=== PATIENT | female | born 1950 | race Caucasian/White ===

== ENCOUNTER 2016-09-13 08:41 | Outpatient (RCR) | payer MEDICARE, MEDICAID ==
--- OUTSIDE RECORDS SUMMARY | 2016-06-19 13:04 | XMS REPORT | Continuity of Care Document ---
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 If you do not see the information that you expected, contact Release of Information in the Health Information Management department at [phone] for further assistance in locating additional records.[facility] Active Allergies and Adverse Reactions No Known Allergies Current Medications Prescription Sig. Disp. Refills Start End Date Status Date morphine SR (MS CONTIN; Take 30 mg by mouth every Active ORAMORPH SR) 30 mg tablet 12 hours albuterol (VENTOLIN HFA, Inhale 2 Puffs by mouth Active PROAIR HFA) 90 every 6 hours as needed. mcg/actuation inhaler ondansetron (ZOFRAN) 8 mg Take 1 Tab by mouth every 30 Tab 0 07/10/20 Active tablet 8 hours as needed. 14 ALPRAZolam (XANAX) 1 mg Take 1 mg by mouth at Active tablet bedtime as needed. gabapentin (NEURONTIN) Take 1 Cap by mouth at 30 Cap 3 20/20 Active 300 mg capsule bedtime daily. 14 oxyCODONE (ROXICODONE) 5 Take 1 Tab by mouth every 30 Tab 0 20/20 Active mg tablet 4 hours as needed 14 aspirin EC 81 mg tablet Take 162 mg by mouth Active daily. levothyroxine (SYNTHROID) Take 50 mcg by mouth Active 25 mcg tablet daily. BUDESONIDE/FORMOTEROL Inhale by mouth. Active FUMARATE (SYMBICORT IN) omeprazole DR(+) Take 20 mg by mouth daily Active (PRILOSEC) 20 mg capsule before breakfast. calcium carbonate Take 1,250 mg by mouth Active (OS-ALISON) 1250 mg tablet daily. fish oil /omega-3 fatty Take 1 Cap by mouth Active acids (SEA-OMEGA) daily. 340/1000 mg capsule ERGOCALCIFEROL (VITAMIN Take 1,000 Int'l Units by Active D2) (VITAMIN D PO) mouth daily. sertraline (ZOLOFT) 50 mg Take 2 Tabs by mouth 90 Tab 0 04/09/20 Active tablet daily. 16 sulfamethoxazole-trimetho Take 1 Tab by mouth twice Active prim (BACTRIM DS) 800-160 daily. Saturday, mg tablet Wednesdays, Fridays Active Problems Problem Noted Date Leukopenia 10/05/2014 Seborrheic dermatitis 10/05/2014 Pancytopenia due to chemotherapy ([facility]) 04/13/2014 Severe malnutrition ([facility]) 04/13/2014 Failure to thrive 03/28/2014 Pleural effusion 03/21/2014 Atelectasis 03/21/2014 Hypophosphatemia 03/19/2014 Mucositis (ulcerative) due to antineoplastic therapy 03/16/2014 Pancytopenia due to antineoplastic chemotherapy ([facility]) 03/15/2014 Diarrhea 03/15/2014 History of peripheral stem cell transplant ([facility]) 03/10/2014 Overview: Date of Transplant: 03/12/2014 Preparative Regimen: Melphalan 200, with HBO Disease: MM, IgA Disease Status at Transplant: Chemo Responsive CMV: positive Cell Source: autologous Consents/Studies:[id number], [id number] Coordinator: Gemini Daigle RN Multiple myeloma ([facility]) 03/03/2014 COPD (chronic obstructive pulmonary disease) ([facility]) 02/25/2014 Resolved Problems Problem Noted Date Resolved Date 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 10/05/2014 Hypomagnesemia 03/19/2014 10/05/2014 Nausea 03/15/2014 10/05/2014 Hypokalemia 03/12/2014 10/05/2014 Conditioning chemotherapy prior to peripheral blood stem cell transplant 10/05/2014 History of tobacco use 02/25/2014 02/25/2014 Most Recent Encounters Date Type Specialty Providers Description 06/19/2016 Orders Only Oncology Odin Cowan MD 06/15/2016 Telephone Oncology Irina Lo RN BMT Follow-up 06/15/2016 Orders Only Oncology Irina Lo RN Multiple myeloma, remission status unspecified (HCC) [C90.00] (Primary Dx); Peripheral venous insufficiency; Disorder of lipoprotein and lipid metabolism 06/12/2016 Telephone Oncology Irina Lo RN BMT Follow-up 04/09/2016 Office Visit Oncology Claudia Reno MD Multiple myeloma in [facility], [place] Odin remission (HCC) (Primary Dx); Multiple myeloma in relapse (HCC) 04/09/2016 Telephone Oncology Layla Knott RN General Question 04/06/2016 Documentation Oncology Larisa Champion Immunizations Name Dates Previously Given Next Due Acthib Vaccine 08/08/2015, 10/05/2014 Flu Vaccine Trivalent >64 07/07/2014 Yo High-dose (Preservative Free) Hepatitis A vaccine Adult 10/05/2014 IM Hepatitis B Vaccine Adult 10/05/2014 3 Dose IM IPV 08/08/2015, 10/05/2014 Meningococcal Conjug 10/05/2014 Vaccine Pneumococcal 08/08/2015, 10/05/2014 Vaccine(13-[facility]/immunocompromised adult) Tdap Vaccine 08/08/2015, 10/05/2014 Social History Tobacco Use Types Packs/Day Years Used Date Former Smoker 1 40 Quit: 09/16/2001 Tobacco Cessation: Counseling Given: No Comments: Alcohol Use Drinks/Week oz/Week Comments No Last Filed Vital Signs Vital Sign Reading Time Taken Blood Pressure 121/77 04/09/2016 11:26 AM CDT Pulse 96 04/09/2016 11:26 AM CDT Temperature 36.9 C (98.5 F) 04/09/2016 11:26 AM CDT Respiratory Rate 16 04/09/2016 11:26 AM CDT Height 1.626 m (5' 4.02") 04/09/2016 11:26 AM CDT Weight 63.2 kg (139 lb 5.3 oz) 04/09/2016 11:26 AM CDT Body Mass Index 23.9 04/09/2016 11:26 AM CDT Oxygen Saturation 96% 04/09/2016 11:26 AM CDT Plan of Care Date Type Specialty Providers Description 07/19/2016 Appointment Oncology Odin Cowan MD [id number] [place] [id number] [phone] (Fax) 07/19/2016 Appointment Oncology Irina Lo RN 07/19/2016 Appointment Oncology Health Maintenance Due Date Last Done Comments Hepatitis C Screening 1950 Physical (Comprehensive) 02/11/1956 Exam Colorectal Cancer 1999 Screening Shingles Vaccine 2009 Osteoporosis Screening 2014 Prevnar/Pneumovax (#2) 10/05/2015 08/08/2015, 10/05/2014 Breast Cancer Screening 02/18/2016 02/17/2014 Influenza Vaccine 05/17/2016 07/07/2014 Tetanus Vaccine 08/08/2025 08/08/2015, 10/05/2014 Pertussis Vaccine Completed 08/08/2015, 10/05/2014 Results from Last 3 Months TYPE & CROSSMATCH (04/09/2016 1:09 PM) Component Value Range Units Ordered 0 Crossmatch Expires 04/12/2016 Record Check FOUND ABO/RH(D) O NEG Antibody Screen NEG Electronic Crossmatch YES Specimen Blood IMMUNOGLOBULINS-IGA,IGG,IGM (04/09/2016 1:09 PM) Component Value Range IgG 505 (L) 762-1488 MG/DL IgA 1151 (H) 70-390 MG/DL IgM 28 (L) 38-328 MG/DL Specimen Blood IMMUNOFIXATION, SERUM (IFES) (04/09/2016 1:09 PM) Component Value Range Immuno Fix-Serum IGA KAPPA PARAPROTEIN Pathologist Signature INTERPRETED BY JESSEE LUCAS M.D. By the PATH SIGNATURE ABOVE, I attest that I have personally formulated the final interpretation expressed in this report and that the above diagnosis is based upon my examination of the slides and/or other material indicated in this report. Specimen Blood KAPPA/LAMBDA FREE LIGHT CHAINS (04/09/2016 1:09 PM) Component Value Range [place], FLC 97.98 (H)Comment: 0.33-1.94 MG/DL [facility]el[facility] results should always be interpreted in conjunction with other laboratory tests and clinical evidence. The possibility of Antigen Excess exists and can cause Immunoassays to under estimate very high concentrations of antigen. Any discordant results should be discussed with Dr. Lucas. Note: Testing instrumentation has changed. The reference range remains the same. L[place], FLC 1.00 0.57-2.63 MG/DL [place]/Lambda FLC 97.98 (H) 0.26-1.65 Specimen Blood COMPREHENSIVE METABOLIC PANEL (04/09/2016 1:09 PM) Component Value Range Sodium 134 (L) 137-147 MMOL/L Potassium 4.0 3.5-5.1 MMOL/L Chloride 99 98-110 MMOL/L Glucose 85 70-100 MG/DL Blood Urea Nitrogen 21 7-25 MG/DL Creatinine 0.95 0.4-1.00 MG/DL Calcium 8.4 (L) 8.5-10.6 MG/DL Total Protein 6.9 6.0-8.0 G/DL Total Bilirubin 0.4 0.3-1.2 MG/DL Albumin 3.5 3.5-5.0 G/DL Alk Phosphatase 45 25-110 U/L AST (SGOT) 9 7-40 U/L CO2 30 21-30 MMOL/L ALT (SGPT) 9 7-56 U/L Anion Gap 5 3-12 eGFR Non 59 (L)Comment: >60 mL/min The eGFR is not validated for use in drug dosing adjustments. Continue to use estimated creatinine clearance per dosing reference text. Please contact the Clinical Pharmacist for questions. eGFR >60Comment: >60 mL/min The eGFR is not validated for use in drug dosing adjustments. Continue to use estimated creatinine clearance per dosing reference text. Please contact the Clinical Pharmacist for questions. Specimen Blood CBC AND DIFF (04/09/2016 1:09 PM) Component Value Range White Blood Cells 1.8 (L) 4.5-11.0 K/UL RBC 2.97 (L) 4.0-5.0 M/UL Hemoglobin 9.8 (L) 12.0-15.0 GM/DL Hematocrit 29.0 (L) 36-45 % MCV 97.9 80-100 FL MCH 32.9 26-34 PG MCHC 33.6 32.0-36.0 G/DL RDW 16.2 (H) 11-15 % Platelet Count 108 (L) 150-400 K/UL MPV 7.9 7-11 FL Neutrophils 42 41-77 % Lymphocytes 38 24-44 % Monocytes 13 (H) 4-12 % Eosinophils 6 (H) 0-5 % Basophils 1 0-2 % Absolute Neutrophil Count 0.80 (L) 1.8-7.0 K/UL Absolute Lymph Count 0.70 (L) 1.0-4.8 K/UL Absolute Monocyte Count 0.20 0-0.80 K/UL Absolute Eosinophil Count 0.10 0-0.45 K/UL Absolute Basophil Count 0.00 0-0.20 K/UL Specimen Blood
[2016-06-19 13:23] LABS: BASOPHILS % (AUTO) 1 % (0-10); EOSINOPHILS # (AUTO) 0.1 10^3/uL (0.0-0.3); EOSINOPHILS % (AUTO) 3 % (0-10); LYMPHOCYTES # (AUTO) 0.7 X 10^3 (1.0-4.0); LYMPHOCYTES % (AUTO) 30 % (12-44); MEAN CORPUSCULAR HEMOGLOBIN 35 PG (25-34); MEAN CORPUSCULAR HGB CONC 34 G/DL (32-36); MEAN CORPUSCULAR VOLUME 104 FL (80-99); MEAN PLATELET VOLUME 8.4 FL (7.4-10.4); MONOCYTES # (AUTO) 0.3 X 10^3 (0.0-1.0); MONOCYTES % (AUTO) 14 % (0-12); NEUTROPHILS # (AUTO) 1.1 X 10^3 (1.8-7.8); NEUTROPHILS % (AUTO) 51 % (42-75); PLATELET COUNT 192 10^3/uL (130-400); RED BLOOD COUNT 2.97 10^6/uL (4.35-5.85); RED CELL DISTRIBUTION WIDTH 14.8 % (10.0-14.5); WHITE BLOOD COUNT 2.2 10^3/uL (4.3-11.0)
[2016-06-26 13:26] LABS: BASOPHILS % (AUTO) 0 % (0-10); EOSINOPHILS # (AUTO) 0.1 10^3/uL (0.0-0.3); EOSINOPHILS % (AUTO) 5 % (0-10); LYMPHOCYTES # (AUTO) 0.5 X 10^3 (1.0-4.0); LYMPHOCYTES % (AUTO) 24 % (12-44); MEAN CORPUSCULAR HEMOGLOBIN 34 PG (25-34); MEAN CORPUSCULAR HGB CONC 33 G/DL (32-36); MEAN CORPUSCULAR VOLUME 105 FL (80-99); MEAN PLATELET VOLUME 9.2 FL (7.4-10.4); MONOCYTES # (AUTO) 0.2 X 10^3 (0.0-1.0); MONOCYTES % (AUTO) 10 % (0-12); NEUTROPHILS # (AUTO) 1.3 X 10^3 (1.8-7.8); NEUTROPHILS % (AUTO) 61 % (42-75); PLATELET COUNT 103 10^3/uL (130-400); RED BLOOD COUNT 2.79 10^6/uL (4.35-5.85); RED CELL DISTRIBUTION WIDTH 14.1 % (10.0-14.5); WHITE BLOOD COUNT 2.1 10^3/uL (4.3-11.0)
[2016-06-26 13:46] LABS: ANION GAP 13 MMOL/L (5-14); BLOOD UREA NITROGEN 10 MG/DL (7-18); BUN/CREATININE RATIO 12; CALCIUM 8.5 MG/DL (8.5-10.1); CARBON DIOXIDE 22 MMOL/L (21-32); CHLORIDE 105 MMOL/L (98-107); CREATININE SERUM 0.82 MG/DL (0.60-1.30); GFR ESTIMATED > 60; GLUCOSE 115 MG/DL (70-105); POTASSIUM 3.7 MMOL/L (3.6-5.0); SODIUM 140 MMOL/L (135-145)
[2016-07-03 13:15] LABS: BASOPHILS % (AUTO) 0 % (0-10); EOSINOPHILS # (AUTO) 0.2 10^3/uL (0.0-0.3); EOSINOPHILS % (AUTO) 9 % (0-10); LYMPHOCYTES # (AUTO) 0.7 X 10^3 (1.0-4.0); LYMPHOCYTES % (AUTO) 39 % (12-44); MEAN CORPUSCULAR HEMOGLOBIN 35 PG (25-34); MEAN CORPUSCULAR HGB CONC 33 G/DL (32-36); MEAN CORPUSCULAR VOLUME 107 FL (80-99); MEAN PLATELET VOLUME 10.4 FL (7.4-10.4); MONOCYTES # (AUTO) 0.2 X 10^3 (0.0-1.0); MONOCYTES % (AUTO) 13 % (0-12); NEUTROPHILS # (AUTO) 0.7 X 10^3 (1.8-7.8); NEUTROPHILS % (AUTO) 39 % (42-75); PLATELET COUNT 106 10^3/uL (130-400); RED BLOOD COUNT 2.72 10^6/uL (4.35-5.85); RED CELL DISTRIBUTION WIDTH 13.8 % (10.0-14.5); WHITE BLOOD COUNT 1.7 10^3/uL (4.3-11.0)
[2016-07-03 13:39] LABS: CALCIUM 8.5 MG/DL (8.5-10.1); CREATININE SERUM 0.94 MG/DL (0.60-1.30); POTASSIUM 3.7 MMOL/L (3.6-5.0)
[2016-07-05 11:27] LABS: PEP REPORT SEE PATH REPORT
[2016-07-05 11:29] LABS: BASOPHILS % (AUTO) 0 % (0-10); EOSINOPHILS % (AUTO) 1 % (0-10); LYMPHOCYTES # (AUTO) 0.4 X 10^3 (1.0-4.0); LYMPHOCYTES % (AUTO) 37 % (12-44); MEAN CORPUSCULAR HEMOGLOBIN 35 PG (25-34); MEAN CORPUSCULAR HGB CONC 33 G/DL (32-36); MEAN CORPUSCULAR VOLUME 105 FL (80-99); MEAN PLATELET VOLUME 10.1 FL (7.4-10.4); MONOCYTES # (AUTO) 0.2 X 10^3 (0.0-1.0); MONOCYTES % (AUTO) 20 % (0-12); NEUTROPHILS # (AUTO) 0.5 X 10^3 (1.8-7.8); NEUTROPHILS % (AUTO) 43 % (42-75); PLATELET COUNT 82 10^3/uL (130-400); RED BLOOD COUNT 2.67 10^6/uL (4.35-5.85); RED CELL DISTRIBUTION WIDTH 13.4 % (10.0-14.5); RETICULOCYTE % 2.25 % (0.50-2.40)
[2016-07-05 11:35] LABS: WHITE BLOOD COUNT 1.2 10^3/uL (4.3-11.0)
[2016-07-05 11:48] LABS: PROTHROMBIN TIME PATIENT 12.9 SEC (12.2-14.7)
[2016-07-05 11:54] LABS: ALBUMIN 3.9 G/DL (3.2-4.5); BILIRUBIN,TOTAL 0.4 MG/DL (0.1-1.0); CALCIUM 9.9 MG/DL (8.5-10.1); CREATININE SERUM 1.04 MG/DL (0.60-1.30); MAGNESIUM 2.2 MG/DL (1.8-2.4); PHOSPHORUS 3.6 MG/DL (2.3-4.7); POTASSIUM 3.6 MMOL/L (3.6-5.0); TOTAL PROTEIN 6.1 G/DL (6.4-8.2)
[2016-07-05 12:07] LABS: BAND NEUTROPHILS 2 %; EOSINOPHILS % (MANUAL) 2 %; LYMPHOCYTES % (MANUAL) 40 %; NEUTROPHILS % (MANUAL) 40 %
[2016-07-05 16:26] LABS: %SAT TOTAL IRON BINDING CAPIC 38 % (15-50); TIBC 288 ug/dL (280-380)
[2016-07-06 02:05] LABS: LIGHT CHAIN KAPPA SERUM QUANT 503.97 mg/L (3.30-19.40); LIGHT CHAIN LAMBDA SERUM QUANT 6.14 mg/L (5.71-26.30)
[2016-07-06 02:19] LABS: IMMUNOGLOBULIN IGA 297 mg/dL (71-263); IMMUNOGLOBULIN IGG 401 mg/dL (672-1680)
[2016-07-06 06:56] LABS: UIBC 179 ug/dL (55-450)
[2016-07-06 06:57] LABS: FERRITIN 272 ng/mL (15-150)
[2016-07-06 07:05] LABS: IMMUNOGLOBULIN IGM <10 mg/dL (47-209)
[2016-07-09 16:23] LABS: MISC LAB TEST & RESULT VRE SCREEN
[2016-07-10 09:41] LABS: CLIN PATHOLOGY REPORT FOOTNOTE; SERUM PROTEIN ELEC DETAIL L-16-0013398
[2016-07-10 14:15] LABS: BASOPHILS % (AUTO) 1 % (0-10); EOSINOPHILS # (AUTO) 0.1 10^3/uL (0.0-0.3); EOSINOPHILS % (AUTO) 6 % (0-10); LYMPHOCYTES # (AUTO) 0.7 X 10^3 (1.0-4.0); LYMPHOCYTES % (AUTO) 41 % (12-44); MEAN CORPUSCULAR HEMOGLOBIN 34 PG (25-34); MEAN CORPUSCULAR HGB CONC 32 G/DL (32-36); MEAN CORPUSCULAR VOLUME 106 FL (80-99); MEAN PLATELET VOLUME 9.4 FL (7.4-10.4); MONOCYTES # (AUTO) 0.3 X 10^3 (0.0-1.0); MONOCYTES % (AUTO) 17 % (0-12); NEUTROPHILS # (AUTO) 0.6 X 10^3 (1.8-7.8); NEUTROPHILS % (AUTO) 35 % (42-75); PLATELET COUNT 94 10^3/uL (130-400); RED BLOOD COUNT 2.45 10^6/uL (4.35-5.85); WHITE BLOOD COUNT 1.6 10^3/uL (4.3-11.0)
[2016-07-10 15:16] LABS: CALCIUM 8.2 MG/DL (8.5-10.1); CREATININE SERUM 1.07 MG/DL (0.60-1.30); POTASSIUM 4.2 MMOL/L (3.6-5.0)
[2016-08-06 15:00] LABS: BASOPHILS % (AUTO) 0 % (0-10); EOSINOPHILS # (AUTO) 0.1 10^3/uL (0.0-0.3); EOSINOPHILS % (AUTO) 3 % (0-10); LYMPHOCYTES # (AUTO) 0.9 X 10^3 (1.0-4.0); LYMPHOCYTES % (AUTO) 40 % (12-44); MEAN CORPUSCULAR HEMOGLOBIN 33 PG (25-34); MEAN CORPUSCULAR HGB CONC 32 G/DL (32-36); MEAN CORPUSCULAR VOLUME 105 FL (80-99); MEAN PLATELET VOLUME 8.2 FL (7.4-10.4); MONOCYTES # (AUTO) 0.2 X 10^3 (0.0-1.0); MONOCYTES % (AUTO) 9 % (0-12); NEUTROPHILS # (AUTO) 1.1 X 10^3 (1.8-7.8); NEUTROPHILS % (AUTO) 48 % (42-75); PLATELET COUNT 118 10^3/uL (130-400); RED BLOOD COUNT 2.74 10^6/uL (4.35-5.85); RED CELL DISTRIBUTION WIDTH 13.6 % (10.0-14.5); WHITE BLOOD COUNT 2.3 10^3/uL (4.3-11.0)
[2016-08-06 15:38] LABS: ALANINE AMINOTRANSFERASE 7 U/L (0-55); ANION GAP 6 MMOL/L (5-14); ASPARTATE AMINO TRANSFERASE 10 U/L (5-34); BILIRUBIN,TOTAL 0.3 MG/DL (0.1-1.0); BLOOD UREA NITROGEN 10 MG/DL (7-18); BUN/CREATININE RATIO 12; CALCIUM 9.1 MG/DL (8.5-10.1); CARBON DIOXIDE 31 MMOL/L (21-32); CHLORIDE 103 MMOL/L (98-107); CREATININE SERUM 0.83 MG/DL (0.60-1.30); GFR ESTIMATED > 60; GLUCOSE 106 MG/DL (70-105); LACTATE DEHYDROGENASE 157 U/L (125-220); MAGNESIUM 1.9 MG/DL (1.8-2.4); POTASSIUM 3.9 MMOL/L (3.6-5.0); SODIUM 140 MMOL/L (135-145); TOTAL PROTEIN 6.3 G/DL (6.4-8.2)
[2016-08-07 02:49] LABS: IMMUNOGLOBULIN IGA 506 mg/dL (71-263); IMMUNOGLOBULIN IGG 418 mg/dL (672-1680); LIGHT CHAIN KAPPA SERUM QUANT 949.79 mg/L (3.30-19.40); LIGHT CHAIN LAMBDA SERUM QUANT 8.41 mg/L (5.71-26.30)
[2016-08-07 08:48] LABS: IMMUNOGLOBULIN IGM <10 mg/dL (47-209)
[2016-08-16 08:52] LABS: BASOPHILS % (AUTO) 0 % (0-10); EOSINOPHILS # (AUTO) 0.1 10^3/uL (0.0-0.3); EOSINOPHILS % (AUTO) 2 % (0-10); LYMPHOCYTES # (AUTO) 0.7 X 10^3 (1.0-4.0); LYMPHOCYTES % (AUTO) 34 % (12-44); MEAN CORPUSCULAR HEMOGLOBIN 33 PG (25-34); MEAN CORPUSCULAR HGB CONC 32 G/DL (32-36); MEAN CORPUSCULAR VOLUME 102 FL (80-99); MEAN PLATELET VOLUME 8.4 FL (7.4-10.4); MONOCYTES # (AUTO) 0.2 X 10^3 (0.0-1.0); MONOCYTES % (AUTO) 9 % (0-12); NEUTROPHILS # (AUTO) 1.1 X 10^3 (1.8-7.8); NEUTROPHILS % (AUTO) 55 % (42-75); PLATELET COUNT 121 10^3/uL (130-400); RED BLOOD COUNT 2.94 10^6/uL (4.35-5.85); RED CELL DISTRIBUTION WIDTH 13.1 % (10.0-14.5); WHITE BLOOD COUNT 2.1 10^3/uL (4.3-11.0)
[2016-08-16 09:12] LABS: ANION GAP 10 MMOL/L (5-14); BLOOD UREA NITROGEN 10 MG/DL (7-18); BUN/CREATININE RATIO 13; CALCIUM 8.9 MG/DL (8.5-10.1); CARBON DIOXIDE 26 MMOL/L (21-32); CHLORIDE 104 MMOL/L (98-107); GFR ESTIMATED > 60; GLUCOSE 66 MG/DL (70-105); POTASSIUM 3.6 MMOL/L (3.6-5.0); SODIUM 140 MMOL/L (135-145)
[2016-08-23 08:32] LABS: BASOPHILS % (AUTO) 0 % (0-10); EOSINOPHILS % (AUTO) 3 % (0-10); LYMPHOCYTES # (AUTO) 0.5 X 10^3 (1.0-4.0); LYMPHOCYTES % (AUTO) 33 % (12-44); MEAN CORPUSCULAR HEMOGLOBIN 33 PG (25-34); MEAN CORPUSCULAR HGB CONC 34 G/DL (32-36); MEAN CORPUSCULAR VOLUME 100 FL (80-99); MONOCYTES # (AUTO) 0.1 X 10^3 (0.0-1.0); MONOCYTES % (AUTO) 6 % (0-12); NEUTROPHILS # (AUTO) 0.8 X 10^3 (1.8-7.8); NEUTROPHILS % (AUTO) 58 % (42-75); PLATELET COUNT 110 10^3/uL (130-400); RED BLOOD COUNT 2.96 10^6/uL (4.35-5.85); RED CELL DISTRIBUTION WIDTH 12.9 % (10.0-14.5); WHITE BLOOD COUNT 1.5 10^3/uL (4.3-11.0)
[2016-08-23 08:53] LABS: ANION GAP 12 MMOL/L (5-14); BLOOD UREA NITROGEN 13 MG/DL (7-18); BUN/CREATININE RATIO 16; CALCIUM 8.6 MG/DL (8.5-10.1); CARBON DIOXIDE 23 MMOL/L (21-32); CHLORIDE 106 MMOL/L (98-107); GFR ESTIMATED > 60; GLUCOSE 101 MG/DL (70-105); POTASSIUM 3.6 MMOL/L (3.6-5.0); SODIUM 141 MMOL/L (135-145)
[2016-08-30 08:55] LABS: BASOPHILS % (AUTO) 0 % (0-10); EOSINOPHILS % (AUTO) 2 % (0-10); LYMPHOCYTES # (AUTO) 0.6 X 10^3 (1.0-4.0); LYMPHOCYTES % (AUTO) 32 % (12-44); MEAN CORPUSCULAR HEMOGLOBIN 33 PG (25-34); MEAN CORPUSCULAR HGB CONC 33 G/DL (32-36); MEAN CORPUSCULAR VOLUME 101 FL (80-99); MEAN PLATELET VOLUME 8.6 FL (7.4-10.4); MONOCYTES # (AUTO) 0.4 X 10^3 (0.0-1.0); MONOCYTES % (AUTO) 20 % (0-12); NEUTROPHILS # (AUTO) 0.8 X 10^3 (1.8-7.8); NEUTROPHILS % (AUTO) 46 % (42-75); PLATELET COUNT 109 10^3/uL (130-400); RED BLOOD COUNT 3.03 10^6/uL (4.35-5.85); WHITE BLOOD COUNT 1.8 10^3/uL (4.3-11.0)
[2016-08-30 09:19] LABS: CALCIUM 8.8 MG/DL (8.5-10.1); CREATININE SERUM 0.95 MG/DL (0.60-1.30); POTASSIUM 3.5 MMOL/L (3.6-5.0)
[2016-09-06 09:17] LABS: BASOPHILS % (AUTO) 0 % (0-10); EOSINOPHILS % (AUTO) 4 % (0-10); LYMPHOCYTES # (AUTO) 0.5 X 10^3 (1.0-4.0); LYMPHOCYTES % (AUTO) 51 % (12-44); MEAN CORPUSCULAR HEMOGLOBIN 33 PG (25-34); MEAN CORPUSCULAR HGB CONC 33 G/DL (32-36); MEAN CORPUSCULAR VOLUME 100 FL (80-99); MONOCYTES # (AUTO) 0.1 X 10^3 (0.0-1.0); MONOCYTES % (AUTO) 12 % (0-12); NEUTROPHILS # (AUTO) 0.3 X 10^3 (1.8-7.8); NEUTROPHILS % (AUTO) 33 % (42-75); PLATELET COUNT 111 10^3/uL (130-400); RED BLOOD COUNT 3.07 10^6/uL (4.35-5.85); RED CELL DISTRIBUTION WIDTH 13.2 % (10.0-14.5)
[2016-09-06 09:43] LABS: CALCIUM 9.2 MG/DL (8.5-10.1); CREATININE SERUM 1.11 MG/DL (0.60-1.30)
[~2016-09-13] VITALS: Ht 160 cm; Wt 67.6 kg
[~2016-09-13 08:41] MED LIST: ACET-461 PO; ACETAMINOPHEN 325 MG TAB (TYLENOL) CANCER CTR PO PRN; ACHYD1T PO; ACLI400A IH; ACYC400T21 PO; ALBU8.5H2 IH; ALPR1T PO; ALPR1TAB7 PO; AMLO10TA PO; ASPI-875 PO; BSC10SU PR; BUDE6HFA IH; CALC-80 PO; CARFILZOMIB IV SCH; CHOL200035 PO; CYCL10TA9 PO; D5W IV SCH; DARATUMUMAB IV SCH; DCS100C PO; DXM4T PO; Diphenhydramine Hcl IV; Diphenhydramine Hcl PO; ENXP40I.4 SC; FAMOTIDINE 20MG/2ML IV (CANCER CTR) IV SCH; Fluconazole PO; GABA-488 PO; GBPN100C PO; HYDR-229 PO; HYDR-34 PO; HYDR-623 PO; LENA25CA PO; LORA10TA56 PO; Levofloxacin PO; MAGN400O7 PO; MORP30CA16 PO; MORP30TA5 PO; MTP25TSR PO; NAPR-243 PO; NAPR250T34 PO; NF-ESOM40C PO; NS IV 1000 ML (CANCER CTR) IV SCH; NS IV 500 ML (CANCER CENTER) IV SCH; NS IV SCH; OMEG1CAP51 PO; OMEP20CA12 PO; ONDA-41 PO; ONDA8TAB6 PO; ONDANSETRON MDV (CANCER CENTER 16 MG in NS (IVPB) CANCER CENTER 50 ML IV SCH; ONDANSETRON MDV (CANCER CENTER 16 MG, DEXAMETHASONE INJ (CANCER CTR) 4 MG in NS (IVPB) ... IV SCH; OXYC1TAB92 PO; OXYC5TAB71 PO; PALONOSETRON HCL 0.25 MG, DEXAMETHASONE INJ (CANCER CTR) 4 MG in NS (IVPB) CANCER CENTE... IV PRN; PNT40TEC PO; POTA99TA15 PO; Pantoprazole Sodium PO; REVLIMID 10MG PO; RNT150T PO; SENN-35 PO; SERT100T8 PO; SERT50TA PO; SNN187T; SORB1SOL2 PO; SULF1TAB38 PO; diphenhydrAMINE 25 MG TAB (BENADRYL) CANCER CENTER PO SCH; diphenhydrAMINE 50 MG/ML INJ (CANCER CENTER) IV PRN; methylPREDNISolone 125 MG/2 ML (SOLU-MEDROL) CANCER CTR IV SCH
[2016-09-13 09:00] LABS: BASOPHILS % (AUTO) 1 % (0-10); EOSINOPHILS % (AUTO) 3 % (0-10); LYMPHOCYTES # (AUTO) 0.6 X 10^3 (1.0-4.0); LYMPHOCYTES % (AUTO) 43 % (12-44); MEAN CORPUSCULAR HEMOGLOBIN 32 PG (25-34); MEAN CORPUSCULAR HGB CONC 33 G/DL (32-36); MEAN CORPUSCULAR VOLUME 98 FL (80-99); MEAN PLATELET VOLUME 8.8 FL (7.4-10.4); MONOCYTES # (AUTO) 0.4 X 10^3 (0.0-1.0); MONOCYTES % (AUTO) 31 % (0-12); NEUTROPHILS # (AUTO) 0.3 X 10^3 (1.8-7.8); NEUTROPHILS % (AUTO) 23 % (42-75); PLATELET COUNT 147 10^3/uL (130-400); RED CELL DISTRIBUTION WIDTH 13.7 % (10.0-14.5)
[2016-09-13 09:02] LABS: WHITE BLOOD COUNT 1.4 10^3/uL (4.3-11.0)
[2016-09-13 09:33] LABS: ALBUMIN 3.9 G/DL (3.2-4.5); BILIRUBIN,TOTAL 0.2 MG/DL (0.1-1.0); CALCIUM 9.2 MG/DL (8.5-10.1); MAGNESIUM 1.8 MG/DL (1.8-2.4); POTASSIUM 3.9 MMOL/L (3.6-5.0); TOTAL PROTEIN 6.4 G/DL (6.4-8.2)
[2016-09-14 02:12] LABS: IMMUNOGLOBULIN IGA 526 mg/dL (71-263); IMMUNOGLOBULIN IGG 413 mg/dL (672-1680); LIGHT CHAIN KAPPA SERUM QUANT 1337.54 mg/L (3.30-19.40); LIGHT CHAIN LAMBDA SERUM QUANT 8.58 mg/L (5.71-26.30)
[2016-09-14 07:32] LABS: IMMUNOGLOBULIN IGM <10 mg/dL (47-209)
== END 2016-09-17 | disposition home or self-care (01) ==
LOC: ONC 08:41
PROVIDERS: ATTEND Internal Medicine Hematology & Oncology
DX: Z51.11 Encounter for antineoplastic chemotherapy (principal); C90.00 Multiple myeloma not having achieved remission; D64.9 Anemia, unspecified; M89.9 Disorder of bone, unspecified; Z79.899 Other long term (current) drug therapy
CPT/HCPCS: 36415; 38221; 80048; 80053; 80061; 82232; 82728; 82784; 83540; 83615; 83735; 83883; 84100; 84155; 84165; 85007; 85025; 85027; 85045; 85610; 86334; 86644; 86645; 87081; 88237; 88264; 88280; 88305; 88311; 88313; 88368; 88369; 96375; 96409; 96411; 96413; 96415; 99213

== ENCOUNTER 2016-09-18 14:30 | Outpatient (RCR) | payer MEDICARE, MEDICAID ==
--- OUTSIDE RECORDS SUMMARY | 2016-08-27 09:57 | XMS REPORT | Continuity of Care Document ---
Author Author [facility] Organization [facility] Address Unknown Phone Unavailable Care Team Providers Care Technical Asst Name Role Phone Radha Snowden PCP [phone] Source Comments Some departments are not documenting in the electronic medical record. If you do not see the information that you expected, contact Release of Information in the Health Information Management department at [phone] for further assistance in locating additional records.[facility] Active Allergies and Adverse Reactions No Known Allergies Current Medications Prescription Sig. Disp. Refills Start End Date Status Date albuterol (VENTOLIN HFA, Inhale 2 Puffs by mouth Active PROAIR HFA) 90 every 6 hours as needed. mcg/actuation inhaler ondansetron (ZOFRAN) 8 mg Take 1 Tab by mouth every 30 Tab 0 10/20 Active tablet 8 hours as needed. 14 ALPRAZolam (XANAX) 1 mg Take 2 mg by mouth at Active tablet bedtime as needed. gabapentin (NEURONTIN) Take 1 Cap by mouth at 30 Cap 3 2020 Active 300 mg capsule bedtime daily. 14 [...] Active acids (SEA-OMEGA) daily. 340/1000 mg capsule sertraline (ZOLOFT) 50 mg Take 2 Tabs by mouth 90 Tab 0 04/09/20 Active tablet daily. 16 sulfamethoxazole-trimetho Take 1 Tab by mouth twice Active prim (BACTRIM DS) 800-160 daily. Saturday, mg tablet Wednesdays, Fridays morphine SR (MS CONTIN; Take 1 Tab by mouth every 0 07/31/20 Active ORAMORPH SR) 15 mg tablet 12 hours Takes with 30 mg 16 tablet for total dose=45 mg by mouth twice a day. morphine SR (MS CONTIN; Take 1 Tab by mouth every 07/31/20 Active ORAMORPH SR) 30 mg ER 12 hours Takes with 15 mg 16 tablet tablet for total dose=45 mg by mouth twice a day. morphine SR (MS CONTIN; Take 30 mg by mouth every 07/31/20 Discontin ORAMORPH SR) 30 mg tablet 12 hours 16 ued Active Problems Problem Noted Date Leukopenia 10/05/2014 Seborrheic dermatitis 10/05/2014 Pancytopenia due to chemotherapy ([facility]) 04/13/2014 Severe malnutrition ([facility]) 04/13/2014 Failure to thrive 03/28/2014 Pleural effusion 03/21/2014 Atelectasis 03/21/2014 Hypophosphatemia 03/19/2014 Mucositis (ulcerative) due to antineoplastic therapy 03/16/2014 Pancytopenia due to antineoplastic chemotherapy ([facility]) 03/15/2014 Diarrhea 03/15/2014 History of peripheral stem cell transplant ([facility]) 03/10/2014 Overview: Date of Transplant: 03/12/2014 Preparative Regimen: Melphalan 200, with HBO Disease: MM, IgA Disease Status at Transplant: Chemo Responsive CMV: positive Cell Source: autologous Consents/Studies:[id number], [id number] Coordinator: Gemini Daigle RN Multiple myeloma ([facility]) 03/03/2014 COPD (chronic obstructive pulmonary disease) ([facility]) 02/25/2014 Resolved Problems Problem Noted Date Resolved Date 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 10/05/2014 Hypomagnesemia 03/19/2014 10/05/2014 Nausea 03/15/2014 10/05/2014 Hypokalemia 03/12/2014 10/05/2014 Conditioning chemotherapy prior to peripheral blood stem cell transplant 10/05/2014 History of tobacco use 02/25/2014 02/25/2014 Most Recent Encounters Date Type Specialty Providers Description 07/31/2016 [facility] Odin Cowan MD Canceled ( Clinician or Encounter Santana Garcia MD Resource) 07/31/2016 Office Visit Oncology Claudia Reno MD 07/31/2016 Nurse Only Oncology Claudia Reno MD Multiple myeloma, Irina Lo RN remission status unspecified (HCC) (Primary Dx) 07/31/2016 Office Visit Oncology Claudia Reno MD Multiple myeloma, remission status unspecified (HCC) 07/31/2016 Documentation Oncology Paula Haque RD 07/31/2016 Orders Only Oncology Lissa Santacruz, PHARMD 07/30/2016 Orders Only Oncology Kirstin Singletary RN Abnormal PFT ( Primary Dx) 07/23/2016 [facility] Odin Cowan MD Encounter 07/23/2016 [facility] Odin Cowan MD Encounter 07/23/2016 [facility] Odin Cowan MD Encounter 07/22/2016 Orders Only Oncology Tushar Herr, PHARMD 07/20/2016 Documentation Oncology Caroline Hinojosa 07/19/2016 Nurse Only Oncology Odin Cowan MD 07/19/2016 Office Visit Oncology Odin Cowan MD Multiple myeloma not having achieved remission (HCC) (Primary Dx); History of peripheral stem cell transplant (HCC); Pancytopenia due to antineoplastic chemotherapy (HCC); Pancytopenia due to chemotherapy (HCC); Multiple myeloma, remission status unspecified (HCC) [C90.00]; Disorder of lipoprotein and lipid metabolism; Peripheral venous insufficiency 07/19/2016 Nurse Only Oncology Odin Cowan MD Multiple myeloma, Irina Lo RN remission status unspecified (HCC) (Primary Dx) 07/19/2016 Documentation Oncology Chari Beal 06/19/2016 Orders Only Oncology Odin Cowan MD 06/15/2016 Telephone Oncology Irina Lo RN BMT Follow-up 06/15/2016 Orders Only Oncology Irina Lo RN Multiple myeloma, remission status unspecified (HCC) [C90.00] (Primary Dx); Peripheral venous insufficiency; Disorder of lipoprotein and lipid metabolism 06/12/2016 Telephone Oncology Irina Lo RN BMT Follow-up Immunizations Name Dates Previously Given Next Due [...] Vital Sign Reading Time Taken Blood Pressure 145/85 07/31/2016 10:15 AM HARVESTING MANAGER Pulse 82 07/31/2016 10:15 AM HARVESTING MANAGER Temperature 36.6 C (97.9 F) 07/31/2016 10:15 AM HARVESTING MANAGER Respiratory Rate 18 07/31/2016 10:15 AM HARVESTING MANAGER Height 1.626 m (5' 4.02") 07/31/2016 10:15 AM HARVESTING MANAGER Weight 67.1 kg (147 lb 14.9 oz) 07/31/2016 10:15 AM HARVESTING MANAGER Body Mass Index 25.38 07/31/2016 10:15 AM HARVESTING MANAGER Oxygen Saturation 98% 07/31/2016 10:15 AM HARVESTING MANAGER Plan of Care Health Maintenance Due Date Last Done Comments Hepatitis C Screening 1950 Physical (Comprehensive) 02/11/1956 Exam Colorectal Cancer 1999 Screening Shingles Vaccine 2009 Osteoporosis Screening 2014 Prevnar/Pneumovax (#2) 10/05/2015 08/08/2015, 10/05/2014 Breast Cancer Screening 02/18/2016 02/17/2014 Influenza Vaccine 05/17/2016 07/07/2014 Tetanus Vaccine 08/08/2025 08/08/2015, 10/05/2014 Pertussis Vaccine Completed 08/08/2015, 10/05/2014 Procedures from Last 3 Months Procedure Name Priority Date/Time Associated Diagnosis Comments PROCEDURES-SCAN 07/27/2016 Results for this 9:16 AM HARVESTING MANAGER procedure are in the results section. Results from Last 3 Months COMPREHENSIVE METABOLIC PANEL (07/31/2016 10:28 AM)Only the most recent of 2 results within the time period is included. Component Value Range Sodium 136 (L) 137-147 MMOL/L Potassium 3.7 3.5-5.1 MMOL/L Chloride 103 98-110 MMOL/L Glucose 106 (H) 70-100 MG/DL Blood Urea Nitrogen 12 7-25 MG/DL Creatinine 0.99 0.4-1.00 MG/DL Calcium 8.9 8.5-10.6 MG/DL Total Protein 6.3 6.0-8.0 G/DL Total Bilirubin 0.3 0.3-1.2 MG/DL Albumin 3.9 3.5-5.0 G/DL Alk Phosphatase 39 25-110 U/L AST (SGOT) 10 7-40 U/L CO2 26 21-30 MMOL/L ALT (SGPT) 6 (L) 7-56 U/L Anion Gap 7 3-12 eGFR Non 56 (L)Comment: >60 mL/min The eGFR is not [...] the Clinical Pharmacist for questions. Specimen Blood PROCEDURES-SCAN (07/27/2016 9:16 AM) Narrative Ordered by an unspecified provider. METASTATIC SKELETAL SURVEY (07/23/2016 11:12 AM) Impressions 1.Probable slight enlargement in size and number of metastatic lesions noted throughout the calvarium, with questionable new lesion in the right proximal ulna. Some of these lesions could be accentuated due to technique, possibly stable since prior. Attention on follow-up exam recommended. 2.Less conspicuous involvement of myeloma involving the proximal humeri as detailed above. 3.No acute osseous abnormality. No definite fractures identified. Unchanged left proximal femoral hemiarthroplasty and vertebral body cement augmentation L2 and L3. Finalized by Domingeuz Fraga M.D. on 07/23/2016 12:02 PM. Dictated by Dominguez Fraga M.D. on 07/23/2016 11:52 AM. Narrative Metastatic skeletal survey (17 views total). Comparison: Panorex survey 07/23/2016. Metastatic skeletal survey 09/21/2014. Clinical indication: 66-year-old female with multiple myeloma, remission status unspecified. Findings: Lateral calvarium: Unremarkable punched-out lytic lesions involving the skull, consistent with myeloma. Findings appear to have progressed slightly since 2014, particularly involving the parietal region with enlargement of lesion size and increased number of lesions identified. Thoracic and lumbar spine: Unchanged diffuse osteopenia, with multiple wedge deformities involving the thoracic and lumbar spine, not definitely changed since prior. Redemonstration of vertebral body cement augmentation L2 and L3. Moderate degenerative disc disease L1-L2 has progressed since prior. Moderate degenerative disc disease L5-S1. No definite new compression fractures are identified. Pelvis: Redemonstration of diffuse marked osteopenia with multiple lytic lesions most consistent with infiltrative myeloma. Surgical clips project over the low pelvis. Bilateral lower extremities: Probable slight progression of multiple lytic lesions involving the bilateral femurs and proximal tibiae as well as mid fibulae. For example, a lesion just distal to the right lesser trochanter as well as in the central left femoral diaphysis appears slightly larger in size. Left proximal femoral bipolar hemiarthroplasty again identified. Bilateral upper extremities: Slight decrease conspicuity of lytic lesions involving the bilateral distal clavicles, acromions, and humeri. There is less prominent endosteal scalloping of the left humerus. A new lesion is thought to be present in the right proximal ulna, although this may have been obscured by the radial tuberosity on prior exam. Procedure Note Interface, Radiant Results - Mon Jul 23, 2016 12:05 PM HARVESTING MANAGER Metastatic skeletal survey (17 views total). Comparison: Panorex survey 07/23/2016. Metastatic skeletal survey 09/21/2014. Clinical indication: 66-year-old female with multiple myeloma, remission status unspecified. Findings: Lateral calvarium: Unremarkable punched-out lytic lesions involving the skull, consistent with myeloma. Findings appear to have progressed slightly since 2014, particularly involving the parietal region with enlargement of lesion size and increased number of lesions identified. Thoracic and lumbar spine: Unchanged diffuse osteopenia, with multiple wedge deformities involving the thoracic and lumbar spine, not definitely changed since prior. Redemonstration of vertebral body cement augmentation L2 and L3. Moderate degenerative disc disease L1-L2 has progressed since prior. Moderate degenerative disc disease L5-S1. No definite new compression fractures are identified. Pelvis: Redemonstration of diffuse marked osteopenia with multiple lytic lesions most consistent with infiltrative myeloma. Surgical clips project over the low pelvis. Bilateral lower extremities: Probable slight progression of multiple lytic lesions involving the bilateral femurs and proximal tibiae as well as mid fibulae. For example, a lesion just distal to the right lesser trochanter as well as in the central left femoral diaphysis appears slightly larger in size. Left proximal femoral bipolar hemiarthroplasty again identified. Bilateral upper extremities: Slight decrease conspicuity of lytic lesions involving the bilateral distal clavicles, acromions, and humeri. There is less prominent endosteal scalloping of the left humerus. A new lesion is thought to be present in the right proximal ulna, although this may have been obscured by the radial tuberosity on prior exam. IMPRESSION 1. Probable slight enlargement in size and number of metastatic lesions noted throughout the calvarium, with questionable new lesion in the right proximal ulna. Some of these lesions could be accentuated due to technique, possibly stable since prior. Attention on follow-up exam recommended. 2. Less conspicuous involvement of myeloma involving the proximal humeri as detailed above. 3. No acute osseous abnormality. No definite fractures identified. Unchanged left proximal femoral hemiarthroplasty and vertebral body cement augmentation L2 and L3. Finalized by Dominguez Fraga M.D. on 07/23/2016 12:02 PM. Dictated by Dominguez Fraga M.D. on 07/23/2016 11:52 AM. PANOREX EXAM (07/23/2016 11:12 AM) Impressions Findings/Impression: 1.The patient is edentulous. 2.No dental abscesses. 3.Scattered small lucencies within the right and left body of the mandible suspect for myeloma. 4.No fractures Finalized by Familia Steel M.D. on 07/23/2016 1:35 PM. Dictated by Familia Steel M.D. on 07/23/2016 1:33 PM. Narrative Panorex one view. History: Multiple myeloma. Procedure Note Interface, Radiant Results - SatJul 23, 2016 1:38 PM HARVESTING MANAGER Panorex one view. History: Multiple myeloma. IMPRESSION Findings/Impression: 1. The patient is edentulous. 2. No dental abscesses. 3. Scattered small lucencies within the right and left body of the mandible suspect for myeloma. 4. No fractures Finalized by Familia Steel M.D. on 07/23/2016 1:35 PM. Dictated by Familia Steel M.D. on 07/23/2016 1:33 PM. CHEST 2 VIEWS (07/23/2016 11:12 AM) Impressions 1. No acute cardiopulmonary process. 2. Development of a healing fracture involving the anterior left third rib. 3. Persistent soft tissue prominence about the right cardiophrenic angle, reflective of prominent epicardial fat pad. 4. Lucent lesions again noted about the clavicles and scapula, compatible with patient's known osseous involvement by myeloma. Finalized by Andres Barbosa M.D. on 07/23/2016 12:45 PM. Dictated by Andres Barbosa M.D. on 07/23/2016 12:39 PM. Narrative 2 view chest Clinical history: Pretransplant evaluation. Comparison is made with prior examination dated 03/21/2014 and 02/17/2014. Findings: Upright PA and lateral views of the chest again demonstrate that the heart remains to be normal in size without evidence of pulmonary venous congestion. Prominent soft tissue is again noted at the right cardiophrenic angle, likely representing epicardial fat pad. Calcified granuloma is again noted in right upper lobe unchanged from prior examination. No new acute pleural infiltrates or consolidation is seen. No pneumothorax or pleural effusion is identified. Thoracic spondylosis is again noted. Post vertebroplasty changes of the upper lumbar vertebral bodies are identified and better seen on the lateral projection. There is development of a healing fracture involving the anterior left third rib. Small areas of lucency are again noted about the bilateral clavicle and scapula, compatible with involvement by multiple myeloma. Procedure Note Interface, Radiant Results - SatJul 23, 2016 12:48 PM HARVESTING MANAGER 2 view chest Clinical history: Pretransplant evaluation. Comparison is made with prior examination dated 03/21/2014 and 02/17/2014. Findings: Upright PA and lateral views of the chest again demonstrate that the heart remains to be normal in size without evidence of pulmonary venous congestion. Prominent soft tissue is again noted at the right cardiophrenic angle, likely representing epicardial fat pad. Calcified granuloma is again noted in right upper lobe unchanged from prior examination. No new acute pleural infiltrates or consolidation is seen. No pneumothorax or pleural effusion is identified. Thoracic spondylosis is again noted. Post vertebroplasty changes of the upper lumbar vertebral bodies are identified and better seen on the lateral projection. There is development of a healing fracture involving the anterior left third rib. Small areas of lucency are again noted about the bilateral clavicle and scapula, compatible with involvement by multiple myeloma. IMPRESSION 1. No acute cardiopulmonary process. 2. Development of a healing fracture involving the anterior left third rib. 3. Persistent soft tissue prominence about the right cardiophrenic angle, reflective of prominent epicardial fat pad. 4. Lucent lesions again noted about the clavicles and scapula, compatible with patient's known osseous involvement by myeloma. Finalized by Andres Barbosa M.D. on 07/23/2016 12:45 PM. Dictated by Andres Barbosa M.D. on 07/23/2016 12:39 PM. PFT COMPLETE PULM FUNCTION (07/23/2016 10:00 AM) Component Value Range FVC-Pre 2.04 L FVC-%Pred-pre 64 % FEV1-Pre 1.39 L FEV1-%Pred-Pre 57 % [id number] 0.85 L/sec [id number]-%Pred-Pre 41 % VCSVC-Pre 1.94 L ICSVC-Pre 1.17 L ERVSVC-Pre 0.77 L PEF-Pre 221.0 L/min TGVPleth-Pre 3.08 L RVPleth-Pre 2.35 L RVPleth-%Pred-Pre 108 % TLCPleth-Pre 4.26 L TLCPleth-%Pred-Pre 82 % DLCOunc-Pred 21.10 ml/min/mmHg DLCOunc-Pre 12.47 ml/min/mmHg DLCOunc-%Pred-Pre 59 % DLCOunc-SD 3.75 ml/min/mmHg DLCOunc-LLN 13.60 ml/min/mmHg DLCOunc-ULN 28.60 ml/min/mmHg DLCOunc-#SD -2.301 ml/min/mmHg DLVA-Pred 4.29 ml/min/mmHg/L DLVA-Pre 3.35 ml/min/mmHg/L DLVA-%Pred-Pre 78 % DLVA-SD 0.80 ml/min/mmHg/L DLVA-LLN 2.69 ml/min/mmHg/L DLVA-ULN 5.89 ml/min/mmHg/L DLVA-#SD -1.172 ml/min/mmHg/L 2-D + DOPPLER ECHOCARDIOGRAM (07/23/2016 9:08 AM) Component Value Range BSA 1.69 m2 ECHO EF 55 % Referring Provider Odin Cowan MD LVIDD 4.3 3.9-5.3 cm LVIDS 2.5 cm IVS 1.0 0.6-0.9 cm PW 0.9 0.6-0.9 cm FS 41.86 28-44 % EF 71.16 % LA size 3.2 2.7-3.8 cm LA volume 39.0 22-52 mL Left Atrium Index 23.08 10-32 Right Ventricular Basal 3.3 cm (2.4-4.2) Diameter Right Atrial Area 16.7 cm2 (<=18) Right Ventricular Mid 2.3 cm (2.0-3.5) Diameter Right Atrial Major 5.1 cm (<=5.3) Dimension Right Ventricular Long 7.2 cm (5.6-8.6) Diameter Right Atrial Minor 3.9 cm (<=4.4) Dimension Sinus 3.3 2.1-3.5 cm AV peak velocity 1.6 m/s TV rest pulmonary artery 26 mmHg pressure E/A ratio 0.80 TDI e' 0.110 m/s E/E' ratio 7.27 MV Peak E [place] PW 0.800 m/s MV Peak A [place] 1.000 m/s Narrative The left ventricle is normal in size and function, estimated ejection fraction is 55%. Mild diastolic dysfunction The right ventricle is normal in size and function. The left and right atria are normal in size. No significant valve disease is identified. Normal estimated PA systolic pressure. Comparison is made to prior study of 02/18/14, there are no significant changes. URINALYSIS, MICROSCOPIC (07/19/2016 12:20 PM) Component Value Range WBCs,UA 2-10 0-2 /HPF RBCs,UA 0-2 0-3 /HPF MucousUA TRACE Squamous Epithelial Cells 0-2 0-5 Hyaline Cast 5-10 Granular Casr 0-2 URINALYSIS DIPSTICK (07/19/2016 12:20 PM) Component Value Range Color,UA YELLOW Turbidity,UA 2+ (A) CLEAR-CLEAR Specific [place]-Urine 1.014 1.003-1.035 pH,UA 5.0 5.0-8.0 Protein,UA 1+ (A) NEG-NEG Glucose,UA NEG NEG-NEG Ketones,UA NEG NEG-NEG Bilirubin,UA NEG NEG-NEG Blood,UA NEG NEG-NEG Urobilinogen,UA NORMAL NORM-NORMAL Nitrite,UA NEG NEG-NEG Leukocytes,UA TRACE (A) NEG-NEG Urine Ascorbic Acid, UA NEG NEG-NEG ELECTROPHORESIS-SERUM PROTEIN (07/19/2016 12:20 PM) Component Value Range Total Protein-SEP 6.4 6.0-8.0 G/DL Albumin % 61.9 48-68 % Alpha 1 % 5.9 2-6 % Alpha 2 % 9.0 5-15 % Beta %,Serum 10.9 9-17 % Gamma % 12.3 9-21 % Paraprotein 0.30 G/DL Interpretation - SEP SPIKE, PROBABLY MONOCLONAL, IN BETA/GAMMA REGION(S) Pathologist Signature INTERPRETED BY CHANCE HERNANDEZ M.D. By the PATH SIGNATURE ABOVE, I attest that I have personally formulated the final interpretation expressed in this report and that the above diagnosis is based upon my examination of the slides and/or other material indicated in this report. Specimen Blood KAPPA/LAMBDA FREE LIGHT CHAINS (07/19/2016 12:20 PM) Component Value Range [place], FLC 101.27 (H)Comment: 0.33-1.94 MG/DL Freelite results should always be interpreted in conjunction with other laboratory tests and clinical evidence. The possibility of Antigen Excess exists and can cause Immunoassays to under estimate very high concentrations of antigen. Any discordant results should be discussed with Dr. Lucas. Note: Testing instrumentation has changed. The reference range remains the same. Lambda, FLC 0.93 0.57-2.63 MG/DL [place]/Lambda FLC 108.89 (H) 0.26-1.65 Specimen Blood IMMUNOFIXATION, SERUM (IFES) (07/19/2016 12:20 PM) Component Value Range Immuno Fix-Serum IGA KAPPA PARAPROTEIN Pathologist Signature INTERPRETED BY CHANCE HERNANDEZ M.D. By the PATH SIGNATURE ABOVE, I attest that I have personally formulated the final interpretation expressed in this report and that the above diagnosis is based upon my examination of the slides and/or other material indicated in this report. Specimen Blood IMMUNOFIXATION URINE RANDOM (07/19/2016 12:20 PM) Component Value Range Immuno Fix-URINE FREE KAPPA LIGHT CHAIN Pathologist Signature INTERPRETED BY CHANCE HERNANDEZ M.D. By the PATH SIGNATURE ABOVE, I attest that I have personally formulated the final interpretation expressed in this report and that the above diagnosis is based upon my examination of the slides and/or other material indicated in this report. Specimen Urine CMV AB IGG (07/19/2016 12:20 PM) Component Value Range CMV, IgG POS Specimen Blood PROTIME INR (PT) (07/19/2016 12:20 PM) Component Value Range INR 1.0 0.8-1.2 Specimen Blood IRON + BINDING CAPACITY + %SAT (07/19/2016 12:20 PM) Component Value Range Iron 45 (L) 50-160 MCG/DL Iron Binding-TIBC 341 270-380 MCG/DL % Saturation 13 (L) 28-42 % Specimen Blood FERRITIN (07/19/2016 12:20 PM) Component Value Range Ferritin 110 10-200 NG/ML Specimen Blood TRANSFERRIN (07/19/2016 12:20 PM) Component Value Range Transferrin 229 185-336 MG/DL Specimen Blood URIC ACID (07/19/2016 12:20 PM) Component Value Range Uric Acid 6.4 2.0-7.0 MG/DL Specimen Blood LIPID PROFILE (07/19/2016 12:20 PM) Component Value Range Cholesterol 238 (H) <200 MG/DL Triglycerides 235 (H) <150 MG/DL HDL 53 >40 MG/DL LDL 147 (H) <100 MG/DL VLDL 47 MG/DL Non HDL Cholesterol 185Comment: MG/DL Calculated non-HDL Cholesterol (non-HDL-C) indirectly measures LDL-C, Lp(a), IDL-C, and VLDL-C. It is a surrogate marker for Apoprotein B. Non-HDL-C is a more accurate measure of atherogenic particle concentration than LDL-C in patients with hypertriglyceridemia (>200 mg/dL). This calculation is now recommended for evaluation and treatment of coronary heart disease according to the National Cholesterol Education Program Adult Treatment Protocol-III. See Medley et al. Am J. Cardiol. 2008, 101:1295-0669. The "goal" should be less than 130 mg/dL, but will vary according to risk factors. Specimen Blood PHOSPHORUS (07/19/2016 12:20 PM) Component Value Range Phosphorus 4.9 (H) 2.0-4.0 MG/DL Specimen Blood LDH-LACTATE DEHYDROGENASE (07/19/2016 12:20 PM) Component Value Range Lactate Dehydrogenase 170 100-210 U/L Specimen Blood CBC AND DIFF (07/19/2016 12:20 PM) Component Value Range White Blood Cells 2.7 (L) 4.5-11.0 K/UL RBC 2.82 (L) 4.0-5.0 M/UL Hemoglobin 9.8 (L) 12.0-15.0 GM/DL Hematocrit 28.7 (L) 36-45 % MCV 101.8 (H) 80-100 FL MCH 34.8 (H) 26-34 PG MCHC 34.2 32.0-36.0 G/DL RDW 16.0 (H) 11-15 % Platelet Count 179 150-400 K/UL MPV 7.2 7-11 FL Neutrophils 48 41-77 % Lymphocytes 36 24-44 % Monocytes 13 (H) 4-12 % Eosinophils 2 0-5 % Basophils 1 0-2 % Absolute Neutrophil Count 1.30 (L) 1.8-7.0 K/UL Absolute Lymph Count 1.00 1.0-4.8 K/UL Absolute Monocyte Count 0.40 0-0.80 K/UL Absolute Eosinophil Count 0.10 0-0.45 K/UL Absolute Basophil Count 0.00 0-0.20 K/UL Specimen Blood
--- NOTE | 2016-08-27 12:37 | Diagnostic Imaging Report ---
PA and lateral views of the chest. INDICATION: Multiple myeloma. COMPARISON: 02/14/2015. FINDINGS: There is an opacity in the anterior medial right chest that appears to relate to a pericardial fat pad. It is more prominent compared to the prior exam of 02/14/2015. On CT chest from January 2015, this area is confirmed to be pericardial fat pad. There is a calcified granuloma in the right upper lobe. The heart size is normal. No effusion or pneumothorax. The mediastinum and brenda appear unremarkable. Upper lumbar spine kyphoplasty changes seen. IMPRESSION: Prominent right pericardial fat pad. No acute process. Dictated by: Dictated on workstation # [id number]
[~2016-09-18 14:30] MED LIST changes: -ACETAMINOPHEN 325 MG TAB (TYLENOL) CANCER CTR PO PRN; -CARFILZOMIB IV SCH; -D5W IV SCH; -DARATUMUMAB IV SCH; -FAMOTIDINE 20MG/2ML IV (CANCER CTR) IV SCH; -NS IV 1000 ML (CANCER CTR) IV SCH; -NS IV 500 ML (CANCER CENTER) IV SCH; -NS IV SCH; -ONDANSETRON MDV (CANCER CENTER 16 MG in NS (IVPB) CANCER CENTER 50 ML IV SCH; -ONDANSETRON MDV (CANCER CENTER 16 MG, DEXAMETHASONE INJ (CANCER CTR) 4 MG in NS (IVPB) ... IV SCH; -PALONOSETRON HCL 0.25 MG, DEXAMETHASONE INJ (CANCER CTR) 4 MG in NS (IVPB) CANCER CENTE... IV PRN; -diphenhydrAMINE 25 MG TAB (BENADRYL) CANCER CENTER PO SCH; -diphenhydrAMINE 50 MG/ML INJ (CANCER CENTER) IV PRN; -methylPREDNISolone 125 MG/2 ML (SOLU-MEDROL) CANCER CTR IV SCH
== END 2016-11-25 | disposition home or self-care (01) ==
LOC: PULM 14:30
PROVIDERS: ATTEND Nurse Practitioner Family
DX: R06.02 Shortness of breath (principal); R09.02 Hypoxemia; C90.00 Multiple myeloma not having achieved remission
CPT/HCPCS: 71020; 99211

== ENCOUNTER → 2016-12-19 | Outpatient (RCR) | payer MEDICARE, MEDICAID ==
--- OUTSIDE RECORDS SUMMARY | 2016-09-20 08:31 | XMS REPORT | Continuity of Care Document ---
Author Author [facility] Organization [facility] Address Unknown Phone Unavailable Care Team Providers Care Single Stayer Operator Name Role Phone Radha Snowden PCP [phone] Source Comments Some departments are not documenting in the electronic medical record. If you do not see the information that you expected, contact Release of Information in the Health Information Management department at [phone] for further assistance in locating additional records.[facility] Active Allergies and Adverse Reactions [...] Cap by mouth at 30 Cap 3 20 Active 300 mg capsule bedtime daily. 14 [...] dose=45 mg by mouth twice a day. Active Problems Problem Noted Date Leukopenia 10/05/2014 Seborrheic dermatitis 10/05/2014 Pancytopenia due to chemotherapy ([facility]) 04/13/2014 Severe malnutrition ([facility]) 04/13/2014 Failure to thrive 03/28/2014 Pleural effusion 03/21/2014 Atelectasis 03/21/2014 Hypophosphatemia 03/19/2014 Mucositis (ulcerative) due to antineoplastic therapy 03/16/2014 Pancytopenia due to antineoplastic chemotherapy ([facility]) 03/15/2014 Diarrhea 03/15/2014 History of peripheral stem cell transplant ([facility]) 03/10/2014 Overview: Date of Transplant: 03/12/2014 Preparative Regimen: Melphalan 200, with HBO Disease: MM, IgA Disease Status at Transplant: Chemo Responsive CMV: positive Cell Source: autologous Consents/Studies:[id number], [id number] Coordinator: Gemini Daigle RN Multiple myeloma ([facility]) 03/03/2014 COPD (chronic obstructive pulmonary disease) ([facility]) 02/25/2014 Resolved Problems Problem Noted Date Resolved Date 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[facility]) 04/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 10/05/2014 Hypomagnesemia 03/19/2014 10/05/2014 Nausea 03/15/2014 10/05/2014 Hypokalemia 03/12/2014 10/05/2014 Conditioning chemotherapy prior to peripheral blood stem cell transplant 10/05/2014 History of tobacco use 02/25/2014 02/25/2014 Most Recent Encounters Date Type Specialty Providers Description 09/04/2016 Telephone Oncology Irina Lo RN BMT Follow-up 07/31/2016 [facility] Radiology Odin Cowan MD Canceled ( Clinician or Encounter Santana Garcia MD Resource) 07/31/2016 Office Visit Oncology Claudia Reno MD 07/31/2016 Nurse Only Oncology Claudia Reno MD Multiple myelomaWally Jodi, RN remission status unspecified (HCC) (Primary Dx) 07/31/2016 Office Visit Oncology Claudia Reno MD Multiple myeloma, remission status unspecified (HCC) 07/31/2016 Documentation Oncology Paula Haque RD 07/31/2016 Orders Only Oncology Lissa Santacruz, PHARMD 07/30/2016 Orders Only Oncology Kirstin Singletary RN Abnormal PFT ( Primary Dx) 07/23/2016 [facility] Radiology Odin Cowan MD Encounter 07/23/2016 [facility] Odin Cowan MD Encounter 07/23/2016 [facility] Cardiology Odin Cowan MD Encounter 07/22/2016 Orders [...] Nurse Only Oncology Odin Cowan MD Multiple myelomaWally Jodi, RN remission status unspecified (HCC) (Primary Dx) 07/19/2016 Documentation Oncology Chari Beal Immunizations Name Dates Previously Given Next Due [...] Taken Blood Pressure 145/85 07/31/2016 10:15 AM GAS MASK INSPECTOR Pulse 82 07/31/2016 10:15 AM GAS MASK INSPECTOR Temperature 36.6 C (97.9 F) 07/31/2016 10:15 AM GAS MASK INSPECTOR Respiratory Rate 18 07/31/2016 10:15 AM GAS MASK INSPECTOR Height 1.626 m (5' 4.02") 07/31/2016 10:15 AM GAS MASK INSPECTOR Weight 67.1 kg (147 lb 14.9 oz) 07/31/2016 10:15 AM GAS MASK INSPECTOR Body Mass Index 25.38 07/31/2016 10:15 AM GAS MASK INSPECTOR Oxygen Saturation 98% 07/31/2016 10:15 AM GAS MASK INSPECTOR Plan of Care Health Maintenance Due Date [...] Procedure Name Priority Date/Time Associated Diagnosis Comments ECG UNCONFIRMED-SCAN 09/19/2016 Results for this 11:29 AM GAS MASK INSPECTOR procedure are in the results section. PROCEDURES-SCAN 07/27/2016 Results for this 9:16 AM GAS MASK INSPECTOR procedure are in the results section. Results from Last 3 Months ECG UNCONFIRMED-SCAN (09/19/2016 11:29 AM) Narrative Ordered by an unspecified provider. COMPREHENSIVE METABOLIC PANEL (07/31/2016 10:28 AM)Only the [...] - Mon Jul 23, 2016 12:05 PM GAS MASK INSPECTOR Metastatic skeletal survey (17 views total). Comparison: [...] myeloma. Procedure Note Interface, Radiant Results - Mon Jul 23, 2016 1:38 PM GAS MASK INSPECTOR Panorex one view. History: Multiple myeloma. IMPRESSION [...] myeloma. Procedure Note Interface, Radiant Results - Mon Jul 23, 2016 12:48 PM GAS MASK INSPECTOR 2 view chest Clinical history: Pretransplant evaluation. [...] % FEV1-Pre 1.39 L FEV1-%Pred-Pre 57 % [id number] 0.85 L/sec [id number]-%Pred-Pre 41 % VCSVC-Pre 1.94 L ICSVC-Pre 1.17 [...] Color,UA YELLOW Turbidity,UA 2+ (A) CLEAR-CLEAR Specific [place]-Urine 1.014 1.003-1.035 pH,UA 5.0 5.0-8.0 Protein,UA 1+ [...] CHAINS (07/19/2016 12:20 PM) Component Value Range [place], FLC 101.27 (H)Comment: 0.33-1.94 MG/DL [place] results should always be interpreted in conjunction with other laboratory tests and clinical evidence. The possibility of Antigen Excess exists and can cause Immunoassays to under estimate very high concentrations of antigen. Any discordant results should be discussed with Dr. Lucas. Note: Testing instrumentation has changed. The reference range remains the same. [place], FLC 0.93 0.57-2.63 MG/DL [place]/Lambda FLC 108.89 (H) 0.26-1.65 Specimen Blood IMMUNOFIXATION, [...] Medley et al. Am J. Cardiol. 2008, [id number]. The "goal" should be less than 130 [...]
[2016-09-20 08:59] LABS: BASOPHILS % (AUTO) 0 % (0-10); EOSINOPHILS % (AUTO) 3 % (0-10); LYMPHOCYTES # (AUTO) 0.5 X 10^3 (1.0-4.0); LYMPHOCYTES % (AUTO) 43 % (12-44); MEAN CORPUSCULAR HEMOGLOBIN 32 PG (25-34); MEAN CORPUSCULAR HGB CONC 33 G/DL (32-36); MEAN CORPUSCULAR VOLUME 97 FL (80-99); MEAN PLATELET VOLUME 8.7 FL (7.4-10.4); MONOCYTES # (AUTO) 0.3 X 10^3 (0.0-1.0); MONOCYTES % (AUTO) 22 % (0-12); NEUTROPHILS # (AUTO) 0.4 X 10^3 (1.8-7.8); NEUTROPHILS % (AUTO) 31 % (42-75); PLATELET COUNT 125 10^3/uL (130-400); RED BLOOD COUNT 3.21 10^6/uL (4.35-5.85); RED CELL DISTRIBUTION WIDTH 13.4 % (10.0-14.5)
[2016-09-20 09:05] LABS: WHITE BLOOD COUNT 1.2 10^3/uL (4.3-11.0)
[2016-09-20 09:23] LABS: ANION GAP 11 MMOL/L (5-14); BLOOD UREA NITROGEN 17 MG/DL (7-18); BUN/CREATININE RATIO 19; CALCIUM 9.4 MG/DL (8.5-10.1); CARBON DIOXIDE 26 MMOL/L (21-32); CHLORIDE 101 MMOL/L (98-107); GFR ESTIMATED > 60; GLUCOSE 94 MG/DL (70-105); POTASSIUM 4.4 MMOL/L (3.6-5.0); SODIUM 138 MMOL/L (135-145)
--- NOTE | 2016-09-20 09:55 | Diagnostic Imaging Report ---
INDICATION: Right chest pain x2 weeks. PA and lateral chest. There is a prominent epicardial fat-pad at the right medial lung base which appear stable compared to prior studies. Heart size and pulmonary vascularity are normal. Lungs are clear. There are no effusions or pneumothoraces. IMPRESSION: No acute abnormalities in the chest. Dictated by: Dictated on workstation # [id number]
--- NOTE | 2016-09-20 11:35 | Diagnostic Imaging Report ---
INDICATION: Right rib pain x2 weeks. FINDINGS: Three views of the right ribs show old healed fracture of the eighth rib laterally and fifth rib anteriorly. There are no acute displaced fractures seen. IMPRESSION: There appeared to be nonacute fractures of right eighth and fifth ribs but no acute displaced fractures seen. Dictated by: Dictated on workstation # [id number]
[2016-09-27 09:02] LABS: BASOPHILS % (AUTO) 1 % (0-10); EOSINOPHILS # (AUTO) 0.1 10^3/uL (0.0-0.3); EOSINOPHILS % (AUTO) 4 % (0-10); LYMPHOCYTES # (AUTO) 0.9 X 10^3 (1.0-4.0); LYMPHOCYTES % (AUTO) 57 % (12-44); MEAN CORPUSCULAR HEMOGLOBIN 33 PG (25-34); MEAN CORPUSCULAR HGB CONC 34 G/DL (32-36); MEAN CORPUSCULAR VOLUME 97 FL (80-99); MEAN PLATELET VOLUME 8.5 FL (7.4-10.4); MONOCYTES # (AUTO) 0.5 X 10^3 (0.0-1.0); MONOCYTES % (AUTO) 29 % (0-12); NEUTROPHILS # (AUTO) 0.2 X 10^3 (1.8-7.8); NEUTROPHILS % (AUTO) 10 % (42-75); PLATELET COUNT 140 10^3/uL (130-400); RED BLOOD COUNT 3.26 10^6/uL (4.35-5.85); RED CELL DISTRIBUTION WIDTH 13.6 % (10.0-14.5); WHITE BLOOD COUNT 1.6 10^3/uL (4.3-11.0)
[2016-09-27 09:27] LABS: CALCIUM 9.5 MG/DL (8.5-10.1); CREATININE SERUM 1.07 MG/DL (0.60-1.30)
[2016-10-04 09:34] LABS: BASOPHILS % (AUTO) 0 % (0-10); EOSINOPHILS # (AUTO) 0.1 10^3/uL (0.0-0.3); EOSINOPHILS % (AUTO) 3 % (0-10); LYMPHOCYTES # (AUTO) 0.8 X 10^3 (1.0-4.0); LYMPHOCYTES % (AUTO) 34 % (12-44); MEAN CORPUSCULAR HEMOGLOBIN 32 PG (25-34); MEAN CORPUSCULAR HGB CONC 32 G/DL (32-36); MEAN CORPUSCULAR VOLUME 98 FL (80-99); MEAN PLATELET VOLUME 8.9 FL (7.4-10.4); MONOCYTES # (AUTO) 0.2 X 10^3 (0.0-1.0); MONOCYTES % (AUTO) 10 % (0-12); NEUTROPHILS # (AUTO) 1.3 X 10^3 (1.8-7.8); NEUTROPHILS % (AUTO) 54 % (42-75); PLATELET COUNT 184 10^3/uL (130-400); RED BLOOD COUNT 3.24 10^6/uL (4.35-5.85); WHITE BLOOD COUNT 2.4 10^3/uL (4.3-11.0)
[2016-10-04 09:56] LABS: CALCIUM 8.3 MG/DL (8.5-10.1); CREATININE SERUM 1.05 MG/DL (0.60-1.30); POTASSIUM 3.9 MMOL/L (3.6-5.0)
[2016-10-11 09:24] LABS: BASOPHILS % (AUTO) 0 % (0-10); EOSINOPHILS % (AUTO) 1 % (0-10); LYMPHOCYTES # (AUTO) 0.8 X 10^3 (1.0-4.0); LYMPHOCYTES % (AUTO) 28 % (12-44); MEAN CORPUSCULAR HEMOGLOBIN 33 PG (25-34); MEAN CORPUSCULAR HGB CONC 33 G/DL (32-36); MEAN CORPUSCULAR VOLUME 98 FL (80-99); MEAN PLATELET VOLUME 8.4 FL (7.4-10.4); MONOCYTES # (AUTO) 0.4 X 10^3 (0.0-1.0); MONOCYTES % (AUTO) 14 % (0-12); NEUTROPHILS # (AUTO) 1.7 X 10^3 (1.8-7.8); NEUTROPHILS % (AUTO) 57 % (42-75); PLATELET COUNT 175 10^3/uL (130-400); RED BLOOD COUNT 3.35 10^6/uL (4.35-5.85); RED CELL DISTRIBUTION WIDTH 14.3 % (10.0-14.5)
[2016-10-11 10:03] LABS: ALBUMIN 3.8 G/DL (3.2-4.5); BILIRUBIN,TOTAL 0.2 MG/DL (0.1-1.0); CALCIUM 9.2 MG/DL (8.5-10.1); CREATININE SERUM 1.11 MG/DL (0.60-1.30); POTASSIUM 4.3 MMOL/L (3.6-5.0); TOTAL PROTEIN 6.6 G/DL (6.4-8.2)
[2016-10-12 04:38] LABS: IMMUNOGLOBULIN IGA 859 mg/dL (71-263); IMMUNOGLOBULIN IGG 359 mg/dL (672-1680)
[2016-10-12 07:39] LABS: IMMUNOGLOBULIN IGM <10 mg/dL (47-209)
[2016-11-01 08:50] LABS: BASOPHILS % (AUTO) 0 % (0-10); EOSINOPHILS % (AUTO) 2 % (0-10); LYMPHOCYTES % (AUTO) 55 % (12-44); MEAN CORPUSCULAR HEMOGLOBIN 32 PG (25-34); MEAN CORPUSCULAR HGB CONC 33 G/DL (32-36); MEAN CORPUSCULAR VOLUME 95 FL (80-99); MEAN PLATELET VOLUME 9.2 FL (7.4-10.4); MONOCYTES # (AUTO) 0.3 X 10^3 (0.0-1.0); MONOCYTES % (AUTO) 16 % (0-12); NEUTROPHILS # (AUTO) 0.5 X 10^3 (1.8-7.8); NEUTROPHILS % (AUTO) 27 % (42-75); PLATELET COUNT 111 10^3/uL (130-400); RED BLOOD COUNT 2.83 10^6/uL (4.35-5.85); RED CELL DISTRIBUTION WIDTH 14.7 % (10.0-14.5); WHITE BLOOD COUNT 1.9 10^3/uL (4.3-11.0)
[2016-11-01 09:11] LABS: ANION GAP 13 MMOL/L (5-14); BLOOD UREA NITROGEN 12 MG/DL (7-18); BUN/CREATININE RATIO 13; CALCIUM 9.5 MG/DL (8.5-10.1); CARBON DIOXIDE 23 MMOL/L (21-32); CHLORIDE 100 MMOL/L (98-107); CREATININE SERUM 0.91 MG/DL (0.60-1.30); GFR ESTIMATED > 60; GLUCOSE 94 MG/DL (70-105); POTASSIUM 3.9 MMOL/L (3.6-5.0); SODIUM 136 MMOL/L (135-145)
[2016-12-17 10:07] LABS: BASOPHILS % (AUTO) 0 % (0-10); EOSINOPHILS % (AUTO) 1 % (0-10); LYMPHOCYTES # (AUTO) 0.3 X 10^3 (1.0-4.0); LYMPHOCYTES % (AUTO) 12 % (12-44); MEAN CORPUSCULAR HGB CONC 35 G/DL (32-36); MEAN CORPUSCULAR VOLUME 91 FL (80-99); MEAN PLATELET VOLUME 9.8 FL (7.4-10.4); MONOCYTES # (AUTO) 0.6 X 10^3 (0.0-1.0); MONOCYTES % (AUTO) 23 % (0-12); NEUTROPHILS # (AUTO) 1.6 X 10^3 (1.8-7.8); NEUTROPHILS % (AUTO) 64 % (42-75); PLATELET COUNT 177 10^3/uL (130-400); RED BLOOD COUNT 3.27 10^6/uL (4.35-5.85); RED CELL DISTRIBUTION WIDTH 14.5 % (10.0-14.5); WHITE BLOOD COUNT 2.5 10^3/uL (4.3-11.0)
[2016-12-17 10:11] LABS: MEAN CORPUSCULAR HEMOGLOBIN 31 PG (25-34)
[2016-12-17 10:52] LABS: ALBUMIN 3.6 G/DL (3.2-4.5); BILIRUBIN,TOTAL 0.4 MG/DL (0.1-1.0); CALCIUM 8.2 MG/DL (8.5-10.1); CREATININE SERUM 1.23 MG/DL (0.60-1.30); MAGNESIUM 1.5 MG/DL (1.8-2.4); TOTAL PROTEIN 5.7 G/DL (6.4-8.2)
[~2016-12-19] MED LIST changes: +ACETAMINOPHEN 325 MG TAB (TYLENOL) CANCER CTR PO PRN; +DARATUMUMAB IV SCH; +FAMOTIDINE 20MG/2ML IV (CANCER CTR) IV SCH; +MAGNESIUM SULFATE IV ONE; +NS IV 1000 ML (CANCER CTR) IV SCH; +NS IV SCH; +ONDANSETRON MDV (CANCER CENTER 16 MG in NS (IVPB) CANCER CENTER 50 ML IV SCH; +POTASSIUM CHL INJ (CANCER CTR) 20 MEQ in NS IV 1000 ML (CANCER CTR) 1,000 ML IV ONE; +POTASSIUM CHLORIDE IV ONE; +[UNRECOGNIZED DRUG - OTHER] IV ONE; +diphenhydrAMINE 25 MG TAB (BENADRYL) CANCER CENTER PO SCH; +methylPREDNISolone 125 MG/2 ML (SOLU-MEDROL) CANCER CTR IV SCH
[2016-12-19 11:20] LABS: ALANINE AMINOTRANSFERASE < 6 U/L (0-55); ALBUMIN 3.6 G/DL (3.2-4.5); ANION GAP 10 MMOL/L (5-14); ASPARTATE AMINO TRANSFERASE 9 U/L (5-34); BILIRUBIN,TOTAL 0.3 MG/DL (0.1-1.0); BLOOD UREA NITROGEN 11 MG/DL (7-18); BUN/CREATININE RATIO 10; CARBON DIOXIDE 26 MMOL/L (21-32); CHLORIDE 106 MMOL/L (98-107); CREATININE SERUM 1.09 MG/DL (0.60-1.30); GFR ESTIMATED 50; GLUCOSE 94 MG/DL (70-105); MAGNESIUM 1.8 MG/DL (1.8-2.4); POTASSIUM 3.5 MMOL/L (3.6-5.0); SODIUM 142 MMOL/L (135-145); TOTAL PROTEIN 5.8 G/DL (6.4-8.2)
== END | disposition home or self-care (01) ==
LOC: ONC 09-20 08:26
PROVIDERS: ATTEND Internal Medicine Hematology & Oncology
DX: Z51.11 Encounter for antineoplastic chemotherapy (principal); C90.00 Multiple myeloma not having achieved remission; D64.9 Anemia, unspecified; M89.9 Disorder of bone, unspecified; Z79.899 Other long term (current) drug therapy
CPT/HCPCS: 36415; 71020; 71100; 80048; 80053; 82232; 82784; 83615; 83735; 83883; 85025; 87324; 87449; 96365; 96366; 96375; 96413; 96415; 99213

== ENCOUNTER → 2017-02-01 | Outpatient (CLI) | payer MEDICARE, MEDICAID ==
[~2017-02-01] MED LIST changes: -ACETAMINOPHEN 325 MG TAB (TYLENOL) CANCER CTR PO PRN; -DARATUMUMAB IV SCH; -FAMOTIDINE 20MG/2ML IV (CANCER CTR) IV SCH; -MAGNESIUM SULFATE IV ONE; -NS IV 1000 ML (CANCER CTR) IV SCH; -NS IV SCH; -ONDANSETRON MDV (CANCER CENTER 16 MG in NS (IVPB) CANCER CENTER 50 ML IV SCH; -POTASSIUM CHL INJ (CANCER CTR) 20 MEQ in NS IV 1000 ML (CANCER CTR) 1,000 ML IV ONE; -POTASSIUM CHLORIDE IV ONE; -[UNRECOGNIZED DRUG - OTHER] IV ONE; -diphenhydrAMINE 25 MG TAB (BENADRYL) CANCER CENTER PO SCH; -methylPREDNISolone 125 MG/2 ML (SOLU-MEDROL) CANCER CTR IV SCH
== END ==
LOC: LAB 14:44
DX: C90.00 Multiple myeloma not having achieved remission (principal); D64.9 Anemia, unspecified; M89.9 Disorder of bone, unspecified; Z79.899 Other long term (current) drug therapy
CPT/HCPCS: 36415

== ENCOUNTER 2017-03-20 13:10 | Outpatient (RCR) | payer MEDICARE, MEDICAID ==
[2016-12-24 11:57] LABS: BASOPHILS % (AUTO) 1 % (0-10); EOSINOPHILS % (AUTO) 1 % (0-10); LYMPHOCYTES # (AUTO) 0.3 X 10^3 (1.0-4.0); LYMPHOCYTES % (AUTO) 17 % (12-44); MEAN CORPUSCULAR HEMOGLOBIN 31 PG (25-34); MEAN CORPUSCULAR HGB CONC 33 G/DL (32-36); MEAN CORPUSCULAR VOLUME 92 FL (80-99); MEAN PLATELET VOLUME 9.3 FL (7.4-10.4); MONOCYTES # (AUTO) 0.3 X 10^3 (0.0-1.0); MONOCYTES % (AUTO) 19 % (0-12); NEUTROPHILS # (AUTO) 1.1 X 10^3 (1.8-7.8); NEUTROPHILS % (AUTO) 63 % (42-75); PLATELET COUNT 200 10^3/uL (130-400); RED CELL DISTRIBUTION WIDTH 14.9 % (10.0-14.5); WHITE BLOOD COUNT 1.7 10^3/uL (4.3-11.0)
[2016-12-24 12:20] LABS: ALBUMIN 3.7 G/DL (3.2-4.5); BILIRUBIN,TOTAL 0.5 MG/DL (0.1-1.0); CALCIUM 8.8 MG/DL (8.5-10.1); CREATININE SERUM 1.22 MG/DL (0.60-1.30); MAGNESIUM 1.6 MG/DL (1.8-2.4); TOTAL PROTEIN 6.1 G/DL (6.4-8.2)
[2017-02-01 12:44] LABS: BASOPHILS % (AUTO) 1 % (0-10); EOSINOPHILS % (AUTO) 1 % (0-10); LYMPHOCYTES # (AUTO) 0.2 X 10^3 (1.0-4.0); LYMPHOCYTES % (AUTO) 12 % (12-44); MEAN CORPUSCULAR HEMOGLOBIN 32 PG (25-34); MEAN CORPUSCULAR HGB CONC 33 G/DL (32-36); MEAN CORPUSCULAR VOLUME 96 FL (80-99); MEAN PLATELET VOLUME 9.4 FL (7.4-10.4); MONOCYTES # (AUTO) 0.2 X 10^3 (0.0-1.0); MONOCYTES % (AUTO) 14 % (0-12); NEUTROPHILS # (AUTO) 1.2 X 10^3 (1.8-7.8); NEUTROPHILS % (AUTO) 73 % (42-75); RED BLOOD COUNT 2.59 10^6/uL (4.35-5.85); WHITE BLOOD COUNT 1.7 10^3/uL (4.3-11.0)
[2017-02-01 12:46] LABS: PLATELET COUNT 67 10^3/uL (130-400)
[2017-02-01 13:09] LABS: ALANINE AMINOTRANSFERASE < 6 U/L (0-55); ALBUMIN 3.6 G/DL (3.2-4.5); ANION GAP 8 MMOL/L (5-14); ASPARTATE AMINO TRANSFERASE 9 U/L (5-34); BILIRUBIN,TOTAL 0.2 MG/DL (0.1-1.0); BLOOD UREA NITROGEN 19 MG/DL (7-18); BUN/CREATININE RATIO 11; CALCIUM 8.8 MG/DL (8.5-10.1); CARBON DIOXIDE 24 MMOL/L (21-32); CHLORIDE 105 MMOL/L (98-107); CREATININE SERUM 1.67 MG/DL (0.60-1.30); GFR ESTIMATED 31; GLUCOSE 112 MG/DL (70-105); MAGNESIUM 1.7 MG/DL (1.8-2.4); POTASSIUM 4.5 MMOL/L (3.6-5.0); SODIUM 137 MMOL/L (135-145); TOTAL PROTEIN 5.6 G/DL (6.4-8.2)
[2017-02-18 14:11] LABS: BASOPHILS % (AUTO) 0 % (0-10); EOSINOPHILS % (AUTO) 1 % (0-10); LYMPHOCYTES # (AUTO) 0.5 X 10^3 (1.0-4.0); LYMPHOCYTES % (AUTO) 31 % (12-44); MEAN CORPUSCULAR HEMOGLOBIN 33 PG (25-34); MEAN CORPUSCULAR HGB CONC 34 G/DL (32-36); MEAN CORPUSCULAR VOLUME 95 FL (80-99); MONOCYTES # (AUTO) 0.3 X 10^3 (0.0-1.0); MONOCYTES % (AUTO) 20 % (0-12); NEUTROPHILS # (AUTO) 0.8 X 10^3 (1.8-7.8); NEUTROPHILS % (AUTO) 48 % (42-75); PLATELET COUNT 112 10^3/uL (130-400); RED BLOOD COUNT 3.07 10^6/uL (4.35-5.85); RED CELL DISTRIBUTION WIDTH 17.4 % (10.0-14.5); WHITE BLOOD COUNT 1.6 10^3/uL (4.3-11.0)
[2017-02-18 14:41] LABS: ALBUMIN 4.2 G/DL (3.2-4.5); BILIRUBIN,TOTAL 0.4 MG/DL (0.1-1.0); CREATININE SERUM 1.03 MG/DL (0.60-1.30); MAGNESIUM 1.9 MG/DL (1.8-2.4); POTASSIUM 3.3 MMOL/L (3.6-5.0); TOTAL PROTEIN 6.2 G/DL (6.4-8.2)
[~2017-03-20 13:10] MED LIST changes: +MAGNESIUM SULFATE IV ONE; +NS IV 1000 ML (CANCER CTR) 1,000 ML ONE; +NS IV ONE; +ONDANSETRON 8 MG, DEXAMETHASONE 4 MG/NS 50 ML IVPB (Cancer Ctr) IV ONE; +POTASSIUM CHL INJ (CANCER CTR) 20 MEQ in NS IV 1000 ML (CANCER CTR) 1,000 ML IV ONE
[2017-03-20 14:54] LABS: BASOPHILS % (AUTO) 0 % (0-10); EOSINOPHILS # (AUTO) 0.1 10^3/uL (0.0-0.3); EOSINOPHILS % (AUTO) 4 % (0-10); LYMPHOCYTES # (AUTO) 0.6 X 10^3 (1.0-4.0); LYMPHOCYTES % (AUTO) 26 % (12-44); MEAN CORPUSCULAR HEMOGLOBIN 32 PG (25-34); MEAN CORPUSCULAR HGB CONC 33 G/DL (32-36); MEAN CORPUSCULAR VOLUME 97 FL (80-99); MEAN PLATELET VOLUME 9.3 FL (7.4-10.4); MONOCYTES # (AUTO) 0.3 X 10^3 (0.0-1.0); MONOCYTES % (AUTO) 14 % (0-12); NEUTROPHILS # (AUTO) 1.3 X 10^3 (1.8-7.8); NEUTROPHILS % (AUTO) 56 % (42-75); PLATELET COUNT 65 10^3/uL (130-400); RED BLOOD COUNT 2.57 10^6/uL (4.35-5.85); RED CELL DISTRIBUTION WIDTH 13.8 % (10.0-14.5); WHITE BLOOD COUNT 2.3 10^3/uL (4.3-11.0)
[2017-03-20 15:50] LABS: ALBUMIN 3.6 GM/DL (3.2-4.5); BILIRUBIN,TOTAL 0.2 MG/DL (0.1-1.0); CALCIUM 8.5 MG/DL (8.5-10.1); CREATININE SERUM 1.74 MG/DL (0.60-1.30); POTASSIUM 5.2 MMOL/L (3.6-5.0); TOTAL PROTEIN 5.6 GM/DL (6.4-8.2)
[2017-03-21 08:05] LABS: LIGHT CHAIN LAMBDA SERUM QUANT 1.6 mg/L (5.71-26.30)
== END 2017-03-24 | disposition home or self-care (01) ==
LOC: ONC 13:10
PROVIDERS: ATTEND Internal Medicine Hematology & Oncology
DX: C90.00 Multiple myeloma not having achieved remission (principal); D64.9 Anemia, unspecified; M89.9 Disorder of bone, unspecified; Z79.899 Other long term (current) drug therapy
CPT/HCPCS: 36591; 80053; 82232; 82784; 83735; 83883; 85025; 96361; 96365; 96374

== ENCOUNTER 2017-05-08 10:40 | Outpatient (CLI) | payer MEDICARE, MEDICAID ==
[~2017-05-08] VITALS: Ht 162.6 cm; Wt 65.8 kg
[~2017-05-08 10:40] MED LIST changes: -MAGNESIUM SULFATE IV ONE; -NS IV 1000 ML (CANCER CTR) 1,000 ML ONE; -NS IV ONE; -ONDANSETRON 8 MG, DEXAMETHASONE 4 MG/NS 50 ML IVPB (Cancer Ctr) IV ONE; -POTASSIUM CHL INJ (CANCER CTR) 20 MEQ in NS IV 1000 ML (CANCER CTR) 1,000 ML IV ONE
[2017-05-08] MEDS ORDERED: LEVO50TA6 PO (13:11)
[2017-05-08] MEDS ORDERED: POTA10CA68 PO (13:11)
[2017-05-08] MEDS ORDERED: FLUC200T5 PO (13:11)
[2017-05-08] MEDS ORDERED: ACYC800T PO (13:11)
[2017-05-08] MEDS ORDERED: SULF1TAB35 PO (13:11)
[2017-05-08] MEDS ORDERED: OXYC10TA7 PO (13:11)
[2017-05-08] MEDS ORDERED: UMEC1BLS IH (13:11)
[2017-05-08] MEDS ORDERED: MORP60TA52 PO (13:13)
== END 2017-05-08 13:19 ==
LOC: PREOP 10:40
PROVIDERS: ATTEND Surgery
DX: Z01.818 Encounter for other preprocedural examination (principal); C90.00 Multiple myeloma not having achieved remission

== ENCOUNTER 2017-05-10 07:36 | Day surgery (SDC) | payer MEDICARE, MEDICAID ==
[~2017-05-10] VITALS: Ht 162.6 cm; Wt 65.8 kg
[~2017-05-10 07:36] MED LIST changes: +ACYC800T PO; +FLUC200T5 PO; +LEVO50TA6 PO; +MORP60TA52 PO; +OXYC10TA7 PO; +POTA10CA68 PO; +SULF1TAB35 PO; +UMEC1BLS IH
--- OUTSIDE RECORDS SUMMARY | 2017-05-10 07:46 | XMS REPORT | Encounter Summary ---
Author Author [facility] Organization [facility] Address Unknown Phone Unavailable Care Team Providers Care Drafter Assistant Name Role Phone PCP Unavailable Reason for Visit * Reason Comments Heme/Onc Care Encounter Details Date Type Department Care Team Description 03/13/2017 Office Visit [facility] Rafy Valladares MD Multiple myeloma in [facility] Exam [address] relapse (HCC) (Primary [address] [place] [address] Dx) [place] [address] [phone] Social History Tobacco Use Types Packs/Day Years Used Date Former Smoker 1 40 Quit: 09/16/2001 Smokeless Tobacco: Never Used Alcohol Use Drinks/Week oz/Week Comments No Sex Assigned at Date Recorded Not on file as of this encounter Last Filed Vital Signs Vital Sign Reading Time Taken Blood Pressure 167/91 03/13/2017 11:54 AM CDT Pulse 93 03/13/2017 11:54 AM CDT Temperature 36.4 C (97.5 F) 03/13/2017 11:54 AM CDT Respiratory Rate - - Oxygen Saturation 94% 03/13/2017 11:54 AM CDT Inhaled Oxygen - - Concentration Weight 65.4 kg (144 lb 3.2 oz) 03/13/2017 11:54 AM CDT Height 160 cm (5' 2.99") 03/13/2017 11:54 AM CDT Body Mass Index 25.55 03/13/2017 11:54 AM CDT in this encounter Functional Status Functional Status Response Date of Assessment Does the patient have a hearing impairment: No 03/13/2017 Does the patient have a visual impairment: No 03/13/2017 Does the patient have impaired ambulation: No 03/13/2017 Does the patient have an activity of daily living No 03/13/2017 (ADL) impairment: Does the patient have an instrumental activity of No 03/13/2017 daily living (IADL) impairment: Cognitive Status Response Date of Assessment Does the patient have a cognitive impairment: No 03/13/2017 as of this encounter Progress Notes * Rafy Valladares MD - 03/13/2017 10:49 PM CDT Formatting of this note may be different from the original. Date of Service: 03/13/2017 Subjective: Reason for Visit: Heme/Onc Care Layla Manzanares is a 67 y.o. female.Pt is here for a second opinion for options of treatment regarding her Myeloma History of Present Illness Onc Timeline Diagnosis: IgA kappa myeloma Date of diagnosis: 09/2013 Clinical trial: No ASCT: Yes Chary: 200 mg/m Cytogenetic/FISH: +1q, t(4;14) HPI: A 67-year-old female patient with a known history of IgA kappa multiple myeloma diagnosed in 09/2013 initially patient was started on induction therapy using Velcade based therapy followed by high-dose chemotherapy with autologous stem cell transplant. Patient was on maintenance therapy with Revlimid until December 2015 when she progressed and was started on carfilzomib/ Revlimid/dexamethasone 6 cycles patient progressed after that in 07/2016 so she was switched to Daratumumab/pomalidomide/dexamethasone for 3 cycles, patient progressed on 10/2016 so she was offered to have salvage therapy with VRDPACE 2 cycles. Patient had partial response she was sent to our clinic for further evaluation if she is a candidate for a second autologous stem cell transplant. Multiple myeloma (HCC) 10/09/2013 Initial Diagnosis Multiple myeloma (HCC) 11/02/2013 - Chemotherapy VD X 2 cycles followed by VRD X 2cycles (induction ) 03/09/2014 Transplant Chary 200 mg/m2/ASCT 06/16/2014 - 01/11/2016 Chemotherapy Lenalidomide (maintenace) 01/11/2016 Progression 03/06/2016 - 08/12/2016 Chemotherapy KRD X 6 cylces 08/22/2016 - 11/06/2016 Chemotherapy Daratumumba/pomalidomide/dexamethasone X 3 cycles 11/06/2016 Progression 11/16/2016 - 02/27/2017 Chemotherapy VRDPACE X 2 cycles Review of Systems Constitutional: Positive for fatigue and unexpected weight change (Lost weight) . Negative for fever. HENT: Negative for congestion and postnasal drip. Eyes: Negative for discharge. Respiratory: Negative for cough and shortness of breath (On exertion). Cardiovascular: Negative for leg swelling. Gastrointestinal: Negative for nausea and diarrhea. Endocrine: Negative for cold intolerance. Genitourinary: Positive for frequency. Negative for dysuria. Musculoskeletal: Positive for back pain and arthralgias. Skin: Negative for pallor and rash. Allergic/Immunologic: Positive for immunocompromised state. Neurological: Positive for weakness. Hematological: Bruises/bleeds easily. Psychiatric/Behavioral: The patient is nervous/anxious. Objective: acyclovir (ZOVIRAX) 800 mg tablet Take 1/2 tablet (400 mg) by mouth twice a day starting on the day before stem cell infusion. acyclovir (ZOVIRAX) 800 mg tablet Take 0.5 Tabs by mouth every 12 hours. albuterol (VENTOLIN HFA, PROAIR HFA, PROVENTIL HFA) 90 mcg/actuation inhaler Inhale 2 Puffs by mouth into the lungs every 6 hours as needed. ALPRAZolam (XANAX) 1 mg tablet Take 1 Tab by mouth at bedtime as needed for Anxiety. Indications: ANXIETY aspirin EC 81 mg tablet Take 1 Tab by mouth daily. Take with food. calcium carbonate (OS-ALISON) 1250 mg tablet Take 2 Tabs by mouth daily. cholecalciferol (VITAMIN D-3) 1,000 units tablet Take 1 Tab by mouth daily. cyclobenzaprine (FLEXERIL) 10 mg tablet Take 10 mg by mouth twice daily as needed for Muscle Cramps. diphenoxylate/atropine (LOMOTIL) 2.5/0.025 mg tablet Take 1 Tab by mouth four times daily as needed. DRONABINOL (MARINOL PO) Take 1 Tab by mouth twice daily as needed. gabapentin (NEURONTIN) 300 mg capsule Take 1 Cap by mouth twice daily. levothyroxine (SYNTHROID) 25 mcg tablet Take 1 Tab by mouth daily. morphine SR (MS CONTIN; ORAMORPH SR) 60 mg ER tablet Take 1 Tab by mouth every [address](+) (PRILOSEC) 20 mg capsule Take 1 Cap by mouth daily before breakfast. ondansetron (ZOFRAN) 8 mg tablet Take 1 Tab by mouth every 8 hours as needed. oxycodone(+) (ROXICODONE, OXY-IR) 10 mg tablet Take 1-1.5 Tabs by mouth every 4 hours as needed for Pain potassium chloride(+) (MICRO-K) 10 mEq capsule Take 2 Caps by mouth twice daily. Take with a meal and a full glass of water. prochlorperazine maleate (COMPAZINE) 10 mg tablet Take 1 Tab by mouth every 6 hours as needed for Nausea or Vomiting. trimethoprim/sulfamethoxazole (BACTRIM DS) 160/800 mg tablet Take 1 Tab by mouth twice daily. Mondays and . umeclidinium-vilanterol (ANORO ELLIPTA) 62.5-25 mcg/actuation inhaler Inhale 1 Puff by mouth into the lungs daily. Indications: BRONCHOSPASM PREVENTION WITH COPD Filed Vitals: 03/13/17 1154 BP: 167/91 Pulse: 93 Temp: 36.4 C (97.5 F) Height: 160 cm (62.99") Weight: 65.409 kg (144 lb 3.2 oz) SpO2: 94% Body mass index is 25.55 kg/(m^2). 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 Alzheimer's disease Past Surgical History Procedure Laterality Date Hx hysterectomy Hip replacement Left Hip HEMIARTHROPLASTY 2014 Bone marrow transplant/psc 03/12/2014 Laminectomy 1993 Kyphoplasty 2013 Family History Problem Relation Age of Onset Anemia Mother Kidney Failure Mother Hypertension Mother Cervical Cancer Maternal Grandmother Cancer Paternal Grandfather Heart Attack Sister in her 60's COPD Father Emphysema Father Social History Social History Marital Status: Spouse Name: N/A Number of Children: N/A Years of Education: N/A Social History Main Topics Smoking status: Former Smoker -- 1.00 packs/day for 40 years Quit date: 09/16/2001 Smokeless tobacco: Never Used Alcohol Use: No Drug Use: No Sexual Activity: Not Asked Other Topics Concern None Social History Narrative Pain Addressed: Current regimen working to control pain. Patient Evaluated for a Clinical Trial: No treatment clinical trial available for this patient. Eastern Cooperative Oncology Group performance status is 1, Restricted in physically strenuous activity but ambulatory and able to carry out work of a light or sedentary nature, e.g., light house work, office work. Physical Exam Constitutional: She appears well-developed and well-nourished. No distress. HENT: Head: Normocephalic and atraumatic. Right Ear: External ear normal. Left Ear: External ear normal. Mouth/Throat: No oropharyngeal exudate. Eyes: Conjunctivae are normal. Pupils are equal, round, and reactive to light. Right eye exhibits no discharge. Left eye exhibits no discharge. No scleral icterus. Neck: Normal range of motion. Neck supple. No JVD present. Cardiovascular: Normal rate and normal heart sounds. Exam reveals no friction rub. No murmur heard. Pulmonary/Chest: Effort normal. No respiratory distress. She has no wheezes. She has no rales. Abdominal: Soft. There is no tenderness. There is no rebound and no guarding. Musculoskeletal: Normal range of motion. She exhibits no edema. Lymphadenopathy: She has no cervical adenopathy. Skin: Skin is warm and dry. No rash noted. She is not diaphoretic. There is pallor. Few bruises on UE Psychiatric: She has a normal mood and affect. Her behavior is normal. Thought content normal. Nursing note and vitals reviewed. CBC w/Diff Lab Results Component Value Date/Time WHITE BLOOD CELLS 1.7* 03/13/2017 10:30 AM RBC 2.73* 03/13/2017 10:30 AM HEMOGLOBIN 8.9* 03/13/2017 10:30 AM HEMATOCRIT 26.3* 03/13/2017 10:30 AM MCV 96.6 03/13/2017 10:30 AM MCH 32.7 03/13/2017 10:30 AM MCHC 33.8 03/13/2017 10:30 AM RDW 15.7* 03/13/2017 10:30 AM PLATELET COUNT 71* 03/13/2017 10:30 AM MPV 7.4 03/13/2017 10:30 AM Lab Results Component Value Date/Time NEUTROPHILS 60 03/13/2017 10:30 AM ABSOLUTE NEUTROPHIL COUNT 1.00* 03/13/2017 10:30 AM LYMPHOCYTES 21* 03/13/2017 10:30 AM ABSOLUTE LYMPH COUNT 0.30* 03/13/2017 10:30 AM MONOCYTES 16* 03/13/2017 10:30 AM ABSOLUTE MONOCYTE COUNT 0.30 03/13/2017 10:30 AM EOSINOPHILS 3 03/13/2017 10:30 AM ABSOLUTE EOSINOPHIL COUNT 0.00 03/13/2017 10:30 AM BASOPHILS 0 03/13/2017 10:30 AM ABSOLUTE BASOPHIL COUNT 0.00 03/13/2017 10:30 AM Comprehensive Metabolic Profile Lab Results Component Value Date/Time SODIUM 137 03/13/2017 10:30 AM POTASSIUM 4.2 03/13/2017 10:30 AM CHLORIDE 106 03/13/2017 10:30 AM CO2 27 03/13/2017 10:30 AM ANION GAP 4 03/13/2017 10:30 AM BLOOD UREA NITROGEN 18 03/13/2017 10:30 AM CREATININE 1.23* 03/13/2017 10:30 AM GLUCOSE 89 03/13/2017 10:30 AM Lab Results Component Value Date/Time CALCIUM 8.8 03/13/2017 10:30 AM PHOSPHORUS 3.6 03/13/2017 10:30 AM ALBUMIN 3.2* 03/13/2017 10:30 AM TOTAL PROTEIN 5.3* 03/13/2017 10:30 AM TOTAL PROTEIN 5.2* 03/13/2017 10:30 AM ALK PHOSPHATASE 48 03/13/2017 10:30 AM AST (SGOT) 9 03/13/2017 10:30 AM ALT (SGPT) 5* 03/13/2017 10:30 AM TOTAL BILIRUBIN 0.2* 03/13/2017 10:30 AM EGFR NON 43* 03/13/2017 10:30 AM EGFR 53* 03/13/2017 10:30 AM Lab Results Component Value Date/Time IMMUNO FIX-SERUM IGA KAPPA PARAPROTEIN 02/27/2017 02:14 PM IMMUNO FIX-URINE FREE KAPPA LIGHT CHAIN 07/19/2016 12:20 PM KAPPA, FLC 11.71* 02/27/2017 02:14 PM LAMBDA, FLC 0.12* 03/13/2017 10:30 AM KAPPA/LAMBDA FLC 117.10* 02/27/2017 02:14 PM B2 MICROGLOBULIN 3.9* 02/27/2017 02:14 PM TOTAL PROTEIN-SEP 5.2* 03/13/2017 10:30 AM ALBUMIN % 64.2 02/27/2017 02:14 PM ALPHA 1 % 6.3* 02/27/2017 02:14 PM ALPHA 2 % 13.8 02/27/2017 02:14 PM BETA %,SERUM 10.5 02/27/2017 02:14 PM GAMMA % 5.2* 02/27/2017 02:14 PM PARAPROTEIN 0.07 02/27/2017 02:14 PM INTERPRETATION - SEP 02/27/2017 02:14 PM SPIKE, PROBABLY MONOCLONAL, IN BETA/GAMMA REGION(S) Assessment and Plan: Multiple myeloma (HCC) A 67-year-old female patient with a known history of IgA kappa multiple myeloma diagnosed in 2013 status post Velcade/dexamethasone based therapy as induction therapy followed by high-dose chemotherapy with autologous stem cell transplant in 02/2014. Patient was on Revlimid maintenance therapy until she progressed in 12/2015 she was switched to carfilzomib/Revlimid/ dexamethasone 6 cycles and she progressed in 07/2016 so she was switched to Daratumumab/pomalidomide/dexamethasone 3 cycles and was reevaluated. 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 Recommendations:. - Recommend to perform a biopsy of the mass to confirm the diagnosis of plasmacytoma to be performed at her local clinic and to send the results to our clinic - I recommend to start her on treatment using Elotuzumab, lenalidomide and dexamethasone based on ELOQUENT trial - Elotuzumab: - Cycle 1&2: 10 mg/kg on days 1,8,15 and 22 - Cycle 3 and above: 10 mg/kg IV on day 1 & 15 - Lenalidomide: 10 mg PO daily on days 1-21 - Dexamethasone 16 mg PO to be taken 3-24 hrs before elotuzomab and IV Dexamethasone 8 mg to be given 45 minutes before Elotuzumab - Dexamethasone 20 mg PO weekly on the weeks without Elotuzumab after cycle 2 Pre-medications 30 minutes prior to Elotuzumab as the following: - Benadryl 25 mg PO - Zantac 50 mg PO - Tylenol 650 mg PO - Check CBC, CMP weekly - Check Myeloma markers every other week - Consider ASA - Pt will f/u with her Oncologist Dr. Yuan and will send our note for our final recommendations Rafy Valladares M.D [employer] Operator of Internal medicine Division of Hematologic Malignancies and Cellular Therapeutics Pager [phone] * Lea Shaver, RN - 03/13/2017 12:10 PM CDT Formatting of this note may be different from the original. Nurse Coordinator Note Today's condition: Here for recommendations from BMT. New mass identified around hepatic artery per CTA 03/12/17. Recommendations from Dr. Valladares: Obtain biopsy of mass CADEN. Start Elotuzumab/ Revlimid 10mg/Dexamethasone therapy. Pt wishes to proceed with these recommendations with local oncologist. RTC: As needed with Dr. Valladares. Pt receives oncology care and treatment in [place], [place]. Will send notes and recommendations to Dr. Yuan, primary oncologist ; in this encounter Plan of Treatment Not on fileas of this encounter Visit Diagnoses Diagnosis Multiple myeloma in relapse (HCC) - Primary Multiple myeloma, in relapse in this encounter
--- OUTSIDE RECORDS SUMMARY | 2017-05-10 07:46 | XMS REPORT | Clinical Summary ---
Author Author [facility] Organization [facility] Address Unknown Phone Unavailable Care Team Providers Care Bakery Clerk Name Role Phone PCP Unavailable Source Comments Some departments are not documenting in the electronic medical record. If you do not see the information that you expected, contact Release of Information in the Health Information Management department at [phone] for further assistance in locating additional records.[facility] Allergies Active Allergy Reactions Severity Noted Date Comments Lorazepam HALLUCINATIONS High 12/10/2016 Current Medications Prescription Sig. Disp. Refills Start End Date Status Date levothyroxine (SYNTHROID) Take 1 Tab by mouth 30 Tab 3 11/23/19 Active 25 mcg tablet daily. 17 cholecalciferol (VITAMIN Take 1 Tab by mouth 30 Tab 2 11/23/19 Active D-3) 1,000 units tablet daily. [address](+) Take 1 Cap by mouth daily 30 Cap 3 11/23/19 Active (PRILOSEC) 20 mg capsule before breakfast. 17 calcium carbonate Take 2 Tabs by mouth 30 Tab 2 11/23/19 Active (OS-ALISON) 1250 mg tablet daily. 17 albuterol (VENTOLIN HFA, Inhale 2 Puffs by mouth 1 Inhaler 3 11/23/19 Active PROAIR HFA, PROVENTIL into the lungs every 6 17 HFA) 90 mcg/actuation hours as needed. inhaler gabapentin (NEURONTIN) Take 1 Cap by mouth twice 60 Cap 1 11/23/19 Active 300 mg daily. 17 capsuleIndications: Peripheral neuropathy (HCC) cyclobenzaprine Take 10 mg by mouth twice Active (FLEXERIL) 10 mg tablet daily as needed for Muscle Cramps. diphenoxylate/atropine Take 1 Tab by mouth four Active (LOMOTIL) 2.5/0.025 mg times daily as needed. tablet DRONABINOL (MARINOL PO) Take 1 Tab by mouth twice Active daily as needed. ALPRAZolam (XANAX) 1 mg Take 1 Tab by mouth at 60 Tab 0 01/10/20 Active tabletIndications: bedtime as needed for 17 ANXIETY Anxiety. Indications: ANXIETY aspirin EC 81 mg tablet Take 1 Tab by mouth 90 Tab 3 01/10/20 Active daily. Take with food. 17 potassium chloride(+) Take 2 Caps by mouth 90 Cap 3 01/16/20 Active (MICRO-K) 10 mEq capsule twice daily. Take with a 17 meal and a full glass of water. acyclovir (ZOVIRAX) 800 Take 0.5 Tabs by mouth 60 Tab 1 01/26/20 Active mg tablet every 12 hours. 17 oxycodone(+) (ROXICODONE, Take 1-1.5 Tabs by mouth 100 Tab 0 02/13/20 Active OXY-IR) 10 mg tablet every 4 hours as needed 17 for Pain morphine SR (MS CONTIN; Take 1 Tab by mouth every 60 Tab 0 02/13/20 Active ORAMORPH SR) 60 mg ER 12 hours 17 tablet ondansetron (ZOFRAN) 8 mg Take 1 Tab by mouth every 90 Tab 0 02/14/20 Active tablet 8 hours as needed. 17 trimethoprim/sulfamethoxa Take 1 Tab by mouth twice 24 Tab 3 02/14/20 Active zole (BACTRIM DS) 160/800 daily. Mondays and 17 mg tablet . umeclidinium-vilanterol Inhale 1 Puff by mouth 3 Each 0 02/29/20 Active (ANORO ELLIPTA) 62.5-25 into the lungs daily. 17 mcg/actuation Indications: BRONCHOSPASM inhalerIndications: PREVENTION WITH COPD BRONCHOSPASM PREVENTION WITH COPD acyclovir (ZOVIRAX) 800 Take 1/2 tablet (400 mg) 60 Tab 5 03/12/20 Active mg tabletIndications: by mouth twice a day 17 Multiple myeloma not starting on the day having achieved remission before stem cell (HCC) infusion. prochlorperazine maleate Take 1 Tab by mouth every 45 Tab 0 03/12/20 Active (COMPAZINE) 10 mg 6 hours as needed for 17 tabletIndications: Nausea or Vomiting. 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 Acquired hypothyroidism 11/16/2016 Need for pneumocystis prophylaxis 11/16/2016 Use of opiates for therapeutic purposes 11/16/2016 Chronic bronchitis (HCC) 11/16/2016 Leukopenia 10/05/2014 Seborrheic dermatitis 10/05/2014 Severe malnutrition (HCC) 04/13/2014 Failure to thrive 03/28/2014 Pleural effusion 03/21/2014 Atelectasis 03/21/2014 Hypophosphatemia 03/19/2014 Mucositis (ulcerative) due to antineoplastic therapy 03/16/2014 Pancytopenia due to antineoplastic chemotherapy (HCC) 03/15/2014 Diarrhea 03/15/2014 History of peripheral stem cell transplant ([facility]) 03/10/2014 Overview: Date of Transplant: 03/12/2014 Preparative Regimen: Melphalan 200, with HBO Disease: MM, IgA Disease Status at Transplant: Chemo Responsive CMV: positive Cell Source: autologous Consents/Studies:[id number], [id number] Coordinator: Gemini Daigle RN Multiple myeloma ([facility]) 03/03/2014 Last Assessment & Plan: A 67-year-old female patient with a known history of IgA kappa multiple myeloma diagnosed in 2013 status post Velcade/dexamethasone based therapy as induction therapy followed by high-dose chemotherapy with autologous stem cell transplant in 02/2014. Patient was on Revlimid maintenance therapy until she progressed in 12/2015 she was switched to carfilzomib/Revlimid/dexamethasone 6 cycles and she progressed in 07/2016 [...] send our note for our final recommendations COPD (chronic obstructive pulmonary disease) (HCC) 02/25/2014 Resolved Problems Problem Noted Date Resolved Date Conditioning chemotherapy prior to peripheral blood stem cell transplant 03/12/2017 On antineoplastic chemotherapy 01/15/2017 03/12/2017 Nausea & vomiting 12/09/2016 12/13/2016 Failure to thrive in adult 12/09/2016 12/13/2016 Admission for antineoplastic chemotherapy 11/16/2016 01/09/2017 Pancytopenia due to chemotherapy (HCC) 04/13/2014 02/27/2017 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 10/05/2014 Hypomagnesemia 03/19/2014 10/05/2014 Nausea 03/15/2014 10/05/2014 Hypokalemia 03/12/2014 10/05/2014 Conditioning chemotherapy prior to peripheral blood stem cell transplant 10/05/2014 History of tobacco use 02/25/2014 02/25/2014 Encounters Date Type Specialty Care Team Description 03/13/2017 Office Visit Oncology Rafy Valladares MD Multiple myeloma in relapse (HCC) (Primary Dx) 03/13/2017 Office Visit Oncology Odin Cowan MD Multiple myeloma in relapse (HCC) (Primary Dx);Plasmacytoma, 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 Hospital Oncology Odin Cowan MD Encounter 03/12/2017 Hospital Radiology Odin Cowan MD Encounter 03/12/2017 Hospital Radiology Odin Cowan MD Encounter 03/12/2017 Office Visit Oncology Odin Cowan MD Multiple myeloma not having achieved remission (HCC) (Primary Dx);On antineoplastic chemotherapy;Conditioning chemotherapy prior to peripheral blood stem cell transplant;Other emphysema (HCC) 03/12/2017 Hospital Oncology Odin Cowan MD Encounter 03/12/2017 Hospital Radiology Claudia Reno MD Encounter Timur Lynne MD Sudbeck, Kristen, Anton Flowers 03/12/2017 Procedure Pass Radiology 03/12/2017 Orders Only Oncology Odin oCwan MD Multiple myeloma in remission (HCC) (Primary Dx);Multiple myeloma, remission status unspecified [C90.00] 03/12/2017 Orders Only Oncology Aleyda Radford RN Multiple myeloma in remission (HCC) (Primary Dx) 03/08/2017 Office Visit Oncology Claudia Reno MD Multiple myeloma, remission status unspecified (HCC) (Primary Dx);History of peripheral stem cell transplant (HCC);Pancytopenia due to antineoplastic chemotherapy (HCC) 03/07/2017 [facility] Radiology Claudia Reno MD Encounter 03/07/2017 Hospital Radiology Claudia Reno MD Encounter 03/07/2017 Office Visit Oncology Rafy Valladares MD Multiple myeloma, remission status unspecified (HCC) (Primary Dx) 03/07/2017 Ancillary Oncology Claudia Reno MD Multiple myeloma not Orders having achieved remission (HCC) (Primary Dx);Encounter for screening mammogram for breast cancer 03/07/2017 Documentation Oncology Chari Beal 03/04/2017 Orders Only Oncology Sarai Zimmerman RN Thyroid nodule ( Primary Dx) 02/28/2017 Office Visit Pulmonology Zuhair Graham MD Centrilobular emphysema (HCC) (Primary Dx);Mucopurulent chronic bronchitis (HCC);Chronic obstructive pulmonary disease, unspecified COPD type (HCC);Abnormal pulmonary function test 02/28/2017 [facility] Radiology Odin Cowan MD Encounter 02/28/2017 Orders Only Oncology Irina Lo RN Multiple myeloma not having achieved remission (HCC) (Primary Dx) 02/28/2017 Procedure Pass Radiology 02/27/2017 [facility] Radiology Claudia Reno MD Canceled (Office- Provider Encounter Abraham Brunner MD Conflict) 02/27/2017 Office Visit Oncology Odin Cowan MD Multiple myeloma not having achieved remission (HCC) (Primary Dx);History of peripheral stem cell transplant (HCC);Abnormal pulmonary function test;Pancytopenia due to antineoplastic chemotherapy (HCC) 02/27/2017 Office Visit Cardiology Odin Cowan MD New Patient ; Trent Montaño MD Post-hospital Follow Up ([facility] 01-02-17 to 01-09-17 for relapse multiple myeloma); Pre-op Clearance (for bone marrow transplant 03-01-17) 02/27/2017 Telephone Oncology Rafy Valladares MD Appointment (New pt Dr. Valladares) 02/27/2017 Patient Profile Cardiology Bailey Camarillo New Patient ( Pre bone marrow transplantation workup) 02/25/2017 Documentation Cardiology Bailey Camarillo Records Request ( Sp patient seeing Dr. Montaño on 02/27/17) 02/23/2017 Orders Only Oncology Rohit Lyman, PHARMD 02/21/2017 Telephone Cardiology Amelie Quesada Records Request 02/21/2017 Orders Only Oncology Irina Lo RN Multiple myeloma, remission status unspecified (HCC) (Primary Dx) 02/13/2017 [facility] Radiology Claudia Reno MD Encounter 02/13/2017 Office Visit Oncology Odin Cowan MD Consultation without Leyla Rodriguez, PhD specific complaint (Primary Dx) 02/13/2017 Nurse Only Oncology Odin Cowan MD 02/13/2017 Orders Only Oncology Brooke Allison, PHARMD 02/13/2017 Refill Oncology Lila Ojeda APRN 02/13/2017 Documentation Oncology Irina Lo RN 02/13/2017 Documentation Oncology Paula Haque RD 02/12/2017 [facility] Oncology Odin Cowan MD Encounter 02/12/2017 [facility] Cardiology Claudia Reno MD Encounter 02/12/2017 [facility] Oncology Sage Zamora MD Encounter 02/12/2017 [facility] Odin Cowan MD Encounter from Last 3 Months Immunizations Name Dates Previously Given Next Due Acthib Vaccine 08/08/2015, 10/05/2014 Flu Vaccine Trivalent >64 07/07/2014 Yo High-dose (Preservative Free) Hepatitis A vaccine Adult 10/05/2014 IM Hepatitis B Vaccine Adult 10/05/2014 3 Dose IM IPV 08/08/2015, 10/05/2014 Meningococcal Conjug 10/05/2014 Vaccine Pneumococcal 08/08/2015, 10/05/2014 Vaccine(13-[facility]/immunocompromised adult) Tdap Vaccine 08/08/2015, 10/05/2014 Family History Medical History Relation Name Comments COPD Father Emphysema Father Cervical Cancer Maternal Grandmother Anemia Mother Hypertension Mother Kidney Failure Mother Cancer Paternal Grandfather Heart Attack Sister in her 60's Relation Name Status Comments Father Maternal Grandmother Mother Paternal Grandfather Sister Social History Tobacco Use Types Packs/Day Years Used Date Former Smoker 1 40 Quit: 09/16/2001 Smokeless Tobacco: Never Used Tobacco Cessation: Counseling Given: No Alcohol Use Drinks/Week oz/Week Comments No Sex Assigned at Date Recorded Not on file Last Filed Vital Signs Vital Sign Reading Time Taken Blood Pressure 167/91 03/13/2017 11:54 AM CDT Pulse 93 03/13/2017 11:54 AM CDT Temperature 36.4 C (97.5 F) 03/13/2017 11:54 AM CDT Respiratory Rate 16 03/13/2017 10:11 AM CDT Oxygen Saturation 94% 03/13/2017 11:54 AM CDT Inhaled Oxygen - - Concentration Weight 65.4 kg (144 lb 3.2 oz) 03/13/2017 11:54 AM CDT Height 160 cm (5' 2.99") 03/13/2017 11:54 AM CDT Body Mass Index 25.55 03/13/2017 11:54 AM CDT Plan of Treatment Health Maintenance Due Date Last Done Comments HEPATITIS C SCREENING 1950 PHYSICAL (COMPREHENSIVE) 02/11/1956 EXAM COLORECTAL CANCER 1999 SCREENING SHINGLES VACCINE 2009 OSTEOPOROSIS SCREENING 2014 PREVNAR/PNEUMOVAX (#2) 10/05/2015 08/08/2015, 10/05/2014 INFLUENZA VACCINE 05/17/2017 07/07/2014 BREAST CANCER SCREENING 03/07/2018 03/07/2017, 02/17/2014 TETANUS VACCINE 08/08/2025 08/08/2015, 10/05/2014 PERTUSSIS VACCINE Completed 08/08/2015, 10/05/2014 Implants Implanted Type Area Lock Master Device Expiration Model / Identifier Date Serial / Lot Catheter 28cm 12fr [place] Right: C R BARD [id number] 12/14/2018 [id number] / Trifusion Straight [place] - Chest Wall 6538 . / Strifusion [id number] Implanted: Qty: 1 on 03/12/2017 by Timur Lynne MD Procedures Procedure Name Priority Date/Time Associated Diagnosis Comments TELEMETRY STRIPS-SCAN 03/13/2017 Results for this 2:25 PM CDT procedure are in the results section. ECG-SCAN 03/02/2017 Results for this 11:15 AM CDT procedure are in the results section. ECG UNCONFIRMED-SCAN 02/28/2017 Results for this 9:18 AM CDT procedure are in the results section. from Last 3 Months Results * TELEMETRY STRIPS-SCAN (03/13/2017 2:25 PM) Narrative Ordered by an unspecified provider. * TOTAL PROTEIN SEP (03/13/2017 10:30 AM) Component Value Ref Range Total Protein 5.2 (L) 6.0 - 8.0 g/dL Specimen Performing Laboratory Blood [facility] [address] [place] [id number] * KAPPA/LAMBDA FREE LIGHT CHAINS (03/13/2017 10:30 AM) Only the most recent of 2 results within the time period is included. Component Value Ref Range Blossom, FLC 15.40 (H) 0.33 - 1.94 MG/DL Comment: CHECKED Freelite results should always be interpreted in conjunction with other laboratory tests and clinical evidence. The possibility of Antigen Excess exists and can cause Immunoassays to under estimate very high concentrations of antigen. Any discordant results should be discussed with Dr. Lucas. Lambda, FLC 0.12 (L) 0.57 - 2.63 MG/DL Blossom/Lambda FLC 128.33 (H) 0.26 - 1.65 Specimen Performing Laboratory Blood MA[facility] [address] [place] [address] * CBC AND DIFF (03/13/2017 10:30 AM) Only the most recent of 4 results within the time period is included. Component Value Ref Range White Blood Cells 1.7 (L) 4.5 - 11.0 K/UL RBC 2.73 (L) 4.0 - 5.0 M/UL Hemoglobin 8.9 (L) 12.0 - 15.0 GM/DL Hematocrit 26.3 (L) 36 - 45 % MCV 96.6 80 - 100 FL MCH 32.7 26 - 34 PG MCHC 33.8 32.0 - 36.0 G/DL RDW 15.7 (H) 11 - 15 % Platelet Count 71 (L) 150 - 400 K/UL MPV 7.4 7 - 11 FL Neutrophils 60 41 - 77 % Lymphocytes 21 (L) 24 - 44 % Monocytes 16 (H) 4 - 12 % Eosinophils 3 0 - 5 % Basophils 0 0 - 2 % Absolute Neutrophil Count 1.00 (L) 1.8 - 7.0 K/UL Absolute Lymph Count 0.30 (L) 1.0 - 4.8 K/UL Absolute Monocyte Count 0.30 0 - 0.80 K/UL Absolute Eosinophil Count 0.00 0 - 0.45 K/UL Absolute Basophil Count 0.00 0 - 0.20 K/UL Specimen Performing Laboratory Blood [facility] [address] [place] [address] * IMMUNOGLOBULINS-IGA,IGG,IGM (03/13/2017 10:30 AM) Only the most recent of 2 results within the time period is included. Component Value Ref Range IgG 175 (L) 762 - 1488 MG/DL IgA 95 70 - 390 MG/DL IgM <20 (L) 38 - 328 MG/DL Specimen Performing Laboratory Blood [facility] [address] [place] [address] * ELECTROPHORESIS-SERUM PROTEIN (03/13/2017 10:30 AM) Only the most recent of 2 results within the time period is included. Component Value Ref Range Total Protein-SEP 5.2 (L) 6.0 - 8.0 G/DL Albumin % 62.5 48 - 68 % Alpha 1 % 6.7 (H) 2 - 6 % Alpha 2 % 14.1 5 - 15 % Beta %,Serum 11.2 9 - 17 % Gamma % 5.5 (L) 9 - 21 % Paraprotein 0.11 G/DL Interpretation - SEP SPIKE, PROBABLY MONOCLONAL, IN BETA/GAMMA REGION(S) Pathologist Signature INTERPRETED BY CHACNE HERNANDEZ M.D. By the PATH SIGNATURE ABOVE, I attest that I have personally formulated the final interpretation expressed in this report and that the above diagnosis is based upon my examination of the slides and/or other material indicated in this report. Specimen Performing Laboratory Blood [facility] [address] [place] [address] * PHOSPHORUS (03/13/2017 10:30 AM) Only the most recent of 3 results within the time period is included. Component Value Ref Range Phosphorus 3.6 2.0 - 4.0 MG/DL Specimen Performing Laboratory Blood [facility] [address] [place] [id number] * MAGNESIUM (03/13/2017 10:30 AM) Only the most recent of 4 results within the time period is included. Component Value Ref Range Magnesium 1.5 (L) 1.6 - 2.6 mg/dL Specimen Performing Laboratory Blood [facility] [address] [place] [id number] * COMPREHENSIVE METABOLIC PANEL (03/13/2017 10:30 AM) Only the most recent of 4 results within the time period is included. Component Value Ref Range Sodium 137 137 - 147 MMOL/L Potassium 4.2 3.5 - 5.1 MMOL/L Chloride 106 98 - 110 MMOL/L Glucose 89 70 - 100 MG/DL Blood Urea Nitrogen 18 7 - 25 MG/DL Creatinine 1.23 (H) 0.4 - 1.00 MG/DL Calcium 8.8 8.5 - 10.6 MG/DL Total Protein 5.3 (L) 6.0 - 8.0 G/DL Total Bilirubin 0.2 (L) 0.3 - 1.2 MG/DL Albumin 3.2 (L) 3.5 - 5.0 G/DL Alk Phosphatase 48 25 - 110 U/L AST (SGOT) 9 7 - 40 U/L CO2 27 21 - 30 MMOL/L ALT (SGPT) 5 (L) 7 - 56 U/L Anion Gap 4 3 - 12 eGFR Non 43 (L) >60 mL/min Comment: The eGFR is not validated for use in drug dosing adjustments. Continue to use estimated creatinine clearance per dosing reference text. Please contact the Clinical Pharmacist for questions. eGFR 53 (L) >60 mL/min Comment: The eGFR is not validated for use in drug dosing adjustments. Continue to use estimated creatinine clearance per dosing reference text. Please contact the Clinical Pharmacist for questions. Specimen Performing Laboratory Blood [facility] [address] [place] [address] * CTA ABD/PELVIS (03/12/2017 3:26 PM) Specimen Performing Laboratory [facility] RESULTS Impressions 1.Development of a 3.2 x 3.1 x 2.4 cm mass encasing the common hepatic artery. The leading differential consideration include plasmacytoma (given history of multiple myeloma), metastatic disease, lymphoma, or sarcoma. This appears eccentric and separate from the pancreas, there is a primary pancreatic neoplasm is thought less likely. 2.Diffuse osseous findings compatible with multiple myeloma and demineralization. 3.Moderate atherosclerosis. No aneurysm. 4.Subacute and old rib fractures. Old lumbar fracture status post vertebroplasties. 5.Sigmoid diverticulosis. By my electronic signature, I attest that I have personally reviewed the images for this examination and formulated the interpretations and opinions expressed in this report Finalized by Hugo Briscoe M.D. on 03/12/2017 4:50 PM. Dictated by Jaime Crystal M.D. on 03/12/2017 3:51 PM. Narrative CTA ABDOMEN AND PELVIS Clinical Indication:Female, 67 years old. Rule out hepatic aneurysm, condition and chemotherapy prior to peripheral blood stem cell transplant Technique:Multiple contiguous axial images were obtained through the abdomen and pelvis following the administration of IV contrast material. Post processing coronal and sagittal reconstruction images were made from the axial images.Image post-processing was obtained. IV contrast: Isovue-370 Bowel contrast:Water Comparison: CT abdomen pelvis 11/25/[address] 02/28/2017 FINDINGS: Lower Thorax: Partially visualized indwelling right IJ central venous catheter. Please see same-day dedicated chest CT regarding lung base findings. There is some greater atelectasis at the right base compared to the CT from earlier today. 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 Liver and Biliary system: The liver size remains normal. Hepatic parenchymal evaluation is slightly limited as this is designed is an arterial phase examination.there is no definite hepatic mass. Spleen: Unremarkable. Adrenal Glands and Kidneys: Unremarkable. Pancreas and Retroperitoneum: There has been development of a mass within the upper abdomen which encases the common hepatic artery at the arthur hepatis, just above the pancreas. The very inferior aspect of the mass abuts the upper pancreatic head or neck. This mass measures 3.2 x 3.1 x 2.4 cm. Previously there was some trace soft tissue thickening adjacent to the common hepatic artery on the November 2016 study. The remaining portions the pancreas appear unremarkable. Aorta and Major Vessels. Normal caliber abdominal aorta with moderate mixed, predominantly calcified atherosclerotic plaque. The celiac axis origin is patent. The SMA appears unremarkable. There are single patent bilateral renal arteries. The JODI is patent. There is mild aortic and iliac atherosclerosis. There is no aneurysm. Bowel, Mesentery and Peritoneal space: There is sigmoid diverticulosis. Prehepatic colonic interposition. No mesenteric adenopathy. Normal appendix. Pelvis: Limited evaluation of the pelvic soft tissues due to hardware associated artifact. Mildly distended urinary bladder. No pelvic adenopathy. Absent uterus.. Abdominal wall and Osseous Structures: Prior total left hip arthroplasty. Prior L2 and L3 vertebroplasty. Advanced multilevel lumbar spondylosis. There continues to be diffuse patchy permeative/demineralized appearance of the osseous structures concordant with the patient's history of multiple myeloma. Additional subtle, likely L1 and L4 superior endplate compression deformities. Subacute posterior left 9th rib fracture deformity, as noted on prior PET CT . Additional old lower right anterolateral rib fracture deformities. Procedure Note Interface, Radiant Results - 03/12/2017 4:53 PM CDT CTA ABDOMEN AND PELVIS Clinical Indication: Female, 67 years old. Rule out hepatic aneurysm, condition and chemotherapy prior to peripheral blood stem cell transplant Technique: Multiple contiguous axial images were obtained through the abdomen and pelvis following the administration of IV contrast material. Post processing coronal and sagittal reconstruction images were made from the axial images. Image post-processing was obtained. IV contrast: Isovue-370 Bowel contrast: Water Comparison: CT abdomen pelvis 11/25/[address] 02/28/2017 FINDINGS: Lower Thorax: Partially visualized indwelling right IJ central venous catheter. Please see same-day dedicated chest CT regarding lung base findings. There is some greater atelectasis at the right base compared to the CT from earlier today. 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 Liver and Biliary system: The liver size remains normal. Hepatic parenchymal evaluation is slightly limited as this is designed is an arterial phase examination. there is no definite hepatic mass. Spleen: Unremarkable. Adrenal Glands and Kidneys: Unremarkable. Pancreas and Retroperitoneum: There has been development of a mass within the upper abdomen which encases the common hepatic artery at the arthur hepatis, just above the pancreas. The very inferior aspect of the mass abuts the upper pancreatic head or neck. This mass measures 3.2 x 3.1 x 2.4 cm. Previously there was some trace soft tissue thickening adjacent to the common hepatic artery on the November 2016 study. The remaining portions the pancreas appear unremarkable. Aorta and Major Vessels. Normal caliber abdominal aorta with moderate mixed, predominantly calcified atherosclerotic plaque. The celiac axis origin is patent. The SMA appears unremarkable. There are single patent bilateral renal arteries. The JODI is patent. There is mild aortic and iliac atherosclerosis. There is no aneurysm. Bowel, Mesentery and Peritoneal space: There is sigmoid diverticulosis. Prehepatic colonic interposition. No mesenteric adenopathy. Normal appendix. Pelvis: Limited evaluation of the pelvic soft tissues due to hardware associated artifact. Mildly distended urinary bladder. No pelvic adenopathy. Absent uterus.. Abdominal wall and Osseous Structures: Prior total left hip arthroplasty. Prior L2 and L3 vertebroplasty. Advanced multilevel lumbar spondylosis. There continues to be diffuse patchy permeative/demineralized appearance of the osseous structures concordant with the patient's history of multiple myeloma. Additional subtle, likely L1 and L4 superior endplate compression deformities. Subacute posterior left 9th rib fracture deformity, as noted on prior PET CT . Additional old lower right anterolateral rib fracture deformities. IMPRESSION 1. Development of a 3.2 x 3.1 x 2.4 cm mass encasing the common hepatic artery. The leading differential consideration include plasmacytoma (given history of multiple myeloma), metastatic disease, lymphoma, or sarcoma. This appears eccentric and separate from the pancreas, there is a primary pancreatic neoplasm is thought less likely. 2. Diffuse osseous findings compatible with multiple myeloma and demineralization. 3. Moderate atherosclerosis. No aneurysm. 4. Subacute and old rib fractures. Old lumbar fracture status post vertebroplasties. 5. Sigmoid diverticulosis. By my electronic signature, I attest that I have personally reviewed the images for this examination and formulated the interpretations and opinions expressed in this report Finalized by Hugo Briscoe M.D. on 03/12/2017 4:50 PM. Dictated by Jaime Crystal M.D. on 03/12/2017 3:51 PM. * CT CHEST WO CONTRAST (03/12/2017 1:52 PM) Specimen Performing Laboratory [facility] Impressions 1. No focal consolidation or pleural effusion. 2. Osteopenia with scattered lytic lesions throughout the osseous structures, compatible with reported multiple myeloma.\\ 3. Masslike area of soft tissue attenuation along the hepatic artery, which is incompletely evaluated without intravenous contrast. CTA of the abdomen is recommended for further evaluation. Findings discussed with Dr. Cowan via telephone at 1:35 PM 03/12/2017. By my electronic signature, I attest that I have personally reviewed the images for this examination and formulated the interpretations and opinions expressed in this report Finalized by MAHIN AVILA M.D. on 03/12/2017 5:22 PM. Dictated by Basilio Fontanez M.D. on 03/12/2017 1:[address] CHEST Clinical Indication: Wheezing, multiple myeloma, stem cell transplant Technique: Multiple contiguous axial CT images were obtained through the chest without IV contrast. Post processing coronal and sagittal reconstruction images were made from the axial images.Additional high resolution inspiratory and expiratory images were obtained IV contrast: None. Comparison: CT abdomen/pelvis 11/25/2016 and PET scan 02/28/2017 FINDINGS: Evaluation of the mediastinum and brenda, including the vasculature and for lymphadenopathy, is limited without the use of IV contrast. Axilla, Mediastinum and Brenda: There is no axillary, mediastinal, or obvious hilar adenopathy. A fat-containing Morgagni hernia is present. Heart and Great Vessels: The heart size is normal without pericardial effusion. There is at least mild coronary artery calcification. A right IJ central venous catheter is in place, with the tip at the level of the superior caval atrial junction. The ascending aorta is ectatic, measuring up to 3.7 cm. Airway, Lungs and Pleura: A calcified granuloma is present within the right upper lobe. No consolidation, suspicious pulmonary nodules, or pleural effusion is seen. There is no significant bronchiectasis, bronchial wall thickening, or air trapping. Upper Abdomen: Masslike soft tissue attenuation is seen along the hepatic artery (image 60 series 2). Chest Wall and Osseous Structures: There is diffuse osteopenia throughout the visualized osseous structures with partial visualization of prior lumbar vertebroplasty. Multiple lytic osseous lesions are present. Old bilateral rib fracture deformities are seen. Procedure Note Interface, Radiant Results - 03/12/2017 5:[address] CHEST Clinical Indication: Wheezing, multiple myeloma, stem cell transplant Technique: Multiple contiguous axial CT images were obtained through the chest without IV contrast. Post processing coronal and sagittal reconstruction images were made from the axial images. Additional high resolution inspiratory and expiratory images were obtained IV contrast: None. Comparison: CT abdomen/pelvis 11/25/2016 and PET scan 02/28/2017 FINDINGS: Evaluation of the mediastinum and brenda, including the vasculature and for lymphadenopathy, is limited without the use of IV contrast. Axilla, Mediastinum and Brenda: There is no axillary, mediastinal, or obvious hilar adenopathy. A fat-containing Morgagni hernia is present. Heart and Great Vessels: The heart size is normal without pericardial effusion. There is at least mild coronary artery calcification. A right IJ central venous catheter is in place, with the tip at the level of the superior caval atrial junction. The ascending aorta is ectatic, measuring up to 3.7 cm. Airway, Lungs and Pleura: A calcified granuloma is present within the right upper lobe. No consolidation, suspicious pulmonary nodules, or pleural effusion is seen. There is no significant bronchiectasis, bronchial wall thickening, or air trapping. Upper Abdomen: Masslike soft tissue attenuation is seen along the hepatic artery (image 60 series 2). Chest Wall and Osseous Structures: There is diffuse osteopenia throughout the visualized osseous structures with partial visualization of prior lumbar vertebroplasty. Multiple lytic osseous lesions are present. Old bilateral rib fracture deformities are seen. IMPRESSION 1. No focal consolidation or pleural effusion. 2. Osteopenia with scattered lytic lesions throughout the osseous structures, compatible with reported multiple myeloma.\\ 3. Masslike area of soft tissue attenuation along the hepatic artery, which is incompletely evaluated without intravenous contrast. CTA of the abdomen is recommended for further evaluation. Findings discussed with Dr. Cowan via telephone at 1:35 PM 03/12/2017. By my electronic signature, I attest that I have personally reviewed the images for this examination and formulated the interpretations and opinions expressed in this report Finalized by MAHIN AVILA M.D. on 03/12/2017 5:22 PM. Dictated by Basilio Fontanez M.D. on 03/12/2017 1:18 PM. * IR CENTRAL VENOUS CATHETER (03/12/2017 9:21 AM) Only the most recent of 2 results within the time period is included. Specimen Performing Laboratory [facility] Narrative This IR procedure does not require a dictated result. * MAMMO SCREEN BILAT/LISA/CAD (03/07/2017 2:15 PM) Specimen Performing Laboratory [facility] Impressions ACR BI-RADS Assessments: BIRAD 1-Negative RECOMMENDATION: Routine screening mammogram in 1 year.The patient has dense breasts, which is a risk factor for development of breast cancer, and can reduce sensitivity for breast cancer detection up to 50%. This patient may benefit from supplementary screening with Automated Breast Ultrasound, if clinically indicated. Narrative Last mammogram was performed 3 years and 1 month ago. Reason for exam: screening, asymptomatic. pt having bone marrow trans plant next week Performed by: Cary Ann [id number] DIGITAL MAMMO SCREEN BILAT/LISA/CAD: MARCH 07, 2017 - 2D/3D Procedure 3D Routine views. 2D Routine views. Technologist: Cary Ann Prior study comparison: February 17, 2014, bilateral CCC DIG M SCR b/t/C, performed at [facility]. The breasts are heterogeneously dense, which may obscure detection of small masses.2D, and 3D images were obtained. No masses, densities or calcifications to suggest malignancy. No significant change from prior studies. Electronically signed and approved by: Cedric Lion M.D. [id number] Procedure Note Interface, Radiant Results - 03/08/2017 8:46 AM CDT Last mammogram was performed 3 years and 1 month ago. Reason for exam: screening, asymptomatic. pt having bone marrow trans plant next week Performed by: Cary Ann [id number] DIGITAL MAMMO SCREEN BILAT/LISA/CAD: MARCH 07, 2017 - 2D/3D Procedure 3D Routine views. 2D Routine views. Technologist: Cary Ann Prior study comparison: February 17, 2014, bilateral CCC DIG M SCR b/t/C, performed at [facility]. The breasts are heterogeneously dense, which may obscure detection of small masses. 2D, and 3D images were obtained. No masses, densities or calcifications to suggest malignancy. No significant change from prior studies. Electronically signed and approved by: Cedric Lion M.D. [id number] IMPRESSION ACR BI-RADS Assessments: BIRAD 1-Negative RECOMMENDATION: Routine screening mammogram in 1 year. The patient has dense breasts, which is a risk factor for development of breast cancer, and can reduce sensitivity for breast cancer detection up to 50%. This patient may benefit from supplementary screening with Automated Breast Ultrasound, if clinically indicated. * US THYROID (03/07/2017 1:42 PM) Specimen Performing Laboratory [facility] Impressions 1.Left superior pole thyroid nodule, corresponding with metabolically active nodule seen on recent PET. Though morphology is most compatible with a follicular nodule, thyroid carcinoma can be metabolically active on PET imaging. If clinically indicated, percutaneous biopsy is recommended. 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 Approved by Aspen Moore M.D. on 03/07/2017 3:33 PM By my electronic signature, I attest that I have personally reviewed the images for this examination and formulated the interpretations and opinions expressed in this report Finalized by Joaquin Flores M.D. on 03/07/2017 6:04 PM. Dictated by Aspen Moore M.D. on 03/07/2017 1:47 PM. Narrative Thyroid ultrasound: Clinical Indication: Multiple myeloma not having achieved remission. PET positive thyroid nodule Technique: Multiple real time reynoso scale sonographic images were obtained of the thyroid with color duplex imaging. Comparison: PET/CT from 02/28/2017 Findings: The right lobe of the thyroid measures 2.8 x 1 x 1 cm. The right lobe parenchyma is mildly heterogeneous without focal nodule. The left lobe of the thyroid measures 2.8 x 0.9 x 1.5 cm. One nodule is measured in the left lobe. The remaining left lobe parenchyma is mildly heterogeneous. Nodule 1: Superior pole. Solid, hyperechoic, smooth margin, internal blood flow demonstrated. Measures 1 x 0.6 x 0.8 cm. The isthmus is normal in thickness measuring 0.1 cm. Normal size, reactive appearing right cervical lymph node is noted. Procedure Note Interface, Radiant Results - 03/07/2017 6:07 PM CDT Thyroid ultrasound: Clinical Indication: Multiple myeloma not having achieved remission. PET positive thyroid nodule Technique: Multiple real time reynoso scale sonographic images were obtained of the thyroid with color duplex imaging. Comparison: PET/CT from 02/28/2017 Findings: The right lobe of the thyroid measures 2.8 x 1 x 1 cm. The right lobe parenchyma is mildly heterogeneous without focal nodule. The left lobe of the thyroid measures 2.8 x 0.9 x 1.5 cm. One nodule is measured in the left lobe. The remaining left lobe parenchyma is mildly heterogeneous. Nodule 1: Superior pole. Solid, hyperechoic, smooth margin, internal blood flow demonstrated. Measures 1 x 0.6 x 0.8 cm. The isthmus is normal in thickness measuring 0.1 cm. Normal size, reactive appearing right cervical lymph node is noted. IMPRESSION 1. Left superior pole thyroid nodule, corresponding with metabolically active nodule seen on recent PET. Though morphology is most compatible with a follicular nodule, thyroid carcinoma can be metabolically active on PET imaging. If clinically indicated, percutaneous biopsy is recommended. 2. 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 Approved by Aspen Moore M.D. on 03/07/2017 3:33 PM By my electronic signature, I attest that I have personally reviewed the images for this examination and formulated the interpretations and opinions expressed in this report Finalized by Joaquin Flores M.D. on 03/07/2017 6:04 PM. Dictated by Aspen Moore M.D. on 03/07/2017 1:47 PM. * ECG-SCAN (03/02/2017 11:15 AM) Narrative Ordered by an unspecified provider. * NM PET SCAN WHOLEBODY (HEAD-TOES) (02/28/2017 10:15 AM) Specimen Performing Laboratory [facility] Impressions 1.Numerous lytic lesions scattered throughout the visualized osseous structures without abnormal metabolically active foci to suggest active myelomatous lesion. 2.Healing fracture deformity of the left ninth rib. 3.Small metabolically active left thyroid nodule. A thyroid ultrasound is recommended for further evaluation. 4.Probable duodenal diverticulum. Approved by Gemini Webb M.D. on 02/28/2017 4:14 PM By my electronic signature, I attest that I have personally reviewed the images for this examination and formulated the interpretations and opinions expressed in this report Finalized by Abraham Brunner M.D. on 02/28/2017 4:20 PM. Dictated by Gemini Webb M.D. on 02/28/2017 10:34 AM. Narrative PET/CT HEAD, NECK, CHEST, ABDOMEN, PELVIS, AND EXTREMITIES CLINICAL HISTORY: 67-year-old female, pre-transplant eval.progression of lytic lesions, multiple myeloma RADIOPHARMACEUTICAL: 16.2 mCi IV Fluorine-18 fluorodeoxyglucose (FDG) BLOOD GLUCOSE LEVEL AT THE TIME OF RADIOPHARMACEUTICAL ADMINISTRATION: 108 mg / dL TECHNIQUE: Routine PET images ranging from the apex of the scalp to the feet were obtained 66 minutes after IV administration of F-18 Fluorodeoxyglucose (FDG). PET images were reviewed in standard orthogonal projections. Low dose non-contrast CT imaging was performed for attenuation correction and localization purposes. COMPARISON: CT abdomen pelvis November 25, 2016 FINDINGS: Mean blood pool SUV 1.87, maximum 2.5. Mean hepatic SUV 2.33, maximum 3.3. Physiologic uptake of F-18 Fluorodeoxyglucose (FDG) tracer is seen within the brain, heart, kidneys, bladder, and bowel. Head / Neck: Small metabolically active left thyroid nodule demonstrating a maximum SUV of 3.61 (index 246). Chest: No metabolically active nodes are visualized in the chest. Abdomen / Pelvis: Small region within the mid central abdomen with mild FDG uptake corresponding to a probable duodenal diverticulum. No metabolically active nodes are visualized in the abdomen or pelvis. Osseous Structures and extremities: Healing fracture deformity of the left ninth rib. Numerous lytic lesions are identified scattered throughout the visualized osseous structures without additional focal area of metabolic activity. Additional low-dose CT findings: A left PICC is in place. Calcified coronary artery disease. Distal colonic diverticulosis. Prior left total hip arthroplasty. Prior cement augmentation of several lumbar vertebral bodies. Procedure Note Interface, Radiant Results - 02/28/2017 4:23 PM CDT PET/CT HEAD, NECK, CHEST, ABDOMEN, PELVIS, AND EXTREMITIES CLINICAL HISTORY: 67-year-old female, pre-transplant eval. progression of lytic lesions, multiple myeloma RADIOPHARMACEUTICAL: 16.2 mCi IV Fluorine-18 fluorodeoxyglucose (FDG) BLOOD GLUCOSE LEVEL AT THE TIME OF RADIOPHARMACEUTICAL ADMINISTRATION: 108 mg / dL TECHNIQUE: Routine PET images ranging from the apex of the scalp to the feet were obtained 66 minutes after IV administration of F-18 Fluorodeoxyglucose (FDG). PET images were reviewed in standard orthogonal projections. Low dose non-contrast CT imaging was performed for attenuation correction and localization purposes. COMPARISON: CT abdomen pelvis November 25, 2016 FINDINGS: Mean blood pool SUV 1.87, maximum 2.5. Mean hepatic SUV 2.33, maximum 3.3. Physiologic uptake of F-18 Fluorodeoxyglucose (FDG) tracer is seen within the brain, heart, kidneys, bladder, and bowel. Head / Neck: Small metabolically active left thyroid nodule demonstrating a maximum SUV of 3.61 (index 246). Chest: No metabolically active nodes are visualized in the chest. Abdomen / Pelvis: Small region within the mid central abdomen with mild FDG uptake corresponding to a probable duodenal diverticulum. No metabolically active nodes are visualized in the abdomen or pelvis. Osseous Structures and extremities: Healing fracture deformity of the left ninth rib. Numerous lytic lesions are identified scattered throughout the visualized osseous structures without additional focal area of metabolic activity. Additional low-dose CT findings: A left PICC is in place. Calcified coronary artery disease. Distal colonic diverticulosis. Prior left total hip arthroplasty. Prior cement augmentation of several lumbar vertebral bodies. IMPRESSION 1. Numerous lytic lesions scattered throughout the visualized osseous structures without abnormal metabolically active foci to suggest active myelomatous lesion. 2. Healing fracture deformity of the left ninth rib. 3. Small metabolically active left thyroid nodule. A thyroid ultrasound is recommended for further evaluation. 4. Probable duodenal diverticulum. Approved by Gemini Webb M.D. on 02/28/2017 4:14 PM By my electronic signature, I attest that I have personally reviewed the images for this examination and formulated the interpretations and opinions expressed in this report Finalized by Abraham Brunner M.D. on 02/28/2017 4:20 PM. Dictated by Gemini Webb M.D. on 02/28/2017 10:34 AM. * ECG UNCONFIRMED-SCAN (02/28/2017 9:18 AM) Narrative Ordered by an unspecified provider. * IMMUNOFIXATION, SERUM (IFES) (02/27/2017 2:14 PM) Component Value Ref Range Immuno Fix-Serum IGA KAPPA PARAPROTEIN Pathologist Signature INTERPRETED BY CHANCE HERNANDEZ M.D. By the PATH SIGNATURE ABOVE, I attest that I have personally formulated the final interpretation expressed in this report and that the above diagnosis is based upon my examination of the slides and/or other material indicated in this report. Specimen Performing Laboratory [facility] [address] [place] [address] * LDH-LACTATE DEHYDROGENASE (02/27/2017 2:14 PM) Only the most recent of 2 results within the time period is included. Component Value Ref Range Lactate Dehydrogenase 151 100 - 210 U/L Specimen Performing Laboratory [facility] [address] [place] [address] * BETA 2 MICROGLOBULIN (02/27/2017 2:14 PM) Component Value Ref Range B2 Microglobulin 3.9 (H) 0.8 - 2.3 MG/L Specimen Performing Laboratory [facility] [address] [place] [address] * METASTATIC SKELETAL SURVEY (02/13/2017 11:12 AM) Specimen Performing Laboratory [facility] Impressions 1.Apparent interval progression in size of multiple lytic lesions throughout the axial and appendicular skeleton. 2.Specifically, there has been interval increase in size of a single lesion in the right proximal ulna since both 07/23/2016 and 02/17/2014. 3.Additional slight increase in size of left medial distal femoral diametaphyseal lesion, left distal fibular lesion, and right mid shaft tibial diaphyseal lesion. Finalized by Dominguez Fraga M.D. on 02/13/2017 11:38 AM. Dictated by Dominguez Fraga M.D. on 02/13/2017 11:31 AM. Narrative Metastatic skeletal survey (16 views total). CLINICAL INDICATION: 67-year-old female with multiple myeloma, remission status unspecified. Pretransplant evaluation. COMPARISON: Metastatic skeletal survey 07/23/2016. FINDINGS: Lateral calvarium: Redemonstration of innumerable punched-out lytic lesions throughout the calvarium consistent with unchanged myeloma. Thoracic and lumbar spine: Marked diffuse osteopenia. Moderate diffuse spondylosis throughout the thoracic spine. 5 nonrib-bearing lumbar-type vertebral bodies with unchanged compression fracture deformities at all lumbar levels and vertebral body cement augmentation at L2 and L3. Severe degenerative disc disease L4-L5 and L5-S1. Pelvis: No new lytic lesion or destructive osseous process. Innumerable tiny punched-out lytic lesions in diffuse demineralization are again noted. Bowel gas projects over the right medial iliac bone, favored over new lytic lesions. Left proximal femoral bipolar hemiarthroplasty. Bilateral upper extremities: Slight increase in conspicuity of lytic lesions throughout both proximal and mid humeral diaphyses, with more prevalent endosteal scalloping about the left proximal humerus. Specifically, a single lesion in the right proximal ulna has increased in size since 07/23/2016 and 2013. Bilateral lower extremities: Redemonstration of diffuse lytic lesions about both femurs, right tibia, and left fibula. Slight interval progression in size of right distal femoral diametaphyseal lesion, left medial distal femoral diametaphyseal lesion, and left distal fibular as well as right mid shaft tibial diaphyseal lesions. Procedure Note Interface, Radiant Results - 02/13/2017 11:41 AM CDT Metastatic skeletal survey (16 views total). CLINICAL INDICATION: 67-year-old female with multiple myeloma, remission status unspecified. Pretransplant evaluation. COMPARISON: Metastatic skeletal survey 07/23/2016. FINDINGS: Lateral calvarium: Redemonstration of innumerable punched-out lytic lesions throughout the calvarium consistent with unchanged myeloma. Thoracic and lumbar spine: Marked diffuse osteopenia. Moderate diffuse spondylosis throughout the thoracic spine. 5 nonrib-bearing lumbar-type vertebral bodies with unchanged compression fracture deformities at all lumbar levels and vertebral body cement augmentation at L2 and L3. Severe degenerative disc disease L4-L5 and L5-S1. Pelvis: No new lytic lesion or destructive osseous process. Innumerable tiny punched-out lytic lesions in diffuse demineralization are again noted. Bowel gas projects over the right medial iliac bone, favored over new lytic lesions. Left proximal femoral bipolar hemiarthroplasty. Bilateral upper extremities: Slight increase in conspicuity of lytic lesions throughout both proximal and mid humeral diaphyses, with more prevalent endosteal scalloping about the left proximal humerus. Specifically, a single lesion in the right proximal ulna has increased in size since 07/23/2016 and 2013. Bilateral lower extremities: Redemonstration of diffuse lytic lesions about both femurs, right tibia, and left fibula. Slight interval progression in size of right distal femoral diametaphyseal lesion, left medial distal femoral diametaphyseal lesion, and left distal fibular as well as right mid shaft tibial diaphyseal lesions. IMPRESSION 1. Apparent interval progression in size of multiple lytic lesions throughout the axial and appendicular skeleton. 2. Specifically, there has been interval increase in size of a single lesion in the right proximal ulna since both 07/23/2016 and 02/17/2014. 3. Additional slight increase in size of left medial distal femoral diametaphyseal lesion, left distal fibular lesion, and right mid shaft tibial diaphyseal lesion. Finalized by Dominguez Fraga M.D. on 02/13/2017 11:38 AM. Dictated by Dominguez Fraga M.D. on 02/13/2017 11:31 AM. * CHEST 2 VIEWS (02/13/2017 11:12 AM) Specimen Performing Laboratory [facility] Impressions 1. No acute cardiopulmonary abnormality. 2. Stable fat-containing right cardiophrenic angle mass. 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 Approved by Harleen Cobian M.D. on 02/14/2017 8:29 AM By my electronic signature, I attest that I have personally reviewed the images for this examination and formulated the interpretations and opinions expressed in this report Finalized by Keanu Stratton M.D. on 02/14/2017 10:16 AM. Dictated by Harleen Cobian M.D. on 02/14/2017 7:00 AM. Narrative CHEST 2 VIEWS Clinical indication: Pretransplant evaluation. Multiple myeloma. Comparison: Plain radiograph from January 07, 2017 Findings: Left PICC remains in place. Heart size and pulmonary vasculature are within normal limits. No significant pleural effusion, pneumothorax, or focal consolidation. Fat-containing right cardiophrenic angle mass is unchanged. Healing left third rib fracture is again noted. Procedure Note Interface, Radiant Results - 02/14/2017 10:19 AM CDT CHEST 2 VIEWS Clinical indication: Pretransplant evaluation. Multiple myeloma. Comparison: Plain radiograph from January 07, 2017 Findings: Left PICC remains in place. Heart size and pulmonary vasculature are within normal limits. No significant pleural effusion, pneumothorax, or focal consolidation. Fat-containing right cardiophrenic angle mass is unchanged. Healing left third rib fracture is again noted. IMPRESSION 1. No acute cardiopulmonary abnormality. 2. Stable fat-containing right cardiophrenic angle mass. 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 Approved by Harleen Coiban M.D. on 02/14/2017 8:29 AM By my electronic signature, I attest that I have personally reviewed the images for this examination and formulated the interpretations and opinions expressed in this report Finalized by Keanu Stratton M.D. on 02/14/2017 10:16 AM. Dictated by Harleen Cobian M.D. on 02/14/2017 7:00 AM. * IRON + BINDING CAPACITY + %SAT+ FERRITIN (02/12/2017 2:35 PM) Component Value Ref Range Iron 79 50 - 160 MCG/DL Iron Binding-TIBC 308 270 - 380 MCG/DL % Saturation 26 (L) 28 - 42 % Ferritin 520 (H) 10 - 200 NG/ML Specimen Performing Laboratory Blood [facility] [address] [place] [address] * ABO/RH(D) (02/12/2017 2:35 PM) Component Value Ref Range ABO/RH(D) O NEG Specimen Performing Laboratory Blood [facility] [address] [place] [address] * ANTIBODY SCREEN (02/12/2017 2:35 PM) Component Value Ref Range Antibody Screen POS Antibody Indentification Daratumumab-Associated Antibody JANI, Broad Spectrum NEG Gianni Specimen Performing Laboratory Blood, venous - Blood [facility] [address] [place] [address] * URIC ACID (02/12/2017 2:35 PM) Component Value Ref Range Uric Acid 5.7 2.0 - 7.0 MG/DL Specimen Performing Laboratory Blood [facility] [address] [place] [address] * TRANSFERRIN (02/12/2017 2:35 PM) Component Value Ref Range Transferrin 207 185 - 336 MG/DL Specimen Performing Laboratory Blood [facility] [address] [place] [address] * URINALYSIS, MICROSCOPIC (02/12/2017 2:32 PM) Component Value Ref Range WBCs,UA 0-2 0 - 2 /HPF RBCs,UA 0-2 0 - 3 /HPF MucousUA TRACE Squamous Epithelial Cells 0-2 0 - 5 Specimen Performing Laboratory [facility] [address] [place] [address] * URINALYSIS DIPSTICK (02/12/2017 2:32 PM) Component Value Ref Range Color,UA STRAW Turbidity,UA CLEAR CLEAR-CLEAR Specific Alden-Urine 1.012 1.003 - 1.035 pH,UA 6.0 5.0 - 8.0 Protein,UA NEG NEG-NEG Glucose,UA NEG NEG-NEG Ketones,UA NEG NEG-NEG Bilirubin,UA NEG NEG-NEG Blood,UA NEG NEG-NEG Urobilinogen,UA NORMAL NORM-NORMAL Nitrite,UA NEG NEG-NEG Leukocytes,UA NEG NEG-NEG Urine Ascorbic Acid, UA NEG NEG-NEG Specimen Performing Laboratory [facility] [address] [place] [address] * VRE SCREEN (02/12/2017 2:27 PM) Component Value Ref Range Battery Name VRE SCREEN Specimen Description PERIRECTAL SWAB Special Requests NONE Culture VRE ISOLATED Complete susceptibility testing is not performed on surveillance culture. Positive cultures indicate carrier status and do not by themselves indicate a need for treatment. Report Status FINAL 02/14/2017 Specimen Performing Laboratory Perirectal Swab [facility] [address] [place] [address] * 2-D ECHOCARDIOGRAM ONLY (02/12/2017 11:46 AM) Component Value Ref Range BSA 1.69 m2 ECHO EF 60 % Referring Provider CV ECHO PV VITAMIN MANAGER Interp Only Notching Press Operator Height (in) in Weight Lbs lbs Rt Systolic BP Rt Diastolic BP mmHg LVIDD 4.3 3.9 - 5.3 cm LVIDS 2.9 cm IVS 1.4 0.6 - 0.9 cm PW 1.0 0.6 - 0.9 cm FS 32.56 28 - 44 % EF 55.35 % LA size 3.2 2.7 - 3.8 cm Left Ventricle Systolic 19 - 49 mL Volume Left Ventricle Systolic 12 - 30 mL Volume Index Left Ventricle Diastolic 56 - 104 mL Volume Left Ventricle Diastolic 35 - 75 mL Volume Index LA volume 22.4 22 - 52 mL Left Atrium Index 13.25 10 - 32 LV mass 66 - 150 g Left Ventricle Mass Index 44 - 88 g/m2 Right Ventricular Basal 2.9 cm (2.4-4.2) Diameter Right Atrial Area 12.1 cm2 (<=18) Right Ventricular Mid 2.3 cm (2.0-3.5) Diameter Right Atrial Major cm (<=5.3) Dimension Right Ventricular Long 7.0 cm (5.6-8.6) Diameter Right Atrial Minor cm (<=4.4) Dimension Right Ventricular Wall cm (<=0.5) Ao root annulus 1.4 - 2.6 cm Sinus 3.3 2.1 - 3.5 cm STJ 1.7 - 3.4 cm Proximal aorta 2.1 - 3.4 cm Ascending aorta 2.0 - 3.6 cm Aortic arch 2.0 - 3.6 cm MPA annulus 1.0 - 2.2 cm MPA annulus 0.9 - 2.9 cm Left pulmonary artery 0.6 - 1.4 cm Right pulmonary artery 0.7 - 1.7 cm IVC ostium cm IVC proximal cm Specimen Performing Laboratory OTHER OUTSIDE LAB Narrative Overall LV systolic function is normal: estimated LV EF 55%, similar to prior study on 01/08/2017 2-D echo LV EF apical 4-chamber 67.6%, apical 2-chamber 63.7%, biplane 66.1% Average global longitudinal strain -18.3% Mild basal septal hypertrophy RV systolic function is normal Normal chamber dimensions Aortic sclerosis without aortic cusp restriction Other valve structures are unremarkable No pericardial effusion Mild pericardial thickening may be present on parasternal long axis views * PFT COMPLETE PULM FUNCTION (02/12/2017 8:13 AM) Component Value Ref Range FVC-Pre 1.90 L FVC-%Pred-pre 59 % FEV1-Pre 1.24 L FEV1-%Pred-Pre 51 % [id number] 0.73 L/sec QGJ4755-%Pred-Pre 35 % VCSVC-Pre 1.99 L ICSVC-Pre 1.44 L ERVSVC-Pre 0.55 L PEF-Pre 183.4 L/min TGVPleth-Pre 3.17 L RVPleth-Pre 2.73 L RVPleth-%Pred-Pre 124 % TLCPleth-Pre 4.53 L TLCPleth-%Pred-Pre 87 % DLCOunc-Pred 21.04 ml/min/mmHg DLCOunc-Pre 6.65 ml/min/mmHg DLCOunc-%Pred-Pre 31 % DLCOunc-SD 3.75 ml/min/mmHg DLCOunc-LLN 13.54 ml/min/mmHg DLCOunc-ULN 28.54 ml/min/mmHg DLCOunc-#SD -3.838 ml/min/mmHg DLVA-Pred 4.28 ml/min/mmHg/L DLVA-Pre 2.28 ml/min/mmHg/L DLVA-%Pred-Pre 53 % DLVA-SD 0.80 ml/min/mmHg/L DLVA-LLN 2.68 ml/min/mmHg/L DLVA-ULN 5.88 ml/min/mmHg/L DLVA-#SD -2.504 ml/min/mmHg/L Specimen Performing Laboratory [facility] [address] [place] [address] * CYTOGENETICS SCAN (02/08/2017 4:40 PM) Narrative Ordered by an unspecified provider. from Last 3 Months
--- OUTSIDE RECORDS SUMMARY | 2017-05-10 07:47 | XMS REPORT | Encounter Summary ---
Author Author [facility] Organization [facility] Address Unknown Phone Unavailable Care Team Providers Care Manager Hris Name Role Phone PCP Unavailable Encounter Details Date Type Department Care Team Description 03/12/2017 Procedure Pass [facility] Radiology [address] [place], [place] [id number] Social History Tobacco Use Types Packs/Day Years Used Date Former Smoker 1 40 Quit: 09/16/2001 Smokeless Tobacco: Never Used Alcohol Use Drinks/Week oz/Week Comments No Sex Assigned at Date Recorded Not on file as of this encounter Functional Status Functional Status Response Date of Assessment Does the patient have a hearing impairment: No 01/09/2017 Does the patient have a visual impairment: Yes 01/09/2017 Does the patient have impaired ambulation: No 01/09/2017 Does the patient have an activity of daily living No 01/09/2017 (ADL) impairment: Does the patient have an instrumental activity of No 01/09/2017 daily living (IADL) impairment: Cognitive Status Response Date of Assessment Does the patient have a cognitive impairment: No 01/09/2017 as of this encounter Plan of Treatment Not on fileas of this encounter Visit Diagnoses Not on filein this encounter
--- OUTSIDE RECORDS SUMMARY | 2017-05-10 07:47 | XMS REPORT | Encounter Summary ---
Author Author [facility] Organization [facility] Address Unknown Phone Unavailable Care Team Providers Care Art Professor Name Role Phone PCP Unavailable Encounter Details Date Type Department Care Team Description 03/12/2017 Orders Only [facility] Odin Cowan MD Multiple myeloma in Cancer Center - BMT Exam [address] [facility] remission (HCC) (Primary [address] Dx);Multiple myeloma, [address] [place] [address] [place] [address] unspecified [C90.00] [phone] Social History Tobacco Use Types Packs/Day Years [...] as of this encounter Plan of Treatment Name Priority Associated Diagnoses Order Schedule CBC AND DIFF Routine Multiple myeloma in Expected: 06/21/2017 remission (HCC) (Approximate), Expires: 03/12/2018 COMPREHENSIVE METABOLIC PANEL Routine Multiple myeloma in Expected: 02/2017 remission (HCC) (Approximate), Expires: 03/12/2018 KAPPA/LAMBDA FREE LIGHT CHAINS Routine Multiple myeloma in Expected: 02/2017 remission ([facility]) (Approximate), Expires: 03/12/2018 IMMUNOFIXATION, SERUM (IFES) Routine Multiple myeloma in Expected: 06/21 remission ([facility]) (Approximate), Expires: 03/12/2018 ELECTROPHORESIS-SERUM PROTEIN Routine Multiple myeloma in Expected: 02/2017 remission ([facility]) (Approximate), Expires: 03/12/2018 IMMUNOFIXATION URINE RANDOM Routine Multiple myeloma in Expected: 2016 remission ([facility]) (Approximate), Expires: 03/12/2018 BONE MARROW ASPIRATION PROCEDURE Routine Multiple myeloma, Expected: 02/2017 remission status (Approximate), Expires: unspecified [C90.00] 03/12/2018 BIOPSY BONE MARROW PROCEDURE Routine Multiple myeloma, Expected: 2016 remission status (Approximate), Expires: unspecified [C90.00] 03/12/2018 BONE MARROW ASP Routine Multiple myeloma, Expected: 06/21/2017 remission status (Approximate), Expires: unspecified [C90.00] 03/12/2018 BONE MARROW BIOPSY Routine Multiple myeloma, Expected: 06/21/2017 remission status (Approximate), Expires: unspecified [C90.00] 03/12/2018 LEUKEMIA/LYMPHOMA PNL, BONE MARROW Routine Multiple myeloma, Expected: 06/21/2017 remission status (Approximate), Expires: unspecified [C90.00] 03/12/2018 CHROMOSOMES BONE MARROW Routine Multiple myeloma, Expected: 06/21/2017 remission status (Approximate), Expires: unspecified [C90.00] 03/12/2018 as of this encounter Visit Diagnoses Diagnosis Multiple myeloma in remission (HCC) - Primary Multiple myeloma in remission Multiple myeloma, remission status unspecified [C90.00] in this encounter
--- OUTSIDE RECORDS SUMMARY | 2017-05-10 07:47 | XMS REPORT | Encounter Summary ---
Author Author [facility] Organization [facility] Address Unknown Phone Unavailable Care Team Providers Care Reconnaissance Man Name Role Phone PCP Unavailable Reason for Referral * Radiology Services Status Reason Specialty Diagnoses / Referred By Referred To Procedures Contact Contact No Auth Needed Radiology Diagnoses Chapo, Amos Ct Conditioning MD Odin [address] prior to [address] peripheral blood [address] [place] [address] stem cell [place] Phone: transplant [phone] P Phone: Zong [phone] CTA ABD/PELVIS * Radiology Services Status Reason Specialty Diagnoses / Referred By Referred To Procedures Contact Contact No Auth Needed Radiology Diagnoses Chapo, Ww Ct Conditioning MD Odin [address] prior to [address] peripheral blood [address] [place] [address] stem cell [place] Phone: transplant [phone] P Phone: Zong [phone] CTA ABD/PELVIS Reason for Visit * Radiology Services Status Reason Specialty Diagnoses / Referred By Referred To Procedures Contact Contact No Auth Needed Radiology Diagnoses Chapo, Amos Ct Conditioning MD Odin [address] prior to [address] peripheral blood [address] [place] [address] stem cell [place] Phone: transplant [phone] P Phone: Zong [phone] CTA ABD/PELVIS Encounter Details Date Type Department Care Team Description 03/12/2017 [facility] Odin Cowan MD Encounter [place] [facility] [address] [place] [address] [place] [address] [phone] Social History Tobacco Use Types Packs/Day Years [...] impairment: No 01/09/2017 as of this encounter Medications at Time of Discharge Medication Sig. Disp. Refills Start Date End Date acyclovir (ZOVIRAX) 800 Take 1/2 tablet (400 mg) 60 Tab 5 03/12/2017 mg tabletIndications: by mouth twice a day Multiple myeloma not starting on the day having achieved remission before stem cell (HCC) infusion. acyclovir (ZOVIRAX) 800 Take 0.5 Tabs by mouth 60 Tab 1 01/25/2017 mg tablet every 12 hours. albuterol (VENTOLIN HFA, Inhale 2 Puffs by mouth 1 Inhaler 3 2016 PROAIR HFA, PROVENTIL into the lungs every 6 HFA) 90 mcg/actuation hours as needed. inhaler ALPRAZolam (XANAX) 1 mg Take 1 Tab by mouth at 60 Tab 0 01/09/2017 tabletIndications: bedtime as needed for ANXIETY Anxiety. Indications: ANXIETY aspirin EC 81 mg tablet Take 1 Tab by mouth 90 Tab 3 01/09/2017 daily. Take with food. calcium carbonate Take 2 Tabs by mouth 30 Tab 2 11/22/2016 (OS-ALISON) 1250 mg tablet daily. cholecalciferol (VITAMIN Take 1 Tab by mouth 30 Tab 2 11/22/2016 D-3) 1,000 units tablet daily. cyclobenzaprine Take 10 mg by mouth twice (FLEXERIL) 10 mg tablet daily as needed for Muscle Cramps. diphenoxylate/atropine Take 1 Tab by mouth four (LOMOTIL) 2.5/0.025 mg times daily as needed. tablet DRONABINOL (MARINOL PO) Take 1 Tab by mouth twice daily as needed. gabapentin (NEURONTIN) Take 1 Cap by mouth twice 60 Cap 1 11/22/2016 300 mg daily. capsuleIndications: Peripheral neuropathy (HCC) levothyroxine (SYNTHROID) Take 1 Tab by mouth 30 Tab 3 11/22/2016 25 mcg tablet daily. morphine SR (MS CONTIN; Take 1 Tab by mouth every 60 Tab 0 02/12/2017 ORAMORPH SR) 60 mg ER [address](+) Take 1 Cap by mouth daily 30 Cap 3 11/22/2016 (PRILOSEC) 20 mg capsule before breakfast. ondansetron (ZOFRAN) 8 mg Take 1 Tab by mouth every 90 Tab 0 2016 tablet 8 hours as needed. oxycodone(+) (ROXICODONE, Take 1-1.5 Tabs by mouth 100 Tab 0 2016 OXY-IR) 10 mg tablet every 4 hours as needed for Pain potassium chloride(+) Take 2 Caps by mouth 90 Cap 3 01/15/2017 (MICRO-K) 10 mEq capsule twice daily. Take with a meal and a full glass of water. prochlorperazine maleate Take 1 Tab by mouth every 45 Tab 0 2016 (COMPAZINE) 10 mg 6 hours as needed for tabletIndications: Nausea or Vomiting. Multiple myeloma not having achieved remission (HCC) trimethoprim/sulfamethoxa Take 1 Tab by mouth twice 24 Tab 3 2016 zole (BACTRIM DS) 160/800 daily. Mondays and mg tablet . umeclidinium-vilanterol Inhale 1 Puff by mouth 3 Each 0 02/28/2017 (ANORO ELLIPTA) 62.5-25 into the lungs daily. mcg/actuation Indications: BRONCHOSPASM inhalerIndications: PREVENTION WITH COPD BRONCHOSPASM PREVENTION WITH COPD as of this encounter Plan of Treatment Not on fileas of this encounter Results * CTA ABD/PELVIS (03/12/2017 3:26 PM) Specimen [...] Jaime Crystal M.D. on 03/12/2017 3:51 PM. 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 sodium chloride PF 0.9% injection 50 mL Given 03/12/2017 50 mL 50 mL, Intravenous, ONCE, 1 dose, Tue 15:24 CDT 03/12/17 at 1445, Intra-procedure (IR) in this encounter
--- OUTSIDE RECORDS SUMMARY | 2017-05-10 07:47 | XMS REPORT | Encounter Summary ---
Author Author [facility] Organization [facility] Address Unknown Phone Unavailable Care Team Providers Care Environmental Test Technician Name Role Phone PCP Unavailable Reason for Referral * Radiology Services Status Reason Specialty Diagnoses / Referred By Referred To Procedures Contact Contact No Auth Needed Radiology Diagnoses Chapo, Ww Ct Other emphysema MD Ana Newby [facility]) [address] [place] [address] CT CHEST WO [place] Phone: CONTRAST [phone] * Radiology Services Status Reason Specialty Diagnoses / Referred By Referred To Procedures Contact Contact No Auth Needed Radiology Diagnoses Chapo, Ww Ct Other emphysema MD Ana Newby ([facility]) [address] [place] [address] CT CHEST [place] Phone: CONTRAST [phone] Reason for Visit * Radiology Services Status Reason Specialty Diagnoses / Referred By Referred To Procedures Contact Contact No Auth Needed Radiology Diagnoses Chapo, Ww Ct Other emphysema MD Ana Newby ([facility]) [address] [place] [address] CT CHEST [place] Phone: CONTRAST [phone] Encounter Details Date Type Department Care Team Description 03/12/2017 [facility] Odin Cowan MD Encounter [place] [facility] [address] [place] [address] [place] [address] [phone] Social History Tobacco Use Types Packs/Day Years [...] on fileas of this encounter Results * CT CHEST WO CONTRAST (03/12/2017 1:52 PM) Specimen Performing Laboratory [facility] RESULTS Impressions 1. No focal consolidation or pleural effusion. 2. Osteopenia with scattered lytic lesions throughout the osseous structures, compatible with reported multiple myeloma.\ 3. Masslike area of soft tissue attenuation [...] 02/28/2017 FINDINGS: Evaluation of the mediastinum and cherri, including the vasculature and for lymphadenopathy, is limited without the use of IV contrast. Axilla, Mediastinum and Cherri: There is no axillary, mediastinal, or obvious [...] 02/28/2017 FINDINGS: Evaluation of the mediastinum and cherri, including the vasculature and for lymphadenopathy, is limited without the use of IV contrast. Axilla, Mediastinum and Cherri: There is no axillary, mediastinal, or obvious [...] the osseous structures, compatible with reported multiple myeloma.\ 3. Masslike area of soft tissue attenuation [...] Basilio Fontanez M.D. on 03/12/2017 1:18 PM. in this encounter Visit Diagnoses Diagnosis Other emphysema (HCC) Other emphysema in this encounter
--- OUTSIDE RECORDS SUMMARY | 2017-05-10 07:47 | XMS REPORT | Encounter Summary ---
Author Author [facility] Organization [facility] Address Unknown Phone Unavailable Care Team Providers Care Patient Transportation Driver Name Role Phone PCP Unavailable Reason for Visit * Reason Comments Heme/Onc Care Encounter Details Date Type Department Care Team Description 03/13/2017 [facility] Odin Cowan MD Encounter [facility] - BMT [address] [place] Treatment [address] [place] [address] [address] [place] [address] [phone] Social History Tobacco Use Types Packs/Day Years [...] impairment: No 03/13/2017 as of this encounter Medications at Time [...] 11/22/2016 300 mg daily. capsuleIndications: Peripheral neuropathy ([facility]) levothyroxine (SYNTHROID) Take 1 Tab by mouth [...] PREVENTION WITH COPD as of this encounter Progress Notes * Tracey Mata, RN - 03/13/2017 2:58 PM CDT IgA Delanson MM, Stage 2 Pt ambulatory to clinic with caregiver. Labs drawn from right chest trifusion per protocol. Caps and dressing changed per sterile protocol. Dr. Cowan in room to see pt. Pt not proceeding with transplant. Pt added on to see Dr. Maddox. Pt stated no further questions or concerns and left ambulatory from clinic in stable condition with caregiver. in this encounter Plan of Treatment Not on fileas of this encounter Results * KAPPA/LAMBDA FREE LIGHT CHAINS (03/13/2017 10:30 AM) Component Value Ref Range Delanson, FLC 15.40 (H) 0.33 - 1.94 MG/DL Comment: CHECKED Freelite results should always be interpreted in conjunction with other laboratory tests and clinical evidence. The possibility of Antigen Excess exists and can cause Immunoassays to under estimate very high concentrations of antigen. Any discordant results should be discussed with Dr. Lucas. Lambda, FLC 0.12 (L) 0.57 - 2.63 MG/DL Delanson/Lambda FLC 128.33 (H) 0.26 - 1.65 Specimen Performing Laboratory Blood MAIN LAB [address] [place] [address] * TOTAL PROTEIN SEP (03/13/2017 10:30 AM) Component Value Ref Range Total Protein 5.2 (L) 6.0 - 8.0 g/dL Specimen Performing Laboratory Blood [facility] [address] [place] [address] * ELECTROPHORESIS-SERUM PROTEIN (03/13/2017 10:30 AM) Component Value Ref Range Total Protein-SEP 5.2 [...] in this report. Specimen Performing Laboratory Blood MAIN LAB [address] [place] [address] * IMMUNOGLOBULINS-IGA,IGG,IGM (03/13/2017 10:30 AM) Component Value Ref Range IgG 175 (L) 762 - 1488 MG/DL IgA 95 70 - 390 MG/DL IgM <20 (L) 38 - 328 MG/DL Specimen Performing Laboratory Blood [facility] [address] [place] [address] * PHOSPHORUS (03/13/2017 10:30 AM) Component Value Ref Range Phosphorus 3.6 2.0 - 4.0 MG/DL Specimen Performing Laboratory Blood [facility] [address] [place] [address] * MAGNESIUM (03/13/2017 10:30 AM) Component Value Ref Range Magnesium 1.5 (L) 1.6 - 2.6 mg/dL Specimen Performing Laboratory Blood [facility] [address] [place] [address] * COMPREHENSIVE METABOLIC PANEL (03/13/2017 10:30 AM) Component Value Ref Range Sodium 137 137 [...] Pharmacist for questions. 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
--- OUTSIDE RECORDS SUMMARY | 2017-05-10 07:47 | XMS REPORT | Encounter Summary ---
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) [place] [address] [phone] Social History Tobacco Use Types Packs/Day Years Used Date Former Smoker 1 40 Quit: 09/16/2001 Smokeless Tobacco: Never Used Alcohol Use Drinks/Week oz/Week Comments No Sex Assigned at Date Recorded Not on file as of this encounter Last Filed Vital Signs Vital Sign Reading Time Taken Blood Pressure 130/82 03/13/2017 10:11 AM CDT Pulse 86 03/13/2017 10:11 AM CDT Temperature 36.7 C (98.1 F) 03/13/2017 10:11 AM CDT Respiratory Rate 16 03/13/2017 10:11 AM CDT Oxygen Saturation 100% 03/13/2017 10:11 AM CDT Inhaled Oxygen - - Concentration Weight 64.7 kg (142 lb 9.6 oz) 03/13/2017 10:11 AM CDT Height 160 cm (5' 2.99") 03/13/2017 10:11 AM CDT Body Mass Index 25.27 03/13/2017 10:11 AM CDT in this encounter Functional Status [...] as of this encounter Progress Notes * Irina Lo RN - 03/13/2017 11:06 AM CDT Pt and daughter seen by Dr. Cowan to discuss CT results and plan of care. 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 Brittany Peters will call her and follow with any needs. TPOPP completed and given to patient and daughter to keep with them. Patient will be seen today by Dr. Valladares to discuss any options for treatment as a palliative approach. Pt encouraged to see Dr. Pham next week. * Odin Cowan MD - 03/13/2017 10:12 AM CDT Formatting of this note may be different from the original. Date of Service: 03/13/2017 Subjective: Scheduled follow up C/o bilateral shoulder and knee pains. Progressive myeloma. Going for second transplant followed by daratumomab maintenance.But due to new plasmacytoma, the team decided against transplant Relapsed disease, S/P 2 cycles of VDR-PACE. Continued shoulder and joint pains, which has been worse in the last 3 weeks. She has a hx of osteoarthritis, and has had chronic pains in the past. Reports improved physical activity compared to last week, able to do all ADLs and house chores. Cough. Had a trifusion placed. History of Present Illness Date of Transplant: 03/12/2014 Preparative Regimen: Melphalan 200, with HBO Disease: MM, IgA Disease Status at Transplant: Chemo Responsive CMV: positive Cell Source: autologous Consents/Studies:[id number], [id number] Coordinator: Gemini Daigle RN Layla Manzanares is a 66 y.o. female with history of IgA kappa multiple myeloma, Almost 3 years s/p autologous PSCT on HBO study. She relapsed in December 2013 and has received KRD x 6 cycles. Patient was undergoing pretransplant evaluation for 2nd autologous transplant, however myeloma labs from 07/19 showed disease progression. She is s/p KRD and most recently Leah/Pom/Dex with progressive disease S/p VDR-PACE x 2, ready for 2nd auto Review of Systems Constitutional: Positive for fatigue. Negative for fever and unexpected weight change. HENT: Negative for congestion. Eyes: Negative for discharge. Respiratory: Positive for cough and shortness of breath. Cardiovascular: Negative for leg swelling. Gastrointestinal: Negative for nausea and diarrhea. Endocrine: Negative for cold intolerance. Genitourinary: Negative for dysuria and hematuria. Musculoskeletal: Positive for myalgias, back pain and arthralgias. Skin: Positive for pallor. Negative for rash. Allergic/Immunologic: Positive for immunocompromised state. Neurological: Positive for weakness. Hematological: Bruises/bleeds easily. Psychiatric/Behavioral: The patient is nervous/anxious. Constitutional: Fatigue, poor p.o. intake. HENT: No congestion, dental problem, ear discharge. Ear pain, tinnitus, facial swelling, mouth sores, postnasal discharge, rhinorrhea, sinus pressure, sore throat, trouble swallowing, or voice change Eyes: No eye discharge, redness, pain, photophobia, or visual changes CVS: No chest pain, edema, or palpitations Respiratory: No shortness of breath, wheezing, cough, hemoptysis, or chest tightness Abdomen: No abdominal pain, distension, blood in stool, hematemesis, nausea, vomiting, diarrhea, constipation, or rectal pain : No dysuria, flank pain, frequency, hematuria, urgency MSK: Chronic back and new left shoulder pain Endocrine: No cold/ heat intolerance, polyuria, polydipsia, or polyphagia asthenia Dermatology: No pallor, rash, wound, or color changes Neurology: No headaches, dizziness, facial asymmetry, seizures, speech difficulty, weakness, tremors, light headedness, or syncope. Hematologic: No bruising, swelling, or adenopathy Psych: No behavior problem, confusion, mood changes, hallucinations, nervous/ anxiety, sleep disturbances, or suicidal ideation. Allergies: No known medication allergies. Family Hx: Maternal Grandmother: Cervical Ca Paternal Grandfather: Brain Ca; 2 of her aunts and uncles have had primary brain cancer Cousin: Cervical Ca Niece: Cervical Ca Nephew: Colorectal Ca Sister: CAD and of thrombosis Mother: Anemia r/t renal failure. Medical Hx: MM. Arthritis; Anxiety; Chronic Obstructive Pulmonary Disease (dx 20 years prior); Depression; Gastroesophageal Reflux Disease; Hypertension; Hyperlipidemia; Mitral Valve Prolapse, Hysterectomy. Left hip hemiarthroplasty Social Hx: and lives in [place], [place]. She has 3 children, a son who lives close by, and 2 daughters one of whom lives in [place], [place] and another in [place], [place]. Previous smoker with 1 ppd x 33 years but quit 12 years ago. Denies ETOH or recreational drug use. 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 She has not been working recently Objective: acyclovir (ZOVIRAX) 800 mg tablet Take [...] BRONCHOSPASM PREVENTION WITH COPD Filed Vitals: 03/13/17 1011 BP: 130/82 Pulse: 86 Temp: 36.7 C (98.1 F) TempSrc: Oral Resp: 16 Height: 160 cm (62.99") Weight: 64.683 kg (142 lb 9.6 oz) SpO2: 100% Body mass index is 25.27 kg/(m^2). Vitals, BMI noted and reviewed Pain Score: Nine Pain Loc: Neck (tri area) Pain Addressed: Pain controlled on current analgesic regimen Karnofsky Scale: 70% Cares for self; unable to do normal activity, or active work Clinical Trial: No clinical trial is available for this patient Physical Exam Constitutional: She appears well-developed and [...] Effort normal. No respiratory distress. She has wheezes. She has rales. Decreased BS B/L Abdominal: Soft. There is no tenderness. There is no rebound and no guarding. Musculoskeletal: Normal range of motion. She exhibits no edema. Lymphadenopathy: She has no cervical adenopathy. Skin: Skin is warm and dry. No rash noted. She is not diaphoretic. There is pallor. Psychiatric: She has a normal mood and affect. Her behavior is normal. Thought content normal. Nursing note and vitals reviewed. Comprehensive Metabolic Profile Lab Results Component Value Date/Time SODIUM 139 03/12/2017 12:30 PM POTASSIUM 4.1 03/12/2017 12:30 PM CHLORIDE 108 03/12/2017 12:30 PM CO2 26 03/12/2017 12:30 PM ANION GAP 5 03/12/2017 12:30 PM BLOOD UREA NITROGEN 19 03/12/2017 12:30 PM CREATININE 1.26* 03/12/2017 12:30 PM GLUCOSE 120* 03/12/2017 12:30 PM Lab Results Component Value Date/Time CALCIUM 9.1 03/12/2017 12:30 PM PHOSPHORUS 3.4 03/12/2017 12:30 PM ALBUMIN 3.3* 03/12/2017 12:30 PM TOTAL PROTEIN 5.3* 03/12/2017 12:30 PM ALK PHOSPHATASE 48 03/12/2017 12:30 PM AST (SGOT) 9 03/12/2017 12:30 PM ALT (SGPT) 4* 03/12/2017 12:30 PM TOTAL BILIRUBIN 0.2* 03/12/2017 12:30 PM EGFR NON 42* 03/12/2017 12:30 PM EGFR 51* 03/12/2017 12:30 PM CBC w/Diff Lab Results Component Value Date/Time WHITE BLOOD CELLS 2.2* 03/12/2017 12:30 PM RBC 2.67* 03/12/2017 12:30 PM HEMOGLOBIN 8.9* 03/12/2017 12:30 PM HEMATOCRIT 25.7* 03/12/2017 12:30 PM MCV 96.0 03/12/2017 12:30 PM MCH 33.3 03/12/2017 12:30 PM MCHC 34.7 03/12/2017 12:30 PM RDW 15.7* 03/12/2017 12:30 PM PLATELET COUNT 78* 03/12/2017 12:30 PM MPV 7.4 03/12/2017 12:30 PM Lab Results Component Value Date/Time NEUTROPHILS 71 03/12/2017 12:30 PM ABSOLUTE NEUTROPHIL COUNT 1.50* 03/12/2017 12:30 PM LYMPHOCYTES 15* 03/12/2017 12:30 PM ABSOLUTE LYMPH COUNT 0.30* 03/12/2017 12:30 PM MONOCYTES 13* 03/12/2017 12:30 PM ABSOLUTE MONOCYTE COUNT 0.30 03/12/2017 12:30 PM EOSINOPHILS 1 03/12/2017 12:30 PM ABSOLUTE EOSINOPHIL COUNT 0.00 03/12/2017 12:30 PM BASOPHILS 0 03/12/2017 12:30 PM ABSOLUTE BASOPHIL COUNT 0.00 03/12/2017 12:30 PM Lab Results Component Value Date/Time IMMUNO FIX-SERUM IGA KAPPA PARAPROTEIN 02/27/2017 02:14 PM IMMUNO FIX-URINE FREE KAPPA LIGHT CHAIN 07/19/2016 12:20 PM KAPPA, FLC 11.71* 02/27/2017 02:14 PM LAMBDA, FLC 0.10* 02/27/2017 02:14 PM KAPPA/LAMBDA FLC 117.10* 02/27/2017 02:14 PM B2 MICROGLOBULIN 3.9* 02/27/2017 02:14 PM TOTAL PROTEIN-SEP 5.7* 02/27/2017 02:14 PM ALBUMIN % 64.2 02/27/2017 02:14 PM ALPHA 1 % 6.3* 02/27/2017 02:14 PM ALPHA 2 % 13.8 02/27/2017 02:14 PM BETA %,SERUM 10.5 02/27/2017 02:14 PM GAMMA % 5.2* 02/27/2017 02:14 PM PARAPROTEIN 0.07 02/27/2017 02:14 PM INTERPRETATION - SEP 02/27/2017 02:14 PM SPIKE, PROBABLY MONOCLONAL, IN BETA/GAMMA REGION(S) BMT ASSESSMENT & PLAN Primary Diagnosis: Relapsed IgA kappa Myeloma s/p Autologous Peripheral Stem Cell Transplant 2 years 8 months, Relasped and is s/p KRDx6 with progressive disease followed by daratumomab, pomalidomide and dexamethasone x3 Progressive disease including 54% involvement on BMBx Case was discussed at BMT meeting and consensus was VDRPACE 2 followed by 2nd autologous stem cell transplant. S/P 2 cycles of VDR-PACE. Bone Marrow 01/29: Hypocellular bone marrow (15-20%) with erythroid hyperplasia, decreased megakaryopoiesis and 2% monoclonal kappa plasma cells. Labs continue to show increase in myeloma markers. PET scan 02/28 shows lytic lesions but no active myelomatous lesions. -seen by Dr Valladares on 03/07 for evaluation of non-transplant options however Dr Valladares recommends to proceed with auto-SCT and then plan for post- transplant maintenance with Daratumomab. -she has completed pretransplant work up. Plan is to proceed to 2nd autotransplant. Then a CT abdomen was done that showed new subhepatic mass. Most possible cause is a new plasmacytoma (03/12/17). We had a team meeting with BMT docs and Dr. Valladares and unanimous opinion was not to proceed with second transplant. She should see Dr. Valladares to discuss non transplant options. Clinical trails etc. Palliative care is also appropriate at this time. She should discuss with Dr. Pham back home. Left message for Dr. Pham. Our note will be faxed to his office. Transplant is cancelled. Heme: - Pancytopenia secondary to chemotherapy. Transfusion independent. FEN/Renal:Will monitor and replace lytes per BMT protocol - Cr elevated,CKD Stage III ID: - Continue prophy Acyclovir and bactrim, Call if Temp>100.5 GI: - Antiemetics prn for nausea New sub hepatic mass Pulm: History of COPD, on symbicort and Albuterol inhalers. Her PFT is moderate to severe obstructive defect. Cleared by Dr. Graham for transplant. New cough but CT chest did not show any infiltrate MSK:Chronic Back pain, managed on MS Contin, oxycodone prn breakthrough pain. Reports acute on chronic bilateral shoulder and knee pains, may be related to osteoarthritis. - New left shoulder pain, no pathologic fracture on x-ray February 05. 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 Psych:History of depression, on zoloft. RTC: See Dr. Valladares today We discussed the advanced nature of the illness. In case, we find ourselves with advancing disease and no benefit from offered treatment, we may be faced with disease threatening life. If the illness is the cause of inability to breathe or the heart to work effectively, a ventilator or heart compression are not likely to make an improvement. We explained what this meant in person and also encouraged to discuss with the next of kin. The discussion took place when the subject is alert and oriented and choose preferences if one is to run into these circumstances. All the questions were answered. DNAR issues discussed in details and encouraged to to discuss with social media specialist as well. Patient will be made DNAR-LI. TPOPP form signed. Odin Cowan MD army helicopter pilot Blood and Marrow Transplantation [facility] Staff name: Leandra Escalona Date: 03/13/2017 in this encounter Plan of Treatment Not on fileas of this encounter Results * KAPPA/LAMBDA FREE LIGHT CHAINS (03/13/2017 10:30 AM) Component Value Ref Range [place], FLC 15.40 (H) 0.33 - 1.94 MG/DL Comment: CHECKED Freelite results should always be interpreted in conjunction with other laboratory tests and clinical evidence. The possibility of Antigen Excess exists and can cause Immunoassays to under estimate very high concentrations of antigen. Any discordant results should be discussed with Dr. Lucas. Lambda, FLC 0.12 (L) 0.57 - 2.63 MG/DL [place]/Lambda FLC 128.33 (H) 0.26 - 1.65 Specimen Performing Laboratory Blood [facility] [address] [place] [address] * TOTAL PROTEIN SEP (03/13/2017 10:30 AM) Component Value Ref Range Total Protein 5.2 (L) 6.0 - 8.0 g/dL Specimen Performing Laboratory [facility] [address] [place] [address] * ELECTROPHORESIS-SERUM PROTEIN (03/13/2017 10:30 AM) Component [...] Specimen Performing Laboratory [facility] [address] [place] [address] * IMMUNOGLOBULINS-IGA,IGG,IGM (03/13/2017 10:30 AM) Component Value Ref Range IgG 175 (L) 762 - 1488 MG/DL IgA 95 70 - 390 MG/DL IgM <20 (L) 38 - 328 MG/DL Specimen Performing Laboratory [facility] [address] [place] [address] in this encounter Visit Diagnoses Diagnosis Multiple myeloma in relapse (HCC) - Primary Multiple myeloma, in relapse Plasmacytoma, extramedullary (HCC) Neoplasm of uncertain behavior of plasma cells in this encounter
--- OUTSIDE RECORDS SUMMARY | 2017-05-10 07:48 | XMS REPORT | Encounter Summary ---
Author Author [facility] Organization [facility] Address Unknown Phone Unavailable Care Team Providers Care Manager Operational Name Role Phone PCP Unavailable Reason for Visit * Reason Comments Heme/Onc Care Encounter Details Date Type Department Care Team Description 03/12/2017 [facility] Odin Cowan MD Encounter Cancer Center - BMT [address] [place] [address] [address] [place] [id number] [phone] Social History Tobacco Use Types Packs/Day Years [...] 11/22/2016 300 mg daily. capsuleIndications: Peripheral neuropathy ([facility]) levothyroxine (SYNTHROID) Take 1 Tab by mouth [...] as of this encounter Progress Notes * Valentina Tellez, SCARLET - 03/12/2017 1:07 PM CDT Layla Manzanares 67 y.o. female 03/12/2017 Dx: IgA [place] MM, Stage 2 - plan auto SCT on 03/13/17 Melphalan prep Day -1 Notes: Patient arrived ambulatory and accompanied by caregiver. Patient is weak and requires assistance with ambulation. Patient placed as high fall risk. Labs drawn via right trifusion by Brisa López RN. Labs reviewed with Dr. Cowan. No replacements needed. Crackles present in bilateral lower lobes. Dr. Cowan ordered for patient to have STAT CT chest. Lungs clear per report, but possible aneurysm noted to liver. Patient sent for STAT ABD CT. Received instructions to hold chemo/treatment d/t possible new finding to chest CT. Labs and AVS given and reviewed with patient and caregiver. Patient and caregiver denied any further questions at this time. Patient to RTC on 03/[address] results from 03/12. Patient left accompanied by caregiver via wheelchair. Valentina Tellez RN 03/12/2017 in this encounter Plan of Treatment Not on fileas of this encounter Results * PHOSPHORUS (03/12/2017 12:30 PM) Component Value Ref Range Phosphorus 3.4 2.0 - 4.0 MG/DL Specimen Performing Laboratory Blood [facility] [address] [place] [address] * MAGNESIUM (03/12/2017 12:30 PM) Component Value Ref Range Magnesium 1.7 1.6 - 2.6 mg/dL Specimen Performing Laboratory Blood [facility] [address] [place] [address] * COMPREHENSIVE METABOLIC PANEL (03/12/2017 12:30 PM) Component Value Ref Range Sodium 139 137 - 147 MMOL/L Potassium 4.1 3.5 - 5.1 MMOL/L Chloride 108 98 - 110 MMOL/L Glucose 120 (H) 70 - 100 MG/DL Blood Urea Nitrogen 19 7 - 25 MG/DL Creatinine 1.26 (H) 0.4 - 1.00 MG/DL Calcium 9.1 8.5 - 10.6 MG/DL Total Protein 5.3 (L) 6.0 - 8.0 G/DL Total Bilirubin 0.2 (L) 0.3 - 1.2 MG/DL Albumin 3.3 (L) 3.5 - 5.0 G/DL Alk Phosphatase 48 25 - 110 U/L AST (SGOT) 9 7 - 40 U/L CO2 26 21 - 30 MMOL/L ALT (SGPT) 4 (L) 7 - 56 U/L Anion Gap 5 3 - 12 eGFR Non 42 (L) >60 mL/min Comment: The eGFR is not validated for use in drug dosing adjustments. Continue to use estimated creatinine clearance per dosing reference text. Please contact the Clinical Pharmacist for questions. eGFR 51 (L) >60 mL/min Comment: The eGFR is not validated for use in drug dosing adjustments. Continue to use estimated creatinine clearance per dosing reference text. Please contact the Clinical Pharmacist for questions. Specimen Performing Laboratory Blood [facility] [address] [place] [address] * CBC AND DIFF (03/12/2017 12:30 PM) Component Value Ref Range White Blood Cells 2.2 (L) 4.5 - 11.0 K/UL RBC 2.67 (L) 4.0 - 5.0 M/UL Hemoglobin 8.9 (L) 12.0 - 15.0 GM/DL Hematocrit 25.7 (L) 36 - 45 % MCV 96.0 80 - 100 FL MCH 33.3 26 - 34 PG MCHC 34.7 32.0 - 36.0 G/DL RDW 15.7 (H) 11 - 15 % Platelet Count 78 (L) 150 - 400 K/UL MPV 7.4 7 - 11 FL Neutrophils 71 41 - 77 % Lymphocytes 15 (L) 24 - 44 % Monocytes 13 (H) 4 - 12 % Eosinophils 1 0 - 5 % Basophils 0 0 - 2 % Absolute Neutrophil Count 1.50 (L) 1.8 - 7.0 K/UL Absolute Lymph Count 0.30 (L) 1.0 - 4.8 K/UL Absolute Monocyte Count 0.30 0 - 0.80 K/UL Absolute Eosinophil Count 0.00 0 - 0.45 K/UL Absolute Basophil Count 0.00 0 - 0.20 K/UL Specimen Performing Laboratory Blood [facility] [address] [place] [address] in this encounter Visit Diagnoses Diagnosis Multiple myeloma not having achieved remission (HCC) Multiple myeloma, without mention of having achieved remission in this encounter
--- OUTSIDE RECORDS SUMMARY | 2017-05-10 07:48 | XMS REPORT | Encounter Summary ---
Author Author [facility] Organization [facility] Address Unknown Phone Unavailable Care Team Providers Care Sequins Spooler Name Role Phone PCP Unavailable Reason for Referral * Radiology Services Status Reason Specialty Diagnoses / Referred By Referred To Procedures Contact Contact New Request Radiology Diagnoses Chapo, Multiple myeloma MD Odin in remission [address] [facility] [employer] ([facility]) [address] [facility] [place] [facility] [address] [employer]HETER Encounter Details Date Type Department Care Team Description 03/12/2017 Orders Only [facility] Aleyda Radford RN Multiple myeloma in Cancer Center - BMT Exam remission (HCC) (Primary [address] Dx) [address] [place] [address] Social History Tobacco Use Types Packs/Day Years [...] on fileas of this encounter Results * IR CENTRAL VENOUS CATHETER (03/12/2017 9:21 AM) Specimen Performing Laboratory KATIUSKA Rodriguez This IR procedure does not require a dictated result. in this encounter Visit Diagnoses Diagnosis Multiple myeloma in remission (HCC) - Primary Multiple myeloma in remission in this encounter
--- OUTSIDE RECORDS SUMMARY | 2017-05-10 07:48 | XMS REPORT | Encounter Summary ---
Author Author [facility] Organization [facility] Address Unknown Phone Unavailable Care Team Providers Care Group Leader [employer] Name Role Phone PCP Unavailable Encounter Details Date Type Department Care Team Description 03/07/2017 Documentation [facility] Chari Beal [facility] - BMT Exam [address] [place] [address] Social History Tobacco Use Types Packs/Day Years [...] impairment: No 01/09/2017 as of this encounter Progress Notes * Chari Beal - 03/07/2017 10:26 AM CDT Formatting of this note may be different from the original. Timeline completed by: Tess Timeline updated by: Chari Name: Layla Manzanares : 1950 (age 66) Disease: IgA kappa multiple myeloma [facility]-MR: [id number] APPOINTMENT: Re-Consult 04/09/16 @ 11:50 Dr. Cowan/angel REFERRING PHYSICIAN: Dr. Norman Yuan (nurse Elsie: [phone]) INSURANCE: Medicare Allergies: No known medication allergies. Family Hx: Maternal Grandmother: Cervical Ca Paternal Grandfather: Brain Ca; 2 of her aunts and uncles have had primary brain cancer Cousin: Cervical Ca Niece : Cervical Ca Nephew: Colorectal Ca Sister: CAD and of thrombosis Mother: Anemia r/t renal failure. Medical Hx: MM. Arthritis; Anxiety; Chronic Obstructive Pulmonary Disease (dx 20 years prior); Depression; Gastroesophageal Reflux Disease; Hypertension; Hyperlipidemia; Mitral Valve Prolapse, Hysterectomy. Left hip hemiarthroplasty Social Hx: and lives in [place], [place]. She has 3 children, a son who lives close by, and 2 daughters one of whom lives in [place], [place] and another in [place], [place]. Previous smoker with 1 ppd x 33 years but quit 12 years ago. Denies ETOH or recreational drug use. 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 She has not been working recently. Initial consultation 12/08/13: Mrs. Manzanares was referred to Dr. Yuan for anemia in September 2013. She had a fall in 2012 and was experiencing lower back pain which brought her to [facility] for lab work and MRI which revealed anemia and compression fractures. Pt had also experienced drenching night sweats, 10-12 lb weight loss, worsening constipation. Further testing revealed plasma cell myeloma, IgA kappa subtype and symptomatic anemia. After consultation with , the plan is to initiate Velcade and dexamethasone and consult with BMT regarding transplant. Re-consult 02/11/14: Ms. Manzanares returns to clinic today having completed 4 cycles of therapy. She began cycle 4 of Velcade and dexamethasone on 01/22, with Revlimid and baby aspirin added as suggested. Cycle 4 was delayed due to a left hip fracture. The pt was expected to start cycle 4 on 01/04 but instead was admitted to the hospital after presenting to the clinic wheelchair bound with worsening hip pain. She underwent a left hip hemiarthroplasty on 01/05. Her hospital stay was complicated by the onset of shingles and depression due to the of her mother. She has tolerated chemotherapy well with the exception of neuropathy in her feet. Ms. Manzanares presents today for further evaluation and treatment options. Re-Consult 04/09/16: Mrs. Manzanares is being seen at [facility] s/p auto stem cell transplant 03/12/14 at . Recent BMBX showed disease recurrence and she was started on Kyprolis, Revlimid and Dex. She started cycle 2 on 04/03/16. She presents to BMT today to discuss possible second transplant. Re-consult 07/19/16: Mrs. Manzanares has completed four cycles of Kyprolis, Revlimid , and Dex. Lab work on 07/05/16 demonstrates a reduction in the paraprotein to 0.4 g/dL. A BMBX on the same day shows less than 1% plasma cells, but a single 1.5 mm nodular focus of immature plasma cells was noted within the particle sections. Cytogenetics and FISH studies could not be performed due to insufficient sample. She presents today for further evaluation and discussion of second autologous stem cell transplant. Re-consult 11/06/16: Mrs. Manzanares showed progression of disease at her last visit with BMT and it was recommended she start Darzalex, Pomalyst, and Dex and then return. She began Darzalex on 08/16/16 and Pomalyst and Dex started with the second cycle. Her third cycle started on 10/11/16. The dose of Pomalyst has been reduced to 3 mg daily due to rash and cytopenias. A serum protein electrophoresis has not yet been repeated but her kappa/lambda ratio has decreased from 112.94 on 08/06 to 210.98 on 10/11/16. Mrs. Manzanares presents today for further evaluation. Re-consult 03/08/17: Mrs. Manzanares is returning today to review the results of a PET scan, pulmonary consult, and myeloma labs and discuss proceeding with transplant or other recommendations. 08-21-13 MRI Mid vertebral body superior and inferior endplate compressions at L2 and L3 are edematous and presumed acute to sub-acute. No paravertebral hematoma or retropulsion, however. Posterior cortices are intact. Remaining levels showed chronic arthritic and spondylitic changes with relatively mild multilevel canal and foraminal stenosis as described. No high grade stenosis. 10-01-13 LAB TP: 9.3 ALB: 3.3 Paraprotein: 4 g/dL Immunofixation: IgA kappa FKLC 896.50 FLLC 16.20 FREE RATIO: 55.34 10-23-13 LAB WBC 4.0 RBC 2.75 HGB 8.5 HCT 26 PLT 300 ANC 1.8 BUN 22 CREAT 1.2 CA 9.0 TP 10.1 ALBUMIN 3.1 10-08-13 XRAY METASTATIC SKELETAL SURVEY 1. There are numerous small lytic defects throughout the axial and appendicular skeleton in the calvarium. This appearance does suggest multiple myeloma. 2. The subacute compression fractures of L2 and L3, noted previously are again visualized and no different. There is no sign of an acute bony abnormality. 10-09-13 BMBX ([facility]) [place], [place] Hypercellular marrow with 27% atypical plasma cells consistent with symptomatic plasma cell myeloma. Cellularity 70%. FLOW: demonstrates a kappa restricted monoclonal plasma cell population with aberrant expression of CD 56 and loss of CD 19 representing 19% of total events. 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 Sixteen cells have a female chromosome complement with abnormalities detected. 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 FISH did not show loss of 13q34 indicating the part of chromosome 13 is likely to be present on one of the marker chromosomes. Likewise the FGFR3/IgH assay, a fusion signal and an IgH signal were identified. While only one normal chromosome 14 is apparent in the karyotype, the FGFR3/IgH fusion is presumably contained on one of the marker chromosomes. 10-09-13 LAB IgG 424 ([id number]) IgA 3252 (71-263) IgM <10 (47-209) 10-23-13 LAB WBC 4.0 RBC 2.72 HGB 8.3 HCT 26 PLT 263 ANC 2.3 BUN 17 CREAT 1.2 CA 9.4 TP 10.2 ALB 3.2 Pt received 2 units PRBCs this date. 11-02-13 CHEMO INDUCTION CHEMOTHERAPY; CYCLE 1, DAY 1 Velcade and dexamethasone 11-09-13 LAB WBC: 5.8 RBC: 3.63 HGB: 11.1 HCT: 34 MCV: 93 MCH: 31 RDW: 14.8 PLT: 209 ANC: 4.6 NA: 136 K: 3.6 CL: 100 CO2: 27 BUN: 20 CR: 1.1 CA: 7.8 BILI: 0.4 ALP: 97 AST: 10 ALT: 20 TP: 8.5 ALB: 3.1 11-23-13 LAB WBC: 6.6 RBC: 3.67 HGB: 11.3 HCT: 35 MCV: 97 MCH: 31 PLT: 341 ANC: 5.9 NA: 140 K: 4.0 CL: 103 CO2: 27 BUN: 17 CR: 1.0 CA: 9.0 BILI: 0.4 ALP: 230 AST: 14 ALT: 31 ALB: 3.4 TP: 7.7 B2M: 3.59 FK.37 FL.57 RATIO: 5.60 Ig IgA: 1005 IgM: <10 11-23-13 CHEMO CYCLE 2, DAY 1 Velcade and dexamethasone 11-30-13 LAB WBC: 6.8 RBC: 3.71 HGB: 11.6 HCT: 35 MCV: 95 MCH: 31 RDW: 15.8 PLT: 286 ANC: 5.9 NA: 136 K: 4.0 CL: 100 CO2: 27 BUN: 16 CR: 0.9 CA: 8.7 12/14/13 CHEMO C3D1 Velcade and dexamethasone 12/14/13 LAB WBC: 6.4 RBC: 3.06 HGB: 9.3 HCT: 29 PLT: 325 ANC: 4.9 NA: 139 K: 3.7 CL: 101 CO2: 28 BUN: 12 CR: 0.8 CA: 8.4 BILI: 0.4 ALP: 172 AST: 20 ALT: 35 TP: 6.3 ALB: 2.6 Ig IgA: 235 IgM: 14 FK.96 FL.49 RATIO: 2.27 B2M: 5.07 01/04/14 LAB WBC: 9.2 RBC: 2.85 HGB: 8.3 HCT: 27 PLT: 556 ANC: 8.4 NA: 135 K: 4.0 CL: 101 CO2: 29 BUN: 13 CR: 1.0 CA: 8.4 BILI: 0.4 ALP: 160 AST: 24 ALT: 34 TP: 6.1 ALB: 2.5 Ig IgA: 110 IgM: 19 FK.26 FL.10 RATIO: 1.79 B2M: 3.76 01/04/14 XRAY ([facility]) AP AND LATERAL VIEWS OF THE LEFT HIP IMPRESSION : Acute displaced fracture of the left femoral neck. 01/22/14 CHEMO C4D1 VDR 01/22/14 LAB WBC: 7.5 RBC: 4.10 HGB: 11.4 HCT: 37 PLT: 499 ANC: 6.7 NA: 134 K: 4.0 CL: 99 CO2: 28 BUN: 9 CR: 0.9 CA: 8.7 BILI: 0.3 ALP: 123 AST: 18 ALT: 37 TP : 7.4 ALB: 3.3 Ig IgA: 246 IgM: 79 FK.84 FL.59 RATIO: 2.14 B2M : 3.19 02/17/14 X-RAY CHEST 2 VIEWS IMPRESSION: 1. No evidence of acute for pulmonary abnormality. 2. Diffuse osteopenia as well as multiple small lytic lesions consistent with involvement by myeloma. 02/17/14 SKELETAL SURVEY IMPRESSION: Diffuse skeletal involvement by myeloma 02/17/14 MAMMO IMPRESSION: Assessment: Birad 1-negative 02/19/16 BMBX FINAL DIAGNOSIS: Bone marrow, left iliac crest, aspirate, biopsy, clot, and touch prep: Variably cellular bone marrow (10-90%) with normal appearing trilineage hematopoiesis and 2% polyclonal plasma cells. See comment. Blood smear: Normocytic anemia, absolute neutropenia, and mild thrombocytosis CYTO: 46,XX[20] 03/12/14 TRANSPLANT Auto stem cell transplant. Prep: Chary 200 with HBO. Maintenance therapy: Revlimid daily 5mg. 03/21/14 X-RAY CHEST SINGLE VIEW IMPRESSION: 1. Right IJ central venous catheter placement as described. 2. Development of small left pleural effusion and minimal left basilar atelectasis. 3. Persistent findings of osseous involvement by myeloma. 4. Soft tissue prominence of the right cardiophrenic angle which is most compatible with a prominent fat pad; this is unchanged since 02/17/2014. 06/23/14 BMBX FINAL DIAGNOSIS: Bone marrow, left iliac crest, aspirate, touch prep, biopsy, and clot: Normocellular bone marrow (30-40%) with normal appearing trilineage hematopoiesis and 2% polyclonal plasma cells Blood smear: Normocytic anemia CYTO: 46,XX[20] FISH: Within normal limits 06/23/14 LAB FK.79 FL.13 Ratio: 0.70 Ig IgM: 21 IgA: 122 TP : 6.7 ALB: 60.6 Alpha1: 5.0 Alpha2: 11.3 Beta: 10.7 Gamma: 12.4 No paraprotein seen 09/21/14 SKELETAL SURVEY IMPRESSION: Extensive diffuse skeletal involvement unchanged, from prior study. 09/21/14 BMBX FINAL DIAGNOSIS: Bone marrow, left iliac crest, aspirate, biopsy, and clot: Hypocellular marrow (ranges from 5-20%), with normal appearing trilineage hematopoiesis and 5% polyclonal plasma cells. Blood smear: Normocytic anemia, leukopenia with bandemia. CYTO: 46,XX[20] 09/21/14 LAB FK.93 FL.94 Ratio: 1.00 IFES: No paraprotein seen Ig IgM: 27 IgA: 122 TP: 6.5 ALB: 58.2 Alpha1: 5.6 Alpha2: 11.8 Beta: 10.5 Gamma: 13.9 07/25/15 BMBX Interpretation: Bone marrow, immunophenotype analysis no conclusive evidence of a monoclonal plasma cell proliferative; these results must be correlated with the histopathologic findings for definite interpretation. Peripheral smear: Red blood cells normochromic and normocytic with mild anisocytosis, minimal rouleaux. White blood cells decreased numbers of mature neutrophils with the cells exhibiting mature morphology and occasional toxic granulations when encountered, the remaining cell types are adequate in number and morphologically mature with occasional reactive lymphocytes observed. Platelets adequate in number, mild degree of size variability with occasional large forms but no true giant platelets observed, normal granularity, no platelet clumping. 07/25/15 LAB B2M: 2.49 FK.64 FL.85 Ratio: 1.35 IgA: 147 Ig IgM: 14 11/17/15 [facility] PATH Interpretation: Serum protein electrophoresis and free light chain analysis The previously identified paraprotein of IgA kappa specificity, is now measured at a concentration of 0.2 g/dl, decreased relative to the prior concentration of 4.0 g/dl. Paraprotein shown by immunofixation to be of IgA-kappa specificity. 12/19/15 SERUM PATH Interpretation: Serum protein electrophoresis and free light chain analysis The previously identified paraprotein of IgA kappa specificity, is now measured at a concentration of 0.4 g/dl, increased relative to the prior concentration of 0.2 g/dl on 11/17/15. There has been a significant further interval increase in the kappa/lambda light chain ration findings also consistent with an interval increase in paraprotein secretion. 12/19/15 LAB TSH: 1.85 B2M: 3.06 FK.20 FL.05 Ratio: 17.20 IgA: 419 Ig IgM: <10 02/06/16 SERUM PATH Interpretation: Serum protein electrophoresis and free light chain analysis The previously identified paraprotein of IgA kappa specificity, is now measured at a concentration of 1.7 g/dl, increased relative to the prior concentration of 0.4 g/dl on 12/19/15. 02/07/16 LAB WBC: 3.1 RBC: 3.38 HGB: 10.6 HCT: 32 PLT: 171 Creat: 1.16 Ca: 9.4 TP : 7.7 Alb: 3.8 B2M: 3.96 FK FL.23 Ratio: 71.37 IgA: >700 IgG : 884 IgM: <10 02/15/16 MAMMO IMPRESSION: BI-RADS Category 2: Benign findings. 02/15/16 BMBX Interpretation: Bone marrow, aspiration and biopsy symptomatic plasma cell myeloma with plasma cells comprising approximately 20% of marrow elements. Peripheral Blood Smear: Red blood cells normochromic and normocytic, moderate rouleaux, minimal anisopoikilocytosis. White blood cells primarily mature lymphocytes, many with a reactive appearance, neutrophils reduced but normal morphology, remaining white cell types adequate and morphologically normal. Platelets adequate mild degree of size variability with an occasional large form but no true giant platelets observed, normal granularity. CYTO: 46,XX[20] FISH: POSITIVE for t(4;14)(p16.3;q32)FGFR3/IGH fusion NEGATIVE for deletion/aneuploidy of the TP53(17p13.1),D17Z1(17cep), CKS1B(1q23.1 ), and CDKN2C(1q32.3)regions NEGATIVE for t(14;16)(q32;q23)IGH/MAF fusion OTHER: POSITIVE for an additional copy of the IGH(14q32) region 03/06/16 CHEMO C1 D1: Kyprolis, Revlimid, Dex 04/03/16 CHEMO C2 D1: Kyprolis, Revlimid, Dex 04/03/16 LAB WBC: 2.1 RBC: 2.79 HGB: 9 HCT: 28 PLT: 153 Creat: 0.95 Ca: 8.9 TP: 6.9 Alb: 3.5 B2M: 3.56 FK.23 FL.11 Ratio: 98.74 IgA: 1407 IgG : 537 IgM: <10 04/16/16 LAB IgA: 1120 Ig IgM: <10 FK.1 FL.64 Ratio: 105.25 04/16/16 CHEMO C2 D1 RESTART (Therapy switch to Darzalex had been planned but given patients response with Kyprolis, Revlimid, Dex it was decided to continue current regimen but restart cycle 2). 05/15/16 LAB WBC: 1.5 RBC: 2.59 HGB: 9 HCT: 27 PLT: 137 Creat: 0.93 Ca: 8.6 TP: 6.4 ALB: 3.8 B2M: 2.77FK.04 FL.37 Ratio: 96.53 05/15/16 CHEMO C3D1 Kyprolis, Revlimid, Dex 06/15/16 LAB WBC: 2.1 RBC: 2.92 HGB: 10 HCT: 30 PLT: 180 Creat: 0.94 Ca: 9.1 IgA : 409 Ig IgM: <10 FK.44 FL.04 Ratio: 70.15 B2M: 2.62 06/19/[address] [facility] PELVIS, IMPRESSION: Patchy bony demineralization, replaced left hip, and treated lumbar compression deformities. No acute bony abnormality apparent at this exam. 06/19/16 X[address] [facility] LUMBAR SPINE, 3 VIEWS, IMPRESSION: Prominent degenerative changes with grade 1 retrolisthesis of L4 over L5. Old compression fractures involving L1, L2, and L3 levels. Old kyphoplasty changes at L2 and L3 levels are seen. 06/19/16 CHEMO C4D1 Kyprolis, Revlimid, Dex 07/05/16 LAB WBC: 1.2 RBC: 2.67 HGB: 9.3 HCT: 28 PLT: 82 ANC: 0.5 Creat: 1.04 Ca : 9.9 LDH: 174 (125-220) B2M: 2.4 Ig IgA: 297 IgM: <10 FK.97 FL.14 Ratio: 82.08 TP: 6.1 ALB : 3.9 M-spike: 0.4 07/05/16 BMBX [facility] BONE MARROW ASPIRATION AND BIOPSY INTERPRETATION: Normocellular to mildly hypercellular for age marrow (30-40%) with overall less than 1% plasma cells but a single, 1.5 mm nodular focus of immature plasma cells within the particle sections. Comment: The majority of the marrow shows no increase in plasma cells with less than 1% identified on a 300 cell count of the aspirate smears. However, clot sections show a single nodular aggregate of plasma cells measuring approximately 1.5 mm. The plasma cells in this focus are clearly atypical with nuclear immaturity and visible nucleoli. The remainder of the marrow shows relatively increased numbers of red cell precursors with a reversed G:E ratio of 1:3. The red cells show scattered dyserythropoiesis consisting primarily of binucleate or lobulated nuclei. These red cell changes may be secondary to treatment rather than representing changes of myelodysplasia. Flow cytometry: Small monoclonal and phenotypically aberrant plasma cell population is identified compatible with the patients previously diagnosed symptomatic plasma cell myeloma (<1% of total events analyzed). Cytogenetics and FISH study were inadequate for interpretation due to insufficient quantity of bone marrow sample. 07/19/16 LAB FK.27 FL.93 Ratio: 108.89 IFES: IgA kappa TP: 6.4 ALB: 61.9 Paraprotein: 0.3 07/23/16 ECHO EF=55% 07/23/16 XRAY [facility] CHEST 2 VIEWS IMPRESSION: 1. No acute cardiopulmonary process. 2. Development of a healing fracture involving the anterior left third rib. 3. Persistent soft tissue prominence about the right cardiophrenic angle, reflective of prominent epicardial fat pad. 4. Lucent lesions again noted about the clavicles and scapula, compatible with patient's known osseous involvement by myeloma. 07/23/16 PANOREX K[facility] Findings/Impression: 1. The patient is edentulous. 2. No dental abscesses. 3. Scattered small lucencies within the right and left body of the mandible suspect for myeloma. 4. No fractures. 07/23/16 SKELETAL SURVEY KU IMPRESSION 1. Probable slight enlargement in size [...] vertebral body cement augmentation L2 and L3. 08/06/16 LAB IgA: 506 Ig IgM: <10 FK.79 FL.41 Ratio: 112.94 B2M: 3.14 08/16/16 CHEMO C1D1 Darzalex started 09/13/16 LAB IgA: 526 Ig IgM: <10FK.54 FL.58 Ratio: 155.89 B2M: 3.48 09/13/16 CHEMO C2D1 Darzalex, Pomalyst, Dex 10/11/16 LAB WBC: 3 RBC: 3.35 HGB: 10.9 HCT: 33 PLT: 175 ANC: 1.7 BUN: 17 Creat: 1.11 Ca: 9.2 M T Bili: 0.2 ALP: 59 AST: 10 ALT: 14 LDH: 169 TP: 6.6 Alb: 3.8 IgA: 859 Ig IgM: <10 FK FL.1 Ratio: 210.98 Ig IgA: 859 IgM: <10 B2M: 3.29 10/11/16 CHEMO C3D1 Darzalex, Pomalyst, Dex 11/06/16 LAB WBC: 2.2 RBC: 2.85 HGB: 9.1 HCT: 27 PLT: 146 ANC: 0.7 BUN: 11 Creat : 1.06 Alb: 3.3 TP: 8.2 TBili: 0.2 FK.5 FL.61 Ratio: 374.59 IFES: IgA kappa SPEP TP: 8 ALB: 42.7 Paraprotein: 2.24 B2M: 3.7 Ig IgM: 31 IgA: 1897 2/21/17 BMBX KU Normocellular marrow (50%), decreased trilineage hematopoiesis, and 54% monoclonal kappa plasma cells Peripheral blood smear: Normocytic anemia, Rouleaux formation, absolute neutropenia, and thrombocytopenia flow cytometry: Neoplastic plasma cells (monoclonal kappa) Interpretation: Plasma cells comprise 46% of total events and show increased and aberrant expression of CD56 and monoclonal cytoplasmic kappa. There is decreased and aberrant expression of CD19, CD27, and CD45. These results are diagnostic of neoplastic plasma cells. Cyto: 46,XX[20] FISH: FISH: Positive signal pattern for t(4;14) Negaive/other signal pattern for t(14;16_, del(17p), del(1p)/+1q 11/16/16 CHEMO C1D1 VDR PACE 11/25/[address] ABD/PEL W/CONTRAST IMPRESSION: 1. Colonic diverticulosis, raising the sigmoid colon, without acute diverticulitis, bowel obstruction or ascites. Some mild rectal wall thickening is likely due to decompressed state rather than proctitis. The symmetric appearance of the rectal wall thickening goes against carcinoma. 2. Circumferential thickening of the urinary bladder wall, likely due to incomplete distention. Cystitis could appear similar, however. Correlate with urinalysis. 3. Diffuse permeative/demineralized appearance of the visualized osseous structures with prior L2 and L3 compression fractures and vertebroplasty is. Some mild chronic appearing volume loss of the inferior endplate of L1 and superior endplate of L4 is also noted. Appearance is compatible with patient's reported multiple myeloma. Multiple old right rib fractures are also noted. 4. Moderate-sized fat-containing anterior right diaphragmatic hernia. There is some mild associated fat stranding. 5. Small hiatal hernia. 01/04/17 CHEMO C2D1 VDR PACE 01/29/17 BMBX KU Hypocellular bone marrow (15-20%) with erythroid hyperplasia, decreased megakaryopoiesis and 2% monoclonal kappa plasma cells. Peripheral blood smear: Normocytic anemia, leukopenia, and moderate thrombocytopenia. Flow: Clonal kappa light chain plasma cells are present. Interpretation: Plasma cells were gated on CD138 and CD38 bright cell population. Plasma cells comprised 3.04% of total cells. The neoplastic plasma cells are positive for cytoplasmic kappa, decrease CD19, CD27 expression and increased CD56, CD117 expression, consistent with plasma cell neoplasm. Cyto: 46,XX[20] FISH: Positive signal pattern for t(4;14), +1q Negaive/other signal pattern for t(14;16_, del(17p), del(1p) 02/05/17 XRAY K[facility] SHOULDER 2 VIEWS, LEFT IMPRESSION: 1. Heterogeneous elongated lucent area of the visible proximal left humeral diaphysis extending to the humeral neck level with some associated endosteal scalloping along the posterior lateral portion of the proximal humerus. This is concerning for multiple myeloma. Consider obtaining MRI for more complete evaluation if clinically warranted. 2. Ill-defined lucencies within the acromium, lateral spine of the scapula, distal clavicle and glenoid process and glenoid neck. This could reflect additional areas of multiple myeloma versus osteopenia. MRI may be beneficial if clinically warranted. 3. No fractures. The humeral alignment is grossly normal incompletely evaluated. Glenohumeral joint space is maintained. 4. Old healed fracture deformity of the left third rib. 02/13/17 XRAY K[facility] CHEST 2 VIEWS IMPRESSION: 1. No acute cardiopulmonary abnormality. 2. Stable fat-containing right cardiophrenic angle mass. 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 02/13/17 SKELETAL SURVEY KU IMPRESSION 1. Apparent interval progression in size [...] and right mid shaft tibial diaphyseal lesion. 02/27/17 LAB WBC: 1.6 RBC: 2.79 HGB: 9.3 HCT: 26.6 PLT: 87 ANC: 0.9 BUN: 18 Creat : 1.31 Ca: 10 TP: 5.7 ALB: 3.7 TBili: 0.3 AST: 9 ALT: 4 ALK Phos: 50 FK.71 FL.1 Ratio: 117.1 IFES: IgA kappa SPEP TP: 5.7 ALB: 64.2 Paraprotein : 0.07 B2M: 3.9 Ig IgA: 73 IgM: <20 02/28/17 PET/CT KU IMPRESSION 1. Numerous lytic lesions scattered throughout the visualized osseous structures without abnormal metabolically active foci to suggest active myelomatous lesion. 2. Healing fracture deformity of the left ninth rib. 3. Small metabolically active left thyroid nodule (SUV 3.61). A thyroid ultrasound is recommended for further evaluation. 4. Probable duodenal diverticulum. in this encounter Plan of Treatment Not on fileas of this encounter Visit Diagnoses Not on filein this encounter
--- OUTSIDE RECORDS SUMMARY | 2017-05-10 07:48 | XMS REPORT | Encounter Summary ---
Author Author [facility] Organization [facility] Address Unknown Phone Unavailable Care Team Providers Care Company Secretary Name Role Phone PCP Unavailable Reason for Visit * Reason Comments Heme/Onc Care Encounter Details Date Type Department Care Team Description 03/08/2017 Office Visit [facility] Claudia Rneo MD Multiple myeloma, Cancer Center - BMT Exam [address] remission status [address] unspecified (HCC) [address] [place] [address] (Primary Dx);[place] [address] peripheral stem cell [phone] transplant (HCC);Pancytopenia due to antineoplastic chemotherapy (HCC) Social History Tobacco Use Types Packs/Day Years Used Date Former Smoker 1 40 Quit: 09/16/2001 Smokeless Tobacco: Never Used Alcohol Use Drinks/Week oz/Week Comments No Sex Assigned at Date Recorded Not on file as of this encounter Last Filed Vital Signs Vital Sign Reading Time Taken Blood Pressure 127/90 03/08/2017 8:51 AM CDT Pulse 108 03/08/2017 8:51 AM CDT Temperature 36.7 C (98 F) 03/08/2017 8:51 AM CDT Respiratory Rate 16 03/08/2017 8:51 AM CDT Oxygen Saturation 96% 03/08/2017 8:51 AM CDT Inhaled Oxygen - - Concentration Weight 63.7 kg (140 lb 6.4 oz) 03/08/2017 8:51 AM CDT Height 161.5 cm (5' 3.58") 03/08/2017 8:51 AM CDT Body Mass Index 24.42 03/08/2017 8:51 AM CDT in this encounter Functional Status [...] Progress Notes * Irina Lo RN - 03/11/2017 2:03 PM CDT Date of Transplant: 03/13/17 Transplant Type: Autologous Conditioning Regimen: Chary 140 Conditioning Regimen Type: Reduced Intensity Rationale for reduced/NST regimen: comorbidities Stem Cell Source: PSC Graft Manipulation: Not Applicable Diagnosis/Stage: IgA [place] MM, Stage 2 Disease Status at Transplant: Partial Response Cytogenetic/Fish AT DIAGNOSIS: t(4;14) and +1q CMV Status:- Positive Blood Type - O Negative Cell Source: Peripheral, autologous, cryopreserved Consents / Study# / Protocol#: 8322, blood/chemo, autologous Pretransplant Coordinator: SCARLET Abdul Dr., Primary Oncologist , * Tessie Lopes RN - 03/08/2017 9:22 AM CDT Date of Transplant: TBD Transplant Type: Autologous Conditioning Regimen: Chary 140 Conditioning Regimen Type: Reduced Intensity Rationale for reduced/NST regimen: comorbidities Stem Cell Source: PSC Graft Manipulation: Not Applicable Diagnosis/Stage: IgA [place] MM, Stage 2 Disease Status at Transplant: Partial Response Cytogenetic/Fish AT DIAGNOSIS: t(4;14) and +1q CMV Status:- Positive Blood Type - O Negative Cell Source: Peripheral, autologous, cryopreserved Consents / Study# / Protocol#: 8322, blood/chemo, autologous Pretransplant Coordinator: Irina Lo RN\\ Dr. Yuan, Primary Oncologist , 03/08: Patient not eligible for study at this time. Dr. Reno would like to plan for early next week transplant. Line placement scheduled for Saturday morning, Day -1 chemo scheduled for that afternoon and patient will admit on 03/13 to inpatient. Patient set up with [facility] for Saturday evening. RTC 03/11 per treatment plan * Claudia Reno MD - 03/08/2017 8:52 AM CDT Formatting of this note may be different from the original. Date of Service: 03/08/2017 Subjective: Scheduled follow up C/o bilateral shoulder and knee pains Relapsed disease, S/P 2 cycles of VDR-PACE. Continued shoulder and joint pains, which has been worse in the last 3 weeks. She has a hx of osteoarthritis, and has had chronic pains in the past. Reports improved physical activity compared to last week, able to do all ADLs and house chores. History of Present Illness Date of Transplant: [...] for 2nd auto Review of Systems Constitutional: Fatigue, poor p.o. intake. HENT: No [...] hip hemiarthroplasty Social Hx: and lives in [place], [place]. She has 3 children, a son who lives close by, and 2 daughters one of whom lives in [place], [place] and another in [place], [place]. Previous smoker with 1 ppd x 33 years but quit 12 years ago. Denies ETOH or recreational drug use. 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 She has not been working recently Objective: acyclovir (ZOVIRAX) 800 mg tablet Take 0.5 [...] meal and a full glass of water. trimethoprim/sulfamethoxazole (BACTRIM DS) 160/800 mg tablet Take 1 Tab by mouth twice daily. Mondays and . umeclidinium-vilanterol (ANORO ELLIPTA) 62.5-25 mcg/actuation inhaler Inhale 1 Puff by mouth into the lungs daily. Indications: BRONCHOSPASM PREVENTION WITH COPD Filed Vitals: 03/08/17 0851 BP: 127/90 Pulse: 108 Temp: 36.7 C (98 F) TempSrc: Oral Resp: 16 Height: 161.5 cm (63.58") Weight: 63.685 kg (140 lb 6.4 oz) SpO2: 96% Body mass index is 24.42 kg/(m^2). Vitals, BMI noted and reviewed Pain Score: Eight Pain Loc: (shoulders, knees) Pain Addressed: Pain controlled on current analgesic [...] Lab Results Component Value Date/Time SODIUM 137 02/27/2017 02:14 PM POTASSIUM 4.2 02/27/2017 02:14 PM CHLORIDE 103 02/27/2017 02:14 PM CO2 28 02/27/2017 02:14 PM ANION GAP 6 02/27/2017 02:14 PM BLOOD UREA NITROGEN 18 02/27/2017 02:14 PM CREATININE 1.31* 02/27/2017 02:14 PM GLUCOSE 104* 02/27/2017 02:14 PM Lab Results Component Value Date/Time CALCIUM 10.0 02/27/2017 02:14 PM PHOSPHORUS 3.2 02/12/2017 02:35 PM ALBUMIN 3.7 02/27/2017 02:14 PM TOTAL PROTEIN 5.7* 02/27/2017 02:14 PM ALK PHOSPHATASE 50 02/27/2017 02:14 PM AST (SGOT) 9 02/27/2017 02:14 PM ALT (SGPT) 4* 02/27/2017 02:14 PM TOTAL BILIRUBIN 0.3 02/27/2017 02:14 PM EGFR NON 40* 02/27/2017 02:14 PM EGFR 49* 02/27/2017 02:14 PM CBC w/Diff Lab Results Component Value Date/Time WHITE BLOOD CELLS 1.6* 02/27/2017 02:14 PM RBC 2.79* 02/27/2017 02:14 PM HEMOGLOBIN 9.3* 02/27/2017 02:14 PM HEMATOCRIT 26.6* 02/27/2017 02:14 PM MCV 95.4 02/27/2017 02:14 PM MCH 33.3 02/27/2017 02:14 PM MCHC 34.9 02/27/2017 02:14 PM RDW 17.1* 02/27/2017 02:14 PM PLATELET COUNT 87* 02/27/2017 02:14 PM MPV 7.5 02/27/2017 02:14 PM Lab Results Component Value Date/Time NEUTROPHILS 56 02/27/2017 02:14 PM ABSOLUTE NEUTROPHIL COUNT 0.90* 02/27/2017 02:14 PM LYMPHOCYTES 20* 02/27/2017 02:14 PM ABSOLUTE LYMPH COUNT 0.30* 02/27/2017 02:14 PM MONOCYTES 20* 02/27/2017 02:14 PM ABSOLUTE MONOCYTE COUNT 0.30 02/27/2017 02:14 PM EOSINOPHILS 4 02/27/2017 02:14 PM ABSOLUTE EOSINOPHIL COUNT 0.10 02/27/2017 02:14 PM BASOPHILS 0 02/27/2017 02:14 PM ABSOLUTE BASOPHIL COUNT 0.00 02/27/2017 02:14 PM Lab Results Component Value Date/Time IMMUNO [...] cell transplant. S/P 2 cycles of VDR-PACE. Myeloma markers from 01/25 improved Bone Marrow 01/29: Hypocellular bone marrow (15-20%) [...] Plan is to proceed to 2nd autotransplant. [id number] will be administered on 03/12, and she will be admitted on 03/13 (day 0) Heme: - Pancytopenia secondary to chemotherapy. Transfusion independent. FEN/Renal:Will monitor and replace lytes per BMT protocol - Cr elevated,CKD Stage III ID: - Continue prophy Acyclovir and bactrim, Call if Temp>100.5 GI: - Antiemetics prn for nausea - CT abd/Pel showed diverticulosis with no diverticulitis Pulm: History of COPD, on symbicort and Albuterol inhalers. Her PFT is moderate to severe obstructive defect. Cleared by Dr. Graham for transplant. MSK:Chronic Back pain, managed on MS Contin, oxycodone prn breakthrough pain. Reports acute on chronic bilateral shoulder and knee pains, may be related to osteoarthritis. - New left shoulder pain, no pathologic fracture on x-ray February 05. 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 Psych:History of depression, on zoloft. RTC: 03/12 : place Trifusion, [id number] 03/13 : admit Day 0 Mandie Garcia MD Pager [phone] ATTESTATION I personally performed the [place] portions of the E/M visit, discussed case with resident and concur with resident documentation of history, physical exam, assessment, and treatment plan unless otherwise noted. Reviwed PET scan, Pulmonary clearance and discussion with Dr. Nasra, they all recommend auto at this time Patient also with improved KPS Will place line and admit for Chary 140 as soon as able Staff name: Claudia Reno MD Date: 03/08/2017 in this encounter Plan of Treatment Not on fileas of this encounter Visit Diagnoses Diagnosis Multiple myeloma, remission status unspecified - Primary History of peripheral stem cell transplant (HCC) Peripheral stem cells replaced by transplant Pancytopenia due to antineoplastic chemotherapy (HCC) Antineoplastic chemotherapy induced pancytopenia in this encounter
--- OUTSIDE RECORDS SUMMARY | 2017-05-10 07:48 | XMS REPORT | Encounter Summary ---
Author Author [facility] Organization [facility] Address Unknown Phone Unavailable Care Team Providers Care Truck Driver Rubbish Collector Name Role Phone PCP Unavailable Encounter Details Date Type Department Care Team Description 03/07/2017 Ancillary [facility] Claudia Reno MD Multiple myeloma not [facility] - BMT Exam [address] having achieved remission [address] (HCC) (Primary [address] [place] [address] Dx);[place] [address] screening mammogram for [phone] breast cancer Social History Tobacco Use Types Packs/Day Years [...] on fileas of this encounter Results * MAMMO SCREEN BILAT/LISA/CAD (03/07/2017 2:15 PM) [...] plant next week Performed by: Cary Ann [id number] DIGITAL MAMMO SCREEN BILAT/LISA/CAD: MARCH 07, 2017 - 2D/3D Procedure 3D Routine views. 2D Routine views. Technologist: Cary Ann Prior study comparison: February 17, 2014, bilateral CCC DIG M SCR b/t/C, performed at [facility]. The breasts are heterogeneously dense, which may obscure detection of small masses.2D, and 3D images were obtained. No masses, densities or calcifications to suggest malignancy. No significant change from prior studies. Electronically signed and approved by: Cedric Lion M.D. [id number] Procedure Note Interface, Radiant Results - 03/08/2017 8:46 AM CDT Last mammogram was performed 3 years and 1 month ago. Reason for exam: screening, asymptomatic. pt having bone marrow trans plant next week Performed by: Cary Ann [id number] DIGITAL MAMMO SCREEN BILAT/LISA/CAD: MARCH 07, 2017 - 2D/3D Procedure 3D Routine views. 2D Routine views. Technologist: Cary Ann Prior study comparison: February 17, 2014, bilateral CCC DIG M SCR b/t/C, performed at [facility]. The breasts are heterogeneously dense, which may obscure detection of small masses. 2D, and 3D images were obtained. No masses, densities or calcifications to suggest malignancy. No significant change from prior studies. Electronically signed and approved by: Cedric Lion M.D. [id number] IMPRESSION ACR BI-RADS Assessments: BIRAD 1-Negative RECOMMENDATION: Routine screening mammogram in 1 year. The patient has dense breasts, which is a risk factor for development of breast cancer, and can reduce sensitivity for breast cancer detection up to 50%. This patient may benefit from supplementary screening with Automated Breast Ultrasound, if clinically indicated. in this encounter Visit Diagnoses Diagnosis Multiple myeloma not having achieved remission (HCC) - Primary Multiple myeloma, without mention of having achieved remission Encounter for screening mammogram for breast cancer in this encounter
--- OUTSIDE RECORDS SUMMARY | 2017-05-10 07:48 | XMS REPORT | Encounter Summary ---
Author Author [facility] Organization [facility] Address Unknown Phone Unavailable Care Team Providers Care Commissioner Conservation Of Resources Name Role Phone PCP Unavailable Reason for Referral * Radiology Services Status Reason Specialty Diagnoses / Referred By Referred To Procedures Contact Contact No Auth Needed Radiology Diagnoses Amos Cowan Ct Conditioning MD [place] [address] prior to [address] peripheral blood [address] [place] [address] stem cell [place], [place] Phone: transplant [phone] P Phone: [employer] [phone] CTA ABD/PELVIS * Radiology Services Status Reason Specialty Diagnoses / Referred By Referred To Procedures Contact Contact No Auth Needed Radiology Diagnoses Amos Cowan Ct Other emphysema MD Od[place] [address] (HCC) [address] roced[address] [place] [address] CT CHEST [place] Phone: CONTRAST [phone] Reason for Visit * Reason Comments Heme/Onc Care Encounter Details Date Type Department Care Team Description 03/12/2017 Office Visit [facility] Odin Cowan MD Multiple myeloma not Cancer Center - BMT Exam [address] having achieved remission [address] (HCC) (Primary Dx);On [address] [place] [address] [place] [address] chemotherapy;Conditioning [phone] chemotherapy prior to peripheral blood stem cell transplant;Other emphysema (HCC) Social History Tobacco Use Types Packs/Day Years Used Date Former Smoker 1 40 Quit: 09/16/2001 Smokeless Tobacco: Never Used Alcohol Use Drinks/Week oz/Week Comments No Sex Assigned at Date Recorded Not on file as of this encounter Last Filed Vital Signs Vital Sign Reading Time Taken Blood Pressure 154/85 03/12/2017 12:23 PM CDT Pulse 91 03/12/2017 12:23 PM CDT Temperature 36.7 C (98.1 F) 03/12/2017 12:23 PM CDT Respiratory Rate 18 03/12/2017 12:23 PM CDT Oxygen Saturation 100% 03/12/2017 12:23 PM CDT Inhaled Oxygen - - Concentration Weight 65.4 kg (144 lb 3.2 oz) 03/12/2017 12:23 PM CDT Height 160 cm (5' 2.99") 03/12/2017 12:23 PM CDT Body Mass Index 25.55 03/12/2017 12:23 PM CDT in this encounter Functional Status Functional [...] as of this encounter Progress Notes * Caroline Gonzalez RN - 03/12/2017 12:42 PM CDT Date of Transplant: 03/13/17 D-1 Transplant Type: Autologous Conditioning Regimen: Chary 140 Conditioning Regimen Type: Reduced Intensity Rationale for reduced/NST regimen: comorbidities Stem Cell Source: PSC Graft Manipulation: Not Applicable Diagnosis/Stage: IgA [place] MM, Stage 2 Disease Status at Transplant: Partial Response Cytogenetic/Fish AT DIAGNOSIS: t(4;14) and +1q CMV Status:- Positive Blood Type - O Negative Cell Source: Peripheral, autologous, cryopreserved Consents / Study# / Protocol#: 8322, blood/chemo, autologous Pretransplant Coordinator: Irina Lo RN Electrolyte replacement goal: Standard Transfusion parameters: Standard PJP Prophylaxis: Not started yet Central Line: trifusion LTFU Orders placed: 06/21/17 Labs, BMBX, and random urine. Primary Oncologist: Dr. Yuan Phone/fax: , Fax: 03/13--Getting CT chest without contrast today for new atectasis. Patient denies smoking. Was not using inhalers until she saw Dr. Graham on 02/28. 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 Chest clear. Obtained CT angiogram of abdomen , Holding transplant for today. Will bring back on 03/13 to review CTA results and possibly start transplant depending on results. RTC 03/13 MD, Labs (cbc,cmp,mag,phos) * Odin Cowan MD - 03/12/2017 12:24 PM CDT Formatting of this note may be different from the original. Date of Service: 03/12/2017 Subjective: Scheduled follow up C/o bilateral shoulder and knee pains. Progressive myeloma. Going for second transplant followed by daratumomab maintenance. Relapsed disease, S/P 2 cycles of VDR-PACE. Continued shoulder and joint pains, which has been worse in the last 3 weeks. She has a hx of osteoarthritis, and has had chronic pains in the past. Reports improved physical activity compared to last week, able to do all ADLs and house chores. Cough. Had a trifusion placed today and sleepy from that. History of Present Illness Date of Transplant: [...] Eyes: Negative for discharge. Respiratory: Positive for cough, shortness of breath and wheezing. Cardiovascular: Negative for leg swelling. Gastrointestinal: Negative for nausea and diarrhea. Endocrine: Negative for cold intolerance. Genitourinary: Negative for dysuria and hematuria. Musculoskeletal: Positive for arthralgias. Skin: Positive for pallor. Negative for [...] hip hemiarthroplasty Social Hx: and lives in [place], [place]. She has 3 children, a son who lives close by, and 2 daughters one of whom lives in [place], [place] and another in [place], [place]. Previous smoker with 1 ppd x 33 years but quit 12 years ago. Denies ETOH or recreational drug use. 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 Vitals, BMI noted and reviewed Pain Score: Seven Pain Addressed: Pain controlled on current analgesic [...] Plan is to proceed to 2nd autotransplant. [id number] will be administered on 03/12, and she will be admitted on 03/13 (day 0) Transplant is on hold pending CT chest and abdomen (see below) Heme: - Pancytopenia secondary to chemotherapy. Transfusion independent. FEN/Renal:Will monitor and replace lytes per BMT protocol - Cr elevated,CKD Stage III ID: - Continue prophy Acyclovir and bactrim, Call if Temp>100.5 GI: - Antiemetics prn for nausea CT chest was done and that showed a possible hepatic artery thrombosis and a CTA was ordered. 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 Psych:History of depression, on zoloft. RTC: 03/13 to start chemo for Myeloma and admit on 03/14, Day 0 Odin Cowan MD urologist physician Blood and Marrow Transplantation [facility] Staff name: Kita Franklin Date: 03/12/2017 in this encounter Plan of Treatment Name Priority Associated Diagnoses Order Schedule COMPREHENSIVE METABOLIC PANEL Routine Multiple myeloma not Expected: having achieved remission (Approximate), Expires: ([facility]) 03/12/2019 On antineoplastic chemotherapy Conditioning chemotherapy prior to peripheral blood stem cell transplant MAGNESIUM Routine Multiple myeloma not Expected: 03/13/2017 having achieved remission (Approximate), Expires: ([facility]) 03/12/2019 On antineoplastic chemotherapy Conditioning chemotherapy prior to peripheral blood stem cell transplant CBC AND DIFF Routine Multiple myeloma not Expected: 03/13/2017 having achieved remission (Approximate), Expires: ([facility]) 03/12/2019 On antineoplastic chemotherapy Conditioning chemotherapy prior to peripheral blood stem cell transplant as of this encounter Results * CTA ABD/PELVIS [...] PM. in this encounter Visit Diagnoses Diagnosis Multiple myeloma not having achieved remission (HCC) - Primary Multiple myeloma, without mention of having achieved remission On antineoplastic chemotherapy Encounter for antineoplastic chemotherapy Conditioning chemotherapy prior to peripheral blood stem cell transplant Encounter for antineoplastic chemotherapy Other emphysema (HCC) Other emphysema in this encounter
--- OUTSIDE RECORDS SUMMARY | 2017-05-10 07:48 | XMS REPORT | Encounter Summary ---
Author Author [facility] Organization [facility] Address Unknown Phone Unavailable Care Team Providers Care Asphalt Mixer Name Role Phone PCP Unavailable Reason for Referral * Radiology Services Status Reason Specialty Diagnoses / Referred By Referred To Procedures Contact Contact New Request Radiology Diagnoses Chapo, Multiple myeloma MD [place] in remission [address] [facility]) [address] [place], [place] IR CENTRAL [address] VENOUS CATHETER * Radiology Services Status Reason Specialty Diagnoses / Referred By Referred To Procedures Contact Contact New Request Radiology Diagnoses Chapo, Multiple myeloma MD [place] in remission [address] [facility] [address] [place], [place] IR [place]ENTRAL [address] VENOUS CATHETER * Radiology Services (Routine) Status Reason Specialty Diagnoses / Referred By Referred To Procedures Contact Contact No Auth Needed Radiology Diagnoses Claudia Reno MD [facility] [place] Multiple [address] [facility] [address] myeloma, [address] [place], [place] remission status [id number] unspecified [place], [place] Phone: P [phone] [employer] Phone: IR CENTRAL [phone] VENOUS CATHETER Fax: [place] [facility] [phone] VAD W/SUBQ PORT AGE 5 YR/> * Radiology Services (Routine) Status Reason Specialty Diagnoses / Referred By Referred To Procedures Contact Contact No Auth Needed Radiology Diagnoses Claudia Reno MD [facility] Ir Multiple [address] myeloma, [address] [place], [place] remission status [id number] unspecified [place], [place] Phone: P [phone] rocedures Phone: IR CENTRAL [phone] VENOUS CATHETER [place]: [place] [facility] [phone] VAD W/SUBQ PORT AGE 5 YR/> Reason for Visit * Radiology Services (Routine) Status Reason Specialty Diagnoses / Referred By Referred To Procedures Contact Contact No Auth Needed Radiology Diagnoses Claudia Reno MD [facility] Ir Multiple [address] myeloma, [place], [place] remission status [address] [id number] unspecified [place], [place] Phone: P [phone] rocedures Phone: IR CENTRAL [phone] VENOUS CATHETER [place]ax: [place] [facility] [phone] VAD W/SUBQ PORT AGE 5 YR/> Encounter Details Date Type Department Care Team Description 03/12/2017 [facility] Claudia Reno MD Encounter [place] [facility] [address] [place] [place] [place] [place] [address] [place] [address] [phone] Timur Forde MD [address] [facility] [address] [place] [address] [phone] Veronica Baker, Anton Powers Social History Tobacco Use Types Packs/Day Years Used Date Former Smoker 1 40 Quit: 09/16/2001 Smokeless Tobacco: Never Used Alcohol Use Drinks/Week oz/Week Comments No Sex Assigned at Date Recorded Not on file as of this encounter Last Filed Vital Signs Vital Sign Reading Time Taken Blood Pressure 133/76 03/12/2017 9:30 AM CDT Pulse 86 03/12/2017 9:30 AM CDT Temperature 36.5 C (97.7 F) 03/12/2017 9:26 AM CDT Respiratory Rate - - Oxygen Saturation 96% 03/12/2017 9:30 AM CDT Inhaled Oxygen - - Concentration Weight 64.9 kg (143 lb) 03/12/2017 8:10 AM CDT Height 160 cm (5' 3") 03/12/2017 8:10 AM CDT Body Mass Index 25.33 03/12/2017 8:10 AM CDT in this encounter Functional Status [...] Date End Date acyclovir (ZOVIRAX) 800 Take 0.5 Tabs by [...] meal and a full glass of water. trimethoprim/sulfamethoxa Take 1 Tab by mouth twice 24 Tab 3 2016 zole (BACTRIM DS) 160/800 daily. Mondays and mg tablet . umeclidinium-vilanterol Inhale 1 Puff by mouth 3 Each 0 02/28/2017 (ANORO ELLIPTA) 62.5-25 into the lungs daily. mcg/actuation Indications: BRONCHOSPASM inhalerIndications: PREVENTION WITH COPD BRONCHOSPASM PREVENTION WITH COPD as of this encounter Progress Notes * Veronica Conway RN - 03/12/2017 9:53 AM CDT Patient discharged home in stable condition. Pt alert and oriented at discharge. Vital signs stable. Dressing remains clean, dry, and intact. No further questions regarding discharge instructions. Patient left department via wheelchair. Pt accompanied by daughter at discharge. * Veronica Conway RN - 03/12/2017 9:45 AM CDT Trifusion dressing with small amount of bright red drainage on it. Dressing removed. No active bleeding noted. New sterile central line dressing applied. Pt and daughter instructed to monitor for bleeding- verbalized understanding. * Veronica Conway RN - 03/12/2017 9:00 AM CDT Sedation physician present in room. Recent vitals and patient condition reviewed between sedating physician and nurse. Reassessment completed. Determination made to proceed with planned sedation. in this encounter Plan of Treatment Not on fileas of this encounter Procedures Procedure Name Priority Date/Time Associated Diagnosis Comments TELEMETRY STRIPS-SCAN 03/13/2017 Results for this 2:25 PM CDT procedure are in the results section. in this encounter Results * TELEMETRY STRIPS-SCAN (03/13/2017 2:25 PM) Narrative Ordered by an unspecified provider. * IR CENTRAL VENOUS CATHETER (03/12/2017 9:21 AM) Specimen Performing Laboratory [facility] Narrative This IR procedure does not require a dictated result. * IR CENTRAL VENOUS CATHETER (03/12/2017 9:21 AM) Specimen Performing Laboratory [facility] RESULTS Impressions IMPRESSION:Successful placement of Francisco TriFusion catheter as described above. ITimur M.D., the attending radiologist, was present for the procedure, personally reviewed the images, and formulated the interpretations and opinions expressed in this report. @TT Finalized by Timur Lynne M.D. on 03/12/2017 9:40 AM. Dictated by Timur Lynne M.D. on 03/12/2017 9:39 AM. Narrative Ultrasound and Fluoroscopically Guided Tunneled Triple-lumen Francisco TriFusion Catheter Placement CLINICAL INDICATION: Multiple myeloma. MEDICATIONS:Versed 4 mg IV, Fentanyl 100 mcg IV.Total supervised sedation time:20 minutes. I was personally responsible for the administration of moderate sedation services during the procedure performed and I confirm requirements described and CPT section on moderate sedation were followed, including the use of an independent trained observer that no other duties during the procedure. CATHETER: Francisco TriFusion catheter 23 cm tip to cuff length PROCEDURE AND FINDINGS: After obtaining informed written consent the patient was placed supine on the procedure table. The right neck and chest were prepped and draped in a sterile fashion.Ultrasound was used to identify the right internal jugular vein. Permanent sonographic images were obtained. The vein was of adequate size and patency for a catheter. Under direct sonographic visualization a micropuncture set was used to gain access to the vein, and a microwire was placed under direct fluoroscopic visualization. The needle was removed and a 5 Dominican dilator was placed.An .035 guidewire was advanced into the IVC.The venotomy was dilated and apeel-away sheath was placed. Attention was turned to the creation of a subcutaneous tunnel. 2% Lidocaine was infiltrated along a 8-10 cm tract caudal and lateral to the sheath entry site. A second dermatotomy was made.The tunneling tool was passed and the catheter was pulled through the subcutaneous tunnel. The catheter was advanced through the peel-away sheath, andpositioned centrally using fluoroscopy. The sheath was removed.The catheter was secured in place with the tip in the proximal right atrium.The venotomy site was closed with Dermabond. The catheter was secured to the skin with 2-0 Ethilon.The patient tolerated the procedure well and remained in stable condition throughout the stay in the angiography suite.The catheter ports were flushed, heparinized, and a sterile dressing was applied. Procedure Note Interface, Radiant Results - 03/12/2017 9:43 AM CDT Ultrasound and Fluoroscopically Guided Tunneled Triple-lumen Francisco TriFusion Catheter Placement CLINICAL INDICATION: Multiple myeloma. MEDICATIONS: Versed 4 mg IV, Fentanyl 100 mcg IV. Total supervised sedation time: 20 minutes. I was personally responsible for the administration of moderate sedation services during the procedure performed and I confirm requirements described and CPT section on moderate sedation were followed, including the use of an independent trained observer that no other duties during the procedure. CATHETER: Francisco TriFusion catheter 23 cm tip to cuff length PROCEDURE AND FINDINGS: After obtaining informed written consent the patient was placed supine on the procedure table. The right neck and chest were prepped and draped in a sterile fashion. Ultrasound was used to identify the right internal jugular vein. Permanent sonographic images were obtained. The vein was of adequate size and patency for a catheter. Under direct sonographic visualization a micropuncture set was used to gain access to the vein, and a microwire was placed under direct fluoroscopic visualization. The needle was removed and a 5 Dominican dilator was placed. An .035 guidewire was advanced into the IVC. The venotomy was dilated and a peel-away sheath was placed. Attention was turned to the creation of a subcutaneous tunnel. 2% Lidocaine was infiltrated along a 8-10 cm tract caudal and lateral to the sheath entry site. A second dermatotomy was made. The tunneling tool was passed and the catheter was pulled through the subcutaneous tunnel. The catheter was advanced through the peel-away sheath, and positioned centrally using fluoroscopy. The sheath was removed. The catheter was secured in place with the tip in the proximal right atrium. The venotomy site was closed with Dermabond. The catheter was secured to the skin with 2-0 Ethilon. The patient tolerated the procedure well and remained in stable condition throughout the stay in the angiography suite. The catheter ports were flushed, heparinized, and a sterile dressing was applied. IMPRESSION IMPRESSION: Successful placement of Francisco TriFusion catheter as described above. ITimur M.D., the attending radiologist, was present for the procedure, personally reviewed the images, and formulated the interpretations and opinions expressed in this report. @TT Finalized by Timur Lynne M.D. on 03/12/2017 9:40 AM. Dictated by Timur Lynne M.D. on 03/12/2017 9:39 AM. in this encounter Visit Diagnoses Diagnosis Multiple myeloma, remission status unspecified Multiple myeloma in remission (HCC) Multiple myeloma in remission in this encounter Administered Medications Medication Order MAR Action Action Date Dose Rate Site fentaNYL citrate PF (SUBLIMAZE) Given 03/12/2017 50 mcg injection 09:04 CDT INTRA-PROCEDURE MED, Starting 03/12/17 at 0904, Until 03/12/17 at 0904 fentaNYL citrate PF (SUBLIMAZE) Given 03/12/2017 50 mcg injection 25-50 mcg 08:57 CDT 25-50 mcg, Intravenous, ONCE, 1 dose, 03/12/17 at 0830 lidocaine 2%/EPINEPHrine 1:100,000 Given 03/12/2017 20 mL injection 30 mL 09:21 CDT 30 mL, Injection, ONCE, 1 dose, 03/12/17 at 0930, Intra-procedure (IR) midazolam (VERSED) injection 1 mg Given 03/12/2017 1 mg 1 mg, Intravenous, ONCE, 1 dose, Tue 08:55 CDT 03/12/17 at 0830 midazolam (VERSED) injection Given 03/12/2017 1 mg INTRA-PROCEDURE MED, Starting Tue 09:00 CDT 03/12/17 at 0900, Until 03/12/17 at 0906 Given 03/12/2017 1 mg 09:02 CDT Given 03/12/2017 1 mg 09:06 CDT sodium chloride 0.9 % infusion Given - [facility] 03/12/2017 250 mL INTRA-PROCEDURE MED(CONT), Starting Tu Bag 08:53 CDT 03/12/17 at 0853, Until Sat03/12/17 at 0909 in this encounter
--- OUTSIDE RECORDS SUMMARY | 2017-05-10 07:49 | XMS REPORT | Encounter Summary ---
Author Author [facility] Organization [facility] Address Unknown Phone Unavailable Care Team Providers Care Spindle Tester Name Role Phone PCP Unavailable Reason for Visit * Reason Comments Heme/Onc Care New Patient Encounter Details Date Type Department Care Team Description 03/07/2017 Office Visit [facility] Rafy Valladares MD Multiple myeloma, [facility] [address] remission status [address] [place] [address] unspecified (HCC) [place] [address] (Primary Dx) [phone] Social History Tobacco Use Types Packs/Day Years Used Date Former Smoker 1 40 Quit: 09/16/2001 Smokeless Tobacco: Never Used Alcohol Use Drinks/Week oz/Week Comments No Sex Assigned at Date Recorded Not on file as of this encounter Last Filed Vital Signs Vital Sign Reading Time Taken Blood Pressure 125/85 03/07/2017 11:00 AM CDT Pulse 77 03/07/2017 11:00 AM CDT Temperature 36.9 C (98.4 F) 03/07/2017 11:00 AM CDT Respiratory Rate 18 03/07/2017 11:00 AM CDT Oxygen Saturation 100% 03/07/2017 11:00 AM CDT Inhaled Oxygen - - Concentration Weight 65.4 kg (144 lb 3.2 oz) 03/07/2017 11:00 AM CDT Height 162.6 cm (5' 4") 03/07/2017 11:00 AM CDT Body Mass Index 24.75 03/07/2017 11:00 AM CDT in this encounter Functional Status [...] impairment: No 01/09/2017 as of this encounter Instructions * Patient Instructions - Lea Shaver RN - 03/07/2017 11:23 AM CDT Your Care Team: Dr. Rafy Valladares | Metal Handler, Multiple Myeloma Specialist Azeb Avendaño APRN (Nurse Practitioner) Lea Shaver, Clinical Nurse Coordinator Rere Hooper, Clinical Nurse Coordinator For Non-Urgent phone calls: [phone] | All calls left between 8 and 4 returned in the same business day or following morning For Urgent phone call needs: [phone] | If between 8 and 4, ask for Dr Valladares's CNCs Rere or Lea to be paged; if after hours, ask for MD medicaid collection specialist to be paged. For Scheduling needs: [phone] Please call urgently for any fevers greater than 100.3, do not take any tylenol/ ibuprofen for fevers. in this encounter Progress Notes * Rafy Valladares MD - 03/12/2017 9:10 AM CDT Formatting of this note may be different from the original. Date of Service: 03/07/2017 Subjective: Reason for Visit: Heme/Onc Care and New Patient Layla Manzanares is a 67 y.o. female.Pt is here for second opinion regarding her myeloma and consideration for second ASCT History of Present Illness Onc Timeline Diagnosis: [...] Indications: BRONCHOSPASM PREVENTION WITH COPD Filed Vitals: 03/07/17 1100 BP: 125/85 Pulse: 77 Temp: 36.9 C (98.4 F) Resp: 18 Height: 162.6 cm (64") Weight: 65.409 kg (144 lb 3.2 oz) SpO2: 100% Body mass index is 24.74 kg/(m^2). 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 I had a prolonged discussion with the patient that her chances with a longer progression free survival is higher if she received autologous stem cell transplant specially she had progress on novel agents. She has high risk cytogenetics which requires that she will need to be on consolidation therapy after her second transplant. Recommendations: Proceed with high-dose chemotherapy with autologous stem cell transplant Consider starting her on Daratumumab/pomalidomide/dexamethasone after her autologous stem cell transplant to decrease the chances of her to develop relapse myeloma Patient will follow-up with BMT and her local oncologist Rafy Valladares M.D [facility] Internal medicine Division of Hematologic Malignancies and Cellular Therapeutics Pager [phone] * Lea Shaver RN - 03/07/2017 11:22 AM CDT Formatting of this note may be different from the original. Nurse Coordinator Note Today's condition: New patient from BMT. Pt voices interest in Leah/Durva trial. This trial is not yet open - plans to open in May. Recommendations from Dr. Valladares: Proceed with ASCT and then maintenance therapy with Daratumumab monotherapy. RTC: As needed with Dr. Valladares. Pt follows Dr. Yuan in [place], [place]. Appt with Dr. Reno tomorrow. Will send notes and recommendations to Dr. Yuan, primary oncologist ; in this encounter Plan of Treatment Not on fileas of this encounter Visit Diagnoses Diagnosis Multiple myeloma, remission status unspecified - Primary in this encounter
--- OUTSIDE RECORDS SUMMARY | 2017-05-10 07:49 | XMS REPORT | Encounter Summary ---
Author Author [facility] Organization [facility] Address Unknown Phone Unavailable Care Team Providers Care Footwear Machinery Instructor Name Role Phone PCP Unavailable Reason for Visit * Reason Comments Breathing Problem Encounter Details Date Type Department Care Team Description 02/28/2017 Office Visit [facility] Zuhair Graham MD Centrilobular emphysema Physicians - Internal [address] (HCC) (Primary Medicine [place] [address] Dx);Mucopurulent chronic [address] [place] [address] bronchitis ([facility]);Chronic OFFICE BLDG [phone] obstructive pulmonary 5TH FLOOR POD A disease, unspecified COPD [place], [place] type (HCC);Abnormal [phone] pulmonary function test [phone] Social History Tobacco Use Types Packs/Day Years Used Date Former Smoker 1 40 Quit: 09/16/2001 Smokeless Tobacco: Never Used Alcohol Use Drinks/Week oz/Week Comments No Sex Assigned at Date Recorded Not on file as of this encounter Last Filed Vital Signs Vital Sign Reading Time Taken Blood Pressure 185/115 02/28/2017 10:32 AM CDT Pulse 93 02/28/2017 10:32 AM CDT Temperature 36.4 C (97.5 F) 02/28/2017 10:32 AM CDT Respiratory Rate 16 02/28/2017 10:32 AM CDT Oxygen Saturation 96% 02/28/2017 10:32 AM CDT Inhaled Oxygen - - Concentration Weight 65.8 kg (145 lb) 02/28/2017 10:32 AM CDT Height 162.6 cm (5' 4") 02/28/2017 10:32 AM CDT Body Mass Index 24.89 02/28/2017 10:32 AM CDT in this encounter Functional Status [...] this encounter Instructions * Patient Instructions - Sherita Salazar RN - 02/28/2017 10:39 AM CDT Clinic Visit Summary: It was a pleasure seeing you in clinic today. Please follow-up as needed. Stop all use of symbicort/incruse/tudorza. Start anoro samples 1 puff daily. Will send prescription to pharmacy. Continue to use albuterol as needed. Continue 2 LPM oxygen at night. OK to proceed to transplant. Please contact the Pulmonary Clinic Nurse Coordinator with signs and symptoms of worsening condition: Increased shortness of breath, increased coughing, productive cough with thick &/ or abnormal colored secretions, bloody sputum, chest tightness, chest pain, wheezing, shortness of breath, fever, chills, night sweats, or any questions or concerns. Pulmonary Clinic Nurse Coordinator- Sherita Salazar geographic area intelligence officer) [phone]; fax) [phone] * For URGENT issues after business hours/weekends/holidays call and request for the Clay Processing Labourer to be paged. - For refills on medications, please have your pharmacy an electronic refill request. Please allow at least 3 business days for refill requests. To cancel, change, or schedule a clinic appointment, contact the Pulmonary Schedulers at . in this encounter Progress Notes * Zuhair Graham MD - 02/28/2017 10:39 AM CDT Formatting of this note may be different from the original. Date of Service: 02/28/2017 Subjective: Layla Manzanares is a 67 y.o. female. : 1950 [address] Cowan, Thank you for referring Layla Manzanares to pulmonary clinic at [facility]. As you know, she is a very pleasant 67-year-old female with history of multiple myeloma who is being evaluated for her second autologous HSCT. She also carries a past medical history significant for COPD and ROSALINA, for which she wears 2 L of supplemental oxygen at night. She reports being told that she only needed to wear oxygen at night by her PCP who ordered the sleep study, and that CPAP was not necessary. She reports being on a variety of inhalers in the past, most recently being Symbicort. She notices significant improvement while using Symbicort, though this was not covered by her insurance. She has also used Tudorza and Incruse in the past, neither of which provided her with much relief. She is only currently using an albuterol inhaler 1-2 times a week and no other inhalers. She reports being diagnosed with COPD many years ago, and has quit smoking since 1999. She denies any exacerbations over the previous 12 months. She denies any need for antibiotics or corticosteroids for her breathing over the previous 2 years. She denies any changes in her exertional dyspnea in the past 3 months. She reports getting winded with walking more than 1-2 blocks. She reports getting short of breath while shopping at [employer] and often has to take breaks every 2 isles. She denies any issues with coughing , wheezing, pleurisy, or chest pain with exertion. She does not have a chronic cough and does not produce sputum chronically. She denies any recent fevers, chills, or viral infections. She denies any issues with lightheadedness or hemoptysis. She reports good sleep quality while wearing 2 L/min of oxygen at night, and denies any issues with snoring, morning headaches, or nighttime awakenings with breathlessness. Mrs. Manzanares was a former smoker for 40 pack years and quit in 2001. She denies any occupational exposures to respiratory irritants. She denies any history of thoracic surgeries. She denies any history of thoracic trauma. She denies any family history of lung diseases in non-smokers. He does report history of COPD and her father and son, both of whom are smokers. She does report having multiple vertebral compression fractures. Review of Systems Constitutional: Negative. HENT: Positive for tinnitus. Eyes: Negative. Respiratory: Negative. Cardiovascular: Negative. Gastrointestinal: Negative. Endocrine: Negative. Genitourinary: Negative. Musculoskeletal: Negative. Skin: Negative. Allergic/Immunologic: Negative. Neurological: Negative. Hematological: Negative. Psychiatric/Behavioral: Negative. Objective: acyclovir (ZOVIRAX) 800 mg tablet Take [...] Tab by mouth daily. Take with food. budesonide/formoterol (SYMBICORT HFA) 160/4.5 mcg inhalation Inhale 2 Puffs by mouth into the lungs twice daily. calcium carbonate (OS-ALISON) 1250 mg tablet Take [...] by mouth twice daily. Mondays and . Filed Vitals: 02/28/17 1032 BP: 185/115 Pulse: 93 Temp: 36.4 C (97.5 F) Resp: 16 Height: 162.6 cm (64") Weight: 65.772 kg (145 lb) SpO2: 96% Body mass index is 24.88 kg/(m^2). Physical Exam Constitutional: She is oriented to person, place, and time. She appears well- developed and well-nourished. No distress. Frail, deconditioned, in NAD HENT: Head: Normocephalic and atraumatic. Mouth/Throat: No oropharyngeal exudate. Eyes: Conjunctivae are normal. No scleral icterus. Neck: Normal range of motion. Neck supple. No JVD present. No tracheal deviation present. No thyromegaly present. Cardiovascular: Normal rate, regular rhythm and normal heart sounds. Exam reveals no gallop and no friction rub. No murmur heard. Pulmonary/Chest: Effort normal. No stridor. No respiratory distress. She has no wheezes. She has no rales. She exhibits no tenderness. Diminished breath sounds b/l Abdominal: Soft. Musculoskeletal: Normal range of motion. She exhibits no edema or tenderness. Lymphadenopathy: She has no cervical adenopathy. Neurological: She is alert and oriented to person, place, and time. Skin: Skin is warm and dry. No rash noted. She is not diaphoretic. No erythema. No pallor. Psychiatric: She has a normal mood and affect. Her behavior is normal. Judgment and thought content normal. 02/13/2017 6:18 PM - In [facility] Reslts Interface Component Results Component Value Flag Ref Range Units Status FVC-Pre 1.90 L Final FVC-%Pred-pre 59 % Final FEV1-Pre 1.24 L Final FEV1-%Pred-Pre 51 % Final ILC6440-Iny 0.73 L/sec Final WBB1554-%Pred-Pre 35 % Final VCSVC-Pre 1.99 L Final ICSVC-Pre 1.44 L Final ERVSVC-Pre 0.55 L Final PEF-Pre 183.4 L/min Final TGVPleth-Pre 3.17 L Final RVPleth-Pre 2.73 L Final RVPleth-%Pred-Pre 124 % Final TLCPleth-Pre 4.53 L Final TLCPleth-%Pred-Pre 87 % Final DLCOunc-Pred 21.04 ml/min/mmHg Final DLCOunc-Pre 6.65 ml/min/mmHg Final DLCOunc-%Pred-Pre 31 % Final DLCOunc-SD 3.75 ml/min/mmHg Final DLCOunc-LLN 13.54 ml/min/mmHg Final DLCOunc-ULN 28.54 ml/min/mmHg Final DLCOunc-#SD -3.838 ml/min/mmHg Final DLVA-Pred 4.28 ml/min/mmHg/L Final DLVA-Pre 2.28 ml/min/mmHg/L Final DLVA-%Pred-Pre 53 % Final DLVA-SD 0.80 ml/min/mmHg/L Final DLVA-LLN 2.68 ml/min/mmHg/L Final DLVA-ULN 5.88 ml/min/mmHg/L Final DLVA-#SD -2.504 ml/min/mmHg/L Final CXR (02/13/17) - Personally interpreted and reviewed with the patient. Midline trachea with normal appearance of the mediastinum. Grossly clear lung morales b/ l. Calcified RUL pulmonary nodule noted. Blunting in right cardiophrenic angle noted, consistent with previously described fat-containing Morgagni hernia. Assessment and Plan: Layla Manzanares is a 67 y/o female with MM preparing for autologous HSCT seen for the following pulmonary problems: 1. COPD - GOLD Stage III 2. Chronic hypoxemic respiratory failure on 2 LPM Oxygen qhs 3. Possible ROSALINA - unclear based on history and symptoms 4. Pulmonary pre-transplant evaluation Mrs. Manzanares is seen for pulmonary pretransplant evaluation prior to planned autologous HSCT for multiple myeloma. She has significant obstructive lung disease secondary to COPD, and is not currently medically managed with any bronchodilators. Her functional status is reduced, though her multiple myeloma is likely playing a role in this as well. It is unclear to me if the patient has ROSALINA, or if her need for supplemental oxygen at night is due to underlying obstructive lung disease. She is not hypercarbic, and I do not believe she needs noninvasive positive pressure ventilation at night at this time. Our plan of care going forward is as follows: 1. Start patient on Anoro 1 puff daily; patient given samples and instructions on its proper use along with a prescription for this medication 2. Stop all other maintenance inhalers that she is received in the past 3. Continue albuterol inhaler 1-2 puffs every 4-6 hours as needed breathlessness 4. Continue supplemental oxygen at night 5. Okay from my perspective to proceed towards autologous HSCT at this time. Thank you for the referral, please notify myself if I can be of further assistance in the patient's care. in this encounter Plan of Treatment Not on fileas of this encounter Visit Diagnoses Diagnosis Centrilobular emphysema (HCC) - Primary Other emphysema Mucopurulent chronic bronchitis (HCC) Mucopurulent chronic bronchitis Chronic obstructive pulmonary disease, unspecified COPD type Abnormal pulmonary function test Nonspecific abnormal results of pulmonary system function study in this encounter
--- OUTSIDE RECORDS SUMMARY | 2017-05-10 07:49 | XMS REPORT | Encounter Summary ---
Author Author [facility] Organization [facility] Address Unknown Phone Unavailable Care Team Providers Care Windows Security Analyst Name Role Phone PCP Unavailable Encounter Details Date Type Department Care Team Description 03/04/2017 Orders Only [facility] Sarai Zimmerman RN Thyroid nodule (Primary Cancer Center - BMT Dx) Treatment [address] [facility] [address] [place] [id number] Social History Tobacco Use Types Packs/Day Years [...] Treatment Name Priority Associated Diagnoses Order Schedule US THYROID Routine Thyroid nodule Expected: 03/08/2017 (Approximate), Expires: 03/04/2018 as of this encounter Visit Diagnoses Diagnosis Thyroid nodule - Primary Nontoxic uninodular goiter in this encounter
--- OUTSIDE RECORDS SUMMARY | 2017-05-10 07:49 | XMS REPORT | Encounter Summary ---
Author Author [facility] Organization [facility] Address Unknown Phone Unavailable Care Team Providers Care Blind Aide Name Role Phone PCP Unavailable Reason for Visit * Reason Comments Appointment New pt Dr. Valladares Encounter Details Date Type Department Care Team Description 02/27/2017 Telephone [facility] Rafy Valladares MD Appointment (New pt Cancer [facility] - [facility] [facility] [address] [place], [place] [phone] Social History Tobacco Use Types Packs/Day Years [...]
--- OUTSIDE RECORDS SUMMARY | 2017-05-10 07:49 | XMS REPORT | Encounter Summary ---
Author Author [facility] Organization [facility] Address Unknown Phone Unavailable Care Team Providers Care Sales Operations Director Name Role Phone PCP Unavailable Encounter Details Date Type Department Care Team Description 03/07/2017 [facility] Claudia Reno MD Encounter [facility] [address] [place] [address] [place] [address] Social History Tobacco Use Types Packs/Day Years [...] on fileas of this encounter Results * US THYROID (03/07/2017 1:42 PM) Specimen [...] Aspen Moore M.D. on 03/07/2017 1:47 PM. in this encounter Visit Diagnoses Diagnosis Multiple myeloma not having achieved remission (HCC) Multiple myeloma, without mention of having achieved remission in this encounter
--- OUTSIDE RECORDS SUMMARY | 2017-05-10 07:49 | XMS REPORT | Encounter Summary ---
Author Author [facility] Organization [facility] Address Unknown Phone Unavailable Care Team Providers Care Spinning Frame Changer Name Role Phone PCP Unavailable Reason for Referral * Radiology Services Status Reason Specialty Diagnoses / Referred By Referred To Procedures Contact Contact No Auth Needed Radiology Diagnoses Jose David Cowan Nuclear Med Multiple myeloma MD Odin [address] not having [address] achieved [place], [place] remission (HCC) [address] [address] [place], [place] Phone: Ogone [phone] [place] PET SCAN Phone: WHOLEBODY [phone] (HEAD-TOES) * Radiology Services Status Reason Specialty Diagnoses / Referred By Referred To Procedures Contact Contact No Auth Needed Radiology Diagnoses Jose David Cowan Nuclear Med Multiple myeloma MD Od[place] [address] not having [address] achieved [place], [place] remission (HCC) [address] [address] [place], [place] Phone: Ogone [phone] NM PET SCAN Phone: WHOLEBODY [phone] (HEAD-TOES) Reason for Visit * Radiology Services Status Reason Specialty Diagnoses / Referred By Referred To Procedures Contact Contact No Auth Needed Radiology Diagnoses Jose David Cowan Nuclear Med Multiple myeloma MD Od[place] [address] not having [address] achieved [place], [place] remission (HCC) [address] [address] [place], [place] Phone: rocedures [phone] [place] PET SCAN Phone: WHOLEBODY [phone] (HEAD-TOES) Encounter Details Date Type Department Care Team Description 02/28/2017 [facility] Odin Cowan MD Encounter Hospital Radiology [address] [place] [address] [place] [address] [place] [address] [phone] Social History Tobacco Use Types Packs/Day Years [...] on fileas of this encounter Results * NM PET SCAN WHOLEBODY (HEAD-TOES) (02/28/2017 [...] Gemini Webb M.D. on 02/28/2017 10:34 AM. in this encounter Visit Diagnoses Diagnosis Multiple myeloma not having achieved remission (HCC) Multiple myeloma, without mention of having achieved remission in this encounter Administered Medications Medication Order MAR Action Action Date Dose Rate Site RP DX F-18 FDG injection 15 lissette Curie Given 02/28/2017 16.2 15 lissette Curie, Intravenous, ONCE, 1 08:30 CDT millicuries dose, Zenaida 02/28/17 at 0845 in this encounter
--- OUTSIDE RECORDS SUMMARY | 2017-05-10 07:49 | XMS REPORT | Encounter Summary ---
Author Author [facility] Organization [facility] Address Unknown Phone Unavailable Care Team Providers Care Maintenance Assistant Name Role Phone PCP Unavailable Encounter Details Date Type Department Care Team Description 03/07/2017 [facility] Claudia Reno MD Encounter [facility] [address] [place] [address] [place] [address] Social History Tobacco Use Types [...] plant next week Performed by: Cary Ann [id number] DIGITAL MAMMO SCREEN BILAT/LISA/CAD: MARCH 07, 2017 - 2D/3D Procedure 3D Routine views. 2D Routine views. Technologist: Cary Ann Prior study comparison: February 17, 2014, bilateral CCC DIG M SCR b/t/C, performed at [facility]. The breasts are heterogeneously dense, which may obscure detection of small masses.2D, and 3D images were obtained. No masses, densities or calcifications to suggest malignancy. No significant change from prior studies. Electronically signed and approved by: Cedric Lion M.D. [id number] Procedure Note Interface, Radiant Results - 03/08/2017 8:46 AM CDT Last mammogram was performed 3 years and 1 month ago. Reason for exam: screening, asymptomatic. pt having bone marrow trans plant next week Performed by: Cary Ann [id number] DIGITAL MAMMO SCREEN BILAT/LISA/CAD: MARCH 07, 2017 - 2D/3D Procedure 3D Routine views. 2D Routine views. Technologist: Cary Ann Prior study comparison: February 17, 2014, bilateral CCC DIG M SCR b/t/C, performed at [facility]. The breasts are heterogeneously dense, which may obscure detection of small masses. 2D, and 3D images were obtained. No masses, densities or calcifications to suggest malignancy. No significant change from prior studies. Electronically signed and approved by: Cedric Lion M.D. [id number] IMPRESSION ACR BI-RADS Assessments: BIRAD 1-Negative RECOMMENDATION: [...]
--- OUTSIDE RECORDS SUMMARY | 2017-05-10 07:49 | XMS REPORT | Encounter Summary ---
Author Author [facility] Organization [facility] Address Unknown Phone Unavailable Care Team Providers Care Legal Administrative Secretary Name Role Phone PCP Unavailable Encounter Details Date Type Department Care Team Description 02/28/2017 Procedure Pass [facility] [address] [place] [address] Social History Tobacco Use Types Packs/Day Years [...]
--- OUTSIDE RECORDS SUMMARY | 2017-05-10 07:49 | XMS REPORT | Encounter Summary ---
Author Author [facility] Organization [facility] Address Unknown Phone Unavailable Care Team Providers Care Metallurgical Engineering Teacher Name Role Phone PCP Unavailable Encounter Details Date Type Department Care Team Description 02/28/2017 Orders Only [facility] Irina Lo RN Multiple myeloma not Cancer Center - BMT Exam having achieved remission [address] [facility] [facility] [address] (HCC) (Primary Dx) [facility] [address] [place] [id number] Social History Tobacco Use Types Packs/Day Years [...] of this encounter Progress Notes * Irina Lo, RN - 02/28/2017 5:11 PM CDT Spoke with pt and she agreed to get testing done and try inhalers that were prescribed by pulmonary. * Irina Lo, RN - 02/28/2017 5:[address] Cowan, pt needs US thyroid since recommended on PET scan report. Mammogram out of date, needs to be within 1 year of transplant. Last mammogram February 2016. in this encounter Plan of Treatment Not [...]
--- OUTSIDE RECORDS SUMMARY | 2017-05-10 07:50 | XMS REPORT | Encounter Summary ---
Author Author [facility] Organization [facility] Address Unknown Phone Unavailable Care Team Providers Care Process Safety Engineer Name Role Phone PCP Unavailable Reason for Visit * Reason Comments Records Request Encounter Details Date Type Department Care Team Description 02/21/2017 Telephone [facility] Amelie Quesada Records Request [address] [phone] [place] [address] [phone] Social History Tobacco Use Types Packs/Day Years [...]
--- OUTSIDE RECORDS SUMMARY | 2017-05-10 07:50 | XMS REPORT | Encounter Summary ---
Author Author [facility] Organization [facility] Address Unknown Phone Unavailable Care Team Providers Care Night Cleaner Name Role Phone PCP Unavailable Reason for Visit * Reason Comments New Patient Pre bone marrow transplantation workup Encounter Details Date Type Department Care Team Description 02/27/2017 Patient Profile [facility] Bailey [place] New Patient (Pre bone [address] [place] [address] workup) [phone] Social History Tobacco Use Types Packs/Day Years [...]
--- OUTSIDE RECORDS SUMMARY | 2017-05-10 07:50 | XMS REPORT | Encounter Summary ---
Author Author [facility] Organization [facility] Address Unknown Phone Unavailable Care Team Providers Care Chopping Machine Operator Name Role Phone PCP Unavailable Reason for Referral * Consult, Test & Treat Status Reason Specialty Diagnoses / Referred By Referred To Procedures Contact Contact New Request Specialty Cardiology Diagnoses Kashif Cowan MD Required myeloma, [address] remission status [place] unspecified [address] [place] [address] Encounter Details Date Type Department Care Team Description 02/21/2017 Orders Only [facility] Irina Lo RN Multiple myeloma, Cancer Center - BMT Exam remission status [address] unspecified (HCC) [address] (Primary Dx) [place] [phone] Social History Tobacco Use Types Packs/Day Years [...] Treatment Name Priority Associated Diagnoses Order Schedule AMB REFERRAL TO CARDIOLOGY Routine Multiple myeloma, Ordered: 02/21/2017 remission status unspecified (HCC) as of this encounter Visit Diagnoses Diagnosis Multiple myeloma, remission status unspecified - Primary in this encounter
--- OUTSIDE RECORDS SUMMARY | 2017-05-10 07:50 | XMS REPORT | Encounter Summary ---
Author Author [facility] Organization [facility] Address Unknown Phone Unavailable Care Team Providers Care Manufactured Buildings Supervisor Name Role Phone PCP Unavailable Reason for Referral * Radiology Services Status Reason Specialty Diagnoses / Referred By Referred To Procedures Contact Contact No Auth Needed Radiology Diagnoses [facility] Nuclear Med Multiple myeloma MD Odin [address] not having [address] achieved [place] remission (HCC) [address] [address] [address] [place], [place] Phone: Rabbit [id number] NM PET SCAN Phone: WHOLEBODY [phone] (HEAD-TOES) * Consult, Test & Treat (Urgent) Status Reason Specialty Diagnoses / Referred By Referred To Procedures Contact Contact New Request Specialty Pulmonary Disease Diagnoses Kashif Cowan / Pulmonology Multiple myeloma MD Odin Required not having [address] achieved [place] remission (HCC) [address] [place] [address] Reason for Visit * Reason Comments Heme/Onc Care Encounter Details Date Type Department Care Team Description 02/27/2017 Office Visit [facility] Odin Cowan MD Multiple myeloma not Cancer Center - BMT Exam [address] [place] having achieved remission [address] (HCC) (Primary [address] [place] [address] Dx);[place] [address] stem cell transplant [phone] (HCC);Abnormal pulmonary function test;Pancytopenia due to antineoplastic chemotherapy (HCC) Social History Tobacco Use Types Packs/Day Years Used Date Former Smoker 1 40 Quit: 09/16/2001 Smokeless Tobacco: Never Used Alcohol Use Drinks/Week oz/Week Comments No Sex Assigned at Date Recorded Not on file as of this encounter Last Filed Vital Signs Vital Sign Reading Time Taken Blood Pressure 129/90 02/27/2017 12:52 PM CDT Pulse 117 02/27/2017 12:52 PM CDT Temperature 37 C (98.6 F) 02/27/2017 12:52 PM CDT Respiratory Rate 16 02/27/2017 12:52 PM CDT Oxygen Saturation 96% 02/27/2017 12:52 PM CDT Inhaled Oxygen - - Concentration Weight 65.6 kg (144 lb 10 oz) 02/27/2017 12:52 PM CDT Height 162.6 cm (5' 4.02") 02/27/2017 12:52 PM CDT Body Mass Index 24.81 02/27/2017 12:52 PM CDT in this encounter Functional Status [...] Progress Notes * Irina Lo, RN - 02/27/2017 3:10 PM CDT Formatting of this note may be different from the original. Layla Manzanares [id number] 1950 67 y.o. Transplant History: Date of Transplant: TBD Transplant Type: Autologous Conditioning Regimen: Chary 140 Conditioning Regimen Type: Reduced Intensity Rationale for reduced/NST regimen: comorbidities Stem Cell Source: PSC Graft Manipulation: Not Applicable Diagnosis/Stage: IgA Becenti MM, Stage 2 Disease Status at Transplant: Partial Response Cytogenetic/Fish AT DIAGNOSIS: t(4;14) and +1q CMV Status:- Positive Blood Type - O Negative Cell Source: Peripheral, autologous, cryopreserved Consents / Study# / Protocol#: 8322, blood/chemo, autologous Pretransplant Coordinator: Irina Lo RN Chemotherapy consent scanned to medical records: TBD Line Placement: TBD Inpatient/Outpatient: Admit Day 0 Verification of Recipient ABO/CMV: CMV, IGG Date Value Ref Range Status 07/19/2016 POS Final ABO: O NEG Pt and daughter present for results review and consent conference. Pt states she feels better, but still has bad days. She uses O2 at night, has sleep apnea , but no CPAP machine, and admitted she is not taking her inhalers for COPD. She will see pulmonary tomorrow. Her line has been cancelled for tomorrow and will not start her auto transplant until she is cleared by pulmonary and Dr. Reno next week. She also wants to discuss any alternative treatments like the Leah/Durva trial with Dr. Valladares. She will see him next week, and see Dr. Reno the next day for PET results, MM labs, and to discuss if she is ready to go to auto transplant. She will admit day 0 for Chary 140. * Odin Cowan MD - 02/27/2017 12:54 PM CDT Formatting of this note may be different from the original. Date of Service: 02/27/2017 Subjective: Relapsed disease, S/P 2 cycles of VDR-PACE. Continued fatigued, back pain (chronic) and left shoulder pain Not eating well Has mouth sore where denture is rubbing her hard palate No fever History of Present Illness Date of Transplant: [...] auto Review of Systems Constitutional: Positive for fatigue and unexpected weight change (Lost weight) . Negative for fever. HENT: Positive for postnasal drip. Negative for congestion. Eyes: Negative for discharge. Respiratory: Positive for cough and shortness of breath (On exertion). Cardiovascular: Positive for leg swelling. Gastrointestinal: Negative for nausea [...] hip hemiarthroplasty Social Hx: and lives in [place], [place]. She has 3 children, a son who lives close by, and 2 daughters one of whom lives in [place], [place] and another in [place], [place]. Previous smoker with 1 ppd x 33 years but quit 12 years ago. Denies ETOH or recreational drug use. 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 Mondays and . Filed Vitals: 02/27/17 1252 BP: 129/90 Pulse: 117 Temp: 37 C (98.6 F) TempSrc: Oral Resp: 16 Height: 162.6 cm (64.02") Weight: 65.6 kg (144 lb 10 oz) SpO2: 96% Body mass index is 24.81 kg/(m^2). Vitals, BMI noted and reviewed Pain Score: Four Pain Addressed: Pain controlled on current analgesic regimen Karnofsky Scale: 60% Requires some assistance, but able to care for most of needs Clinical Trial: No clinical trial is available [...] Profile Lab Results Component Value Date/Time SODIUM 135* 02/12/2017 02:35 PM POTASSIUM 4.1 02/12/2017 02:35 PM CHLORIDE 104 02/12/2017 02:35 PM CO2 24 02/12/2017 02:35 PM ANION GAP 7 02/12/2017 02:35 PM BLOOD UREA NITROGEN 15 02/12/2017 02:35 PM CREATININE 1.47* 02/12/2017 02:35 PM GLUCOSE 102* 02/12/2017 02:35 PM Lab Results Component Value Date/Time CALCIUM 9.0 02/12/2017 02:35 PM PHOSPHORUS 3.2 02/12/2017 02:35 PM ALBUMIN 3.6 02/12/2017 02:35 PM TOTAL PROTEIN 5.6* 02/12/2017 02:35 PM ALK PHOSPHATASE 42 02/12/2017 02:35 PM AST (SGOT) 10 02/12/2017 02:35 PM ALT (SGPT) 4* 02/12/2017 02:35 PM TOTAL BILIRUBIN 0.3 02/12/2017 02:35 PM EGFR NON 35* 02/12/2017 02:35 PM EGFR 43* 02/12/2017 02:35 PM CBC w/Diff Lab Results Component Value Date/Time WHITE BLOOD CELLS 1.4* 02/12/2017 02:35 PM RBC 2.65* 02/12/2017 02:35 PM HEMOGLOBIN 8.6* 02/12/2017 02:35 PM HEMATOCRIT 25.2* 02/12/2017 02:35 PM MCV 95.0 02/12/2017 02:35 PM MCH 32.4 02/12/2017 02:35 PM MCHC 34.0 02/12/2017 02:35 PM RDW 19.8* 02/12/2017 02:35 PM PLATELET COUNT 72* 02/12/2017 02:35 PM MPV 7.5 02/12/2017 02:35 PM Lab Results Component Value Date/Time NEUTROPHILS 61 02/12/2017 02:35 PM ABSOLUTE NEUTROPHIL COUNT 0.90* 02/12/2017 02:35 PM LYMPHOCYTES 14* 02/12/2017 02:35 PM ABSOLUTE LYMPH COUNT 0.20* 02/12/2017 02:35 PM MONOCYTES 23* 02/12/2017 02:35 PM ABSOLUTE MONOCYTE COUNT 0.30 02/12/2017 02:35 PM EOSINOPHILS 2 02/12/2017 02:35 PM ABSOLUTE EOSINOPHIL COUNT 0.00 02/12/2017 02:35 PM BASOPHILS 0 02/12/2017 02:35 PM ABSOLUTE BASOPHIL COUNT 0.00 02/12/2017 02:35 PM Lab Results Component Value Date/Time IMMUNO FIX-SERUM IGA KAPPA PARAPROTEIN 01/25/2017 11:52 AM IMMUNO FIX-URINE FREE KAPPA LIGHT CHAIN 07/19/2016 12:20 PM KAPPA, FLC 12.53* 01/25/2017 11:52 AM LAMBDA, FLC 0.14* 01/25/2017 11:52 AM KAPPA/LAMBDA FLC 89.50* 01/25/2017 11:52 AM B2 MICROGLOBULIN 3.7* 11/06/2016 12:30 PM TOTAL PROTEIN-SEP 5.7* 01/25/2017 11:52 AM ALBUMIN % 58.7 01/25/2017 11:52 AM ALPHA 1 % 8.0* 01/25/2017 11:52 AM ALPHA 2 % 15.8* 01/25/2017 11:52 AM BETA %,SERUM 11.6 01/25/2017 11:52 AM GAMMA % 5.9* 01/25/2017 11:52 AM PARAPROTEIN 0.09 01/25/2017 11:52 AM INTERPRETATION - SEP 01/25/2017 11:52 AM SPIKE, PROBABLY MONOCLONAL, IN BETA/GAMMA REGION(S) BMT [...] of VDR-PACE. Myeloma markers from 01/25 improved significantly, she is now VGPR Bone Marrow 01/29: Hypocellular bone marrow (15-20%) with erythroid hyperplasia, decreased megakaryopoiesis and 2% monoclonal kappa plasma cells. Proceed with a workup for 2nd autologous transplant, KPS still low, may need to adjust melphalan dose to 140 mg/m2 Will re draw Myeloma labs and consider a PET scan. INFORMED CONSENT FOR AUTOLOGOUS HEMATOPOIETIC PROGENITOR CELL TRANSPLANT 02/27/2017 Layla Manzanares [id number] Diagnosis/Stage: IgA Becenti Myeloma Relapsed Conditioning Regimen: Chary 140 I personally administered this consent conference. I reviewed the pre- transplant work up with the patient. We reviewed infectious serologies and the organ testing. Based on these there is no contraindication to proceed with the transplant. The potential benefits and significant risks of autologous hematopoietic progenitor cell transplantation were explained as well as the availability of alternative therapies. The specific and established potential side effects of the preparative chemotherapy regimen as well as blood product transfusion needs were reviewed. The kinetics of engraftment and of immune reconstitution and associated early and late infections was also discussed. In addition, major complications which may occur following autologous progenitor cell transplantation were explained and included transplant related mortality. Treatment of relapse and of second malignancy was also discussed. The need for and risk of a central line was discussed with the patient. The patient was given a copy of the consent to read and sign. Please refer to full consent for details. The patient was allowed ample opportunity to review the consent and for questions and discussion concerning the risks, benefits, and alternatives of autologous hematopoietic progenitor cell transplantation, the right to review results of all tests and the right to refuse to proceed with the transplant. The patient also signed the informed consent for [facility] reporting. The Hand Router Operator was present during consent process. Can ice chips be used for this conditioning regimen? Yes Heme: - Pancytopenia secondary to chemotherapy. - Transfuse as per protocol. Transfusion independent. FEN/Renal:Will monitor and replace lytes per BMT protocol - Cr elevated, Poor PO intake,CKD Stage III - Encourage p.o. intake ID: - Continue prophy Acyclovir and bactrim, Call if Temp>100.5 GI: - Mild nausea, refilled antiemetics - CT abd/Pel showed diverticulosis with no diverticulitis Pulm: History of COPD, on symbicort and Albuterol inhalers (she confesses that she is not taking them). Her PFT is moderate to severe obstructive defect. Needs to see Dr. Graham, because I believe her PFTs are worse and she also has sleep apnea and on nocturnal oxygen. She does not use BiPAP. She might benefit from BiPAP. MSK:Chronic Back pain, managed on MS Contin, oxycodone prn breakthrough pain - New left shoulder pain, no pathologic fracture on x-ray February 05. 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 Psych:History of depression, on zoloft. Planning 2nd auto, pretransplant coordinator working on the schedule Patient will require frailty test Admit Day 0 She has a lots of HCT CI and our recent paper shows poor outcome with transplant in patients with higher HCT CI. She needs to be seen by Dr. Valladares to discuss alternatives to transplant. And if she gets clearance from Pulmonary , and her disease is not progressing per PET scan, then we may proceed with transplant knowing for the fact that the transplant is not going to cure her and with her t(4:14), she may have a median duration of disease free survival less than a year. She definitely will need post transplant intense consolidation if she tolerates. Odin Cowan MD plate stacker Blood and Marrow Transplantation [facility] in this encounter Plan of Treatment Name Priority Associated Diagnoses Order Schedule AMB REFERRAL TO PULMONARY Routine Multiple myeloma not Ordered: 2016 having achieved remission (HCC) as of this encounter Results * NM PET [...] Webb M.D. on 02/28/2017 10:34 AM. * LDH-LACTATE DEHYDROGENASE (02/27/2017 2:14 PM) Component Value Ref Range Lactate Dehydrogenase 151 100 - 210 U/L Specimen Performing Laboratory Blood [facility] [address] [place] [address] * MAGNESIUM (02/27/2017 2:14 PM) Component Value Ref Range Magnesium 1.6 1.6 - 2.6 mg/dL Specimen Performing Laboratory Blood [facility] [address] [place] [address] * IMMUNOGLOBULINS-IGA,IGG,IGM (02/27/2017 2:14 PM) Component Value Ref Range IgG 199 (L) 762 - 1488 MG/DL IgA 73 70 - 390 MG/DL IgM <20 (L) 38 - 328 MG/DL Specimen Performing Laboratory Blood [facility] [address] [place] [address] * BETA 2 MICROGLOBULIN (02/27/2017 2:14 PM) Component Value Ref Range B2 Microglobulin 3.9 (H) 0.8 - 2.3 MG/L Specimen Performing Laboratory Blood [facility] [address] [place] [address] * IMMUNOFIXATION, SERUM (IFES) (02/27/2017 2:14 PM) [...] report. Specimen Performing Laboratory Blood [facility] [address] [place] [id number] * ELECTROPHORESIS-SERUM PROTEIN (02/27/2017 2:14 PM) Component Value Ref Range Total Protein-SEP 5.7 (L) 6.0 - 8.0 G/DL Albumin % 64.2 48 - 68 % Alpha 1 % 6.3 (H) 2 - 6 % Alpha 2 % 13.8 5 - 15 % Beta %,Serum 10.5 9 - 17 % Gamma % 5.2 (L) 9 - 21 % Paraprotein 0.07 G/DL Interpretation - SEP SPIKE, PROBABLY MONOCLONAL, IN BETA/GAMMA REGION(S) Pathologist Signature INTERPRETED BY CHANCE HERNANDEZ M.D. By the PATH SIGNATURE ABOVE, I attest that I have personally formulated the final interpretation expressed in this report and that the above diagnosis is based upon my examination of the slides and/or other material indicated in this report. Specimen Performing Laboratory Blood [facility] [address] [place] [address] * KAPPA/LAMBDA FREE LIGHT CHAINS (02/27/2017 2:14 PM) Component Value Ref Range Becenti, FLC 11.71 (H) 0.33 - 1.94 MG/DL Lambda, FLC 0.10 (L) 0.57 - 2.63 MG/DL Becenti/Lambda FLC 117.10 (H) 0.26 - 1.65 Specimen Performing Laboratory Blood [facility] [address] [place] [address] * COMPREHENSIVE METABOLIC PANEL (02/27/2017 2:14 PM) Component Value Ref Range Sodium 137 137 - 147 MMOL/L Potassium 4.2 3.5 - 5.1 MMOL/L Chloride 103 98 - 110 MMOL/L Glucose 104 (H) 70 - 100 MG/DL Blood Urea Nitrogen 18 7 - 25 MG/DL Creatinine 1.31 (H) 0.4 - 1.00 MG/DL Calcium 10.0 8.5 - 10.6 MG/DL Total Protein 5.7 (L) 6.0 - 8.0 G/DL Total Bilirubin 0.3 0.3 - 1.2 MG/DL Albumin 3.7 3.5 - 5.0 G/DL Alk Phosphatase 50 25 - 110 U/L AST (SGOT) 9 7 - 40 U/L CO2 28 21 - 30 MMOL/L ALT (SGPT) 4 (L) 7 - 56 U/L Anion Gap 6 3 - 12 eGFR Non 40 (L) >60 mL/min Comment: The eGFR is not validated for use in drug dosing adjustments. Continue to use estimated creatinine clearance per dosing reference text. Please contact the Clinical Pharmacist for questions. eGFR 49 (L) >60 mL/min Comment: The eGFR is not validated for use in drug dosing adjustments. Continue to use estimated creatinine clearance per dosing reference text. Please contact the Clinical Pharmacist for questions. Specimen Performing Laboratory Blood [facility] [address] [place] [address] * CBC AND DIFF (02/27/2017 2:14 PM) Component Value Ref Range White Blood Cells 1.6 (L) 4.5 - 11.0 K/UL RBC 2.79 (L) 4.0 - 5.0 M/UL Hemoglobin 9.3 (L) 12.0 - 15.0 GM/DL Hematocrit 26.6 (L) 36 - 45 % MCV 95.4 80 - 100 FL MCH 33.3 26 - 34 PG MCHC 34.9 32.0 - 36.0 G/DL RDW 17.1 (H) 11 - 15 % Platelet Count 87 (L) 150 - 400 K/UL MPV 7.5 7 - 11 FL Neutrophils 56 41 - 77 % Lymphocytes 20 (L) 24 - 44 % Monocytes 20 (H) 4 - 12 % Eosinophils 4 0 - 5 % Basophils 0 0 - 2 % Absolute Neutrophil Count 0.90 (L) 1.8 - 7.0 K/UL Absolute Lymph Count 0.30 (L) 1.0 - 4.8 K/UL Absolute Monocyte Count 0.30 0 - 0.80 K/UL Absolute Eosinophil Count 0.10 0 - 0.45 K/UL Absolute Basophil Count 0.00 0 - 0.20 K/UL Specimen Performing Laboratory Blood [facility] [address] [place] [address] in this encounter Visit Diagnoses Diagnosis Multiple myeloma not having achieved remission (HCC) - Primary Multiple myeloma, without mention of having achieved remission History of peripheral stem cell transplant (HCC) Peripheral stem cells replaced by transplant Abnormal pulmonary function test Nonspecific abnormal results of pulmonary system function study Pancytopenia due to antineoplastic chemotherapy (HCC) Antineoplastic chemotherapy induced pancytopenia in this encounter
--- OUTSIDE RECORDS SUMMARY | 2017-05-10 07:50 | XMS REPORT | Encounter Summary ---
Author Author [facility] Organization [facility] Address Unknown Phone Unavailable Care Team Providers Care Inspector Aide Name Role Phone PCP Unavailable Encounter Details Date Type Department Care Team Description 02/23/2017 Orders Only [facility] Rohit Lyman PHARMD Cancer Center - BMT Exam [address] [place] [address] Social History Tobacco Use Types Packs/Day Years [...]
--- OUTSIDE RECORDS SUMMARY | 2017-05-10 07:50 | XMS REPORT | Encounter Summary ---
Author Author [facility] Organization [facility] Address Unknown Phone Unavailable Care Team Providers Care Communication Equipment Mechanic Name Role Phone PCP Unavailable Reason for Visit * Reason Comments Medication Refill Encounter Details Date Type Department Care Team Description 02/13/2017 Refill [facility] Lila Ojeda APRN Cancer Center - BMT Exam [address] [place] [address] [place] [address] [phone] Social History Tobacco Use Types Packs/Day Years [...]
--- OUTSIDE RECORDS SUMMARY | 2017-05-10 07:50 | XMS REPORT | Encounter Summary ---
Author Author [facility] Organization [facility] Address Unknown Phone Unavailable Care Team Providers Care Support Dba Name Role Phone PCP Unavailable Reason for Visit * Radiology Services (Routine) Status Reason Specialty Diagnoses / Referred By Referred To Procedures Contact Contact No Auth Needed Radiology Diagnoses Claudia Reno MD [facility] Ir Multiple [address]oma, [address] [place], [place] remission status [address] [id number] unspecified [place], [place] Phone: P [address] rocedures Phone: IR [facility] [phone] VENOUS CATHETER Fax: [place] [facility] [phone] VAD W/SUBQ PORT AGE 5 YR/> Encounter Details Date Type Department Care Team Description 02/27/2017 [facility] Claudia Reno MD Canceled (Office-Provider Encounter [facility] [address] Conflict) [address] [place] [address] [place] [address] [phone] Abraham Morris MD [address] [place], [place] [id number] Social History Tobacco Use Types Packs/Day Years [...] 160/800 daily. Mondays and mg tablet . budesonide/formoterol Inhale 2 Puffs by mouth 1 Inhaler 3 11/22/2016 02/28/2017 (SYMBICORT HFA) 160/4.5 into the lungs twice mcg inhalation daily. as of this encounter Progress Notes * Antoine Holm RN - 02/18/2017 4:03 PM CDT Interventional Radiology Outpatient Scheduling Checklist 1. Procedure: Trifusion catheter placement Appointment made by Nenita with BMT who will give pt pre-procedure instructions 2. Date of Procedure: 02/27/17 3. Arrival Time: 1400 4. Procedure Time: 1500 5. Correct Procedural Room Assignment: [facility] 6. Blood Thinners Triaged and instructed per protocol: N/A 7. Order Verified: Yes 8. Patient informed regarding procedure: Yes 9. Patient instructed to have a flatbed truck driver: Yes 10. Patient instructed on NPO status: 8 hours solids and 2 hours clear liquids Pt verbalized understanding NPO after 0500 clear liquids 1300 11. Specimen needed: Y/N: NO 12. Allergies Verified: Y/N: Yes 13. Iodine Allergy: Y/N: If yes and receiving Iodine has the patient been premedicated: Y/N: No 14. Does the patient have labs according to procedural policy: Y/N: Yes 15. Will the patient need to be admitted/possible admission: Y/N: NO 16. If YES to possible admission has the patient been instructed: Y/N: 17. Patient States Understanding: Y/N Yes in this encounter Plan of Treatment Not on fileas of this encounter Visit Diagnoses Not on filein this encounter
--- OUTSIDE RECORDS SUMMARY | 2017-05-10 07:50 | XMS REPORT | Encounter Summary ---
Author Author [facility] Organization [facility] Address Unknown Phone Unavailable Care Team Providers Care Market Reporter Name Role Phone PCP Unavailable Reason for Visit * Reason Comments New Patient Post-hospital Follow Up [facility] 01-02-17 to 01-09-17 for relapse multiple myeloma Pre-op Clearance for bone marrow transplant 03-01-17 * Consult, Test & Treat Status Reason Specialty Diagnoses / Referred By Referred To Procedures Contact Contact New Request Specialty Cardiology Diagnoses Kashif Cowan MD Required myeloma, [address] remission status [address] unspecified [address] [place] [id number] Encounter Details Date Type Department Care Team Description 02/27/2017 Office Visit [facility] Cardiology Odin Cowan MD New Patient; [address] [facility] Post-hospital Follow Up [address] ([facility] 01-02-17 to 01-09-17 [place] [address] for relapse multiple [id number] myeloma); Pre-op [phone] Clearance (for bone D marrow transplant Trent smart MD 03-01-17) [address] [facility] [address] [place] [address] [phone] Social History Tobacco Use Types Packs/Day Years Used Date Former Smoker 1 40 Quit: 09/16/2001 Smokeless Tobacco: Never Used Alcohol Use Drinks/Week oz/Week Comments No Sex Assigned at Date Recorded Not on file as of this encounter Last Filed Vital Signs Vital Sign Reading Time Taken Blood Pressure 142/88 02/27/2017 9:45 AM CDT Pulse 91 02/27/2017 9:45 AM CDT Temperature - - Respiratory Rate - - Oxygen Saturation 92% 02/27/2017 9:45 AM CDT Inhaled Oxygen - - Concentration Weight 64.9 kg (143 lb) 02/27/2017 9:45 AM CDT Height 162.6 cm (5' 4") 02/27/2017 9:45 AM CDT Body Mass Index 24.55 02/27/2017 9:45 AM CDT in this encounter Functional Status [...] as of this encounter Progress Notes * Trent Montaño MD - 02/27/2017 9:39 AM CDT Formatting of this note may be different from the original. Date of Service: 02/27/2017 Layla Manzanares is a 67 y.o. female. HPI Layla Manzanares is a very pleasant 67-year-old female with no previous history of coronary artery disease or myocardial infarction. She is here today for a cardiac clearance prior to her bone marrow transplant. She was sent here because her EKG was read as abnormal, showing a slow progression of the R wave across the precordium. However, she had an echocardiogram just a few days ago and it was unchanged from a year ago. It had normal left ventricular ejection fraction with no regional wall motion abnormalities and no valvular problems. The patient is still quite active on the days when she feels good. She is able to walk a pretty good distance, and go up and down the steps. She has no unusual shortness of breath, and no chest discomfort suggestive of angina. She denies any other cardiac complaints. Past medical history is pretty much negative for any cardiovascular problems. There is no history of hypertension, diabetes, coronary artery disease, or myocardial infarction. Current medications are acyclovir, albuterol, alprazolam , aspirin, Symbicort, calcium, vitamin D3, Flexeril, Lomotil, Marinol, Neurontin , Synthroid, morphine, omeprazole, ondansetron, oxycodone, potassium, and Bactrim. She is allergic to lorazepam. Family history was noncontributory. The patient used to smoke but quit in 2001. No history of alcohol or drug abuse. (DOC:[id number]) Filed Vitals: 02/27/17 0945 BP: 142/88 Pulse: 91 Height: 1.626 m (5' 4") Weight: 64.864 kg (143 lb) SpO2: 92% Body mass index is 24.53 kg/(m^2). 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/16/2016 Acquired hypothyroidism 11/16/2016 Need for pneumocystis prophylaxis 11/16/2016 Use of opiates for therapeutic purposes 11/16/2016 Chronic bronchitis (HCC) 11/16/2016 Leukopenia 10/05/2014 Seborrheic dermatitis 10/05/2014 Pancytopenia due to chemotherapy ([facility]) 04/13/2014 Severe malnutrition (HCC) 04/13/2014 Failure to thrive 03/28/2014 Pleural effusion 03/21/2014 Atelectasis 03/21/2014 Hypophosphatemia 03/19/2014 Mucositis (ulcerative) due to antineoplastic therapy 03/16/2014 Pancytopenia due to antineoplastic chemotherapy (HCC) 03/15/2014 Diarrhea 03/15/2014 History of peripheral stem cell transplant ([facility]) 03/10/2014 Date of Transplant: 03/12/2014 Preparative Regimen: Melphalan 200, with HBO Disease: MM, IgA Disease Status at Transplant: Chemo Responsive CMV: positive Cell Source: autologous Consents/Studies:8322, 0637 Coordinator: Gemini Daigle RN Multiple myeloma ([facility]) 03/03/2014 COPD (chronic obstructive pulmonary disease) ([facility]) 02/25/2014 Review of Systems Constitution: Positive for weakness and malaise/fatigue. HENT: Positive for tinnitus. Eyes: Negative. Cardiovascular: Positive for dyspnea on exertion. Respiratory: Positive for shortness of breath. Endocrine: Positive for cold intolerance. Hematologic/Lymphatic: Bruises/bleeds easily. Skin: Positive for dry skin and itching. Musculoskeletal: Positive for arthritis, back pain, falls, muscle weakness, myalgias, neck pain and stiffness. Gastrointestinal: Positive for heartburn. Genitourinary: Positive for nocturia and urgency. Neurological: Positive for excessive daytime sleepiness. Psychiatric/Behavioral: Positive for depression. The patient has insomnia and is nervous/anxious. Allergic/Immunologic: Negative. Physical Exam General Appearance: resting comfortably, no acute distress Skin: warm, moist, no evident rashes Digits and Nails: no clubbing Eyes: conjunctivae and lids normal, pupils are equal and round Lips & Oral Mucosa: no pallor or cyanosis Ear, Nose, Throat: No deformities Neck veins: neck veins are flat, neck veins are not distended Carotid Arteries: normal carotid upstroke bilaterally, no bruits Chest Inspection: chest is normal in appearance Lung Auscultation: lungs clear to auscultation, no rales, rhonchi, or wheezing PMI: PMI not enlarged or displaced Cardiac Rhythm: regular rhythm and normal rate Cardiac Auscultation: Normal S1 & S2, no S3 or S4, no rubs or clicks Murmurs: no significant cardiac murmur appreciated Abdominal Exam: soft, non-tender, no masses, bowel sounds normal Pedal Pulses: normal symmetric pedal pulses Lower Extremities: no lower extremity edema Muscle Strength: grossly normal Neurologic Exam: neurological assessment grossly intact Orientation: oriented to time, place and person Affect & Mood: appropriate and sustained affect Cardiovascular Studies Problems Addressed Today Encounter Diagnoses Name Primary? Multiple myeloma, remission status unspecified Yes Preop cardiovascular exam Assessment and Plan Layla is here today for a pre-procedure evaluation. She is scheduled for a bone marrow transplant. An EKG was read as abnormal, showing borderline R-wave progression and borderline T-wave abnormalities. She does not have any cardiac symptoms. No previous cardiac history. She had an echocardiogram done just a few days ago which was unchanged from the previous one done a year ago, and it showed normal left ventricular ejection fraction with no regional wall motion abnormalities and no valvular problems. At this point she is cleared for the procedure with low cardiovascular risk. (DOC:[id number]) Current Medications (including today's revisions) acyclovir (ZOVIRAX) 800 mg tablet Take 0.5 [...] by mouth twice daily. Mondays and . in this encounter Plan of Treatment Not on fileas of this encounter Visit Diagnoses Diagnosis Multiple myeloma, remission status unspecified - Primary Preop cardiovascular exam Pre-operative cardiovascular examination in this encounter
--- OUTSIDE RECORDS SUMMARY | 2017-05-10 07:50 | XMS REPORT | Encounter Summary ---
Author Author [facility] Organization [facility] Address Unknown Phone Unavailable Care Team Providers Care Lure Maker Name Role Phone PCP Unavailable Encounter Details Date Type Department Care Team Description 02/13/[address] [facility] Irina Lo, [facility] - BMT Exam [address] [place] [address] Social History Tobacco Use Types [...] Progress Notes * Irina Lo RN - 02/13/2017 12:30 PM CDT Pt and daughter seen in pre-transplant eval. Pt asleep on the table in the conference room, covered with a blanket. Asked that she be moved to a room with a recliner or bed. Pt moved to Exam 10 and given several blankets. Pt states she is very nauseated, and asked for more Zofran in her script that was given to her yesterday. Beverly Gonzalez sent new script down to [facility], along with script for Bactrim. Daughter notified of this. Encouraged pt to be more active, and review potential schedule next week of starting her transplant prep regimen. Also stated that she definitely needs to feel better before transplant. Daughter and pt agreed. Laurie Lewis entered room for eval. in this encounter Plan of Treatment Not on fileas of this encounter Visit Diagnoses Not on filein this encounter
--- OUTSIDE RECORDS SUMMARY | 2017-05-10 07:50 | XMS REPORT | Encounter Summary ---
Author Author [facility] Organization [facility] Address Unknown Phone Unavailable Care Team Providers Care Division Roadmaster Name Role Phone PCP Unavailable Encounter Details Date Type Department Care Team Description 02/13/2017 Orders Only [facility] Brooke Allison [facility] [address] [place] [address] Social History Tobacco Use Types Packs/Day Years [...]
--- OUTSIDE RECORDS SUMMARY | 2017-05-10 07:50 | XMS REPORT | Encounter Summary ---
Author Author [facility] Organization [facility] Address Unknown Phone Unavailable Care Team Providers Care Grout Machine Tender Name Role Phone PCP Unavailable Reason for Visit * Reason Comments Records Request Sp patient seeing Dr. Montaño on 02/27/17 Encounter Details Date Type Department Care Team Description 02/25/2017 Documentation [facility] Bailey Camarillo Records Request (Sp [address] [place] [address] on 02/27/17) [phone] Social History Tobacco Use Types Packs/Day Years [...] as of this encounter Progress Notes * Bailey Camarillo - 02/26/2017 9:11 AM CDT Spoke to Jessica in medical records. Could not send records because there was no release from the patient or a referral in their system. I requested Sp be contacted and a referral be added so records can be sent for the appointment tomorrow. Sp agreed and records should be received today. 1019 - Jessica called back stating they could not put a referral in and release records because they did not refer this patient to us. Called patient and she stated she only went to Sp's office for medication to help her sleep and she mainly goes to the Cancer Center in [place], [place]. Will request stat records. * Bailey Camarillo - 02/25/2017 9:35 AM CDT STAT REQUEST: Add on new patient and seeing Dr. Montaño tomorrow! Request for the following medical records for purpose of continuity of care: Please send the most recent office notes, cardiac testing, labs, medication list. Please fax to : Ilya Avalos [facility]- Thank you, Bailey Camarillo [facility] [address] [place] [address] in this encounter Plan of Treatment Not on fileas of this encounter Visit Diagnoses Not on filein this encounter
--- OUTSIDE RECORDS SUMMARY | 2017-05-10 07:51 | XMS REPORT | Encounter Summary ---
Author Author [facility] Organization [facility] Address Unknown Phone Unavailable Care Team Providers Care Turn Out Name Role Phone PCP Unavailable Reason for Visit * Reason Comments Heme/Onc Care Encounter Details Date Type Department Care Team Description 02/13/2017 Office Visit [facility] Odin Cowan MD Consultation without Cancer Center - BMT Exam [address] specific complaint [address] (Primary Dx) [address] [place] [address] [place] [address] [phone] Leyla Peacock, PhD [address] [place] [address] [phone] Social History Tobacco Use Types Packs/Day Years [...] as of this encounter Progress Notes * Leyla Rodriguez, PhD - 02/13/2017 2:22 PM CDT BLOOD & MARROW TRANSPLANT EVALUATION: PSYCHOLOGICAL ASSESSMENT PATIENT: Layla Manzanares DATE OF EVAL: 02/13/2017 : 1950 TIME: 12:05-12:45pm PATIENT INFORMATION: Mrs. Manzanares is a 67 year old female who was initially diagnosed with Multiple Myeloma in September 2013. She was treated with an autologous stem cell transplant in February 2014, and had relapse of disease in January 2016. She is now seen for pre-transplant evaluation. INFORMANTS: Patient was interviewed at the [facility] [place], [place]. She was seen as a fair source of history and information. Review of patients medical record completed for current diagnosis and treatment plan, as well as health history. PREPARATION FOR TRANSPLANT: Mrs. Manzanares is currently preparing for an autologous stem cell transplant utilizing cells collected during her initial transplant in 2013. She was able to describe the need for transplant, and the associated risks, including the risk for infection. She noted some mild fatigue around having to go through all this again, but feels ready to proceed with her treatment plan. CURRENT HEALTH BEHAVIORS: Patient reported adequate appetite and diet, with limited caffeine consumption. She is currently taking calcium, potassium, and vitamin D3. Mrs. Manzanares denied any problems with mobility. SUBSTANCE HISTORY: Patient denied any history of illicit drug use. She reported smoking 1ppd for 40 years, but quit without aids in 1999, and has remained quit. She denied recent alcohol use, or any history of abuse or dependence. PSYCHIATRIC HISTORY: Mrs. Manzanares denied any personal history of mental health concerns. She has never attended counseling or been hospitalized for psychiatric care. She reported taking Xanax about twice per month to help with sleep. Patient described her recent mood as, ok, tired. Aside from fatigue and sleep disturbance, she denied any current psychological symptoms, distress, or impairment. Mrs. Manzanares denied panic attacks or symptoms of depression, rashad/hypomania, OCD, or psychoses. Patient also denied any current or past suicidal ideation, plan, or intent. She has no history of attempts. SOCIAL BACKGROUND: Mrs. Manzanares was raised by her biological parents in [place], [place]. She is second of three children with one brother and one sister (now ). She noted that her parents are both . Patient indicated positive relationship with her brother. Mrs. 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 Patient noted that she is following her husbands from stage IV colon cancer last year. She currently lives alone in [place], [place]. Mrs. Manzanares has three adult children; Tresa (49; [place], [place]), Marium (47; [place], [place]), and Thierno (46; [place], [place]). Patient is actively involved in her nondenominational. She enjoys reading, watching TV, and spending time with family. MENTAL STATUS EXAMINATION/BEHAVIORAL OBSERVATIONS: Patient was seen at the [facility]. She was casually dressed and groomed. Mrs. Manzanares was alert and fully oriented to person, place, time, and situation. She was cooperative and made appropriate eye contact throughout the interview. Her speech was WNL for rate, volume, content, and production. Her thought processes appeared linear and coherent, with no evidence of psychoses. Her memory was grossly intact. Patients mood was calm with congruent affect. Mrs. Manzanares exhibited sufficient insight, judgment, and impulse control. She denied any current SI/HI/AH/VH. There is no overt evidence of cognitive impairment. ASSESSMENT: This 67 year old female appears to understand her diagnosis, treatment plan, and the risks associated with autologous stem cell transplant. Mrs. Manzanares described social support from family. She has no history of mental health or substance abuse concerns. Patient has a distant history of tobacco use , but has remained quit for 17 years. Aside from fatigue and sleep concerns, she denied any significant psychological symptoms, distress, or impairment at this time. She was provided with information about Onco-Psychology Services and will utilize as needed. Patient appears to demonstrate necessary insight into her personal health situation to make an informed decision. Given the information obtained from this evaluation, Mrs. Manzanares is seen as an very acceptable candidate for autologous stem cell transplant. [place] Integrated Psychosocial Assessment for Transplantation (SIPAT) SCORES: (Note: Lower scores indicate stronger candidate status). A. Patients Readiness Level l: 0 B. Social Support System: 2 C. Psychological Stability & Psychopathology: 2 D. Lifestyle and effect of substance use: 1 SIPAT TOTATL SCORE: 5 SIPAT SCORE INTERPRETATION: Excellent Candidate RECOMMENDATIONS: 1. Mrs. Manzanares and her medical team are encouraged to monitor sleep difficulties. If these persist or worsen, a consultation with Onco-Psychology may be helpful. IMPRESSIONS (Based on DSM-5): Z71.9, No Diagnosis R/O Insomnia MEDICAL DX: Multiple Myeloma PLAN: Mrs. Manzanares was provided with information for Onco-Psychology services and will call for additional support as needed. Leyla Rodriguez, Ph.D. Licensed Psychologist Director of Onco-Psychology Program [facility] Pager [phone] in this encounter Plan of Treatment Not on fileas of this encounter Procedures Procedure Name Priority Date/Time Associated Diagnosis Comments ECG UNCONFIRMED-SCAN 02/28/2017 Results for this 9:18 AM CDT procedure are in the results section. in this encounter Results * ECG UNCONFIRMED-SCAN (02/28/2017 9:18 AM) Narrative Ordered by an unspecified provider. in this encounter Visit Diagnoses Diagnosis Consultation without specific complaint - Primary Unspecified reason for consultation in this encounter
--- OUTSIDE RECORDS SUMMARY | 2017-05-10 07:51 | XMS REPORT | Encounter Summary ---
Author Author [facility] Organization [facility] Address Unknown Phone Unavailable Care Team Providers Care Glass Glazier Name Role Phone PCP Unavailable Reason for Visit * Reason Comments Heme/Onc Care Encounter Details Date Type Department Care Team Description 02/13/2017 Nurse Only [facility] Odin Cowan MD Cancer Center - BMT Exam [address] [place] [id number] [place] [address] [phone] Social History Tobacco Use Types Packs/Day Years [...]
--- OUTSIDE RECORDS SUMMARY | 2017-05-10 07:51 | XMS REPORT | Encounter Summary ---
Author Author [facility] Organization [facility] Address Unknown Phone Unavailable Care Team Providers Care Studio Data Analyst Name Role Phone PCP Unavailable Encounter Details Date Type Department Care Team Description 02/13/2017 Documentation [facility] Paula Haque RD Cancer Center - [facility] Exam [address] [place] [address] Social History Tobacco Use Types Packs/Day Years [...] as of this encounter Progress Notes * Paula Haque RD - 02/13/2017 9:12 AM CDT Formatting of this note may be different from the original. Clinical Nutrition Assessment Summary Layla Manzanares is a 67 y.o. female with Relapsed IgA myeloma - 1st Date of Transplant: 03/12/2014. Now preparing for 2nd Auto SCT Past Medical History: GERD, arthritis, COPD, HTN, HLD Nutrition Assessment of Patient: BMI Categories Adult: Acceptable: 18.5-24.9 (BMI 24.84) Estimated Calorie Needs: 2225-1506 (30-35 kcals/kg ) Estimated Protein Needs: 85-97 (1.3-1.5 g/kg) Wt Readings from Last 5 Encounters: 02/12/17 63.6 kg (140 lb 3.4 oz) 02/12/17 64.411 kg (142 lb) 02/05/17 64.8 kg (142 lb 13.7 oz) 01/29/17 65.318 kg (144 lb) 01/29/17 65.6 kg (144 lb 10 oz) RD met with patient and caregiver today in BMT to discuss nutrition recommendations for upcoming tx/SCT. Pt familiar with neutropenic and high protein diets from previous transplant. She reports a poor appetite, tried Marinol which didn't help. She is supplementing with boost occasionally, not daily. UBW is 150#, 2 months ago. Endorsing an 8# (5%) weight loss x 2 months. Malnutrition Assessment: Does not meet criteria Nutrition Diagnosis: Food & nutrition-related knowledge deficit Etiology: recommendations for upcoming tx/SCT Signs & Symptoms: pt preparing for 2nd Auto SCT Intervention/Plan: Discussed kcal and protein needs with upcoming treatment/SCT. Patient was provided high protein foods list, tips for increasing protein, and protein shake /smoothie recipes & recommendations for tuaza-hb-cjoph shakes if appetite declines. Recommended beginning daily supplementation with poor appetite. Encouraged small, frequent meals and snacks throughout the day (every 2-3 hours) and discussed management of nutritionally impacted symptoms such as poor appetite. Patient was provided handouts. Encouraged adequate hydration (2-3 quarts per day). Patient received education on neutropenic food safety guidelines. Recommend following guidelines from day -2 to +100. Disucssed differences from her previous transplant in 2013. Patient was provided RD's contact information; will be available PRN. Nutrition Monitoring and Evaluation: Goal: prevent weight loss Time Frame: ongoing The patient was allowed to ask questions and actively participated in creating plan of care. I provided the patient with my contact information and instructed pt on how to get in touch with me if questions or concerns arise. Thank you for allowing nutrition services to participate in this patients care. Follow up Date: PRN Time spent in Consultation: 30 minutes Paula Haque MS, VIN, LDN Phone: [phone] Pgr: [phone] in this encounter Plan of Treatment Not on fileas of this encounter Visit Diagnoses Not on filein this encounter
--- OUTSIDE RECORDS SUMMARY | 2017-05-10 07:51 | XMS REPORT | Encounter Summary ---
Author Author [facility] Organization [facility] Address Unknown Phone Unavailable Care Team Providers Care Career Services Coordinator Name Role Phone PCP Unavailable Encounter Details Date Type Department Care Team Description 02/13/2017 Hospital [facility] Claudia Reno MD Encounter Hospital Radiology [address] [place], [place] [id number] [place] [address] [phone] Social History Tobacco Use Types Packs/Day Years [...] mcg inhalation daily. as of this encounter Plan of Treatment Not on fileas of this encounter Results * CHEST 2 VIEWS (02/13/2017 11:12 AM) [...] Cobian M.D. on 02/14/2017 7:00 AM. * METASTATIC SKELETAL SURVEY (02/13/2017 11:12 AM) [...] Dominguez Fraga M.D. on 02/13/2017 11:31 AM. in this encounter Visit Diagnoses Diagnosis Multiple myeloma, remission status unspecified in this encounter
--- OUTSIDE RECORDS SUMMARY | 2017-05-10 07:52 | XMS REPORT | Encounter Summary ---
Author Author [facility] Organization [facility] Address Unknown Phone Unavailable Care Team Providers Care Programmer Operator Numerical Control Name Role Phone PCP Unavailable Encounter Details Date Type Department Care Team Description 02/12/2017 Hospital [facility] Odin Cowan MD Encounter Hospital Pulmonary [address] [place] [address] [place] [address] [phone] Social History Tobacco Use Types Packs/Day Years [...] Tab 3 11/22/2016 25 mcg tablet daily. omeprazole DR(+) Take 1 Cap by mouth daily 30 Cap 3 11/22/2016 (PRILOSEC) 20 mg capsule before breakfast. potassium chloride(+) Take 2 Caps by mouth 90 Cap 3 01/15/2017 (MICRO-K) 10 mEq capsule twice daily. Take with a meal and a full glass of water. budesonide/formoterol Inhale 2 Puffs by mouth 1 Inhaler 3 11/22/2016 02/28/2017 (SYMBICORT HFA) 160/4.5 into the lungs twice mcg inhalation daily. as of this encounter Plan of Treatment Not on fileas of this encounter Results * PFT COMPLETE PULM FUNCTION (02/12/2017 8:13 AM) Component Value Ref Range FVC-Pre 1.90 L FVC-%Pred-pre 59 % FEV1-Pre 1.24 L FEV1-%Pred-Pre 51 % YAC2093-Rir 0.73 L/sec BRB7240-%Pred-Pre 35 % VCSVC-Pre 1.99 L ICSVC-Pre 1.44 [...] Specimen Performing Laboratory [facility] [address] [place] [address] in this encounter Visit Diagnoses Diagnosis History of peripheral stem cell transplant (HCC) - Primary Peripheral stem cells replaced by transplant in this encounter
--- OUTSIDE RECORDS SUMMARY | 2017-05-10 07:52 | XMS REPORT | Encounter Summary ---
Author Author [facility] Organization [facility] Address Unknown Phone Unavailable Care Team Providers Care Press Tender Star Signal Name Role Phone PCP Unavailable Encounter Details Date Type Department Care Team Description 02/12/2017 Hospital STEM CELL APHERESIS Sage Zamora MD Encounter [address] [place] [address] [address] [place] [address] [phone] Social History Tobacco Use Types Packs/Day Years [...]
--- OUTSIDE RECORDS SUMMARY | 2017-05-10 07:52 | XMS REPORT | Encounter Summary ---
Author Author [facility] Organization [facility] Address Unknown Phone Unavailable Care Team Providers Care Hand Drawer In Helper Name Role Phone PCP Unavailable Reason for Referral * Test (Routine) Status Reason Specialty Diagnoses / Referred By Referred To Procedures Contact Contact No Auth Needed Cardiology Diagnoses Claudia Reno MD [facility] Echo/Pv Multiple [address] myeloma, [address] remission status [address] [place], [place] [address] [address] [address] Phone: [facility] 2-D [phone] ECHOCARDIOGRAM Fax: ONLY [phone] MA ECHO TRANSTHORAC R-T 2D W/WO M-MODE REC COMP * Test (Routine) Status Reason Specialty Diagnoses / Referred By Referred To Procedures Contact Contact No Auth Needed Cardiology Diagnoses Claudia Reno MD [facility] Echo/Pv Multiple [address] myeloma, [address] remission status [address] [place], [place] unspecified [place] [address] [address] [address] Phone: [facility] [employer] [facility] 2-D [phone] ECHOCARDIOGRAM Fax: ONLY [phone] MA ECHO TRANSTHORAC R-T 2D W/WO M-MODE REC COMP Reason for Visit * Test (Routine) Status Reason Specialty Diagnoses / Referred By Referred To Procedures Contact Contact No Auth Needed Cardiology Diagnoses Claudia Reno MD [facility] Echo/Pv Multiple [address]oma[address] remission status [address] [place], [place] [address] [address] [address] Phone: [facility] [employer] [facility] 2-D [phone] ECHOCARDIOGRAM Fax: ONLY [phone] MA ECHO TRANSTHORAC R-T 2D W/WO M-MODE REC COMP Encounter Details Date Type Department Care Team Description 02/12/2017 [facility] Cardiology Claudia Reno MD Encounter [id number] [place] [address] [place], [place] [id number] Social History Tobacco Use Types Packs/Day Years Used Date Former Smoker 1 40 Quit: 09/16/2001 Smokeless Tobacco: Never Used Alcohol Use Drinks/Week oz/Week Comments No Sex Assigned at Date Recorded Not on file as of this encounter Last Filed Vital Signs Vital Sign Reading Time Taken Blood Pressure 128/88 02/12/2017 11:46 AM CDT Pulse - - Temperature - - Respiratory Rate - - Oxygen Saturation - - Inhaled Oxygen - - Concentration Weight 64.4 kg (142 lb) 02/12/2017 11:46 AM CDT Height 160 cm (5' 3") 02/12/2017 11:46 AM CDT Body Mass Index 25.15 02/12/2017 11:46 AM CDT in this encounter Functional Status [...] on fileas of this encounter Results * 2-D ECHOCARDIOGRAM ONLY (02/12/2017 11:46 AM) Component Value Ref Range BSA 1.69 m2 ECHO EF 60 % Referring Provider CV ECHO PV CUSTOM SKI MAKER Interp Only Credit Report Checker Height (in) in Weight Lbs lbs Rt [...] be present on parasternal long axis views in this encounter Visit Diagnoses Diagnosis Multiple myeloma, remission status unspecified in this encounter
--- OUTSIDE RECORDS SUMMARY | 2017-05-10 07:53 | XMS REPORT ---
Author Author SUJATHA MARMOLEJO [facility] eClinicalWorks Address Unknown Phone Unavailable Care Team Providers Care Long Term Care Administrator Name Role Phone SUJATHA MARMOLEJO CP Unavailable Allergies, Adverse Reactions, Alerts Substance Reaction Event Type Lisinopril Info Not Available Drug Allergy Problems Problem Type Condition Code Onset Dates Condition Status Assessment History of plasmapheresis Z92.89 Active Problem Chronic obstructive pulmonary disease, unspecified J44.9 Active Assessment Hypothyroidism, unspecified E03.9 Active Assessment Breast cancer screening Z12.39 Active Assessment Multiple myeloma in remission C90.01 Active Problem History of plasmapheresis Z92.89 Active Problem Dysthymia F34.1 Active Problem Hypothyroidism, unspecified E03.9 Active Problem 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 [address]-80 30 MG Orally 2 times a day 1 tablet as needed Magnesium Oxide [facility] [address]-70 400 MG Orally 2 times a day [address] [facility] [address]-83 160-4.5 MCG/ACT Inhalation Twice a day 2 puffs Albuterol Sulfate [facility] [address]-99 108 (90 Base) MCG/ACT Inhalation every 4 hrs 1 puff as needed Oxycodone HCl [facility] [address]-78 5 MG Orally every 4 hrs March 18, 2015 [address] [facility] [address]-38 1 MG Oct 27, 2014 1 Tablet 1 time per day PRN at hs Gabapentin [facility] [address]-26 300 MG Orally 2 times a day [address] [facility] [address]-85 400-80 MG Orally 2 times a day 2 tablets M-W-F Potassium Gluconate [facility] [address]26 80 MG Orally Once a day March 18, 2015 2 tabs as directed [facility] [place]-3-6-[address] [facility] [address] 1 tablet Orally Once a day March 18, 2015 as directed Cyclobenzaprine HCl [facility] [address]-22 10 MG Orally Three times a day 0.5-1 tablet as needed Cholecalciferol [facility] [address]-82 2000 UNIT Orally Once a day March 18, 2015 as directed Ondansetron HCl [facility] [address]-76 8 MG Orally 3 times a day March 18, 2015 1 tablet Aclidinium Shiro [facility] [address]-39 400 MCG/ACT Inhalation Twice a day [address] [facility] [address]-59 20 MG Orally Once a day 1 capsule Oxygen ND 0 3 L per min 3 liters per NC February 17, 2015 Jun 17, 2015 as directed Zoloft NDC 0 100 mg Oral Once a day [address] [facility] [address]-24 5 MG Orally Once a day 1 capsule [place] Thyroid [facility] [address]-86 30 MG Orally Once a day Jun 16, 2015 1 tablet Procedures Procedure Coding System Code Date Office Visit, Est Pt., Level 3 CPT-4 80086 Jun 16, 2015 [facility] VISIT ESTABLISHED PATIENT CPT-4 G0467 Jun 16, 2015 Vital Signs Date/Time: Jun 16, 2015 Temperature 98.8 F Weight 139 lbs Height 66 in BMI 22.43 Index Blood Pressure Diastolic 82 mmHg Blood Pressure Systolic 128 mmHg Cardiac Monitoring Heart Rate 80 bpm Results No Known Results Summary Purpose eClinicalWorks Submission
--- OUTSIDE RECORDS SUMMARY | 2017-05-10 07:53 | XMS REPORT | Encounter Summary ---
Author Author [facility] Organization [facility] Address Unknown Phone Unavailable Care Team Providers Care Vat House Supervisor Name Role Phone PCP Unavailable Reason for Visit * Reason Comments Heme/Onc Care Encounter Details Date Type Department Care Team Description 02/12/2017 [facility] Odin Cowan MD Encounter [facility] - BMT [address] [place] [address] [address] [place] [address] [phone] Social History Tobacco Use Types Packs/Day Years Used Date Former Smoker 1 40 Quit: 09/16/2001 Smokeless Tobacco: Never Used Alcohol Use Drinks/Week oz/Week Comments No Sex Assigned at Date Recorded Not on file as of this encounter Last Filed Vital Signs Vital Sign Reading Time Taken Blood Pressure - - Pulse 76 02/12/2017 2:27 PM CDT Temperature 37 C (98.6 F) 02/12/2017 2:27 PM CDT Respiratory Rate - - Oxygen Saturation 97% 02/12/2017 2:27 PM CDT Inhaled Oxygen - - Concentration Weight 63.6 kg (140 lb 3.4 oz) 02/12/2017 2:27 PM CDT Height 160 cm (5' 2.99") 02/12/2017 2:27 PM CDT Body Mass Index 24.84 02/12/2017 2:27 PM CDT in this encounter Functional Status [...] 11/22/2016 (PRILOSEC) 20 mg capsule before breakfast. oxycodone(+) (ROXICODONE, Take 1-1.5 Tabs by mouth [...] into the lungs twice mcg inhalation daily. ondansetron (ZOFRAN) 8 mg Take 1 Tab by mouth every 30 Tab 0 201602/13/2017 tablet 8 hours as needed. trimethoprim/sulfamethoxa Take 1 Tab by mouth twice 24 Tab 3 201602/13/2017 zole (BACTRIM DS) 160/800 daily. Mondays and mg tablet . as of this encounter Progress Notes * Junie Mary RN - 02/12/2017 5:10 PM CDT Received report from Alena Mclaughlin RN., for continuation of pt care. Pt tolerated remainder of NS without difficulty. Pt's PICC dressing changed per protocol. Pt requesting dressing not be placed in bend of arm, dressing placed slightly above bend. AVS printed and given to pt. Pt denies any questions or concerns. Pt left clinic ambulatory, in stable condition, accompanied by caregiver. * Betty Mclaughlin RN - 02/12/2017 3:04 PM CDT Diagnosis: Relapsed IgA myeloma 1st Date of Transplant: 03/12/2014 Preparative Regimen: Melphalan 200, with HBO Disease: MM, IgA Disease Status at Transplant: Chemo Responsive CMV: positive Cell Source: autologous Consents/Studies:8322, 0637 Primary Oncologist: Dr. Simpson Left arm PICC Notes: Pt ambulatory to clinic for labs and tx. Labs drawn per protocol from PICC. Pt c/o NV for the last 2 days. Per Layla aBhena APRN pt received 8mg IV Zofran and 1L NS over 2 hours. Pt tolerated IV zofran without difficulty. IVF currently transfusing. Pt currently tolerating well. Report Given to Sue Mary RN for remainder of tx. in this encounter Plan of Treatment Not on fileas of this encounter Results * URIC ACID (02/12/2017 2:35 PM) Component Value Ref Range Uric Acid 5.7 2.0 - 7.0 MG/DL Specimen Performing Laboratory Blood [facility] [address] [place] [address] * TRANSFERRIN (02/12/2017 2:35 PM) Component Value Ref Range Transferrin 207 185 - 336 MG/DL Specimen Performing Laboratory Blood [facility] [address] [place] [address] * LDH-LACTATE DEHYDROGENASE (02/12/2017 2:35 PM) Component Value Ref Range Lactate Dehydrogenase 121 100 - 210 U/L Specimen Performing Laboratory Blood [facility] [address] [place] [address] * IRON + BINDING CAPACITY + %SAT+ FERRITIN (02/12/2017 2:35 PM) Component Value Ref Range Iron 79 50 - 160 MCG/DL Iron Binding-TIBC 308 270 - 380 MCG/DL % Saturation 26 (L) 28 - 42 % Ferritin 520 (H) 10 - 200 NG/ML Specimen Performing Laboratory Blood [facility] [address] [place] [address] * PHOSPHORUS (02/12/2017 2:35 PM) Component Value Ref Range Phosphorus 3.2 2.0 - 4.0 MG/DL Specimen Performing Laboratory Blood [facility] [address] [place] [address] * ANTIBODY SCREEN (02/12/2017 2:35 PM) Component Value Ref Range Antibody Screen POS Antibody Indentification Daratumumab-Associated Antibody JANI, Broad Spectrum NEG Gianni Specimen Performing Laboratory Blood, venous - Blood [facility] [address] [place] [address] * ABO/RH(D) (02/12/2017 2:35 PM) Component Value Ref Range ABO/RH(D) O NEG Specimen Performing Laboratory Blood [facility] [address] [place] [address] * MAGNESIUM (02/12/2017 2:35 PM) Component Value Ref Range Magnesium 1.8 1.6 - 2.6 mg/dL Specimen Performing Laboratory Blood [facility] [address] [place] [address] * COMPREHENSIVE METABOLIC PANEL (02/12/2017 2:35 PM) Component Value Ref Range Sodium 135 (L) 137 - 147 MMOL/L Potassium 4.1 3.5 - 5.1 MMOL/L Chloride 104 98 - 110 MMOL/L Glucose 102 (H) 70 - 100 MG/DL Blood Urea Nitrogen 15 7 - 25 MG/DL Creatinine 1.47 (H) 0.4 - 1.00 MG/DL Calcium 9.0 8.5 - 10.6 MG/DL Total Protein 5.6 (L) 6.0 - 8.0 G/DL Total Bilirubin 0.3 0.3 - 1.2 MG/DL Albumin 3.6 3.5 - 5.0 G/DL Alk Phosphatase 42 25 - 110 U/L AST (SGOT) 10 7 - 40 U/L CO2 24 21 - 30 MMOL/L ALT (SGPT) 4 (L) 7 - 56 U/L Anion Gap 7 3 - 12 eGFR Non 35 (L) >60 mL/min Comment: The eGFR is not validated for use in drug dosing adjustments. Continue to use estimated creatinine clearance per dosing reference text. Please contact the Clinical Pharmacist for questions. eGFR 43 (L) >60 mL/min Comment: The eGFR is not validated for use in drug dosing adjustments. Continue to use estimated creatinine clearance per dosing reference text. Please contact the Clinical Pharmacist for questions. Specimen Performing Laboratory Blood [facility] [address] [place] [address] * CBC AND DIFF (02/12/2017 2:35 PM) Component Value Ref Range White Blood Cells 1.4 (L) 4.5 - 11.0 K/UL RBC 2.65 (L) 4.0 - 5.0 M/UL Hemoglobin 8.6 (L) 12.0 - 15.0 GM/DL Hematocrit 25.2 (L) 36 - 45 % MCV 95.0 80 - 100 FL MCH 32.4 26 - 34 PG MCHC 34.0 32.0 - 36.0 G/DL RDW 19.8 (H) 11 - 15 % Platelet Count 72 (L) 150 - 400 K/UL MPV 7.5 7 - 11 FL Neutrophils 61 41 - 77 % Lymphocytes 14 (L) 24 - 44 % Monocytes 23 (H) 4 - 12 % Eosinophils 2 0 - 5 % Basophils 0 0 - 2 % Absolute Neutrophil Count 0.90 (L) 1.8 - 7.0 K/UL Absolute Lymph Count 0.20 (L) 1.0 - 4.8 K/UL Absolute Monocyte Count 0.30 0 - 0.80 K/UL Absolute Eosinophil Count 0.00 0 - 0.45 K/UL Absolute Basophil Count 0.00 0 - 0.20 K/UL Specimen Performing Laboratory Blood [facility] [address] [place] [address] * URINALYSIS, MICROSCOPIC (02/12/2017 2:32 PM) Component Value Ref Range WBCs,UA 0-2 0 - 2 /HPF RBCs,UA 0-2 0 - 3 /HPF MucousUA TRACE Squamous Epithelial Cells 0-2 0 - 5 Specimen Performing Laboratory MA[facility] LAB [address] [place] [address] * URINALYSIS DIPSTICK (02/12/2017 2:32 PM) Component Value Ref Range Color,UA STRAW Turbidity,UA CLEAR CLEAR-CLEAR Specific [place]-Urine 1.012 1.003 - 1.035 pH,UA 6.0 5.0 - 8.0 Protein,UA NEG NEG-NEG Glucose,UA NEG NEG-NEG Ketones,UA NEG NEG-NEG Bilirubin,UA NEG NEG-NEG Blood,UA NEG NEG-NEG Urobilinogen,UA NORMAL NORM-NORMAL Nitrite,UA NEG NEG-NEG Leukocytes,UA NEG NEG-NEG Urine Ascorbic Acid, UA NEG NEG-NEG Specimen Performing Laboratory MAIN LAB [address] [place] [address] * VRE SCREEN (02/12/2017 2:27 PM) Component Value Ref Range Battery Name VRE SCREEN Specimen Description PERIRECTAL SWAB Special Requests NONE Culture VRE ISOLATED Complete susceptibility testing is not performed on surveillance culture. Positive cultures indicate carrier status and do not by themselves indicate a need for treatment. Report Status FINAL 02/14/2017 Specimen Performing Laboratory Perirectal Swab [facility] [address] [place] [address] in this encounter Visit Diagnoses Diagnosis Acute pain of left shoulder Multiple myeloma, remission status unspecified in this encounter Administered Medications Medication Order MAR Action Action Date Dose Rate Site ondansetron (ZOFRAN) injection 8 mg Given 02/12/2017 8 mg 8 mg, Intravenous, ONCE, 1 dose, Tue 14:59 CDT 02/12/17 at 1500 sodium chloride 0.9 % infusion Given - New 02/12/2017 1,000 mL 500 mL/hr 1,000 mL, 1,000 mL, Intravenous, at 500 Bag 15:00 CDT mL/hr, ONCE, 1 dose, 02/12/17 at 1500 in this encounter
--- OUTSIDE RECORDS SUMMARY | 2017-05-10 07:53 | XMS REPORT ---
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
--- OUTSIDE RECORDS SUMMARY | 2017-05-10 07:53 | XMS REPORT ---
Author Author SUJATHA MARMOLEJO [facility] Address [address] [place] [address] Care Team Providers Care Windows Administrator Name Role Phone SUJATHA MARMOLEJO Unavailable PROBLEMS Type Condition ICD9-CM Code RRF64-GM Code Onset Dates Condition Status SNOMED Code Problem Dysthymia F34.1 Active 12792053 Problem Hypothyroidism, unspecified E03.9 Active 46923645 Problem History of plasmapheresis Z92.89 Active 020956399 Problem Hypothyroidism, unspecified type E03.9 Active 05652288 Problem Multiple myeloma in relapse C90.02 Active 581778250 Problem Breast cancer screening Z12.39 Active 729810464 Problem Depression, unspecified depression type F32.9 Active 33375185 Problem Anxiety F41.9 Active 90130253 Problem Grief F43.20 Active 13169593 Assessment Hypothyroidism, unspecified E03.9 Jul, Active 16691980 Problem Osteoporosis M81.0 Active 49617477 Problem 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 95674050 Assessment Anxiety F41.9 Jul, Active 05530001 Problem Multiple myeloma in remission C90.01 Active 23415007 Problem Chronic obstructive pulmonary disease, unspecified J44.9 Active 06542428 Problem Family history of early CAD Z82.49 Active 175005139 ALLERGIES Substance Reaction Event Type Date Status Lisinopril Unknown Drug Allergy Jul, Active SOCIAL HISTORY No smoking Hx information available PLAN OF CARE VITAL SIGNS Height 66 in 2016-08-08 Weight 148.6 lbs 2016-08-08 Heart Rate 82 bpm 2016-08-08 Respiratory Rate 18 2016-08-08 BMI 23.98 kg/m2 2016-08-08 Blood pressure systolic 118 mmHg 2016-08-08 Blood pressure diastolic 76 mmHg 2016-08-08 MEDICATIONS Medication Instructions Dosage Frequency Start Date End Date Duration Status Albuterol Sulfate 108 (90 Base) MCG/ACT Inhalation every 4 hrs 1 puff as needed 4h Active Zoloft 100 MG Orally Once a day 1 tablet 24h Active Ondansetron HCl 8 MG Orally 3 times a day 1 tablet 8h Mar, 30 day(s) Active Oxycodone HCl 5 mg Orally every 4 hrs 1 -2 tablets 4h Mar, Active Calcium-Vitamin D3 500-400 MG-UNIT 2 tablets Active Fish Oil 1200 MG Orally Once a day 1 capsule 24h Active SMZ-TMP DS 800-160 by oral route 2 times a day o n Saturday and Saturday 1 tablet Active Imodium A-D 2 MG Orally 8 time(s) a day 1 tablet Active Aspir-81 81 MG Orally twice a day 1 tablet 12h Active Neurontin 300 MG Orally 2 times a day 1 capsule 12h Active Prilosec 20 mg Orally Once a day 1 capsule 24h Active Calcium 500 MG Orally Twice a day 1 tablet with meals 12h Active Dexamethasone 4 MG Orally once weekly 10 tablets Active Levothyroxine Sodium 50 MCG Orally Once a day 1 tablet 24h Active Symbicort 160-4.5 MCG/ACT Inhalation Twice a day 2 puffs 12h Active Morphine Sulfate ER 60 MG Orally every 12 hrs 1 tablet 12h Active Alprazolam 1 MG Orally Once a day 1 tablet as needed at bedtime 24h Oct 28 days Active Vitamin D3 5085101 UNIT/GM Orally Once a day 1 tablet 24h Active RESULTS Name Result Date Reference Range TSH 2016-08-08 TSH 1.270 0.450-4.500 PROCEDURES Procedure Date Ordered Related Diagnosis Body Site [facility] Aug 08, 2016 VENIPUNCT, ROUTINE* Aug 08, 2016 Office Visit, Est Pt., Level 3 Aug 08, 2016 [facility] VISIT ESTABLISHED PATIENT Aug 08, 2016 IMMUNIZATIONS No Known Immunizations
--- OUTSIDE RECORDS SUMMARY | 2017-05-10 07:55 | XMS REPORT ---
Author Author SUJATHA MARMOLEJO [facility] eClinicalWorks Address Unknown Phone Unavailable Care Team Providers Care Roller Shop Utility Worker Name Role Phone SUJATHA MARMOLEJO CP Unavailable Allergies, Adverse Reactions, Alerts Substance Reaction Event Type Lisinopril Info Not Available Drug Allergy Problems Problem Type Condition Code Onset Dates Condition Status Problem Multiple myeloma in remission C90.01 Active Problem Dysthymia F34.1 Active Problem Family history of early CAD Z82.49 Active Problem Anxiety F41.9 Active Problem Grief F43.20 Active Problem Multiple myeloma in relapse C90.02 Active Problem Hypothyroidism, unspecified E03.9 Active Problem History of plasmapheresis Z92.89 Active Problem Breast cancer screening Z12.39 Active Problem Depression, unspecified depression type F32.9 Active Assessment Multiple myeloma in relapse C90.02 Active Problem Chronic obstructive pulmonary disease, unspecified J44.9 Active Assessment Anxiety F41.9 Active Problem Osteoporosis M81.0 Active Assessment Hypoxemia R09.02 Active Problem 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 Medications Medication Code System Code Instructions Start Date End Date Status Dosage Oxycodone HCl [facility] [address]-65 5 mg Orally every 4 hrs March 18, 2015 1 -2 tablets Ondansetron HCl [facility] [address]-23 8 MG Orally 3 times a day March 18, 2015 1 tablet Prilosec [facility] [address]-18 20 mg Orally Once a day 1 capsule Morphine Sulfate ER [facility] [address]-37 30 MG Orally every 12 hrs 1 tablet Aspir-81 [facility] [address]-81 81 MG Orally twice a day 1 tablet Alprazolam [facility] [address]-18 1 MG Orally Once a day Oct 27, 2014 1 tablet as needed at bedtime Imodium A-D [facility] [address]-02 2 MG Orally 8 time(s) a day 1 tablet Vitamin D3 [facility] [address] 1414520 UNIT/GM Orally Once a day 1 tablet Neurontin [facility] [address]-19 300 MG Orally 2 times a day 1 capsule Levothyroxine Sodium [facility] [address]-96 50 MCG Orally Once a day 1 tablet Daratumumab [facility] [address]-28 400 MG/20ML Intravenous not defined Fish Oil [facility] [address]78 1200 MG Orally Once a day 1 capsule Calcium-Vitamin D3 [facility] [address]11 500-400 MG-UNIT Orally 2 tablets SMZ-TMP DS [facility] 0 800-160 by oral route 2 times a day o n Saturday and Saturday 1 tablet Zoloft [facility] [address]-99 100 MG Orally Once a day 1 tablet Dexamethasone [facility] [address]-10 4 MG Orally once weekly 10 tablets Pomalidomide [facility] [address]-82 4 MG Orally Once a day 1 capsule after a meal Procedures Procedure Coding System Code Date [facility] VISIT ESTABLISHED PATIENT CPT-4 G0467 April 12, 2016 Office Visit, Est Pt., Level 3 CPT-4 82650 April 12, 2016 MEASURE BLOOD OXYGEN LEVEL CPT-4 20923 April 12, 2016 Vital Signs Date/Time: April 12, 2016 Cardiac Monitoring Heart Rate 82 bpm Weight 150.3 lbs Height 66 in BMI 24.26 Index Oximetry ambulating w/o oxygen:94 % Blood Pressure Diastolic 76 mmHg Blood Pressure Systolic 130 mmHg Results No Known Results Summary Purpose eClinicalWorks Submission
--- OUTSIDE RECORDS SUMMARY | 2017-05-10 07:57 | XMS REPORT ---
Author Author SUJATHA MARMOLEJO [facility] eClinicalWorks Address Unknown Phone Unavailable Care Team Providers Care Chip Drier Name Role Phone SUJATHA MARMOLEJO CP Unavailable [...]
--- OUTSIDE RECORDS SUMMARY | 2017-05-10 07:57 | XMS REPORT ---
Author Author SUJATHA MARMOLEJO Organization [facility] Address [address] [place] [address] Care Team Providers Care Paraprofessional Aide Teacher Name Role Phone SUJATHA MARMOLEJO Unavailable PROBLEMS Type Condition ICD9-CM Code GJA54-DX Code Onset Dates Condition Status SNOMED Code Problem History of plasmapheresis Z92.89 Active 223148074 Problem Depression, unspecified depression type F32.9 Active 87465458 Problem Hypothyroidism, unspecified E03.9 Active 54861170 Problem Bilateral tinnitus H93.13 Active 3163368307426 Problem Hypothyroidism, unspecified type E03.9 Active 49879367 Problem Grief F43.20 Active 05922408 Problem Breast cancer screening Z12.39 Active 200587558 Problem Multiple myeloma in relapse C90.02 Active 367990084 Problem Anxiety F41.9 Active 23584226 Problem 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 07773893 Problem Multiple myeloma in remission C90.01 Active 97347396 Problem Chronic obstructive pulmonary disease, unspecified J44.9 Active 81318046 Problem Family history of early CAD Z82.49 Active 736157177 Problem Osteoporosis M81.0 Active 18456048 Problem Dysthymia F34.1 Active 95782473 ALLERGIES Substance Reaction Event Type Date Status Lisinopril Unknown Drug Allergy Aug, Active SOCIAL HISTORY No smoking Hx information available PLAN OF CARE Activity Details Follow Up annually for preventive care, sooner for chronic health maintenance Reason: VITAL SIGNS Height 66 in 2016-09-05 Weight 149 lbs 2016-09-05 Temperature 98.3 degrees Fahrenheit 2016-09-05 Heart Rate 80 bpm 2016-09-05 Respiratory Rate 16 2016-09-05 BMI 24.05 kg/m2 2016-09-05 Blood pressure systolic 116 mmHg 2016-09-05 Blood pressure diastolic 78 mmHg 2016-09-05 MEDICATIONS Medication Instructions Dosage Frequency Start Date End Date Duration Status Calcium 500 MG Orally Twice a day 1 tablet with meals 12h Active Zoloft 100 MG Orally Once a day 1 tablet 24h Active Aclidinium [place] 400 MCG/ACT Inhalation Twice a day 1 puff 12h Active Alprazolam 1 MG Orally Once a day 1 tablet as needed at bedtime 24h Oct 28 days Active SMZ-TMP DS 800-160 by oral route 2 times a day o n Saturday and Saturday 1 tablet Active Albuterol Sulfate 108 (90 Base) MCG/ACT Inhalation every 4 hrs 1 puff as needed 4h Active Incruse Ellipta 62.5 MCG/INH Inhalation Once a day 1 puff 24h Nov, Active Morphine Sulfate ER 60 MG Orally every 12 hrs 1 tablet 12h Active MethylPREDNISolone 4 MG 1 tablet with food or milk in the morning Active Oxycodone HCl 5 mg Orally every 4 hrs 1 -2 tablets 4h Mar, Active Singulair 10 MG Orally Once a day 1 tablet in the evening 24h Active Daratumumab 400 MG/20ML Active Allergy 24-HR 180 MG Orally Once a day 1 tablet as needed 24h Active Lomotil 2.5-0.025 MG Orally Four times a day 1 tablet as needed 6h Active Prilosec 20 mg Orally Once a day 1 capsule 24h Active Neurontin 300 MG Orally in AM and 2 in PM for ringing in her ears 1 capsule Active Pomalidomide 4 MG Orally Once a day 1 capsule after a meal 24h Active Symbicort 160-4.5 MCG/ACT Inhalation Twice a day 2 puffs 12h Active Benadryl 25 MG Active Aspir-81 81 MG Orally twice a day 1 tablet 12h Active Vitamin D3 7649241 UNIT/GM Orally Once a day 1 tablet 24h Active Levothyroxine Sodium 50 MCG Orally Once a day 1 tablet 24h Active Dexamethasone 4 MG Orally once weekly 10 tablets Active RESULTS No Results PROCEDURES Procedure Date Ordered Related Diagnosis Body Site ANNUAL LYNDSEY VST; PERSNL PPS INIT Sep 05, 2016 [facility] VISIT ESTABLISHED PATIENT Sep 05, 2016 Office Visit, [place] Pt., Level 3 Sep 05, 2016 IMMUNIZATIONS No Known Immunizations
--- OUTSIDE RECORDS SUMMARY | 2017-05-10 07:57 | XMS REPORT ---
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
--- OUTSIDE RECORDS SUMMARY | 2017-05-10 07:57 | XMS REPORT ---
Author Author SUJATHA MARMOLEJO [facility] eClinicalWorks Address Unknown Phone Unavailable Care Team Providers Care Community Affairs Manager Name Role Phone SUJATHA MARMOLEJO CP Unavailable Allergies No Known Allergies Problems Problem Type Condition Code Onset Dates Condition Status Problem Family history of early CAD Z82.49 Active Problem History of plasmapheresis Z92.89 Active Problem Dysthymia F34.1 Active Problem Multiple myeloma in relapse C90.02 Active Problem Anxiety F41.9 Active Problem Hypothyroidism, unspecified type E03.9 Active Problem Depression, unspecified depression type F32.9 Active Problem Hypothyroidism, unspecified E03.9 Active Problem Grief F43.20 Active Problem Breast cancer screening Z12.39 Active Problem Chronic obstructive pulmonary disease, unspecified J44.9 Active Problem Osteoporosis M81.0 Active Problem 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
--- OUTSIDE RECORDS SUMMARY | 2017-05-10 08:03 | XMS REPORT | Continuity of Care Document ---
Author Author Formerly [facility] Address Unknown Phone Unavailable Allergies Active Description Code Type Severity Reaction Onset Reported/Identified Relationship to Patient Clinical Status Yes dexamethasone [id number] Drug Allergy Unknown N/A 08/20/2007 Yes Decadron Drug Allergy N/A N/A 09/03/2013 Yes lisinopril Drug Allergy N/A N/A 11/09/2013 Yes No Known Drug Allergies [id number] Drug Allergy Unknown N/ A 03/06/2016 Yes lorazepam [id number] Drug Allergy Unknown N/A 03/28/2017 Medications Problems Date Dx Coded Attending Type Code Diagnosis Diagnosed By ANDREW WILLIS Ot 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 ANDREW WILLIS Ot D64.9 ANEMIA, UNSPECIFIED ANDREW WILLIS Ot M89.9 DISORDER OF BONE, UNSPECIFIED ANDREW WILLIS Ot Z79.899 OTHER LONG-TERM (CURRENT) DRUG THERAPY 04/10/2010 Ot 401.9 04/10/2010 Ot 786.50 04/10/2010 Ot V58.69 11/03/2012 FRANCIE ELLIOTTN, SUJATHA S 780.79 FATIGUE 11/03/2012 FRANCIE ELLIOTTN, SUJATHA S 786.2 cough 11/03/2012 RICK DURANT MD 780.79 FATIGUE 11/03/2012 RICK DURANT MD 786.2 cough 11/03/2012 FRANCIE SALES AND MARKETING ASSISTANT, SUJATHA S 780.79 FATIGUE 11/03/2012 FRANCIE SALES AND MARKETING ASSISTANT, SUJATHA S 786.2 cough 11/03/2012 FRANCIE SALES AND MARKETING ASSISTANT, SUJATHA S 780.79 FATIGUE 11/03/2012 FRANCIE SALES AND MARKETING ASSISTANT, SUJATHA S 786.2 cough 11/03/2012 FRANCIE SALES AND MARKETING ASSISTANT, SUJATHA S 780.79 FATIGUE 11/03/2012 FRANCIE SALES AND MARKETING ASSISTANT, SUJAHTA S 786.2 cough 11/03/2012 FRANCIE SALES AND MARKETING ASSISTANT, SUJATHA S 780.79 FATIGUE 11/03/2012 FRANCIE SALES AND MARKETING ASSISTANT, SUJATHA S 786.2 cough 11/03/2012 FRANCIE SALES AND MARKETING ASSISTANT, SUJATHA S 780.79 FATIGUE 11/03/2012 FRANCIE SALES AND MARKETING ASSISTANT, SUJATHA S 786.2 cough 11/03/2012 FRANCIE SALES AND MARKETING ASSISTANT, SUJATHA S 780.79 FATIGUE 11/03/2012 FRANCIE SALES AND MARKETING ASSISTANT, SUJATHA S 786.2 cough 11/03/2012 FRANCIE SALES AND MARKETING ASSISTANT, SUJATHA S 780.79 FATIGUE 11/03/2012 FRANCIE SALES AND MARKETING ASSISTANT, SUJATHA S 786.2 cough 11/03/2012 FRANCIE SALES AND MARKETING ASSISTANT, SUJATHA S 780.79 FATIGUE 11/03/2012 FRANCIE SALES AND MARKETING ASSISTANT, SUJATHA S 786.2 cough 11/03/2012 FRANCIE SALES AND MARKETING ASSISTANT, SUJATHA S 780.79 FATIGUE 11/03/2012 FRANCIE SALES AND MARKETING ASSISTANT, SUJATHA S 786.2 cough 11/03/2012 RICK DURANT MD 780.79 FATIGUE 11/03/2012 RICK DURANT MD 786.2 cough 11/03/2012 FRANCIE SALES AND MARKETING ASSISTANT, SUJATHA S 780.79 FATIGUE 11/03/2012 FRANCIE SALES AND MARKETING ASSISTANT, SUJATHA S 786.2 cough 11/03/2012 POOLE DO, GENE K 780.79 FATIGUE 11/03/2012 POOLE DO, GENE K 786.2 cough 11/17/2012 FRANCIE ELLIOTTN, SUJATHA S 300.4 DYSTHYMIC DISORDER 11/17/2012 FRANCIE SALES AND MARKETING ASSISTANT, SUJATHA S V17.49 FAMILY HISTORY OF OTHER CARDIOVASCULAR DISEASES 11/17/2012 RICK DURANT MD 300.4 DYSTHYMIC DISORDER 11/17/2012 RICK DRUANT MD V17.49 FAMILY HISTORY OF OTHER CARDIOVASCULAR DISEASES 11/17/2012 FRANCIE SALES AND MARKETING ASSISTANT, SUJATHA S 300.4 DYSTHYMIC DISORDER 11/17/2012 FRANCIE SALES AND MARKETING ASSISTANT, SUJATHA S V17.49 FAMILY HISTORY OF OTHER CARDIOVASCULAR DISEASES 11/17/2012 FRANCIE SALES AND MARKETING ASSISTANT, SUJATHA S 300.4 DYSTHYMIC DISORDER 11/17/2012 FRANCIE SALES AND MARKETING ASSISTANT SUJATHA S V17.49 FAMILY HISTORY OF OTHER CARDIOVASCULAR DISEASES 11/17/2012 FRANCIE SALES AND MARKETING ASSISTANT, SUJATHA S 300.4 DYSTHYMIC DISORDER 11/17/2012 FRANCIE SALES AND MARKETING ASSISTANT, SUJATHA S V17.49 FAMILY HISTORY OF OTHER CARDIOVASCULAR DISEASES 11/17/2012 FRANCIE SALES AND MARKETING ASSISTANT, SUJATHA S 300.4 DYSTHYMIC DISORDER 11/17/2012 FRANCIE SALES AND MARKETING ASSISTANT SUJATHA S V17.49 FAMILY HISTORY OF OTHER CARDIOVASCULAR DISEASES 11/17/2012 FRANCIE SALES AND MARKETING ASSISTANT, SUJATHA S 300.4 DYSTHYMIC DISORDER 11/17/2012 FRANCIE SALES AND MARKETING ASSISTANT, SUJATHA S V17.49 FAMILY HISTORY OF OTHER CARDIOVASCULAR DISEASES 11/17/2012 FRANCIE SALES AND MARKETING ASSISTANT, SUJATHA S 300.4 DYSTHYMIC DISORDER 11/17/2012 FRANCIE SALES AND MARKETING ASSISTANT SUJATHA S V17.49 FAMILY HISTORY OF OTHER CARDIOVASCULAR DISEASES 11/17/2012 FRANCIE YURIY SUJATHA S 300.4 DYSTHYMIC DISORDER 11/17/2012 FRANCIE SALES AND MARKETING ASSISTANT SUJATHA S V17.49 FAMILY HISTORY OF OTHER CARDIOVASCULAR DISEASES 11/17/2012 FRANCIE SALES AND MARKETING ASSISTANT, SUJATHA S 300.4 DYSTHYMIC DISORDER 11/17/2012 FRANCIE SALES AND MARKETING ASSISTANT, SUJATHA S V17.49 FAMILY HISTORY OF OTHER CARDIOVASCULAR DISEASES 11/17/2012 FRANCIE SALES AND MARKETING ASSISTANT SUJATHA S 300.4 DYSTHYMIC DISORDER 11/17/2012 FRANCIE YAN SUJATHA S V17.49 FAMILY HISTORY OF OTHER CARDIOVASCULAR DISEASES 11/17/2012 RICK DURANT MD 300.4 DYSTHYMIC DISORDER 11/17/2012 RICK DURANT MD V17.49 FAMILY HISTORY OF OTHER CARDIOVASCULAR DISEASES 11/17/2012 FRANCIE YAN SUJATHA S 300.4 DYSTHYMIC DISORDER 11/17/2012 FRANCIE YAN SUJATHA S V17.49 FAMILY HISTORY OF OTHER CARDIOVASCULAR DISEASES 11/17/2012 POOLE DOGENE K 300.4 DYSTHYMIC DISORDER 11/17/2012 POOLE GENE SHERMAN K V17.49 FAMILY HISTORY OF OTHER CARDIOVASCULAR DISEASES 05/16/2013 RAMY SANTAMARIA SALES AND MARKETING ASSISTANT Ot 338.29 OTHER CHRONIC PAIN 05/16/2013 SANTAMARIA, PETER J SALES AND MARKETING ASSISTANT Ot 724.2 LUMBAGO 05/22/2013 JOSEE GALLEGOS, TEGAN Lozada Ot 724.2 LUMBAGO 05/22/2013 JOSEE GALLEGOS, TEGAN Lozada Ot 789.00 ABDOMINAL PAIN, UNSPECIFIED SITE 06/08/2013 RICK DURANT MD 724.5 BACKACHE UNSPECIFIED 06/08/2013 FRANCIE SALES AND MARKETING ASSISTANT, SUJATHA S 724.5 BACKACHE UNSPECIFIED 06/08/2013 FRANCIE SALES AND MARKETING ASSISTANT, SUJATHA S 724.5 BACKACHE UNSPECIFIED 06/08/2013 FRANCIE SALES AND MARKETING ASSISTANT, SUJATHA S 724.5 BACKACHE UNSPECIFIED 06/08/2013 FRANCIE SALES AND MARKETING ASSISTANT, SUJATHA S 724.5 BACKACHE UNSPECIFIED 06/08/2013 FRANCIE SALES AND MARKETING ASSISTANT, SUJATHA S 724.5 BACKACHE UNSPECIFIED 06/08/2013 FRANCIE SALES AND MARKETING ASSISTANT, SUJATHA S 724.5 BACKACHE UNSPECIFIED 06/08/2013 FRANCIE SALES AND MARKETING ASSISTANT, SUJATHA S 724.5 BACKACHE UNSPECIFIED 06/08/2013 FRANCIE SALES AND MARKETING ASSISTANT, SUJATHA S 724.5 BACKACHE UNSPECIFIED 06/08/2013 FRANCIE SALES AND MARKETING ASSISTANT, SUJATHA S 724.5 BACKACHE UNSPECIFIED 06/08/2013 RICK DURANT MD 724.5 BACKACHE UNSPECIFIED 06/08/2013 FRANCIE SALES AND MARKETING ASSISTANT, SUJATHA S 724.5 BACKACHE UNSPECIFIED 06/08/2013 GENE POOLE DO K 724.5 BACKACHE UNSPECIFIED 06/22/2013 FRANCIE SALES AND MARKETING ASSISTANT, SUJATHA S 285.9 ANEMIA 06/22/2013 FRANCIE SALES AND MARKETING ASSISTANT, SUJATHA S 719.41 PAIN- SHOULDER 06/22/2013 FRANCIE SALES AND MARKETING ASSISTANT, SUJATHA S V04.81 FLU SHOT 06/22/2013 FRANCIE SALES AND MARKETING ASSISTANT, SUJATHA S 285.9 ANEMIA 06/22/2013 FRANCIE SALES AND MARKETING ASSISTANT, SUJATHA S 719.41 PAIN- SHOULDER 06/22/2013 FRANCIE SALES AND MARKETING ASSISTANT, SUJATHA S V04.81 FLU SHOT 06/22/2013 FRANCIE SALES AND MARKETING ASSISTANT, SUJATHA S 285.9 ANEMIA 06/22/2013 FRANCIE SALES AND MARKETING ASSISTANT, SUJATHA S 719.41 PAIN- SHOULDER 06/22/2013 FRANCIE SALES AND MARKETING ASSISTANT, SUJATHA S V04.81 FLU SHOT 06/22/2013 FRANCIE SALES AND MARKETING ASSISTANT, SUJATHA S 285.9 ANEMIA 06/22/2013 FRANCIE SALES AND MARKETING ASSISTANT, SUJATHA S 719.41 PAIN- SHOULDER 06/22/2013 FARNCIE SALES AND MARKETING ASSISTANT, SUJATHA S V04.81 FLU SHOT 06/22/2013 FRANCIE SALES AND MARKETING ASSISTANT, SUJATHA S 285.9 ANEMIA 06/22/2013 FRANCIE SALES AND MARKETING ASSISTANT, SUJTAHA S 719.41 PAIN- SHOULDER 06/22/2013 FRANCIE SALES AND MARKETING ASSISTANT, SUJATHA S V04.81 FLU SHOT 06/22/2013 FRANCIE SALES AND MARKETING ASSISTANT, SUJATHA S 285.9 ANEMIA 06/22/2013 FRANCIE SALES AND MARKETING ASSISTANT, SUJATHA S 719.41 PAIN- SHOULDER 06/22/2013 FRANCIE SALES AND MARKETING ASSISTANT SUJATHA S V04.81 FLU SHOT 06/22/2013 FRANCIE SALES AND MARKETING ASSISTANT, SUJATHA S 285.9 ANEMIA 06/22/2013 FRANCIE SALES AND MARKETING ASSISTANT, SUJATHA S 719.41 PAIN- SHOULDER 06/22/2013 FRANCIE SALES AND MARKETING ASSISTANT, SUJATHA S V04.81 FLU SHOT 06/22/2013 FRANCIE SALES AND MARKETING ASSISTANT, SUJATHA S 285.9 ANEMIA 06/22/2013 FRANCIE SALES AND MARKETING ASSISTANT, SUJATHA S 719.41 PAIN- SHOULDER 06/22/2013 FRANCIE SALES AND MARKETING ASSISTANT SUJATHA S V04.81 FLU SHOT 06/22/2013 FRANCIE SALES AND MARKETING ASSISTANT, SUJATHA S 285.9 ANEMIA 06/22/2013 FRANCIE SALES AND MARKETING ASSISTANT, SUJATHA S 719.41 PAIN- SHOULDER 06/22/2013 FRANCIE SALES AND MARKETING ASSISTANT, SUJATHA S V04.81 FLU SHOT 06/22/2013 RICK DURANT MD 285.9 ANEMIA 06/22/2013 BHARGAV GALLEGOS, RICK 719.41 PAIN- SHOULDER 06/22/2013 RICK DURANT MD V04.81 FLU SHOT 06/22/2013 FRANCIE SALES AND MARKETING ASSISTANT, SUJATHA S 285.9 ANEMIA 06/22/2013 FRANCIE YAN, SUJATHA S 719.41 PAIN- SHOULDER 06/22/2013 NORAH MARMOLEJO APRNNDA S V04.81 FLU SHOT 06/22/2013 POOLE DO GENE K 285.9 ANEMIA 06/22/2013 ANAM POOLE DOA K 719.41 PAIN- SHOULDER 06/22/2013 POOLE DO GENE K V04.81 FLU SHOT 08/12/2013 RINA MARY KILN LABOURER Ot 719.51 JT STIFFNESS NEC-SHLDER 08/12/2013 RINA MARY KILN LABOURER Ot 840.4 SPRAIN ROTATOR CUFF 08/12/2013 RINA MARY KILN LABOURER Ot E000.8 OTHER EXTERNAL CAUSE STATUS 08/12/2013 RINA MARY KILN LABOURER Ot E849.0 ACCIDENT IN HOME 08/12/2013 RINA MARY KILN LABOURER Ot E888.9 FALL NOS 08/12/2013 RINA MARY KILN LABOURER Ot V57.1 PHYSICAL THERAPY NEC 09/03/2013 FRANCIE YAN SUJATHA S 733.00 OSTEOPOROSIS UNSPECIFIED 09/03/2013 FRANCIE YAN SUJATHA S 733.00 OSTEOPOROSIS UNSPECIFIED 09/03/2013 FRANCIE YAN, SUJATHA S 733.00 OSTEOPOROSIS UNSPECIFIED 09/03/2013 FRANCIE YAN, SUJATHA S 733.00 OSTEOPOROSIS UNSPECIFIED 09/03/2013 FRANCIE YAN, SUJATHA S 733.00 OSTEOPOROSIS UNSPECIFIED 09/03/2013 RICK DURANT MD 733.00 OSTEOPOROSIS UNSPECIFIED 09/03/2013 FRANCIE YAN, SUJATHA S 733.00 OSTEOPOROSIS UNSPECIFIED 09/03/2013 ANAM POOLE DOA K 733.00 OSTEOPOROSIS UNSPECIFIED 10/06/2013 FRANCIE YAN SUJATHA S 719.45 PAIN- HIP 10/06/2013 FRANCIE YAN, SUJATHA S 719.45 PAIN- HIP 10/06/2013 FRANCIE YAN SUJATHA S 719.45 PAIN- HIP 10/06/2013 FRANCIE YAN, SUJATHA S 719.45 PAIN- HIP 10/06/2013 RICK DURANT MD 719.45 PAIN- HIP 10/06/2013 FRANCIE YAN SUJATHA S 719.45 PAIN- HIP 10/06/2013 GENE POOLE DO K 719.45 PAIN- HIP 10/28/2013 TYLER GALLEGOS, UMER Ríos Ot 199.1 MALIGNANT NEOPLASM NOS 10/28/2013 TYLER GALLEGOS, UMER Ríos Ot 733.13 PATHOLOGIC FRACTURE, VERTEBRAE 11/03/2013 FRANCIE SALES AND MARKETING ASSISTANT, SUJATHA S 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 11/03/2013 FRANCIE SALES AND MARKETING ASSISTANT, SUJATHA S 401.1 HYPERTENSION, BENIGN ESSENTIAL 11/03/2013 FRANCIE SALES AND MARKETING ASSISTANT, SUJATHA S 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 11/03/2013 FRANCIE SALES AND MARKETING ASSISTANT, SUJATHA S 401.1 HYPERTENSION, BENIGN ESSENTIAL 11/03/2013 FRANCIE SALES AND MARKETING ASSISTANT, SUJATHA S 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 11/03/2013 FRANCIE YAN SUJATHA S 401.1 HYPERTENSION, BENIGN ESSENTIAL 11/03/2013 RICK DURANT MD 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 11/03/2013 RICK DURANT MD 401.1 HYPERTENSION, BENIGN ESSENTIAL 11/03/2013 FRANCIE YAN SUJATHA S 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 11/03/2013 FRANCIE YAN SUJATHA S 401.1 HYPERTENSION, BENIGN ESSENTIAL 11/03/2013 GENE POOLE DO K 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 11/03/2013 GENE POOLE DO K 401.1 HYPERTENSION, BENIGN ESSENTIAL 12/29/2013 ANDREW WILLIS N Ot 272.4 HYPERLIPIDEMIA NEC/NOS 12/29/2013 ANDREW WILLIS N Ot 285.9 ANEMIA NOS 12/29/2013 ANDREW WILLIS N Ot 401.9 HYPERTENSION NOS 12/29/2013 ANDREW WILLIS N Ot 496 CHR AIRWAY OBSTRUCT NEC 12/29/2013 ANDREW WILLIS N Ot V58.69 OTH MED,LT,CURRENT USE 01/07/2014 RICK DURANT MD, Ot 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, 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 01/07/2014 RICK DURANT MD Ot 285.9 ANEMIA NOS 01/07/2014 RICK DURANT MD Ot 300.00 ANXIETY STATE NOS 01/07/2014 RICK DURANT MD Ot 311 DEPRESSIVE DISORDER NEC 01/07/2014 HUERTER MD, RICK F Ot 733.14 PATHOLOGIC FRACTURE, NECK OF FEMUR 01/15/2014 FRANCHESCA GALLEGOS, RUBEN E Ot 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, 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 01/15/2014 FRANCHESCA GALLEGOS, RUBEN E Ot 285.9 ANEMIA NOS 01/15/2014 FRANCHESCA GALLEGOS, RUBEN E Ot 300.4 DYSTHYMIC DISORDER 01/15/2014 FRANCHESCA GALLEGOS RUBEN E Ot 309.0 ADJUSTMENT DISORDER WITH DEPRESSED MOOD 01/15/2014 FRANCHESCA GALLEGOS, RUBEN E Ot 496 CHR AIRWAY OBSTRUCT NEC 01/15/2014 FRANCHESCA GALLEGOS, RUBEN E Ot 530.81 ESOPHAGEAL REFLUX 01/15/2014 RUBEN SORENSEN MD E Ot 724.5 BACKACHE NOS 01/15/2014 RUBEN SORENSEN MD E Ot 780.62 POSTPROCEDURAL FEVER 01/15/2014 RUBEN SORENSEN MD E Ot V43.64 HIP JOINT REPLACEMENT STATUS 01/15/2014 RUBEN SORENSEN MD E Ot V54.81 AFTERCARE FOLLOWING JOINT REPLACEMENT 01/15/2014 RUBEN SORENSEN MD E Ot V57.89 REHABILITATION PROC NEC 02/17/2014 BALDEV CUELLAR DO Ot V43.64 HIP JOINT REPLACEMENT STATUS 02/17/2014 BALDEV CUELLAR DO Ot V54.81 AFTERCARE FOLLOWING JOINT REPLACEMENT 02/17/2014 BALDEV CUELLAR DO Ot V57.1 PHYSICAL THERAPY NEC 03/29/2014 ANDREW WILLIS Ot 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, 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 03/29/2014 ANDREW WILLIS Ot 285.9 ANEMIA NOS 03/29/2014 ANDREW WILLIS Ot 355.8 MONONEURITIS LEG NOS 03/29/2014 ANDREW WILLIS Ot 733.13 PATHOLOGIC FRACTURE, VERTEBRAE 03/29/2014 ANDREW WILLIS Ot V42.81 BONE MARROW TRANSPLANT 03/29/2014 ANDREW WILLIS Ot V58.11 ENCOUNTER FOR ANTINEOPLASTIC CHEMOTHERAP 03/29/2014 ANDREW WILLIS Ot V58.69 OTH MED,LT,CURRENT USE 06/09/2014 GENE POOLE DO 496 COPD 06/09/2014 GENE POOLE DO V58.69 HIGH RISK MEDICATION 07/11/2014 ANDREW WILLIS Ot 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, 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 07/11/2014 ALBA, BOBAN N Ot 285.9 ANEMIA NOS 07/11/2014 ALBA, BOBAN N Ot 355.8 MONONEURITIS LEG NOS 07/11/2014 ALBA, BOBAN N Ot 733.13 PATHOLOGIC FRACTURE, VERTEBRAE 07/11/2014 ALBA, BOBAN N Ot 733.90 BONE CARTILAGE DIS NOS 07/11/2014 ALAB BOBAN N Ot V58.69 OT MED,LT,CURRENT USE 07/28/2014 ALBA, BOBAN N Ot 203.00 07/28/2014 ALBA, BOBAN N Ot 285.9 07/28/2014 ALBA, BOBAN N Ot 355.8 07/28/2014 ALBA, BOBAN N Ot 733.13 07/28/2014 ALBA, BOBAN N Ot 733.90 07/28/2014 ALBA, BOBAN N Ot V58.69 08/04/2014 ALBA, BOBAN N Ot 203.00 08/04/2014 ALBA, BOBAN N Ot 285.9 08/04/2014 ALBA, BOBAN N Ot 355.8 08/04/2014 ALBA, BOBAN N Ot 733.13 08/04/2014 ALBA, BOBAN N Ot 733.90 08/04/2014 ALBA, BOBAN N Ot V58.69 08/05/2014 ALBA, BOBAN N Ot 203.00 08/05/2014 ALBA, BOBAN N Ot 285.9 08/05/2014 ALBA, BOBAN N Ot 355.8 08/05/2014 ALBA, BOBAN N Ot 733.13 08/05/2014 ALBA, BOBAN N Ot 733.90 08/05/2014 ALBA, BOBAN N Ot V58.69 08/09/2014 ALBA, BOBAN N Ot 203.00 08/09/2014 ALBA, BOBAN N Ot 285.9 08/09/2014 ALBA, BOBAN N Ot 355.8 08/09/2014 ALBA, BOBAN N Ot 733.13 08/09/2014 ALBA, BOBAN N Ot 733.90 08/09/2014 ALBA, BOBAN N Ot V58.69 09/08/2014 CHARISSA RAMIREZ MD Ot 780.79 OT MALAISE FATIGUE 09/08/2014 ASHLEY GALLEGOS, CHARISSA Ríos Ot 787.91 DIARRHEA 09/09/2014 SUJATHA MARMOLEJO KILN LABOURER Ot 724.2 09/09/2014 LEI-ALTA PA, GENARO K Ot 272.4 09/09/2014 LEI-ALTA PA, GENARO K Ot 300.00 09/09/2014 LEI-ALTA PA, GENARO K Ot 311 09/09/2014 ELI-ALTA PA, GENARO K Ot 397.0 09/09/2014 LEI-ALTA PA, GENARO K Ot 401.9 09/09/2014 LEI-ALTA PA, GENARO K Ot 424.0 09/09/2014 LEI-ALTA PA, GENARO K Ot 496 09/09/2014 LEI-ALTA PA, GENARO K Ot 530.81 09/09/2014 LEI-LATA PA, GENARO K Ot 786.05 09/09/2014 LEI-ALTA PA, GENARO K Ot 786.50 09/09/2014 LEI-ALTA PA, GENARO K Ot 272.4 09/09/2014 LEI-ALTA PA, GENARO K Ot 401.9 09/09/2014 LEI-ALTA PA, GENARO K Ot 786.05 09/09/2014 LEI-ALTA PA, GENARO K Ot 786.50 09/09/2014 ANDREW WILLIS Ot 273.1 09/09/2014 TYLER GALLEGOS, UMER Ríos Ot 733.13 09/09/2014 TYLER GALLEGOS, UMER Ríos Ot V72.63 09/09/2014 UMER SCOTT MD Ot V74.8 09/09/2014 CLARA ALMONTE KILN LABOURER Ot 203.00 09/09/2014 CLARA ALMONTE KILN LABOURER Ot 733.13 09/09/2014 CLARA ALMONTE KILN LABOURER Ot 733.90 09/09/2014 CLARA ALMONTE KILN LABOURER Ot V58.69 09/09/2014 CLARA ALMONTE KILN LABOURER Ot 203.00 09/09/2014 CLARA ALMONTE KILN LABOURER Ot 355.8 09/09/2014 CLARA ALMONTE KILN LABOURER Ot 719.41 09/09/2014 CLARA ALMONTE KILN LABOURER Ot 719.45 09/09/2014 BLAINE ALMONTEAH S KILN LABOURER Ot 733.13 09/09/2014 GAGE CLARA S KILN LABOURER Ot 733.90 09/09/2014 ALMONTECLARA S KILN LABOURER Ot V58.69 09/09/2014 ALMONTECLARA Rubio S KILN LABOURER Ot 203.00 09/09/2014 GAGECLARA S KILN LABOURER Ot 355.8 09/09/2014 GAGE CLARA S KILN LABOURER Ot 719.41 09/09/2014 GAGECLARA S KILN LABOURER Ot 719.45 09/09/2014 ALMONTECLARA S KILN LABOURER Ot 733.13 09/09/2014 GAGE CLARA S KILN LABOURER Ot 733.90 09/09/2014 GAGECALRA S KILN LABOURER Ot V58.69 09/09/2014 GAGECLARA S KILN LABOURER Ot 203.00 09/09/2014 GAGE CLARA S KILN LABOURER Ot 355.8 09/09/2014 GAGE CLARA S KILN LABOURER Ot 733.13 09/09/2014 GAGECLARA S KILN LABOURER Ot V58.69 09/09/2014 GAGECLARA S KILN LABOURER Ot 203.00 09/09/2014 GAGE CLARA S KILN LABOURER Ot 285.9 09/09/2014 GAGE CLARA S KILN LABOURER Ot 355.8 09/09/2014 ALMONTECLARA Rubio S KILN LABOURER Ot 733.13 09/09/2014 ALMONTECLARA S KILN LABOURER Ot 733.90 09/09/2014 GAGECLARA S KILN LABOURER Ot V58.69 09/09/2014 GAGE CLARA S KILN LABOURER Ot 203.00 09/09/2014 ALMONTECLARA S KILN LABOURER Ot 285.9 09/09/2014 ALMONTE, CLARA S KILN LABOURER Ot 355.8 09/09/2014 GAGE CLARA S KILN LABOURER Ot 733.13 09/09/2014 GAGE CLARA S KILN LABOURER Ot 733.90 09/09/2014 ALMONTECLARA S KILN LABOURER Ot V58.69 09/09/2014 ANDREW WILLIS N Ot 203.00 09/09/2014 ANDREW WILLIS N Ot 285.9 09/09/2014 ANDREW WILLIS N Ot 355.8 09/09/2014 ANDREW WILLIS N Ot 733.13 09/09/2014 ALBA BOBAN N Ot 733.90 09/09/2014 ALBA BOBAN N Ot V58.69 09/09/2014 ALMONTE CLARA S KILN LABOURER Ot 203.00 09/09/2014 ALMONTE, CLARA S KILN LABOURER Ot 285.9 09/09/2014 ALMONTE BLAINEAH S KILN LABOURER Ot 355.8 09/09/2014 ALMONTE HILAH S KILN LABOURER Ot 733.13 09/09/2014 ALMONTE HILAH S KILN LABOURER Ot 733.90 09/09/2014 ALMONTE BLAINEAH S KILN LABOURER Ot V58.69 09/15/2014 ALBAANDREW JOEL N Ot 203.00 09/15/2014 ALBAANDREW JOEL N Ot 285.9 09/15/2014 ALBAANDREW JOEL N Ot 355.8 09/15/2014 ALBAANDREW JOEL N Ot 733.13 09/15/2014 ALBAANDREW JOEL N Ot 733.90 09/15/2014 ALBAANDREW JOEL N Ot V58.69 09/15/2014 GAGE CLARA S KILN LABOURER Ot 203.00 09/15/2014 GAGE BLAINEAH S KILN LABOURER Ot 285.9 09/15/2014 GAGE BLAINEAH S KILN LABOURER Ot 355.8 09/15/2014 ALMONTE, BLAINEAH S KILN LABOURER Ot 733.13 09/15/2014 ALMONTE, BLAINEAH S KILN LABOURER Ot 733.90 09/15/2014 BLAINE ALMONTEAH S KILN LABOURER Ot V58.69 09/20/2014 ALBA, BOBAN N Ot 203.00 09/20/2014 ALBA, BOBAN N Ot 285.9 09/20/2014 ALBA, BOBAN N Ot 355.8 09/20/2014 ALBA, BOBAN N Ot 733.13 09/20/2014 ALBA, BOBAN N Ot 733.90 09/20/2014 ALBA, BOBAN N Ot V58.69 09/20/2014 ALMONTE BLAINEAH S KILN LABOURER Ot 203.00 09/20/2014 ALMONTE HILAH S KILN LABOURER Ot 285.9 09/20/2014 ALMONTE HILAH S KILN LABOURER Ot 355.8 09/20/2014 CLARA ALMONTE KILN LABOURER Ot 733.13 09/20/2014 CLARA ALMONTE KILN LABOURER Ot 733.90 09/20/2014 CLARA ALMONTE KILN LABOURER Ot V58.69 10/04/2014 ALBA, BOBAN N Ot 203.00 10/04/2014 ALBA, BOBAN N Ot 285.9 10/04/2014 ALBA, BOBAN N Ot 355.8 10/04/2014 ALBA, BOBAN N Ot 733.13 10/04/2014 ALBA, BOBAN N Ot 733.90 10/04/2014 ALBA, BOBAN N Ot V58.69 11/02/2014 ALBA, BOBAN N Ot 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, 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 11/02/2014 ALBA, BOBAN N Ot 285.9 ANEMIA NOS 11/02/2014 ALBA, BOBAN N Ot 355.8 MONONEURITIS LEG NOS 11/02/2014 ALBA, BOBAN N Ot 733.13 PATHOLOGIC FRACTURE, VERTEBRAE 11/02/2014 ALBA BOBAN N Ot 733.90 BONE CARTILAGE DIS NOS 11/02/2014 ALBA, BOBAN N Ot V58.69 OTH MED,LT,CURRENT USE 12/29/2014 ALBA, BOBAN N Ot 203.00 12/29/2014 ALBA, BOBAN N Ot 285.9 12/29/2014 ALBA, BOBAN N Ot 355.8 12/29/2014 ALBA, BOBAN N Ot 733.13 12/29/2014 ALBA, BOBAN N Ot 733.90 12/29/2014 ALBA, BOBAN N Ot V58.69 01/12/2015 ALBA, BOBAN N Ot 203.00 01/12/2015 ALBA, BOBAN N Ot 285.9 01/12/2015 ALBA, BOBAN N Ot 355.8 01/12/2015 ALBA, BOBAN N Ot 733.13 01/12/2015 ALBA, BOBAN N Ot 733.90 01/12/2015 ALBA, BOBAN N Ot V58.69 01/21/2015 ALBA, BOBAN N Ot 203.00 01/21/2015 ALBA, BOBAN N Ot 285.9 01/21/2015 ALBA, BOBAN N Ot 355.8 01/21/2015 ANDREW WILLIS N Ot 733.13 01/21/2015 ANDREW WILLIS N Ot 733.90 01/21/2015 ANDREW WILLIS N Ot V58.69 01/26/2015 ALMONTECLARA Rubio KILN LABOURER Ot 203.00 01/26/2015 CLARA ALMONTE KILN LABOURER Ot 285.9 01/26/2015 ALMONTECLARA Rubio S KILN LABOURER Ot 355.8 01/26/2015 ALMONTECLARA Rubio S KILN LABOURER Ot 733.13 01/26/2015 ALMONTECLARA Rubio S KILN LABOURER Ot 733.90 01/26/2015 ALMONTECLARA Rubio KILN LABOURER Ot V58.69 02/11/2015 CONTRERAS DOE MD Ot 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, 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 02/11/2015 CONTRERAS DOE MD Ot 276.8 HYPOPOTASSEMIA 02/11/2015 CONTRERAS DOE MD Ot 285.9 ANEMIA NOS 02/11/2015 CONTRERAS DOE MD Ot 288.50 LEUKOCYTOPENIA, UNSPECIFIED 02/11/2015 CONTRERAS DOE MD Ot 311 DEPRESSIVE DISORDER NEC 02/11/2015 CONTRERAS DOE MD Ot 356.9 IDIO PERIPH NEURPTHY NOS 02/11/2015 CONTRERAS DOE MD Ot 397.0 TRICUSPID VALVE DISEASE 02/11/2015 CONTRERAS DOE MD Ot 401.9 HYPERTENSION NOS 02/11/2015 CONTRERAS DOE MD Ot 424.0 MITRAL VALVE DISORDER 02/11/2015 CONTRERAS DOE MD Ot 440.0 AORTIC ATHEROSCLEROSIS 02/11/2015 CONTRERAS DOE MD N Ot 486 PNEUMONIA, ORGANISM NOS 02/11/2015 CONTRERAS DOE MD Ot 496 CHR AIRWAY OBSTRUCT NEC 02/11/2015 CONTRERAS DOE MD Ot 518.81 ACUTE RESPIRATORY FAILURE 02/11/2015 CONTRERAS DOE MD Ot 530.81 ESOPHAGEAL REFLUX 02/11/2015 CONTRERAS DOE MD Ot 733.00 OSTEOPOROSIS NOS 02/11/2015 CONTRERAS DOE MD Ot 784.0 HEADACHE 02/11/2015 CONTRERAS DOE MD Ot 786.59 CHEST PAIN NEC 02/11/2015 CONTRERAS DOE MD Ot 787.91 DIARRHEA 02/11/2015 CONTRERAS DOE MD Ot V15.82 HISTORY OF TOBACCO USE 02/11/2015 CONTRERAS DOE MD Ot V42.81 BONE MARROW TRANSPLANT 02/14/2015 JANNA SAHNI MD Ot 246.8 DISORDERS OF THYROID NEC 02/14/2015 JANNA SAHNI MD Ot 780.79 OTH MALAISE FATIGUE 02/14/2015 JANNA SAHNI MD Ot 786.05 SHORTNESS OF BREATH 02/14/2015 JANNA SAHNI MD Ot 787.02 NAUSEA ALONE 02/14/2015 JANNA SAHNI MD Ot V15.82 HISTORY OF TOBACCO USE 02/14/2015 JANNA SAHNI MD Ot V46.2 SUPPLEMENTAL OXYGEN 02/24/2015 ANDREW WILLIS Ot 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, 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 02/24/2015 ANDREW WILLIS Ot 285.9 ANEMIA NOS 02/24/2015 ANDREW WILLIS Ot 355.8 MONONEURITIS LEG NOS 02/24/2015 ANDREW WILLIS Ot 733.13 PATHOLOGIC FRACTURE, VERTEBRAE 02/24/2015 ANDREW WILLIS N Ot 733.90 BONE CARTILAGE DIS NOS 02/24/2015 ANDREW WILLIS Ot V58.69 OTH MED,LT,CURRENT USE 02/24/2015 CLARA ALMONTE KILN LABOURER Ot 203.00 02/24/2015 CLARA ALMONTE KILN LABOURER Ot 285.9 02/24/2015 CLARA ALMONTE KILN LABOURER Ot 355.8 02/24/2015 CLARA ALMONTE KILN LABOURER Ot 733.13 02/24/2015 CLARA ALMONTE KILN LABOURER Ot 733.90 02/24/2015 CLARA ALMONTE KILN LABOURER Ot V58.69 02/25/2015 CLARA ALMONTE KILN LABOURER Ot 203.00 02/25/2015 CLARA ALMONTE KILN LABOURER Ot 285.9 02/25/2015 CLARA ALMONTE KILN LABOURER Ot 355.8 02/25/2015 CLARA ALMONTE KILN LABOURER Ot 733.13 02/25/2015 CLARA ALMONTE KILN LABOURER Ot 733.90 02/25/2015 CLARA ALMONTE KILN LABOURER Ot V58.69 03/15/2015 ALBA, BOBAN N Ot 203.00 03/15/2015 ALBA, BOBAN N Ot 285.9 03/15/2015 ALBA, BOBAN N Ot 355.8 03/15/2015 ALBA, BOBAN N Ot 733.13 03/15/2015 ALBA, BOBAN N Ot 733.90 03/15/2015 ALBA, BOBAN N Ot V58.69 03/23/2015 ALBA, BOBAN N Ot 203.00 03/23/2015 ALBA, BOBAN N Ot 285.9 03/23/2015 ALBA, BOBAN N Ot 355.8 03/23/2015 ALBA, BOBAN N Ot 733.13 03/23/2015 ALBA, BOBAN N Ot 733.90 03/23/2015 ALBA, BOBAN N Ot V58.69 03/25/2015 ALBA, BOBAN N Ot 203.00 03/25/2015 ALBA, BOBAN N Ot 285.9 03/25/2015 ALBA, BOBAN N Ot 355.8 03/25/2015 ALBA, BOBAN N Ot 733.13 03/25/2015 ALBA, BOBAN N Ot 733.90 03/25/2015 ALBA, BOBAN N Ot V58.69 03/25/2015 ALBA, BOBAN N Ot 203.00 03/25/2015 ALBA, BOBAN N Ot 285.9 03/25/2015 ALBA, BOBAN N Ot 355.8 03/25/2015 ALBA, BOBAN N Ot 733.13 03/25/2015 ALBA, BOBAN N Ot 733.90 03/25/2015 ALBA, BOBAN N Ot V58.69 05/16/2015 ALBA, BOBAN N Ot 203.00 05/16/2015 ALBA, BOBAN N Ot 285.9 05/16/2015 ALBA, BOBAN N Ot 355.8 05/16/2015 ALBA, BOBAN N Ot 733.13 05/16/2015 ALBA, BOBAN N Ot 733.90 05/16/2015 ALBA, BOBAN N Ot V58.69 05/25/2015 ALBA, BOBAN N Ot 203.00 05/25/2015 ALBA, BOBAN N Ot 285.9 05/25/2015 ALBA, BOBAN N Ot 355.8 05/25/2015 ALBA, BOBAN N Ot 733.13 05/25/2015 ALBA, BOBAN N Ot 733.90 05/25/2015 ALBA, BOBAN N Ot V58.69 06/07/2015 ALBA, BOBAN N Ot 203.00 06/07/2015 ALBA, BOBAN N Ot 285.9 06/07/2015 ALBA, BOBAN N Ot 355.8 06/07/2015 ALBA, BOBAN N Ot 733.13 06/07/2015 ALBA, BOBAN N Ot 733.90 06/07/2015 ALBA, BOBAN N Ot V58.69 06/13/2015 ALBA, BOBAN N Ot 203.00 06/13/2015 ALBA, BOBAN N Ot 285.9 06/13/2015 ALBA, BOBAN N Ot 355.8 06/13/2015 ALBA, BOBAN N Ot 733.13 06/13/2015 ALBA, BOBAN N Ot 733.90 06/13/2015 ALBA, BOBAN N Ot V58.69 06/15/2015 ALBA, BOBAN N Ot 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, 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 06/15/2015 ALBA, BOBAN N Ot 285.9 ANEMIA NOS 06/15/2015 ALBA, BOBAN N Ot 355.8 MONONEURITIS LEG NOS 06/15/2015 ALBA, BOBAN N Ot 733.13 PATHOLOGIC FRACTURE, VERTEBRAE 06/15/2015 ALBA, BOBAN N Ot 733.90 BONE CARTILAGE DIS NOS 06/15/2015 ALBA, BOBAN N Ot V58.69 OTH MED,LT,CURRENT USE 07/19/2015 ALBA, BOBAN N Ot 203.00 07/19/2015 ALBA, BOBAN N Ot 285.9 07/19/2015 ALBA, BOBAN N Ot 355.8 07/19/2015 ALBA, BOBAN N Ot 733.13 07/19/2015 ALBA, BOBAN N Ot 733.90 07/19/2015 ALBA, BOBAN N Ot V58.69 07/21/2015 FRANCIE SUJATHA KILN LABOURER Ot 724.2 07/21/2015 [facility] PA, GENARO K Ot 272.4 07/21/2015 [facility] PA, GENARO K Ot 300.00 07/21/2015 [facility] PA, GENARO K Ot 311 07/21/2015 [facility] PA, GENARO K Ot 397.0 07/21/2015 [facility] PA, GENARO K Ot 401.9 07/21/2015 [facility] PA, GENARO K Ot 424.0 07/21/2015 [facility] 496 07/21/2015 [facility] GENAOR K Ot 530.81 07/21/2015 [facility] K Ot 786.05 07/21/2015 [facility] PA, GENARO K Ot 786.50 07/21/2015 [facility] K Ot 272.4 07/21/2015 [facility] PA, GENARO K Ot 401.9 07/21/2015 [facility] PA, GENARO K Ot 786.05 07/21/2015 [facility] PA, GENARO K Ot 786.50 07/21/2015 ANDREW WILLIS Ot 273.1 07/21/2015 TYLER GALLEGOS, UMER Ríos Ot 733.13 07/21/2015 TYLER GALLEGOS, UMER Ríos Ot V72.63 07/21/2015 TYLER GALLEGOS, UMER Ríos Ot V74.8 07/21/2015 CLARA ALMONTE KILN LABOURER Ot 203.00 07/21/2015 CLARA ALMONTE KILN LABOURER Ot 733.13 07/21/2015 CLARA ALMONTE KILN LABOURER Ot 733.90 07/21/2015 CLARA ALMONTE KILN LABOURER Ot V58.69 07/21/2015 CLARA ALMONTE KILN LABOURER Ot 203.00 07/21/2015 CLARA ALMONTE KILN LABOURER Ot 355.8 07/21/2015 CLARA ALMONTE KILN LABOURER Ot 719.41 07/21/2015 CLARA ALMONTE KILN LABOURER Ot 719.45 07/21/2015 CLARA ALMONTE KILN LABOURER Ot 733.13 07/21/2015 ALMONTECLARA S KILN LABOURER Ot 733.90 07/21/2015 GAGE CLARA S KILN LABOURER Ot V58.69 07/21/2015 ALMONTECLARA Rubio S KILN LABOURER Ot 203.00 07/21/2015 ALMONTECLARA Rubio S KILN LABOURER Ot 355.8 07/21/2015 ALMONTECLARA Rubio S KILN LABOURER Ot 719.41 07/21/2015 ALMONTE CLARA S KILN LABOURER Ot 719.45 07/21/2015 ALMONTE, HIL S KILN LABOURER Ot 733.13 07/21/2015 ALMONTE CLARA S KILN LABOURER Ot 733.90 07/21/2015 ALMONTECLARA S KILN LABOURER Ot V58.69 07/21/2015 ALMONTECLARA Rubio S KILN LABOURER Ot 203.00 07/21/2015 ALMONTECLARA S KILN LABOURER Ot 355.8 07/21/2015 ALMONTE, CLARA S KILN LABOURER Ot 733.13 07/21/2015 GAGE CLARA S KILN LABOURER Ot V58.69 07/21/2015 ALMONTE CLARA S KILN LABOURER Ot 203.00 07/21/2015 ALMONTE CLARA S KILN LABOURER Ot 285.9 07/21/2015 ALMONTE CLARA S KILN LABOURER Ot 355.8 07/21/2015 ALMONTECLARA Rubio S KILN LABOURER Ot 733.13 07/21/2015 ALMONTECLARA S KILN LABOURER Ot 733.90 07/21/2015 ALMONTECLARA Rubio S KILN LABOURER Ot V58.69 07/21/2015 GAGE CLRAA S KILN LABOURER Ot 203.00 07/21/2015 ALMONTE, CLARA S KILN LABOURER Ot 285.9 07/21/2015 ALMONTE CLARA S KILN LABOURER Ot 355.8 07/21/2015 ALMONTE BLAINE S KILN LABOURER Ot 733.13 07/21/2015 ALMONTE BLAINE S KILN LABOURER Ot 733.90 07/21/2015 ALMONTECLARA S KILN LABOURER Ot V58.69 07/21/2015 ALMONTE CLARA S KILN LABOURER Ot 203.00 07/21/2015 ALMONTE, CLARA S KILN LABOURER Ot 285.9 07/21/2015 ALMONTE BLAINE S KILN LABOURER Ot 355.8 07/21/2015 ALMONTECLARA Rubio S KILN LABOURER Ot 733.13 07/21/2015 ALMONTE, CLARA S KILN LABOURER Ot 733.90 07/21/2015 ALMONTE, CLARA S KILN LABOURER Ot V58.69 07/21/2015 ALMONTE, BLAINEAH S KILN LABOURER Ot 203.00 07/21/2015 ALMONTE, CLARA S KILN LABOURER Ot 285.9 07/21/2015 ALMONTE, BLAINEAH S KILN LABOURER Ot 355.8 07/21/2015 ALMONTE, BLAINEAH S KILN LABOURER Ot 733.13 07/21/2015 ALMONTE, BLAINEAH S KILN LABOURER Ot 733.90 07/21/2015 ALMONTE, CLARA S KILN LABOURER Ot V58.69 07/21/2015 ALMONTE, CLARA S KILN LABOURER Ot 203.00 07/21/2015 ALMONTECLARA S KILN LABOURER Ot 285.9 07/21/2015 ALMONTECLARA S KILN LABOURER Ot 355.8 07/21/2015 ALMONTE, CLARA S KILN LABOURER Ot 733.13 07/21/2015 ALMONTECLARA S KILN LABOURER Ot 733.90 07/21/2015 ALMONTECLARA S KILN LABOURER Ot V58.69 07/21/2015 ALBA, BOBAN N Ot 203.00 07/21/2015 ALBA, BOBAN N Ot 285.9 07/21/2015 ALBA, BOBAN N Ot 355.8 07/21/2015 ALBA, BOBAN N Ot 733.13 07/21/2015 ALBA, BOBAN N Ot 733.90 07/21/2015 ALBA, BOBAN N Ot V58.69 08/15/2015 ALMONTECLARA S KILN LABOURER Ot M85.89 08/15/2015 ALMONTE, CLARA S KILN LABOURER Ot R29.890 08/18/2015 ALMONTE, BLAINEAH S KILN LABOURER Ot M85.89 08/18/2015 ALMONTE, HILAH S KILN LABOURER Ot R29.890 08/30/2015 ALBA, BOBAN N Ot 203.00 08/30/2015 ALBA, BOBAN N Ot 285.9 08/30/2015 ALBA, BOBAN N Ot 355.8 08/30/2015 ALBA, BOBAN N Ot 733.13 08/30/2015 ALBA, BOBAN N Ot 733.90 08/30/2015 ANDREW WILLIS Ot V58.69 09/20/2015 ANDREW WILLIS N Ot C90.00 09/20/2015 ANDREW WILLIS N Ot D64.9 09/20/2015 ALBAANDREW JOEL N Ot M89.9 09/20/2015 ANDREW WILLIS N Ot Z79.899 09/20/2015 ANDREW WILLIS N Ot C90.00 09/20/2015 ANDREW WILLIS N Ot D64.9 09/20/2015 ALBAANDREW JOEL N Ot M89.9 09/20/2015 ALBAANDREW JOEL N Ot Z79.899 10/23/2015 ANDREW WILLIS N Ot 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 10/23/2015 ANDREW WILLIS N Ot D64.9 ANEMIA, UNSPECIFIED 10/23/2015 ANDREW WILLIS N Ot M89.9 DISORDER OF BONE, UNSPECIFIED 10/23/2015 ANDREW WILLIS N Ot Z79.899 OTHER LONG-TERM (CURRENT) DRUG THERAPY 11/18/2015 ANDREW WILLIS N Ot C90.00 11/18/2015 ALBAANDREW JOEL N Ot D64.9 11/18/2015 ALBAANDREW JOEL N Ot M89.9 11/18/2015 ANDREW WILLIS N Ot Z79.899 12/08/2015 CLARA ALMONTE S KILN LABOURER Ot C90.00 12/08/2015 CLARA ALMONTE S KILN LABOURER Ot G62.9 12/08/2015 ALMONTECLARA Rubio S KILN LABOURER Ot Z79.899 12/08/2015 ALMONTECLARA Rubio S KILN LABOURER Ot Z92.21 12/08/2015 CLARA ALMONTE S KILN LABOURER Ot Z92.3 12/13/2015 CLARA ALMONTE S KILN LABOURER Ot C90.00 12/13/2015 CLARA ALMONTE S KILN LABOURER Ot G62.9 12/13/2015 ALMONTECLARA Rubio S KILN LABOURER Ot Z79.899 12/13/2015 CLARA ALMONTE S KILN LABOURER Ot Z92.21 12/13/2015 CLARA ALMONTE S KILN LABOURER Ot Z92.3 02/07/2016 ALBAANDREW JOEL N Ot 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 02/07/2016 ALBAANDREW N Ot D64.9 ANEMIA, UNSPECIFIED 02/07/2016 ALBAANDREW N Ot M89.9 DISORDER OF BONE, UNSPECIFIED 02/07/2016 ALBAANDREW N Ot Z79.899 OTHER LONG-TERM (CURRENT) DRUG THERAPY 02/14/2016 ALBAANDREW N Ot 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 02/14/2016 ALBA, ANDREW N Ot D64.9 ANEMIA, UNSPECIFIED 02/14/2016 ALBA, ANDREW N Ot M89.9 DISORDER OF BONE, UNSPECIFIED 02/14/2016 ALBA, BOBSTEPHANIE N Ot Z79.899 OTHER LONG-TERM (CURRENT) DRUG THERAPY 02/15/2016 ALBAANDREW N Ot 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 02/15/2016 ALBA, ANDREW N Ot D64.9 ANEMIA, UNSPECIFIED 02/15/2016 ALBA, ANDREW N Ot M89.9 DISORDER OF BONE, UNSPECIFIED 02/15/2016 ALBAANDREW N Ot Z79.899 OTHER HAND STAMPER (CURRENT) DRUG THERAPY 02/15/2016 ALBAANDREW N Ot 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 02/15/2016 ALBAANDREW N Ot D64.9 ANEMIA, UNSPECIFIED 02/15/2016 ALBAANDREW N Ot M89.9 DISORDER OF BONE, UNSPECIFIED 02/15/2016 ALBAANDREW N Ot Z79.899 OTHER HAND STAMPER (CURRENT) DRUG THERAPY 02/15/2016 SUJATHA MARMOLEJO Ot 724.2 LUMBAGO 02/15/2016 GENARO WEBBER Ot 272.4 HYPERLIPIDEMIA NEC/NOS 02/15/2016 GENARO WEBBER Ot 300.00 ANXIETY STATE NOS 02/15/2016 GENAOR WEBBER Ot 311 DEPRESSIVE DISORDER NEC 02/15/2016 GENARO WEBBER Ot 397.0 TRICUSPID VALVE DISEASE 02/15/2016 GENARO WEBBER Ot 401.9 HYPERTENSION NOS 02/15/2016 GENARO WEBBER Ot 424.0 MITRAL VALVE DISORDER 02/15/2016 GENARO WEBBER Ot 496 CHR AIRWAY OBSTRUCT NEC 02/15/2016 LOLITA GAMBOA GENARO K Ot 530.81 ESOPHAGEAL REFLUX 02/15/2016 LOLITA GAMBOA GENARO K Ot 786.05 SHORTNESS OF BREATH 02/15/2016 GENARO WEBBER Ot 786.50 CHEST PAIN NOS 02/15/2016 GENARO WEBBER Ot 272.4 HYPERLIPIDEMIA NEC/NOS 02/15/2016 GENARO WEBBER Ot 401.9 HYPERTENSION NOS 02/15/2016 LOLITA GAMBOA GENARO K Ot 786.05 SHORTNESS OF BREATH 02/15/2016 LOLITA GAMBOA GENARO K Ot 786.50 CHEST PAIN NOS 02/15/2016 ANDREW WILLIS Ot 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 02/15/2016 TYLER GALLEGOS, UMER Roís Ot 733.13 PATHOLOGIC FRACTURE, VERTEBRAE 02/15/2016 TYLER GALLEGOS, UMER Ríos Ot V72.63 PRE-PROCEDURAL LABORATORY EXAMINATION 02/15/2016 UMER SCOTT MD Ot V74.8 SCREEN-BACTERIAL DIS NEC 02/15/2016 CLARA ALMONTE KILN LABOURER Ot 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, 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 02/15/2016 CLARA ALMONTE KILN LABOURER Ot 733.13 PATHOLOGIC FRACTURE, VERTEBRAE 02/15/2016 CLARA ALMONTE KILN LABOURER Ot 733.90 BONE CARTILAGE DIS NOS 02/15/2016 CLARA ALMONTE KILN LABOURER Ot V58.69 OTH MED,LT,CURRENT USE 02/15/2016 CLARA ALMONTE KILN LABOURER Ot 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, 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 02/15/2016 CLARA ALMONTE KILN LABOURER Ot 355.8 MONONEURITIS LEG NOS 02/15/2016 CLARA ALMONTE KILN LABOURER Ot 719.41 JOINT PAIN-SHLDER 02/15/2016 CLARA ALMONTE KILN LABOURER Ot 719.45 JOINT PAIN-PELVIS 02/15/2016 CLARA ALMONTE KILN LABOURER Ot 733.13 PATHOLOGIC FRACTURE, VERTEBRAE 02/15/2016 CLARA ALMONTE KILN LABOURER Ot 733.90 BONE CARTILAGE DIS NOS 02/15/2016 CLARA ALMONTE KILN LABOURER Ot V58.69 OTH MED,LT,CURRENT USE 02/15/2016 CLARA ALMONTE S KILN LABOURER Ot 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, 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 02/15/2016 CLARA ALMONTE S KILN LABOURER Ot 355.8 MONONEURITIS LEG NOS 02/15/2016 CLARA ALMONTE S KILN LABOURER Ot 719.41 JOINT PAIN-SHLDER 02/15/2016 ALMONTECLARA S KILN LABOURER Ot 719.45 JOINT PAIN-PELVIS 02/15/2016 CLARA ALMONTE S KILN LABOURER Ot 733.13 PATHOLOGIC FRACTURE, VERTEBRAE 02/15/2016 ALMONTE, HILAH S KILN LABOURER Ot 733.90 BONE CARTILAGE DIS NOS 02/15/2016 CLARA ALMONTE S KILN LABOURER Ot V58.69 OTH MED,LT,CURRENT USE 02/15/2016 ALMONTE, HILAH S KILN LABOURER Ot 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, 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 02/15/2016 BLAINE ALMONTEAH S KILN LABOURER Ot 355.8 MONONEURITIS LEG NOS 02/15/2016 ALMONTE, HILAH S KILN LABOURER Ot 733.13 PATHOLOGIC FRACTURE, VERTEBRAE 02/15/2016 CLARA ALMONTE S KILN LABOURER Ot V58.69 OTH MED,LT,CURRENT USE 02/15/2016 BLAINE ALMONTEAH S KILN LABOURER Ot 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, 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 02/15/2016 CLARA ALMONTE S KILN LABOURER Ot 285.9 ANEMIA NOS 02/15/2016 BLAINE ALMONTEAH S KILN LABOURER Ot 355.8 MONONEURITIS LEG NOS 02/15/2016 ALMONTEBLAINEAH S KILN LABOURER Ot 733.13 PATHOLOGIC FRACTURE, VERTEBRAE 02/15/2016 ALMONTE HILAH S KILN LABOURER Ot 733.90 BONE CARTILAGE DIS NOS 02/15/2016 ALMONTEBLAINEAH S KILN LABOURER Ot V58.69 OTH MED,LT,CURRENT USE 02/15/2016 ALMONTE HILAH S KILN LABOURER Ot 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, 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 02/15/2016 ALMONTE HILAH S KILN LABOURER Ot 285.9 ANEMIA NOS 02/15/2016 ALMONTE HILAH S KILN LABOURER Ot 355.8 MONONEURITIS LEG NOS 02/15/2016 ALMONTE HILAH S KILN LABOURER Ot 733.13 PATHOLOGIC FRACTURE, VERTEBRAE 02/15/2016 CLARA ALMONTE S KILN LABOURER Ot 733.90 BONE CARTILAGE DIS NOS 02/15/2016 CLARA ALMONTE S KILN LABOURER Ot V58.69 OTH MED,LT,CURRENT USE 02/15/2016 ALMONTECLARA Rubio S KILN LABOURER Ot 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, 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 02/15/2016 ALMONTECLARA Rubio S KILN LABOURER Ot 285.9 ANEMIA NOS 02/15/2016 ALMONTE, HILAH S KILN LABOURER Ot 355.8 MONONEURITIS LEG NOS 02/15/2016 ALMONTEBLAINEAH S KILN LABOURER Ot 733.13 PATHOLOGIC FRACTURE, VERTEBRAE 02/15/2016 ALMONTECLARA S KILN LABOURER Ot 733.90 BONE CARTILAGE DIS NOS 02/15/2016 CLARA ALMONTE S KILN LABOURER Ot V58.69 OTH MED,LT,CURRENT USE 02/15/2016 CLARA ALMONTE S KILN LABOURER Ot 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, 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 02/15/2016 CLARA ALMONTE S KILN LABOURER Ot 285.9 ANEMIA NOS 02/15/2016 ALMONTECLARA Rubio S KILN LABOURER Ot 355.8 MONONEURITIS LEG NOS 02/15/2016 ALMONTECLARA Rubio S KILN LABOURER Ot 733.13 PATHOLOGIC FRACTURE, VERTEBRAE 02/15/2016 CLARA ALMONTE S KILN LABOURER Ot 733.90 BONE CARTILAGE DIS NOS 02/15/2016 CLARA ALMONTE S KILN LABOURER Ot V58.69 OTH MED,LT,CURRENT USE 02/15/2016 CLARA ALMONTE S KILN LABOURER Ot 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, 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 02/15/2016 CLARA ALMONTE S KILN LABOURER Ot 285.9 ANEMIA NOS 02/15/2016 ALMONTEBLAINEAH S KILN LABOURER Ot 355.8 MONONEURITIS LEG NOS 02/15/2016 ALMONTEBLAINEAH S KILN LABOURER Ot 733.13 PATHOLOGIC FRACTURE, VERTEBRAE 02/15/2016 ALMONTE HILAH S KILN LABOURER Ot 733.90 BONE CARTILAGE DIS NOS 02/15/2016 CLARA ALMONTE S KILN LABOURER Ot V58.69 OTH MED,LT,CURRENT USE 02/15/2016 CLARA ALMONTE S KILN LABOURER Ot M85.89 OTH DISRD OF BONE DENSITY AND STRUCTURE , 02/15/2016 CLARA ALMONTE S KILN LABOURER Ot R29.890 LOSS OF HEIGHT 02/15/2016 CLARA ALMONTE KILN LABOURER Ot 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 02/15/2016 CLARA ALMONTE KILN LABOURER Ot G62.9 POLYNEUROPATHY, UNSPECIFIED 02/15/2016 CLARA ALMONTE KILN LABOURER Ot Z79.899 OTHER LONG-TERM (CURRENT) DRUG THERAPY 02/15/2016 CLARA ALMONTE KILN LABOURER Ot Z92.21 PERSONAL HISTORY OF ANTINEOPLASTIC CHEMO 02/15/2016 CLARA ALMONTE KILN LABOURER Ot Z92.3 PERSONAL HISTORY OF IRRADIATION 02/15/2016 ALBA ANDREW N Ot 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 02/15/2016 ALBAANDREW JOEL Ot D64.9 ANEMIA, UNSPECIFIED 02/15/2016 ALBAANDREW JOEL N Ot M89.9 DISORDER OF BONE, UNSPECIFIED 02/15/2016 ALBAANDREW N Ot Z79.899 OTHER HAND STAMPER (CURRENT) DRUG THERAPY 02/15/2016 SUJATHA MARMOLEJO KILN LABOURER Ot Z12.31 ENCNTR SCREEN MAMMOGRAM FOR MALIGNANT NE 02/15/2016 SUJATHA MARMOLEJO KILN LABOURER Ot Z12.31 ENCNTR SCREEN MAMMOGRAM FOR MALIGNANT NE 02/16/2016 FRANCIESUAJTHA VALENZUELA KILN LABOURER Ot Z12.31 ENCNTR SCREEN MAMMOGRAM FOR MALIGNANT NE 02/22/2016 ALBAANDREW N Ot 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 02/22/2016 ALBAANDREW JOEL N Ot D64.9 ANEMIA, UNSPECIFIED 02/22/2016 ALBAANDREW JOEL N Ot M89.9 DISORDER OF BONE, UNSPECIFIED 02/22/2016 ALBA BOBAN N Ot Z79.899 OTHER HAND STAMPER (CURRENT) DRUG THERAPY 03/05/2016 ALBAANDREW N Ot 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 03/05/2016 ALBAANDREW N Ot D64.9 ANEMIA, UNSPECIFIED 03/05/2016 ALBA BOBSTEPHANIE N Ot M89.9 DISORDER OF BONE, UNSPECIFIED 03/05/2016 ALBAANDREW N Ot Z79.899 OTHER HAND STAMPER (CURRENT) DRUG THERAPY 03/05/2016 NAVI GALLEGOS, GENNARO Lozada Ot 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 03/05/2016 NAVI GALLEGOS, GENNARO Lozada Ot E55.9 VITAMIN D DEFICIENCY, UNSPECIFIED 03/05/2016 NAVI GALLEGOS, GENNARO Lozada Ot E83.39 OTHER DISORDERS OF PHOSPHORUS METABOLISM 03/05/2016 NAVI GALLEGOS, GENNARO Lozada Ot M85.80 OTH DISRD OF BONE DENSITY AND STRUCTURE, 03/05/2016 GENNARO MCELROY MD Ot Z94.84 STEM CELLS TRANSPLANT STATUS 03/06/2016 ANDREW WILLIS N Ot 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 03/06/2016 ALBA, BOBAN N Ot D64.9 ANEMIA, UNSPECIFIED 03/06/2016 ALBA, BOBSTEPHANIE N Ot M89.9 DISORDER OF BONE, UNSPECIFIED 03/06/2016 ALBA, BOBAN N Ot Z79.899 OTHER HAND STAMPER (CURRENT) DRUG THERAPY 03/06/2016 ALBAANDREW JOEL N Ot 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 03/06/2016 ALBA, BOBAN N Ot D64.9 ANEMIA, UNSPECIFIED 03/06/2016 ALBA, BOBAN N Ot M89.9 DISORDER OF BONE, UNSPECIFIED 03/06/2016 ALBA, BOBAN N Ot Z79.899 OTHER LONG-TERM (CURRENT) DRUG THERAPY 03/06/2016 ALBAANDREW N Ot 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 03/06/2016 ALBA, BOBAN N Ot Z94.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 03/07/2016 ALBA BOBSTEPHANIE N Ot 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 03/07/2016 ALBA, BOBAN N Ot D64.9 ANEMIA, UNSPECIFIED 03/07/2016 ALBA, BOBAN N Ot M89.9 DISORDER OF BONE, UNSPECIFIED 03/07/2016 ALBA, BOBAN N Ot Z79.899 OTHER HAND STAMPER (CURRENT) DRUG THERAPY 03/07/2016 CLARA ALMONTE KILN LABOURER Ot 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 03/07/2016 CLARA ALMONTE KILN LABOURER Ot D64.9 ANEMIA, UNSPECIFIED 03/07/2016 CLARA ALMONTE KILN LABOURER Ot M89.9 DISORDER OF BONE, UNSPECIFIED 03/07/2016 CLARA ALMONTE KILN LABOURER Ot Z79.899 OTHER HAND STAMPER (CURRENT) DRUG THERAPY 03/07/2016 CLARA ALMONTE KILN LABOURER Ot Z94.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 03/08/2016 ANDREW WILLIS Ot 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 03/08/2016 ANDREW WILLIS Ot Z94.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 03/08/2016 GENNARO MCELROY MD Ot 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 03/08/2016 GENNARO MCELROY MD Ot E55.9 VITAMIN D DEFICIENCY, UNSPECIFIED 03/08/2016 GENNARO MCELROY MD Ot E83.39 OTHER DISORDERS OF PHOSPHORUS METABOLISM 03/08/2016 GENNARO MCELROY MD Ot M85.80 OTH DISRD OF BONE DENSITY AND STRUCTURE, 03/08/2016 GENNARO MCELROY MD Ot Z94.84 STEM CELLS TRANSPLANT STATUS 03/08/2016 GENNARO MCELROY MD Ot 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 03/08/2016 GENNARO MCELROY MD Ot E55.9 VITAMIN D DEFICIENCY, UNSPECIFIED 03/08/2016 GENNARO MCELROY MD Ot E83.39 OTHER DISORDERS OF PHOSPHORUS METABOLISM 03/08/2016 GENNARO MCELROY MD Ot M85.80 OTH DISRD OF BONE DENSITY AND STRUCTURE, 03/08/2016 GENNARO MCELROY MD Ot Z94.84 STEM CELLS TRANSPLANT STATUS 03/08/2016 GENNARO MCELROY MD Ot 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 03/08/2016 GENNARO MCELROY MD Ot E55.9 VITAMIN D DEFICIENCY, UNSPECIFIED 03/08/2016 GENNARO MCELROY MD Ot E83.39 OTHER DISORDERS OF PHOSPHORUS METABOLISM 03/08/2016 GENNARO MCELROY MD Ot M85.80 OTH DISRD OF BONE DENSITY AND STRUCTURE, 03/08/2016 GENNARO MCELROY MD Ot Z94.84 STEM CELLS TRANSPLANT STATUS 03/09/2016 SUJATHA MARMOLEJO Ot Z12.31 ENCNTR SCREEN MAMMOGRAM FOR MALIGNANT NE 03/09/2016 SUJATHA MARMOLEJO Ot Z12.31 ENCNTR SCREEN MAMMOGRAM FOR MALIGNANT NE 03/23/2016 GENNARO MCELROY MD Ot 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 03/23/2016 GENNARO MCELROY MD Ot E55.9 VITAMIN D DEFICIENCY, UNSPECIFIED 03/23/2016 GENNARO MCELROY MD Ot E83.39 OTHER DISORDERS OF PHOSPHORUS METABOLISM 03/23/2016 GENNARO MCELROY MD Ot M85.80 OTH DISRD OF BONE DENSITY AND STRUCTURE, 03/23/2016 GENNARO MCELROY MD Ot Z94.84 STEM CELLS TRANSPLANT STATUS 03/27/2016 GENNARO MCELROY MD Ot 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 03/27/2016 GENNARO MCELROY MD Ot E55.9 VITAMIN D DEFICIENCY, UNSPECIFIED 03/27/2016 GENNARO MCELROY MD Ot E83.39 OTHER DISORDERS OF PHOSPHORUS METABOLISM 03/27/2016 GENNARO MCELROY MD Ot M85.80 OTH DISRD OF BONE DENSITY AND STRUCTURE, 03/27/2016 GENNARO MCELROY MD Ot Z94.84 STEM CELLS TRANSPLANT STATUS 03/30/2016 ANDREW WILLIS Ot 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 03/30/2016 ANDREW WILLIS Ot Z94.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 03/30/2016 CLARA ALMONTE KILN LABOURER Ot 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 03/30/2016 CLARA ALMONTEP Ot D64.9 ANEMIA, UNSPECIFIED 03/30/2016 CLARA ALMONTEP Ot M89.9 DISORDER OF BONE, UNSPECIFIED 03/30/2016 CLARA ALMONTE KILN LABOURER Ot Z79.899 OTHER LONG-TERM (CURRENT) DRUG THERAPY 03/30/2016 CLARA ALMONTE KILN LABOURER Ot Z94.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 04/03/2016 ANDREW WILLIS Ot 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 04/03/2016 ANDREW WILLIS Ot Z94.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 04/03/2016 CLARA ALMONTE KILN LABOURER Ot 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 04/03/2016 CLARA ALMONTE KILN LABOURER Ot D64.9 ANEMIA, UNSPECIFIED 04/03/2016 CLARA ALMONTE KILN LABOURER Ot M89.9 DISORDER OF BONE, UNSPECIFIED 04/03/2016 CLARA ALMONTE KILN LABOURER Ot Z79.899 OTHER LONG-TERM (CURRENT) DRUG THERAPY 04/03/2016 CLARA ALMONTE KILN LABOURER Ot Z94.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 04/03/2016 ANDREW WILLIS N Ot 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 04/03/2016 ALBAANDREW JOEL N Ot D64.9 ANEMIA, UNSPECIFIED 04/03/2016 ANDREW WILLIS N Ot M89.9 DISORDER OF BONE, UNSPECIFIED 04/03/2016 ANDREW WILLIS N Ot Z79.899 OTHER LONG-TERM (CURRENT) DRUG THERAPY 04/04/2016 CLARA ALMONTE S KILN LABOURER Ot 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 04/04/2016 CLARA ALMONTE S KILN LABOURER Ot D64.9 ANEMIA, UNSPECIFIED 04/04/2016 CLARA ALMONTE S KILN LABOURER Ot M89.9 DISORDER OF BONE, UNSPECIFIED 04/04/2016 CLARA ALMONTE S KILN LABOURER Ot Z79.899 OTHER LONG-TERM (CURRENT) DRUG THERAPY 04/04/2016 CLARA ALMONTE S KILN LABOURER Ot Z92.21 PERSONAL HISTORY OF ANTINEOPLASTIC CHEMO 04/04/2016 CLARA ALMONTE S KILN LABOURER Ot Z92.3 PERSONAL HISTORY OF IRRADIATION 04/04/2016 CLARA ALMONTE S KILN LABOURER Ot Z94.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 04/04/2016 CLARA ALMONTE S KILN LABOURER Ot 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 04/04/2016 CLARA ALMONTE KILN LABOURER Ot D64.9 ANEMIA, UNSPECIFIED 04/04/2016 CLARA ALMONTE S KILN LABOURER Ot M89.9 DISORDER OF BONE, UNSPECIFIED 04/04/2016 CLARA ALMONTE S KILN LABOURER Ot Z79.899 OTHER LONG-TERM (CURRENT) DRUG THERAPY 04/04/2016 CLARA ALMONTE S KILN LABOURER Ot Z92.21 PERSONAL HISTORY OF ANTINEOPLASTIC CHEMO 04/04/2016 CLARA ALMONTE S KILN LABOURER Ot Z92.3 PERSONAL HISTORY OF IRRADIATION 04/04/2016 CLARA ALMONTE S KILN LABOURER Ot Z94.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 04/26/2016 ANDREW WILLIS N Ot 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 04/26/2016 ALBAANDREW JOEL N Ot D64.9 ANEMIA, UNSPECIFIED 04/26/2016 ALBAANDREW JOEL N Ot M89.9 DISORDER OF BONE, UNSPECIFIED 04/26/2016 ALBAANDREW JOEL N Ot Z79.899 OTHER LONG-TERM (CURRENT) DRUG THERAPY 04/27/2016 ALMONTECLARA KILN LABOURER Ot 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 04/27/2016 ALMONTECLARA KILN LABOURER Ot D64.9 ANEMIA, UNSPECIFIED 04/27/2016 ALMONTECLARA Rubio S KILN LABOURER Ot M89.9 DISORDER OF BONE, UNSPECIFIED 04/27/2016 ALMONTECLARA S KILN LABOURER Ot Z79.899 OTHER HAND STAMPER (CURRENT) DRUG THERAPY 04/27/2016 ALMONTECLARA Rubio S KILN LABOURER Ot Z92.21 PERSONAL HISTORY OF ANTINEOPLASTIC CHEMO 04/27/2016 CLARA ALMONTE KILN LABOURER Ot Z92.3 PERSONAL HISTORY OF IRRADIATION 04/27/2016 CLARA ALMONTE KILN LABOURER Ot Z94.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 05/01/2016 ANDREW WILLIS N Ot 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 05/01/2016 ALBAANDREW JOEL N Ot D64.9 ANEMIA, UNSPECIFIED 05/01/2016 ALBAANDREW JOEL N Ot M89.9 DISORDER OF BONE, UNSPECIFIED 05/01/2016 ALBAANDREW N Ot Z79.899 OTHER LONG-TERM (CURRENT) DRUG THERAPY 05/15/2016 ANDREW WILLIS N Ot 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 05/15/2016 ALBAANDREW JOEL N Ot D64.9 ANEMIA, UNSPECIFIED 05/15/2016 ALBAANDREW JOEL N Ot M89.9 DISORDER OF BONE, UNSPECIFIED 05/15/2016 ALBAANDREW JOEL N Ot Z79.899 OTHER HAND STAMPER (CURRENT) DRUG THERAPY 05/24/2016 ALMONTECLARA S KILN LABOURER Ot 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9 ANEMIA, UNSPECIFIED 05/31/2016 ALBACLAREAN N Ot M89.9 DISORDER OF BONE, UNSPECIFIED 05/31/2016 ALBACLAREAN N Ot Z51.11 ENCOUNTER FOR ANTINEOPLASTIC CHEMOTHERAP 05/31/2016 ALBA BOBAN N Ot Z79.899 OTHER LONG-TERM (CURRENT) DRUG THERAPY 06/06/2016 ALABCLAREAN N Ot 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 06/06/2016 ALBA, BOBAN N Ot D64.9 ANEMIA, UNSPECIFIED 06/06/2016 ALBA, BOBAN N Ot M89.9 DISORDER OF BONE, UNSPECIFIED 06/06/2016 ALBACLAREAN N Ot Z51.11 ENCOUNTER FOR ANTINEOPLASTIC CHEMOTHERAP 06/06/2016 ALBA BOBAN N Ot Z79.899 OTHER HAND STAMPER (CURRENT) DRUG THERAPY 06/06/2016 ALBACLAREAN N Ot 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 06/06/2016 ALBA, BOBAN N Ot D64.9 ANEMIA, UNSPECIFIED 06/06/2016 ALBA, BOBAN N Ot M89.9 DISORDER OF BONE, UNSPECIFIED 06/06/2016 ALBA, BOBAN N Ot Z79.899 OTHER HAND STAMPER (CURRENT) DRUG THERAPY 06/18/2016 ALBA BOBAN N Ot 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 06/18/2016 ALBA, BOBAN N Ot D64.9 ANEMIA, UNSPECIFIED 06/18/2016 ALBA, BOBAN N Ot M89.9 DISORDER OF BONE, UNSPECIFIED 06/18/2016 ALBA, BOBAN N Ot Z79.899 OTHER LONG-TERM (CURRENT) DRUG THERAPY 06/20/2016 ALBA, BOBAN N Ot 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 06/20/2016 ALBA, BOBAN N Ot D64.9 ANEMIA, UNSPECIFIED 06/20/2016 ALBA, BOBAN N Ot M89.9 DISORDER OF BONE, UNSPECIFIED 06/20/2016 ANDREW WILLIS Ot Z79.899 OTHER HAND STAMPER (CURRENT) DRUG THERAPY 06/20/2016 CLARA ALMONTE KILN LABOURER Ot 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 06/20/2016 CLARA ALMONTE KILN LABOURER Ot M25.552 PAIN IN LEFT HIP 06/20/2016 CLARA ALMONTE KILN LABOURER Ot M54.5 LOW BACK PAIN 06/28/2016 CLARA ALMONTE S KILN LABOURER Ot 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 06/28/2016 CLARA ALMONTE S KILN LABOURER Ot M25.552 PAIN IN LEFT HIP 06/28/2016 CLARA ALMONTE KILN LABOURER Ot M54.5 LOW BACK PAIN 06/28/2016 CLARA ALMONTE S KILN LABOURER Ot 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 06/28/2016 CLARA ALMONTE S KILN LABOURER Ot M25.552 PAIN IN LEFT HIP 06/28/2016 CLARA ALMONTE S KILN LABOURER Ot M54.5 LOW BACK PAIN 06/29/2016 CLARA ALMONTE S KILN LABOURER Ot 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 06/29/2016 CLARA ALMONTE KILN LABOURER Ot M25.552 PAIN IN LEFT HIP 06/29/2016 CLARA ALMONTE KILN LABOURER Ot M54.5 LOW BACK PAIN 06/29/2016 CLARA ALMONTE S KILN LABOURER Ot 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 06/29/2016 CLARA ALMONTE KILN LABOURER Ot M25.552 PAIN IN LEFT HIP 06/29/2016 CLARA ALMONTE KILN LABOURER Ot M54.5 LOW BACK PAIN 06/29/2016 CLARA ALMONTE S KILN LABOURER Ot 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 06/29/2016 CLARA ALMONTE KILN LABOURER Ot M25.552 PAIN IN LEFT HIP 06/29/2016 CLARA ALMONTE KILN LABOURER Ot M54.5 LOW BACK PAIN 07/11/2016 CLARA ALMONTE S KILN LABOURER Ot 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 07/11/2016 CLARA ALMONTE S KILN LABOURER Ot M25.552 PAIN IN LEFT HIP 07/11/2016 CLARA ALMONTE KILN LABOURER Ot M54.5 LOW BACK PAIN 07/12/2016 CLARA ALMONTE KILN LABOURER Ot 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 07/12/2016 CLARA ALMONTE KILN LABOURER Ot M25.552 PAIN IN LEFT HIP 07/12/2016 CLARA ALMONTE KILN LABOURER Ot M54.5 LOW BACK PAIN 07/17/2016 CLARA ALMONTE KILN LABOURER Ot 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 07/17/2016 CLARA ALMONTE KILN LABOURER Ot M25.552 PAIN IN LEFT HIP 07/17/2016 CLARA ALMONTE KILN LABOURER Ot M54.5 LOW BACK PAIN 08/14/2016 ALBAANDREW JOEL N Ot 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 08/14/2016 ALBAANDREW N Ot D64.9 ANEMIA, UNSPECIFIED 08/14/2016 ALBAANDREW JOEL N Ot M89.9 DISORDER OF BONE, UNSPECIFIED 08/14/2016 ALBAANDREW N Ot Z79.899 OTHER HAND STAMPER (CURRENT) DRUG THERAPY 08/15/2016 ALBA BOBSTEPHANIE N Ot 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 08/15/2016 ALBA BOBAN N Ot D64.9 ANEMIA, UNSPECIFIED 08/15/2016 ALBA BOBAN N Ot M89.9 DISORDER OF BONE, UNSPECIFIED 08/15/2016 ALBACLAREAN N Ot Z79.899 OTHER HAND STAMPER (CURRENT) DRUG THERAPY 08/28/2016 EVI JOHN SALES AND MARKETING ASSISTANT Ot 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 08/28/2016 EVI JOHN SALES AND MARKETING ASSISTANT Ot R06.02 SHORTNESS OF BREATH 08/28/2016 EVI JOHN SALES AND MARKETING ASSISTANT Ot 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 08/28/2016 EVI JOHN SALES AND MARKETING ASSISTANT Ot R06.02 SHORTNESS OF BREATH 08/28/2016 EVI JOHN SALES AND MARKETING ASSISTANT Ot R09.02 HYPOXEMIA 09/03/2016 SUJATHA MARMOLEJOP Ot 724.2 LUMBAGO 09/03/2016 GENARO WEBBER Ot 272.4 HYPERLIPIDEMIA NEC/NOS 09/03/2016 GENARO WEBBER Ot 300.00 ANXIETY STATE NOS 09/03/2016 LEIJAIRO GAMBOA, GENARO Lozada Ot 311 DEPRESSIVE DISORDER NEC 09/03/2016 LEI-ALTA GAMBOA GENARO Lozada Ot 397.0 TRICUSPID VALVE DISEASE 09/03/2016 LEI-ALTA GAMBOA GENARO Lozada Ot 401.9 HYPERTENSION NOS 09/03/2016 LEI-ALTA GAMBOAGENARO Ot 424.0 MITRAL VALVE DISORDER 09/03/2016 LEIJAIRO GAMBOA GENARO Lozada Ot 496 CHR AIRWAY OBSTRUCT NEC 09/03/2016 LEI-ALTA GAMBOA GENARO Lozada Ot 530.81 ESOPHAGEAL REFLUX 09/03/2016 LOLITA BEE, GENARO Lozada Ot 786.05 SHORTNESS OF BREATH 09/03/2016 HOLLIEALTA GAMBOA GENARO Lozada Ot 786.50 CHEST PAIN NOS 09/03/2016 LEI-ALTA GAMBOA GENARO Lozada Ot 272.4 HYPERLIPIDEMIA NEC/NOS 09/03/2016 HOLLIEALTA GAMBOA GENARO Lozada Ot 401.9 HYPERTENSION NOS 09/03/2016 LIE-ALTA GAMBOA GENARO Lozada Ot 786.05 SHORTNESS OF BREATH 09/03/2016 LOLITA BEE GENARO Lozada Ot 786.50 CHEST PAIN NOS 09/03/2016 ANDREW WILLIS Ot 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 09/03/2016 UMER SCOTT MD Ot 733.13 PATHOLOGIC FRACTURE, VERTEBRAE 09/03/2016 UMER SCOTT MD Ot V72.63 PRE-PROCEDURAL LABORATORY EXAMINATION 09/03/2016 UMER SCOTT MD Ot V74.8 SCREEN-BACTERIAL DIS NEC 09/03/2016 CLARA ALMONTE KILN LABOURER Ot 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, 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 09/03/2016 CLARA ALMONTE KILN LABOURER Ot 733.13 PATHOLOGIC FRACTURE, VERTEBRAE 09/03/2016 CLARA ALMONTE KILN LABOURER Ot 733.90 BONE CARTILAGE DIS NOS 09/03/2016 CLARA ALMONTE KILN LABOURER Ot V58.69 OT MED,LT,CURRENT USE 09/03/2016 CLARA ALMONTE KILN LABOURER Ot 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, 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 09/03/2016 CLARA ALMONTE KILN LABOURER Ot 355.8 MONONEURITIS LEG NOS 09/03/2016 ALMONTE, HILAH S KILN LABOURER Ot 719.41 JOINT PAIN-SHLDER 09/03/2016 ALMONTE, HILAH S KILN LABOURER Ot 719.45 JOINT PAIN-PELVIS 09/03/2016 CLARA ALMONTE S KILN LABOURER Ot 733.13 PATHOLOGIC FRACTURE, VERTEBRAE 09/03/2016 CLARA ALMONTE S KILN LABOURER Ot 733.90 BONE CARTILAGE DIS NOS 09/03/2016 CLARA ALMONTE S KILN LABOURER Ot V58.69 OTH MED,LT,CURRENT USE 09/03/2016 CLARA ALMONTE S KILN LABOURER Ot 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, 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 09/03/2016 CLARA ALMONTE S KILN LABOURER Ot 355.8 MONONEURITIS LEG NOS 09/03/2016 CLARA ALMONTE S KILN LABOURER Ot 719.41 JOINT PAIN-SHLDER 09/03/2016 CLARA ALMONTE S KILN LABOURER Ot 719.45 JOINT PAIN-PELVIS 09/03/2016 CLARA ALMONTE S KILN LABOURER Ot 733.13 PATHOLOGIC FRACTURE, VERTEBRAE 09/03/2016 CLRAA ALMONTE S KILN LABOURER Ot 733.90 BONE CARTILAGE DIS NOS 09/03/2016 CLARA ALMONTE S KILN LABOURER Ot V58.69 OTH MED,LT,CURRENT USE 09/03/2016 CLARA ALMONTE S KILN LABOURER Ot 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, 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 09/03/2016 CLARA ALMONTE S KILN LABOURER Ot 355.8 MONONEURITIS LEG NOS 09/03/2016 CLARA ALMONTE S KILN LABOURER Ot 733.13 PATHOLOGIC FRACTURE, VERTEBRAE 09/03/2016 CLARA ALMONTE S KILN LABOURER Ot V58.69 OTH MED,LT,CURRENT USE 09/03/2016 BLAINE ALMONTEAH S KILN LABOURER Ot 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, 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 09/03/2016 ALMONTE, HILAH S KILN LABOURER Ot 285.9 ANEMIA NOS 09/03/2016 BLAINE ALMONTEAH S KILN LABOURER Ot 355.8 MONONEURITIS LEG NOS 09/03/2016 ALMONTE, HILAH S KILN LABOURER Ot 733.13 PATHOLOGIC FRACTURE, VERTEBRAE 09/03/2016 ALMONTE, HILAH S KILN LABOURER Ot 733.90 BONE CARTILAGE DIS NOS 09/03/2016 CLARA ALMONTE S KILN LABOURER Ot V58.69 OTH MED,LT,CURRENT USE 09/03/2016 ALMONTE, HILAH S KILN LABOURER Ot 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, 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 09/03/2016 ALMONTE HILAH S KILN LABOURER Ot 285.9 ANEMIA NOS 09/03/2016 ALMONTE HILAH S KILN LABOURER Ot 355.8 MONONEURITIS LEG NOS 09/03/2016 ALMONTE HILAH S KILN LABOURER Ot 733.13 PATHOLOGIC FRACTURE, VERTEBRAE 09/03/2016 ALMONTE HILAH S KILN LABOURER Ot 733.90 BONE CARTILAGE DIS NOS 09/03/2016 ALMONTE HILAH S KILN LABOURER Ot V58.69 OTH MED,LT,CURRENT USE 09/03/2016 ALMONTE HILAH S KILN LABOURER Ot 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, 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 09/03/2016 ALMONTE HILAH S KILN LABOURER Ot 285.9 ANEMIA NOS 09/03/2016 ALMONTE HILAH S KILN LABOURER Ot 355.8 MONONEURITIS LEG NOS 09/03/2016 ALMONTE HILAH S KILN LABOURER Ot 733.13 PATHOLOGIC FRACTURE, VERTEBRAE 09/03/2016 ALMONTE HILAH S KILN LABOURER Ot 733.90 BONE CARTILAGE DIS NOS 09/03/2016 ALMONTE HILAH S KILN LABOURER Ot V58.69 OTH MED,LT,CURRENT USE 09/03/2016 ALMONTE HILAH S KILN LABOURER Ot 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, 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 09/03/2016 ALMONTEBLAINEAH S KILN LABOURER Ot 285.9 ANEMIA NOS 09/03/2016 ALMONTE HILAH S KILN LABOURER Ot 355.8 MONONEURITIS LEG NOS 09/03/2016 ALMONTE HILAH S KILN LABOURER Ot 733.13 PATHOLOGIC FRACTURE, VERTEBRAE 09/03/2016 ALMONTE HILAH S KILN LABOURER Ot 733.90 BONE CARTILAGE DIS NOS 09/03/2016 ALMONTE HILAH S KILN LABOURER Ot V58.69 OTH MED,LT,CURRENT USE 09/03/2016 ALMONTE HILAH S KILN LABOURER Ot 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, 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 09/03/2016 ALMONTE HILAH S KILN LABOURER Ot 285.9 ANEMIA NOS 09/03/2016 ALMONTE HILAH S KILN LABOURER Ot 355.8 MONONEURITIS LEG NOS 09/03/2016 ALMONTE HILAH S KILN LABOURER Ot 733.13 PATHOLOGIC FRACTURE, VERTEBRAE 09/03/2016 ALMONTECLARA Rubio KILN LABOURER Ot 733.90 BONE CARTILAGE DIS NOS 09/03/2016 CLARA ALMONTE KILN LABOURER Ot V58.69 OTH MED,LT,CURRENT USE 09/03/2016 ALMONTECLARA Rubio KILN LABOURER Ot M85.89 OTH DISRD OF BONE DENSITY AND STRUCTURE , 09/03/2016 GAGECLARA LC Ot R29.890 LOSS OF HEIGHT 09/03/2016 BLAINE ALMONTEJOEL Rubio KILN LABOURER Ot 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 09/03/2016 BLAINE ALMONTEJOEL Rubio KILN LABOURER Ot G62.9 POLYNEUROPATHY, UNSPECIFIED 09/03/2016 BLAINE ALMONTEJOEL Ramiro HAROP Ot Z79.899 OTHER LONG-TERM (CURRENT) DRUG THERAPY 09/03/2016 BLAINE ALMONTEJOEL Ramiro PLATT Ot Z92.21 PERSONAL HISTORY OF ANTINEOPLASTIC CHEMO 09/03/2016 CLARA ALMONTE Ot Z92.3 PERSONAL HISTORY OF IRRADIATION 09/03/2016 SUJATHA MARMOLEJO Ot Z12.31 ENCNTR SCREEN MAMMOGRAM FOR MALIGNANT NE 09/03/2016 GENNARO MCELROY MD Ot 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 09/03/2016 GENNARO MCELROY MD Ot E55.9 VITAMIN D DEFICIENCY, UNSPECIFIED 09/03/2016 GENNARO MCELROY MD Ot E83.39 OTHER DISORDERS OF PHOSPHORUS METABOLISM 09/03/2016 GENNARO MCELROY MD Ot M85.80 OTH DISRD OF BONE DENSITY AND STRUCTURE, 09/03/2016 GENNARO MCELROY MD Ot Z94.84 STEM CELLS TRANSPLANT STATUS 09/03/2016 ANDREW WILLIS Ot 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 09/03/2016 ANDREW WILLIS Ot Z94.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 09/03/2016 CLARA ALMONTEP Ot 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 09/03/2016 CLARA ALMONTEP Ot D64.9 ANEMIA, UNSPECIFIED 09/03/2016 CLARA ALMONTEP Ot M89.9 DISORDER OF BONE, UNSPECIFIED 09/03/2016 CLARA ALMONTEP Ot Z79.899 OTHER LONG-TERM (CURRENT) DRUG THERAPY 09/03/2016 CLARA ALMONTE KILN LABOURER Ot Z94.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 09/03/2016 CLARA ALMONTE KILN LABOURER Ot 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 09/03/2016 CLARA ALMONTE KILN LABOURER Ot D64.9 ANEMIA, UNSPECIFIED 09/03/2016 CLARA ALMONTE KILN LABOURER Ot M89.9 DISORDER OF BONE, UNSPECIFIED 09/03/2016 CLARA ALMONTE KILN LABOURER Ot Z79.899 OTHER HAND STAMPER (CURRENT) DRUG THERAPY 09/03/2016 CLARA ALMONTE KILN LABOURER Ot Z92.21 PERSONAL HISTORY OF ANTINEOPLASTIC CHEMO 09/03/2016 CLARA ALMONTE KILN LABOURER Ot Z92.3 PERSONAL HISTORY OF IRRADIATION 09/03/2016 CLARA ALMONTE KILN LABOURER Ot Z94.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 09/03/2016 ANDREW WILLIS Ot 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 09/03/2016 ANDREW WILLIS N Ot D64.9 ANEMIA, UNSPECIFIED 09/03/2016 ANDREW WILLIS N Ot M89.9 DISORDER OF BONE, UNSPECIFIED 09/03/2016 ANDREW WILLIS N Ot Z79.899 OTHER HAND STAMPER (CURRENT) DRUG THERAPY 09/03/2016 CLARA ALMONTE KILN LABOURER Ot 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 09/03/2016 CLARA ALMONTE KILN LABOURER Ot M25.552 PAIN IN LEFT HIP 09/03/2016 CLARA ALMONTE KILN LABOURER Ot M54.5 LOW BACK PAIN 09/03/2016 EVI JOHN SALES AND MARKETING ASSISTANT Ot 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 09/03/2016 EVI JOHN SALES AND MARKETING ASSISTANT Ot R06.02 SHORTNESS OF BREATH 09/03/2016 EVI JOHN SALES AND MARKETING ASSISTANT Ot R09.02 HYPOXEMIA 09/05/2016 EVI JOHN SALES AND MARKETING ASSISTANT Ot 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 09/05/2016 EVI JOHN SALES AND MARKETING ASSISTANT Ot R06.02 SHORTNESS OF BREATH 09/05/2016 EVI JOHN SALES AND MARKETING ASSISTANT Ot R09.02 HYPOXEMIA 09/13/2016 ANDREW WILLIS N Ot 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 09/13/2016 ALBAANRDEW N Ot D64.9 ANEMIA, UNSPECIFIED 09/13/2016 ALBAANDREW N Ot M89.9 DISORDER OF BONE, UNSPECIFIED 09/13/2016 ALBAANDREW N Ot Z79.899 OTHER HAND STAMPER (CURRENT) DRUG THERAPY 09/17/2016 ANDREW WILLIS N Ot 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 09/17/2016 ALBAANDREW N Ot D64.9 ANEMIA, UNSPECIFIED 09/17/2016 ALBAANDREW N Ot M89.9 DISORDER OF BONE, UNSPECIFIED 09/17/2016 ALBA, ANDREW N Ot Z79.899 OTHER HAND STAMPER (CURRENT) DRUG THERAPY 09/18/2016 ANDREW WILLIS N Ot 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 09/18/2016 ANDREW WILLIS N Ot D64.9 ANEMIA, UNSPECIFIED 09/18/2016 ALBAANDREW JOEL N Ot M89.9 DISORDER OF BONE, UNSPECIFIED 09/18/2016 ANDREW WILLIS N Ot Z51.11 ENCOUNTER FOR ANTINEOPLASTIC CHEMOTHERAP 09/18/2016 ANDREW WILLIS N Ot Z79.899 OTHER HAND STAMPER (CURRENT) DRUG THERAPY 09/21/2016 ANDREW WILLIS N Ot 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 09/21/2016 ALBAANDREW N Ot D64.9 ANEMIA, UNSPECIFIED 09/21/2016 ALBAANDREW JOEL N Ot M89.9 DISORDER OF BONE, UNSPECIFIED 09/21/2016 ALBAANDREW N Ot Z79.899 OTHER LONG-TERM (CURRENT) DRUG THERAPY 09/28/2016 EVI JOHN SALES AND MARKETING ASSISTANT Ot 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 09/28/2016 EVI JOHN SALES AND MARKETING ASSISTANT Ot R06.02 SHORTNESS OF BREATH 09/28/2016 EVI JOHN SALES AND MARKETING ASSISTANT Ot R09.02 HYPOXEMIA 10/03/2016 EVI JOHN SALES AND MARKETING ASSISTANT Ot 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 10/03/2016 EVI JOHN SALES AND MARKETING ASSISTANT Ot R06.02 SHORTNESS OF BREATH 10/03/2016 EVI JOHN SALES AND MARKETING ASSISTANT Ot R09.02 HYPOXEMIA 10/11/2016 EVI JOHN SALES AND MARKETING ASSISTANT Ot 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 10/11/2016 EVI JOHN SALES AND MARKETING ASSISTANT Ot R06.02 SHORTNESS OF BREATH 10/11/2016 EVI JOHN SALES AND MARKETING ASSISTANT Ot R09.02 HYPOXEMIA 10/16/2016 EVI JOHN SALES AND MARKETING ASSISTANT Ot 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 10/16/2016 EVI JOHN SALES AND MARKETING ASSISTANT Ot R06.02 SHORTNESS OF BREATH 10/16/2016 EVI JOHN SALES AND MARKETING ASSISTANT Ot R09.02 HYPOXEMIA 11/07/2016 ALBAANDREW JOEL N Ot 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 11/07/2016 ALBAANDREW JOEL N Ot D64.9 ANEMIA, UNSPECIFIED 11/07/2016 ALBAANDREW JOEL N Ot M89.9 DISORDER OF BONE, UNSPECIFIED 11/07/2016 ALBAANDREW JOEL N Ot Z51.11 ENCOUNTER FOR ANTINEOPLASTIC CHEMOTHERAP 11/07/2016 ANDREW WILLIS N Ot Z79.899 OTHER HAND STAMPER (CURRENT) DRUG THERAPY 11/14/2016 ANDREW WILLIS N Ot 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 11/14/2016 ALBAANDREW JOEL N Ot D64.9 ANEMIA, UNSPECIFIED 11/14/2016 ANDREW WILLIS N Ot M89.9 DISORDER OF BONE, UNSPECIFIED 11/14/2016 ALBAANDREW JOEL N Ot Z51.11 ENCOUNTER FOR ANTINEOPLASTIC CHEMOTHERAP 11/14/2016 ANDREW WILLIS N Ot Z79.899 OTHER LONG-TERM (CURRENT) DRUG THERAPY 11/25/2016 EVI JOHN SALES AND MARKETING ASSISTANT Ot 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 11/25/2016 EVI JOHN SALES AND MARKETING ASSISTANT Ot R06.02 SHORTNESS OF BREATH 11/25/2016 EVI JOHN SALES AND MARKETING ASSISTANT Ot R09.02 HYPOXEMIA 12/19/2016 ALBAANDREW JOEL N Ot 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 12/19/2016 ALBAANDREW JOEL N Ot D64.9 ANEMIA, UNSPECIFIED 12/19/2016 ALBAANDREW JOEL N Ot M89.9 DISORDER OF BONE, UNSPECIFIED 12/19/2016 ALBAANDREW N Ot Z51.11 ENCOUNTER FOR ANTINEOPLASTIC CHEMOTHERAP 12/19/2016 ANDREW WILLIS N Ot Z79.899 OTHER HAND STAMPER (CURRENT) DRUG THERAPY 01/21/2017 ALBAANDREW N Ot 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 01/21/2017 ALBA, ANDREW N Ot D64.9 ANEMIA, UNSPECIFIED 01/21/2017 ALBAANDREW JOEL N Ot M89.9 DISORDER OF BONE, UNSPECIFIED 01/21/2017 ALBAANDREW N Ot Z79.899 OTHER HAND STAMPER (CURRENT) DRUG THERAPY 02/08/2017 ALBAANDREW N Ot 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 02/08/2017 ALBA, BOBSTEPHANIE N Ot D64.9 ANEMIA, UNSPECIFIED 02/08/2017 ALBA, BOBSTEPHANIE N Ot M89.9 DISORDER OF BONE, UNSPECIFIED 02/08/2017 ALBAANDREW N Ot Z79.899 OTHER HAND STAMPER (CURRENT) DRUG THERAPY 02/14/2017 ANDREW WILLIS N Ot 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 02/14/2017 ALBAANDREW N Ot D64.9 ANEMIA, UNSPECIFIED 02/14/2017 ALBAANDREW N Ot M89.9 DISORDER OF BONE, UNSPECIFIED 02/14/2017 ALBA, BOBSTEPHANIE N Ot Z79.899 OTHER LONG-TERM (CURRENT) DRUG THERAPY 02/21/2017 ROSEY MEAD MD Ot 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 02/21/2017 ROSEY MEAD MD Ot D64.9 ANEMIA, UNSPECIFIED 02/21/2017 ROSEY MEAD MD Ot M89.9 DISORDER OF BONE, UNSPECIFIED 02/21/2017 ROSEY MEAD MD Ot Z79.899 OTHER HAND STAMPER (CURRENT) DRUG THERAPY 03/07/2017 ALBA, BOBSTEPHANIE N Ot 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 03/07/2017 ALBA, BOBSTEPHANIE N Ot D64.9 ANEMIA, UNSPECIFIED 03/07/2017 ALBA, BOBAN N Ot M89.9 DISORDER OF BONE, UNSPECIFIED 03/07/2017 ALBA, BOBAN N Ot Z79.899 OTHER LONG-TERM (CURRENT) DRUG THERAPY 03/11/2017 ALBA, BOBAN N Ot 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 03/28/2017 DORAEVI TENORIO SALES AND MARKETING ASSISTANT Ot R06.02 SHORTNESS OF BREATH 03/28/2017 DORAEVI TENORIO SALES AND MARKETING ASSISTANT Ot R09.02 HYPOXEMIA 03/28/2017 ALBA BOBSTEPHANIE N Ot 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 03/28/2017 ALBAANDREW N Ot D64.9 ANEMIA, UNSPECIFIED 03/28/2017 ALBAANDREW N Ot M89.9 DISORDER OF BONE, UNSPECIFIED 03/28/2017 ALBAANDREW N Ot Z79.899 OTHER LONG-TERM (CURRENT) DRUG THERAPY 03/29/2017 ALBAANDREW N Ot 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 03/29/2017 ALBAANDREW N Ot D64.9 ANEMIA, UNSPECIFIED 03/29/2017 ALBAANDREW N Ot M89.9 DISORDER OF BONE, UNSPECIFIED 03/29/2017 ALBAANDREW N Ot Z51.11 ENCOUNTER FOR ANTINEOPLASTIC CHEMOTHERAP 03/29/2017 ALBAANDREW N Ot Z79.899 OTHER HAND STAMPER (CURRENT) DRUG THERAPY Procedures Code Description [place] [address] ROUTINE VENIPUNCTURE 11/17/2012 67983 CBC 11/17/2012 80484 CMP 11/17/2012 10674 LIPID PANEL 11/17 [id number] GFR CALC (RESULT ONLY) 11/17/2012 12348 TSH 11/17/2012 95602 ROUTINE VENIPUNCTURE 06/22/2013 90834 XRAY SHOULDER RIGHT COMP 2 VIEWS 06/22/2013 ANEMIAANA ANEMIA ANALYZER 06/22/2013 71336 CBC 06/22/2013 [id number] IMMATURE PLATELET FRACTION (RESULT ONLY) 06/23/2013 89636 RETICULOCYTE COUNT 06/23/2013 [id number] HEMATOLOGY OTHER REPORT 06/23/2013 10661 ROUTINE VENIPUNCTURE 07/06/2013 53058 CBC 07/06/2013 13908 VIT B 12 2012 68091 FOLATE 2012 59771 FERRITIN 2012 02079 RETICULOCYTE COUNT 07/06/2013 90747 JOINT INJECTION- INTERMEDIATE JOINT 07/16/2013 J1040 DEPO MEDROL 80 MG INJ 07/16/2013 17386 HEMOCCULT 2012 68093 HEMOCCULT 2012 81076 ROUTINE VENIPUNCTURE 08/17/2013 13743 CBC 08/17/2013 31777 RETICULOCYTE COUNT 08/17/2013 32908 VIT B 12 2012 03813 FOLATE 2012 12858 IRON SERUM 2012 08314 MRI SPINE (LUMBAR) W/O CONTRAST 08/18/2013 General S Robin Kendall 08/18/2013 05372 XRAY HIP LEFT UNILATERAL MIN 2 VIEWS 10/06/2013 81.52 PARTIAL HIP REPLACEMENT 01/05/2014 Results Encounters ACCT No. Visit Date/Time Discharge Status Pt. Type Provider Facility Loc./Unit Complaint [id number] 07/26/2014 04:10:00 07/26/2014 23: 59:59 CLS Outpatient GENE POOLE DO [id number] 06/09/2014 10:21:00 06/09/2014 23: 59:59 CLS Outpatient SUJATHA MARMOLEJO APRN [id number] 02/16/2014 05:54:00 02/16/2014 23: 59:59 CLS Outpatient RICK DURANT MD [id number] 01/25/2014 11:41:00 01/25/2014 23: 59:59 CLS Outpatient SUJATHA MARMOLEJO APRN [id number] 12/30/2013 14:38:00 12/30/2013 23: 59:59 CLS Outpatient SUJATHA MARMOLEJO APRN [id number] 11/03/2013 08:40:00 11/03/2013 23: 59:59 CLS Outpatient FRANCIE [employer] ASSISTANTSUJATHA S [id number] 10/06/2013 15:25:00 10/06/2013 23: 59:59 CLS Outpatient FRANCIE ELLIOTTNSUJATHA S [id number] 09/03/2013 11:38:00 09/03/2013 23: 59:59 CLS Outpatient FRANCIE [employer] MARKET[employer] ASSISTANTSUJATHA S [id number] 08/17/2013 15:12:00 08/17/2013 23: 59:59 CLS Outpatient [employer]E [employer] MARK[employer] ASSISTANTSUJATHA S [id number] 07/16/2013 13:06:00 07/16/2013 23: 59:59 CLS Outpatient FRANCIE ELLIOTTNSUJATHA S [id number] 07/06/2013 09:37:00 07/06/2013 23: 59:59 CLS Outpatient [employer] MARK[employer] ASSISTANTSUJATHA S [id number] 06/22/2013 11:56:00 06/22/2013 23: 59:59 CLS Outpatient FRANCIE ELLIOTTNSUJATHA S [id number] 06/08/2013 14:29:00 06/08/2013 23: 59:59 CLS Outpatient BHARGAV GALLEGOS, RICK [id number] 11/17/2012 11:04:00 11/17/2012 23: 59:59 CLS Outpatient SUJATHA MARMOLEJO APRN S [id number] 05/02/2017 09:32:00 2016 23:59:59 CLS Outpatient ANDREW WILLIS [facility] [address] ONC [id number] 03/20/2017 13:10:00 2016 00:01:00 DIS Outpatient ANDREW WILLIS [facility] [address] ONC [id number] 02/01/2017 14:44:00 2016 23:59:59 CLS Outpatient ROSEY MEAD MD [facility] [address] LAB [id number] 12/19/2016 10:39:00 2016 00:01:00 DIS Outpatient ANDREW WILLIS [facility] [address] ONC [id number] 11/26/2016 10:15:00 2016 23:59:59 CLS Preadmit DORA, EVI E SAL[employer] AND MARKETING ASSISTANT [facility] [address] PULM SOB,MULTIPLE MYELOMA [id number] 09/18/2016 14:30:00 2016 00:01:00 DIS Outpatient EVI JOHN [employer] MARKETING ASSISTANT [facility] [address] PULM SOB,MULTIPLE MYELOMA [id number] 09/13/2016 08:41:00 2016 00:01:00 DIS Outpatient ANDREW WILLIS [facility] [address] ONC [id number] 09/03/2016 15:36:00 2015 23:59:59 CLS Outpatient EVI JOHN [employer] MARKETING ASSISTANT [facility] [address] RT SOB,MULTIPLE MYELOMA [id number] 06/19/2016 15:11:00 2015 23:59:59 CLS Outpatient CLARA ALMONTE KILN LABOURER [facility] [address] RAD [id number] 06/15/2016 10:20:00 2015 09:32:00 DIS Outpatient ANDREW WILLIS [facility] [address] ONC [id number] 05/31/2016 14:17:00 2015 00:01:00 DIS Outpatient ANDREW WILLIS [facility] [address] ONC [id number] 05/15/2016 07:34:00 2015 23:59:59 CLS Preadmit CLARA ALMONTE KILN LABOURER [facility] [address] ONC [id number] 04/03/2016 09:09:00 2015 23:59:59 CLS Outpatient CLARA ALMONTE KIL[employer] LABOURER [facility] [address] ONC [id number] 03/06/2016 10:21:00 2015 23:59:59 CLS Outpatient CLARA ALMONTE KILN LABOURER [facility] [address] ONC [id number] 03/05/2016 14:46:00 2015 23:59:59 CLS Outpatient ANDREW WILLIS [facility] [address] CARD IGA MYELOMA [id number] 03/02/2016 12:55:00 2015 23:59:59 CLS Outpatient GENNARO MCELROY MD [facility] [address] LAB [id number] 02/15/2016 10:48:00 2015 23:59:59 CLS Outpatient SUJATHA MARMOLEJO KILN LABOURER [facility] [address] RAD SCREENING [id number] 02/15/2016 12:12:00 2015 00:01:00 DIS Outpatient ANDREW WILLIS [facility] [address] ONC [id number] 11/17/2015 10:50:00 2015 23:59:59 CLS Outpatient CLARA ALMONTE KILN LABOURER [facility] [address] ONC [id number] 10/21/2015 10:29:00 2015 23:59:59 CLS Outpatient ANDREW WILLIS [facility] [address] ONC [id number] 07/21/2015 09:57:00 2014 23:59:59 CLS Outpatient CLARA ALMONTE KILN LABOURER [facility] [address] RAD LOSS OF HEIGHT, CKD [id number] 06/15/2015 09:13:00 2014 23:59:59 CLS Outpatient CLARA ALMONTE KILN LABOURER [facility] [address] ONC [id number] 06/15/2015 09:15:00 2014 00:01:00 DIS Outpatient ANDREW WILLIS [facility] [address] ONC [id number] 02/21/2015 13:55:00 2014 00:01:00 DIS Outpatient ANDREW WILLIS [facility] [address] ONC [id number] 02/14/2015 15:11:00 2014 18:00:00 DIS Emergency KAITLYN GALLEGOS, JANNA Benitez [facility] [address] ER SOA [id number] 02/04/2015 14:46:00 2014 14:15:00 DIS Inpatient BROOK GALLEGOS, CONTRERAS Caputo [facility] [address] 4TH CAP (ATYPICAL) ATYPICAL CHEST PAIN HYPOXIA [id number] 01/24/2015 10:01:00 2014 23:59:59 CLS Outpatient CLARA ALMONTE KILN LABOURER [facility] [address] ONC [id number] 10/29/2014 14:14:00 2014 23:59:59 CLS Outpatient ANDREW WILLIS [facility] [address] ONC [id number] 09/08/2014 19:22:00 2013 21:45:00 DIS Emergency CHARISSA RAMIREZ MD [facility] [address] ER WEAKNESS [id number] 08/25/2014 12:38:00 2013 23:59:59 CLS Outpatient CLARA ALMONTE KILN LABOURER [facility] [address] ONC [id number] 04/12/2014 13:56:00 2013 00:01:00 DIS Outpatient ANDREW WILLIS [facility] [address] ONC [id number] 06/09/2014 13:06:00 2013 23:59:59 CLS Outpatient CLARA ALMONTE S KILN LABOURER [facility] [address] ONC [id number] 05/10/2014 15:32:00 2013 23:59:59 CLS Outpatient CLARA ALMONTE S KILN LABOURER [facility] [address] ONC [id number] 02/15/2014 12:53:00 2013 00:01:00 DIS Outpatient ANDREW WILLIS [facility] [address] ONC [id number] 02/04/2014 11:01:00 2013 11:45:00 DIS Outpatient BALDEV CUELLAR DO [facility] [address] REHAB S/P GABBY [id number] 02/15/2014 12:57:00 2013 23:59:59 CLS Outpatient CLARA ALMONTE S KILN LABOURER [facility] [address] ONC [id number] 01/22/2014 13:36:00 2013 23:59:59 CLS Outpatient CLARA ALMONTE S KILN LABOURER [facility] [address] ONC [id number] 01/07/2014 11:16:00 2013 11:05:00 DIS Inpatient FRANCHESCA GALLEGOS, RUBEN Rosario [facility] [address] IRF IRF-FX LEFT HIP [id number] 01/04/2014 16:05:00 2013 11:15:00 DIS Inpatient RICK DURANT MD [facility] [address] SURGICAL FX LEFT HIP [id number] 12/24/2013 10:10:00 2013 09:46:00 DIS Outpatient ANDREW WILLIS [facility] [address] ONC [id number] 12/14/2013 14:22:00 2013 23:59:59 CLS Outpatient CLARA ALMONTE KILN LABOURER [facility] [address] ONC [id number] 11/23/2013 14:27:00 2013 23:59:59 CLS Outpatient CLARA ALMONTE KILN LABOURER [facility] [address] ONC [id number] 10/28/2013 09:04:00 2013 16:55:00 DIS Outpatient [facility]MER SCOTT [facility] LUMBAR SECOND-THIRD COMPRESSION FRACTURE [id number] 10/27/2013 12:23:00 2013 23:59:59 CLS Outpatient UMER SCOTT MD [facility] [address] PREOP LUMBAR SECOND/THIRD COMPRESSION FRACTURE [id number] 10/08/2013 14:45:00 2013 23:59:59 CLS Outpatient ANDREW WILLIS [facility] [address] RAD RULE OUT MYLEOMA [id number] 09/28/2013 07:40:00 2013 23:59:59 CLS Outpatient GENARO WEBBER [facility] [address] RAD HTN [id number] 09/25/2013 07:41:00 2013 23:59:59 CLS Outpatient GENARO WEBBER [facility] [address] RAD HTN [id number] 08/21/2013 12:27:00 2012 23:59:59 CLS Outpatient SUJATHA MARMOLEJOP [facility] [address] RAD LBP, HX OF DISCECTOMY [id number] 08/10/2013 01:30:00 2012 15:30:00 DIS Outpatient RINA MARY KILN LABOURER [facility] [address] REHAB ROTATOR CUFF TEAR WITH STIFFNESS [id number] 07/21/2013 15:40:00 2012 23:59:59 CLS Outpatient [id number] 05/22/2013 11:12:00 2012 14:20:00 DIS Emergency JOSEE GALLEGOS, TEGAN Lozada [facility] [address] ER ABD/BACK/HIP PAIN [id number] 05/16/2013 12:01:00 2012 14:09:00 DIS Emergency RAMY SANTAMARIA APRN [facility] [address] ER BACK PAIN [id number] 09/09/2014 14:13:00 Document Registration [id number] 04/10/2010 15:00:00 Document Registration
[2017-05-10] MEDS ORDERED: ceFAZolin 1 GM/NS 50 ML IVPB IV ONE ×2 (08:45)
[2017-05-10] MEDS ORDERED: LACTATED RINGERS 1,000 ML IV PRN (09:02)
[2017-05-10 09:05] VITALS: BP 134/82
[2017-05-10] MEDS ORDERED: CITRIC ACID/SOB CIT (BICITRA) 30 ML UDC PO ONE (09:15)
[2017-05-10] MEDS ORDERED: METOCLOPRAMIDE INJ 10 MG/2 ML (REGLAN) IV ONE (09:15)
[2017-05-10] MEDS ORDERED: FAMOTIDINE 20MG/2ML IV (PEPCID) IV ONE (09:15)
[2017-05-10] MEDS ORDERED: CYCL10TA9 PO (09:33)
[2017-05-10] MEDS ORDERED: ASPI325T32 PO (09:33)
[2017-05-10] MEDS ORDERED: CALC600T12 PO (09:33)
[2017-05-10] MEDS ORDERED: DRON10CA PO (09:33)
[2017-05-10] MEDS ORDERED: HEParin (CENTRAL IV FLUSH) 500 UNIT/5 ML SYR ONE (09:47)
[2017-05-10] MEDS ORDERED: LIDOCAINE/EPI 1%-1:200,000 (XYLOCAINE) 30 ML VIAL ONE (09:47)
[2017-05-10] MEDS ORDERED: MIDAZOLAM 10 MG/2 ML (VERSED) VIAL ONE (09:59)
[2017-05-10] MEDS ORDERED: fentaNYL INJECTION 100 MCG/2 ML AMP ONE (10:00)
--- NOTE | 2017-05-10 10:13 | Progress Note-Pre Operative ---
Pre-Operative Progress Note H&P Reviewed The H&P was reviewed, patient examined and no changes noted. Date Seen by Provider: May 10, 2017 Time Seen by Provider: 10:00 Date H&P Reviewed: May 10, 2017 Time H&P Reviewed: 10:00 Pre-Operative Diagnosis: multiple myeloma ANATOLY QUINN MD May 10, 2017 10:13 am
[2017-05-10] MEDS ORDERED: ONDANSETRON 4 MG/2 ML (SDV) Z0FRAN IVP PRN ×2 (10:15→11:45)
[2017-05-10] MEDS ORDERED: morphine INJ 10 MG/ML 1ML (SYR OR VIAL) IVP PRN ×2 (10:15→11:45)
[2017-05-10] MEDS ORDERED: ACETAMINOPHEN 325 MG TABLET/CAPLET (TYLENOL) PO PRN (10:15)
[2017-05-10] MEDS ORDERED: HYDROcodone/APAP 5 MG/325 MG (LORTAB) TAB PO ONE (10:15)
--- NOTE | 2017-05-10 11:44 | Progress Note-Post Operative ---
Post-Operative Progess Note Surgeon (s)/Sheet Metal Assembler And Riveter (s) Surgeon ANATOLY QUINN MD Sheet Metal Assembler And Riveter: none Pre-Operative Diagnosis multiple myeloma Post-Operative Diagnosis same Procedure & Operative Findings Date of Procedure 05/10/17 Procedure Performed/Findings placement left subclavian groshong implantable catheter under flouroscopy. removal tunneled subcutaneous catheter. Anesthesia Type CS Estimated Blood Loss Estimated blood loss (mL): minimal Specimens/Packing Specimens Removed none ANATOLY QUINN MD May 10, 2017 11:44 am
--- NOTE | 2017-05-10 11:47 | Diagnostic Imaging Report ---
Indication: Need for central venous access. Discussion: Fluoroscopic support provided during intraoperative placement of a tunneled central venous catheter. Please see the operative report for full detail. Fluoroscopy time: 18 seconds. Impression: 1. Intraoperative central venous catheter placement. Dictated by: Dictated on workstation # [id number]
[2017-05-10] MEDS ORDERED: HYDR-3816 PO (11:48)
--- NOTE | 2017-05-10 11:49 | Discharge Inst-Surgical ---
D/C Lap Instructions-CHEYENNE New, Converted, or Re-Newed RX: RX on Chart Follow Up PRN Activity as tolerated Regular Diet Symptoms to Report: Fever over 101 degree F, Nausea/Vomiting Infection Signs and Symptoms to report: Increased redness, Foul odor of wound, Increased drainage Bathing instructions: May shower Operative Area Clean/Dry; Keep incision clean/dry If any problems/questions: Contact your physician or go to Emergency Room ANATOLY QUINN MD May 10, 2017 11:49 am
[2017-05-10 12:10] VITALS: BP 100/61
--- NOTE | 2017-05-10 12:23 | Diagnostic Imaging Report ---
INDICATION: Groshong catheter placement Frontal chest obtained at 1150 hrs, and compared with 09/20/16. Heart is normal in size. There is calcified granuloma in the right midlung. There is new Port-A-Cath over the left chest with tip overlying the SVC. There is no pneumothorax or pleural fluid. Soft tissue density in the right cardiophrenic angle seen which is probably a prominent fat pad. IMPRESSION: New Port-A-Cath in place with tip overlying SVC. No pneumothorax or pleural fluid following device placement. No other significant change compared to 09/20/16. Dictated by: Dictated on workstation # [id number]
[2017-05-10 12:40] VITALS: BP 93/74
[2017-05-10 13:10] VITALS: BP 113/68
[2017-05-10 13:30] VITALS: BP 113/68
--- NOTE | 2017-05-10 14:36 | OPERATIVE REPORT ---
DATE OF SERVICE: ATTENDING PRIMARY CARE PHYSICIAN: Dr. Jose Baker. PREOPERATIVE DIAGNOSIS: Recurrent multiple myeloma. POSTOPERATIVE DIAGNOSIS: Recurrent multiple myeloma. PROCEDURE: Placement of left subclavian Groshong implantable catheter, removal right subclavian tunneled cuffed subcutaneous catheter. SURGEON: Dr. Quinn. ANESTHESIA: Conscious sedation with local. ESTIMATED BLOOD LOSS: Minimal. FINDINGS: Catheter tip at right superior vena cava-right atrial junction. DISPOSITION: The patient tolerated the procedure well. INDICATIONS: The patient is a 67-year-old female with recurrent multiple myeloma. She reports that in 2012 she developed joint pain and underwent evaluation and found to have multiple myeloma. She underwent chemotherapy as well as a bone marrow transplantation and states that she was in remission for several years. She had routine laboratory work done which did show recurrent multiple myeloma. She is being seen by oncology and she will undergo long-term chemotherapy. She has a tunneled right subclavian cuffed catheter in; however, this has been in for the past approximately six months and needs to be removed and she needs to have a longer term IV access placed. DESCRIPTION OF PROCEDURE: The patient was brought to the operating room, laid supine on the table. After adequate IV pain and sedating medications and conscious sedation anesthesia, the chest and neck were prepped and draped in standard surgical fashion. Marcaine 0.5% with epinephrine was used to anesthetize the overlying skin and subcutaneous tissue as well as the muscle layers in the left subclavian region. The left subclavian vein was cannulated with drawing of venous blood. Guidewire was then inserted under fluoroscopy. Cannulating needle removed and a skin incision made using 15 blade. A dilator and sheath were then introduced over the guidewire. The dilator and guidewire were removed and the Groshong catheter placed under direct visualization using fluoroscopy until the tip was at the superior vena cava-right atrial junction. The sheath was then removed. The inner wire within the catheter was then removed and the catheter cut down to size and port placed onto the catheter. The skin incision was then extended laterally with a 15 blade and the reservoir created between the anterior pectoralis fascia and the subcutaneous fat using blunt dissection as well as electrocautery with visualization of good hemostasis. The port was then placed into this reservoir and sutured to the fascia using interrupted 3-0 Vicryl sutures. Subcutaneous tissue was then reapproximated using 3-0 Vicryl interrupted sutures. Skin was closed using 4-0 Monocryl running subcuticular suture. The wound was then cleaned and covered with Dermabond. The port was accessed withdrawing of venous blood and heparinized saline pushed in without any resistance. Under the same conscious sedation anesthesia, we then proceeded with local anesthesia around the cuffed portion as well as the opening of the previously placed tunnel catheter. A skin incision was then extended along the exit site of the catheter using a 15 blade. We were able to dissect the cuff from the subcutaneous tissue using Metzenbaum scissors. The catheter was then completely removed intact while applying direct pressure with visualization of good hemostasis. A few loose interrupted 4-0 nylon sutures were used to reapproximate the skin edges. This wound was then cleaned and covered with sterile gauze. The patient tolerated the procedure well. We will get a post-procedure chest x-ray once confirmed the catheter may be accessed and used any time. Job ID: [id number] DocumentID: [id number] Dictated Date: 05/10/2017 11:55:54 Animal Biologist Date: 05/10/2017 14:34:58 Dictated By: ANATOLY QUINN MD [facility]
== END 2017-05-10 13:30 | disposition home or self-care (01) ==
LOC: SDC 07:36
PROVIDERS: ATTEND Surgery
DX: C90.00 Multiple myeloma not having achieved remission (principal); E03.9 Hypothyroidism, unspecified; J44.9 Chronic obstructive pulmonary disease, unspecified; K21.9 Gastro-esophageal reflux disease without esophagitis; F41.9 Anxiety disorder, unspecified; Z79.899 Other long term (current) drug therapy; Z87.891 Personal history of nicotine dependence
CPT/HCPCS: 71010; 87081

== ENCOUNTER → 2017-05-23 | Outpatient (CLI) | payer MEDICARE, MEDICAID ==
[~2017-05-23] MED LIST changes: +ASPI325T32 PO; +CALC600T12 PO; +DRON10CA PO; +HYDR-3816 PO
== END ==
LOC: LAB 14:24
PROVIDERS: ATTEND Nurse Practitioner Community Health
DX: E03.9 Hypothyroidism, unspecified (principal)
CPT/HCPCS: 36415; 84443

== ENCOUNTER 2017-06-14 15:27 | Outpatient (RCR) | payer MEDICARE, MEDICAID ==
[2017-03-28 08:46] LABS: BASOPHILS % (AUTO) 0 % (0-10); EOSINOPHILS % (AUTO) 0 % (0-10); LYMPHOCYTES # (AUTO) 0.5 X 10^3 (1.0-4.0); LYMPHOCYTES % (AUTO) 24 % (12-44); MEAN CORPUSCULAR HEMOGLOBIN 33 PG (25-34); MEAN CORPUSCULAR HGB CONC 34 G/DL (32-36); MEAN CORPUSCULAR VOLUME 95 FL (80-99); MEAN PLATELET VOLUME 9.4 FL (7.4-10.4); MONOCYTES % (AUTO) 2 % (0-12); NEUTROPHILS # (AUTO) 1.5 X 10^3 (1.8-7.8); NEUTROPHILS % (AUTO) 75 % (42-75); PLATELET COUNT 73 10^3/uL (130-400); RED BLOOD COUNT 2.88 10^6/uL (4.35-5.85); RED CELL DISTRIBUTION WIDTH 13.3 % (10.0-14.5)
[2017-03-28 09:11] LABS: ALBUMIN 3.7 GM/DL (3.2-4.5); BILIRUBIN,TOTAL 0.3 MG/DL (0.1-1.0); CALCIUM 10.4 MG/DL (8.5-10.1); CREATININE SERUM 1.31 MG/DL (0.60-1.30); POTASSIUM 4.2 MMOL/L (3.6-5.0)
[2017-03-29 07:58] LABS: LIGHT CHAIN LAMBDA SERUM QUANT 4.49 mg/L (5.71-26.30)
[2017-04-04 09:05] LABS: BASOPHILS % (AUTO) 0 % (0-10); EOSINOPHILS # (AUTO) 0.1 10^3/uL (0.0-0.3); EOSINOPHILS % (AUTO) 5 % (0-10); LYMPHOCYTES # (AUTO) 0.3 X 10^3 (1.0-4.0); LYMPHOCYTES % (AUTO) 10 % (12-44); MEAN CORPUSCULAR HEMOGLOBIN 32 PG (25-34); MEAN CORPUSCULAR HGB CONC 34 G/DL (32-36); MEAN CORPUSCULAR VOLUME 95 FL (80-99); MEAN PLATELET VOLUME 9.3 FL (7.4-10.4); MONOCYTES # (AUTO) 0.2 X 10^3 (0.0-1.0); MONOCYTES % (AUTO) 7 % (0-12); NEUTROPHILS % (AUTO) 78 % (42-75); PLATELET COUNT 50 10^3/uL (130-400); RED CELL DISTRIBUTION WIDTH 13.7 % (10.0-14.5); WHITE BLOOD COUNT 2.6 10^3/uL (4.3-11.0)
[2017-04-04 09:30] LABS: CALCIUM 8.7 MG/DL (8.5-10.1); CREATININE SERUM 1.04 MG/DL (0.60-1.30); POTASSIUM 3.3 MMOL/L (3.6-5.0)
[2017-04-04 09:54] LABS: THYROID STIMULATING HORMONE 2.19 UIU/ML (0.35-4.94)
[2017-04-11 08:58] LABS: BASOPHILS % (AUTO) 0 % (0-10); EOSINOPHILS % (AUTO) 0 % (0-10); LYMPHOCYTES # (AUTO) 0.2 X 10^3 (1.0-4.0); LYMPHOCYTES % (AUTO) 12 % (12-44); MEAN CORPUSCULAR HGB CONC 34 G/DL (32-36); MEAN CORPUSCULAR VOLUME 97 FL (80-99); MEAN PLATELET VOLUME 9.4 FL (7.4-10.4); MONOCYTES % (AUTO) 3 % (0-12); NEUTROPHILS # (AUTO) 1.2 X 10^3 (1.8-7.8); NEUTROPHILS % (AUTO) 85 % (42-75); PLATELET COUNT 63 10^3/uL (130-400); RED BLOOD COUNT 2.74 10^6/uL (4.35-5.85); RED CELL DISTRIBUTION WIDTH 13.2 % (10.0-14.5)
[2017-04-11 08:59] LABS: MEAN CORPUSCULAR HEMOGLOBIN 32 PG (25-34); WHITE BLOOD COUNT 1.4 10^3/uL (4.3-11.0)
[2017-04-11 09:24] LABS: CALCIUM 8.9 MG/DL (8.5-10.1); CREATININE SERUM 1.46 MG/DL (0.60-1.30); MAGNESIUM 1.7 MG/DL (1.8-2.4); POTASSIUM 4.8 MMOL/L (3.6-5.0)
[2017-04-18 09:46] LABS: BASOPHILS % (AUTO) 0 % (0-10); EOSINOPHILS % (AUTO) 1 % (0-10); LYMPHOCYTES # (AUTO) 0.2 X 10^3 (1.0-4.0); LYMPHOCYTES % (AUTO) 13 % (12-44); MEAN CORPUSCULAR HEMOGLOBIN 32 PG (25-34); MEAN CORPUSCULAR HGB CONC 34 G/DL (32-36); MEAN CORPUSCULAR VOLUME 96 FL (80-99); MEAN PLATELET VOLUME 9.9 FL (7.4-10.4); MONOCYTES # (AUTO) 0.1 X 10^3 (0.0-1.0); MONOCYTES % (AUTO) 7 % (0-12); NEUTROPHILS # (AUTO) 1.1 X 10^3 (1.8-7.8); NEUTROPHILS % (AUTO) 79 % (42-75); PLATELET COUNT 70 10^3/uL (130-400); RED BLOOD COUNT 2.96 10^6/uL (4.35-5.85); RED CELL DISTRIBUTION WIDTH 13.5 % (10.0-14.5)
[2017-04-18 09:47] LABS: WHITE BLOOD COUNT 1.4 10^3/uL (4.3-11.0)
[2017-04-18 10:13] LABS: CALCIUM 8.9 MG/DL (8.5-10.1); CREATININE SERUM 1.02 MG/DL (0.60-1.30); MAGNESIUM 1.6 MG/DL (1.8-2.4); POTASSIUM 4.3 MMOL/L (3.6-5.0)
[2017-04-25 11:18] LABS: BASOPHILS % (AUTO) 0 % (0-10); EOSINOPHILS % (AUTO) 1 % (0-10); LYMPHOCYTES # (AUTO) 0.2 X 10^3 (1.0-4.0); LYMPHOCYTES % (AUTO) 10 % (12-44); MEAN CORPUSCULAR HEMOGLOBIN 32 PG (25-34); MEAN CORPUSCULAR HGB CONC 34 G/DL (32-36); MEAN CORPUSCULAR VOLUME 94 FL (80-99); MEAN PLATELET VOLUME 9.3 FL (7.4-10.4); MONOCYTES # (AUTO) 0.1 X 10^3 (0.0-1.0); MONOCYTES % (AUTO) 6 % (0-12); NEUTROPHILS # (AUTO) 1.6 X 10^3 (1.8-7.8); NEUTROPHILS % (AUTO) 84 % (42-75); PLATELET COUNT 108 10^3/uL (130-400); RED BLOOD COUNT 3.15 10^6/uL (4.35-5.85); RED CELL DISTRIBUTION WIDTH 13.8 % (10.0-14.5); WHITE BLOOD COUNT 1.9 10^3/uL (4.3-11.0)
[2017-04-25 11:45] LABS: ALBUMIN 3.8 GM/DL (3.2-4.5); BILIRUBIN,TOTAL 0.3 MG/DL (0.1-1.0); CALCIUM 8.7 MG/DL (8.5-10.1); CREATININE SERUM 1.18 MG/DL (0.60-1.30); MAGNESIUM 1.7 MG/DL (1.8-2.4); POTASSIUM 3.4 MMOL/L (3.6-5.0); TOTAL PROTEIN 6.1 GM/DL (6.4-8.2)
[2017-04-26 05:41] LABS: LIGHT CHAIN KAPPA SERUM QUANT 419.33 mg/L (3.30-19.40); LIGHT CHAIN LAMBDA SERUM QUANT 1.45 mg/L (5.71-26.30)
[2017-05-02 09:59] LABS: BASOPHILS % (AUTO) 0 % (0-10); EOSINOPHILS % (AUTO) 0 % (0-10); LYMPHOCYTES # (AUTO) 0.2 X 10^3 (1.0-4.0); LYMPHOCYTES % (AUTO) 12 % (12-44); MEAN CORPUSCULAR HEMOGLOBIN 32 PG (25-34); MEAN CORPUSCULAR HGB CONC 34 G/DL (32-36); MEAN CORPUSCULAR VOLUME 95 FL (80-99); MEAN PLATELET VOLUME 10.2 FL (7.4-10.4); MONOCYTES % (AUTO) 1 % (0-12); NEUTROPHILS # (AUTO) 1.3 X 10^3 (1.8-7.8); NEUTROPHILS % (AUTO) 87 % (42-75); PLATELET COUNT 81 10^3/uL (130-400); RED BLOOD COUNT 3.03 10^6/uL (4.35-5.85); RED CELL DISTRIBUTION WIDTH 14.6 % (10.0-14.5)
[2017-05-02 10:02] LABS: WHITE BLOOD COUNT 1.4 10^3/uL (4.3-11.0)
[2017-05-02 10:20] LABS: CALCIUM 9.1 MG/DL (8.5-10.1); CREATININE SERUM 1.49 MG/DL (0.60-1.30); POTASSIUM 5.1 MMOL/L (3.6-5.0)
[2017-05-02 10:41] LABS: THYROID STIMULATING HORMONE 0.76 UIU/ML (0.35-4.94)
[2017-05-09 09:47] LABS: BASOPHILS % (AUTO) 0 % (0-10); EOSINOPHILS % (AUTO) 1 % (0-10); LYMPHOCYTES # (AUTO) 0.1 X 10^3 (1.0-4.0); LYMPHOCYTES % (AUTO) 10 % (12-44); MEAN CORPUSCULAR HEMOGLOBIN 32 PG (25-34); MEAN CORPUSCULAR HGB CONC 34 G/DL (32-36); MEAN CORPUSCULAR VOLUME 96 FL (80-99); MEAN PLATELET VOLUME 10.3 FL (7.4-10.4); MONOCYTES % (AUTO) 3 % (0-12); NEUTROPHILS # (AUTO) 0.9 X 10^3 (1.8-7.8); NEUTROPHILS % (AUTO) 86 % (42-75); PLATELET COUNT 84 10^3/uL (130-400); RED BLOOD COUNT 2.96 10^6/uL (4.35-5.85); RED CELL DISTRIBUTION WIDTH 15.1 % (10.0-14.5)
[2017-05-09 10:15] LABS: CALCIUM 9.1 MG/DL (8.5-10.1); CREATININE SERUM 1.39 MG/DL (0.60-1.30); MAGNESIUM 1.5 MG/DL (1.8-2.4); POTASSIUM 4.8 MMOL/L (3.6-5.0)
[2017-05-16 09:56] LABS: BASOPHILS % (AUTO) 0 % (0-10); EOSINOPHILS % (AUTO) 0 % (0-10); LYMPHOCYTES # (AUTO) 0.2 X 10^3 (1.0-4.0); LYMPHOCYTES % (AUTO) 14 % (12-44); MEAN CORPUSCULAR HEMOGLOBIN 32 PG (25-34); MEAN CORPUSCULAR HGB CONC 33 G/DL (32-36); MEAN CORPUSCULAR VOLUME 97 FL (80-99); MEAN PLATELET VOLUME 10.4 FL (7.4-10.4); MONOCYTES # (AUTO) 0.1 X 10^3 (0.0-1.0); MONOCYTES % (AUTO) 4 % (0-12); NEUTROPHILS # (AUTO) 0.9 X 10^3 (1.8-7.8); NEUTROPHILS % (AUTO) 82 % (42-75); PLATELET COUNT 88 10^3/uL (130-400); RED BLOOD COUNT 2.77 10^6/uL (4.35-5.85); RED CELL DISTRIBUTION WIDTH 15.3 % (10.0-14.5)
[2017-05-16 09:57] LABS: WHITE BLOOD COUNT 1.1 10^3/uL (4.3-11.0)
[2017-05-16 10:10] LABS: CALCIUM 8.9 MG/DL (8.5-10.1); CREATININE SERUM 1.26 MG/DL (0.60-1.30); MAGNESIUM 1.5 MG/DL (1.8-2.4); POTASSIUM 4.7 MMOL/L (3.6-5.0)
[2017-05-23 14:45] LABS: BASOPHILS % (AUTO) 1 % (0-10); EOSINOPHILS % (AUTO) 0 % (0-10); LYMPHOCYTES # (AUTO) 0.2 X 10^3 (1.0-4.0); LYMPHOCYTES % (AUTO) 14 % (12-44); MEAN CORPUSCULAR HEMOGLOBIN 33 PG (25-34); MEAN CORPUSCULAR HGB CONC 34 G/DL (32-36); MEAN CORPUSCULAR VOLUME 98 FL (80-99); MEAN PLATELET VOLUME 10.2 FL (7.4-10.4); MONOCYTES # (AUTO) 0.1 X 10^3 (0.0-1.0); MONOCYTES % (AUTO) 4 % (0-12); NEUTROPHILS # (AUTO) 1.3 X 10^3 (1.8-7.8); NEUTROPHILS % (AUTO) 82 % (42-75); PLATELET COUNT 102 10^3/uL (130-400); RED BLOOD COUNT 2.91 10^6/uL (4.35-5.85); RED CELL DISTRIBUTION WIDTH 16.7 % (10.0-14.5); WHITE BLOOD COUNT 1.6 10^3/uL (4.3-11.0)
[2017-05-23 15:04] LABS: ALBUMIN 3.5 GM/DL (3.2-4.5); BILIRUBIN,TOTAL 0.4 MG/DL (0.1-1.0); CALCIUM 8.9 MG/DL (8.5-10.1); CREATININE SERUM 1.46 MG/DL (0.60-1.30); POTASSIUM 4.8 MMOL/L (3.6-5.0); TOTAL PROTEIN 6.1 GM/DL (6.4-8.2)
[2017-05-24 02:35] LABS: LIGHT CHAIN KAPPA SERUM QUANT 657.24 mg/L (3.30-19.40); LIGHT CHAIN LAMBDA SERUM QUANT 1.26 mg/L (5.71-26.30)
[2017-05-30 12:57] LABS: BASOPHILS % (AUTO) 0 % (0-10); EOSINOPHILS % (AUTO) 0 % (0-10); LYMPHOCYTES # (AUTO) 0.2 X 10^3 (1.0-4.0); LYMPHOCYTES % (AUTO) 14 % (12-44); MEAN CORPUSCULAR HEMOGLOBIN 32 PG (25-34); MEAN CORPUSCULAR HGB CONC 33 G/DL (32-36); MEAN CORPUSCULAR VOLUME 97 FL (80-99); MEAN PLATELET VOLUME 9.7 FL (7.4-10.4); MONOCYTES # (AUTO) 0.1 X 10^3 (0.0-1.0); MONOCYTES % (AUTO) 5 % (0-12); NEUTROPHILS % (AUTO) 81 % (42-75); PLATELET COUNT 115 10^3/uL (130-400); RED BLOOD COUNT 2.63 10^6/uL (4.35-5.85); RED CELL DISTRIBUTION WIDTH 17.3 % (10.0-14.5)
[2017-05-30 13:02] LABS: WHITE BLOOD COUNT 1.2 10^3/uL (4.3-11.0)
[2017-05-30 13:16] LABS: CALCIUM 8.6 MG/DL (8.5-10.1); CREATININE SERUM 1.32 MG/DL (0.60-1.30); MAGNESIUM 1.7 MG/DL (1.8-2.4); POTASSIUM 4.2 MMOL/L (3.6-5.0)
[2017-06-06 09:58] LABS: BASOPHILS % (AUTO) 0 % (0-10); EOSINOPHILS % (AUTO) 0 % (0-10); LYMPHOCYTES # (AUTO) 0.5 X 10^3 (1.0-4.0); LYMPHOCYTES % (AUTO) 22 % (12-44); MEAN CORPUSCULAR HEMOGLOBIN 33 PG (25-34); MEAN CORPUSCULAR HGB CONC 34 G/DL (32-36); MEAN CORPUSCULAR VOLUME 96 FL (80-99); MEAN PLATELET VOLUME 9.8 FL (7.4-10.4); MONOCYTES # (AUTO) 0.1 X 10^3 (0.0-1.0); MONOCYTES % (AUTO) 5 % (0-12); NEUTROPHILS # (AUTO) 1.5 X 10^3 (1.8-7.8); NEUTROPHILS % (AUTO) 73 % (42-75); PLATELET COUNT 103 10^3/uL (130-400); WHITE BLOOD COUNT 2.1 10^3/uL (4.3-11.0)
[2017-06-06 10:18] LABS: CALCIUM 8.9 MG/DL (8.5-10.1); CREATININE SERUM 1.37 MG/DL (0.60-1.30); MAGNESIUM 1.9 MG/DL (1.8-2.4)
[~2017-06-14] VITALS: Ht 162.6 cm; Wt 66.7 kg
[~2017-06-14 15:27] MED LIST changes: +ACETAMINOPHEN 325 MG TAB (TYLENOL) CANCER CTR PO PRN; +DEXAMETHASONE IV SCH; +ELOTUZUMAB IV SCH; +FAMOTIDINE 20MG/2ML IV (CANCER CTR) IV SCH; +NS IV 1000 ML (CANCER CTR) IV SCH; +NS IV SCH; +diphenhydrAMINE 50 MG/ML INJ (CANCER CENTER) IV PRN
[2017-06-14 15:50] LABS: BASOPHILS % (AUTO) 0 % (0-10); EOSINOPHILS % (AUTO) 0 % (0-10); LYMPHOCYTES # (AUTO) 0.3 X 10^3 (1.0-4.0); LYMPHOCYTES % (AUTO) 13 % (12-44); MEAN CORPUSCULAR HEMOGLOBIN 32 PG (25-34); MEAN CORPUSCULAR HGB CONC 33 G/DL (32-36); MEAN CORPUSCULAR VOLUME 98 FL (80-99); MONOCYTES # (AUTO) 0.3 X 10^3 (0.0-1.0); MONOCYTES % (AUTO) 13 % (0-12); NEUTROPHILS # (AUTO) 1.9 X 10^3 (1.8-7.8); NEUTROPHILS % (AUTO) 73 % (42-75); PLATELET COUNT 85 10^3/uL (130-400); RED BLOOD COUNT 2.53 10^6/uL (4.35-5.85); RED CELL DISTRIBUTION WIDTH 17.6 % (10.0-14.5); WHITE BLOOD COUNT 2.6 10^3/uL (4.3-11.0)
[2017-06-14 16:07] LABS: CALCIUM 9.8 MG/DL (8.5-10.1); CREATININE SERUM 1.36 MG/DL (0.60-1.30); MAGNESIUM 1.6 MG/DL (1.8-2.4); POTASSIUM 4.9 MMOL/L (3.6-5.0)
== END 2017-06-15 | disposition home or self-care (01) ==
LOC: ONC 15:27
PROVIDERS: ATTEND Internal Medicine Hematology & Oncology
DX: Z51.11 Encounter for antineoplastic chemotherapy (principal); C90.00 Multiple myeloma not having achieved remission; D64.9 Anemia, unspecified; M89.9 Disorder of bone, unspecified; Z79.899 Other long term (current) drug therapy
CPT/HCPCS: 36415; 36591; 80048; 80053; 82232; 82784; 83735; 83883; 84443; 85025; 96375; 96413; 96415

== ENCOUNTER 2017-07-11 15:00 | Outpatient (RCR) | payer MEDICARE, MEDICAID ==
[2017-06-20 14:13] LABS: BASOPHILS % (AUTO) 0 % (0-10); EOSINOPHILS % (AUTO) 1 % (0-10); LYMPHOCYTES # (AUTO) 0.4 X 10^3 (1.0-4.0); LYMPHOCYTES % (AUTO) 33 % (12-44); MEAN CORPUSCULAR HEMOGLOBIN 32 PG (25-34); MEAN CORPUSCULAR HGB CONC 33 G/DL (32-36); MEAN CORPUSCULAR VOLUME 99 FL (80-99); MEAN PLATELET VOLUME 11.3 FL (7.4-10.4); MONOCYTES # (AUTO) 0.1 X 10^3 (0.0-1.0); MONOCYTES % (AUTO) 5 % (0-12); NEUTROPHILS # (AUTO) 0.8 X 10^3 (1.8-7.8); NEUTROPHILS % (AUTO) 62 % (42-75); PLATELET COUNT 73 10^3/uL (130-400); RED BLOOD COUNT 2.36 10^6/uL (4.35-5.85); RED CELL DISTRIBUTION WIDTH 17.2 % (10.0-14.5)
[2017-06-20 14:14] LABS: WHITE BLOOD COUNT 1.3 10^3/uL (4.3-11.0)
[2017-06-20 14:38] LABS: ALBUMIN 3.1 GM/DL (3.2-4.5); BILIRUBIN,TOTAL 0.3 MG/DL (0.1-1.0); CALCIUM 7.7 MG/DL (8.5-10.1); CREATININE SERUM 1.58 MG/DL (0.60-1.30); POTASSIUM 4.4 MMOL/L (3.6-5.0); TOTAL PROTEIN 5.9 GM/DL (6.4-8.2)
[2017-06-20 15:02] LABS: MAGNESIUM 1.2 MG/DL (1.8-2.4)
[2017-06-21 07:01] LABS: LIGHT CHAIN LAMBDA SERUM QUANT 6.68 mg/L (5.71-26.30)
[2017-06-27 16:25] LABS: BASOPHILS % (AUTO) 0 % (0-10); EOSINOPHILS % (AUTO) 0 % (0-10); LYMPHOCYTES # (AUTO) 0.3 X 10^3 (1.0-4.0); LYMPHOCYTES % (AUTO) 24 % (12-44); MEAN CORPUSCULAR HEMOGLOBIN 31 PG (25-34); MEAN CORPUSCULAR HGB CONC 32 G/DL (32-36); MEAN CORPUSCULAR VOLUME 94 FL (80-99); MEAN PLATELET VOLUME 11.2 FL (7.4-10.4); MONOCYTES % (AUTO) 2 % (0-12); NEUTROPHILS % (AUTO) 74 % (42-75); PLATELET COUNT 67 10^3/uL (130-400); RED BLOOD COUNT 2.88 10^6/uL (4.35-5.85); RED CELL DISTRIBUTION WIDTH 17.4 % (10.0-14.5)
[2017-06-27 16:26] LABS: WHITE BLOOD COUNT 1.4 10^3/uL (4.3-11.0)
[2017-06-27 16:47] LABS: ALBUMIN 3.3 GM/DL (3.2-4.5); BILIRUBIN,TOTAL 0.3 MG/DL (0.1-1.0); CALCIUM 8.8 MG/DL (8.5-10.1); MAGNESIUM 1.4 MG/DL (1.8-2.4); POTASSIUM 5.1 MMOL/L (3.6-5.0); TOTAL PROTEIN 5.9 GM/DL (6.4-8.2)
[2017-07-01 11:40] LABS: BASOPHILS % (AUTO) 0 % (0-10); EOSINOPHILS # (AUTO) 0.1 10^3/uL (0.0-0.3); EOSINOPHILS % (AUTO) 10 % (0-10); LYMPHOCYTES # (AUTO) 0.2 X 10^3 (1.0-4.0); LYMPHOCYTES % (AUTO) 21 % (12-44); MEAN CORPUSCULAR HEMOGLOBIN 31 PG (25-34); MEAN CORPUSCULAR HGB CONC 33 G/DL (32-36); MEAN CORPUSCULAR VOLUME 97 FL (80-99); MONOCYTES # (AUTO) 0.1 X 10^3 (0.0-1.0); MONOCYTES % (AUTO) 8 % (0-12); NEUTROPHILS # (AUTO) 0.5 X 10^3 (1.8-7.8); NEUTROPHILS % (AUTO) 62 % (42-75); PLATELET COUNT 76 10^3/uL (130-400); RED CELL DISTRIBUTION WIDTH 17.7 % (10.0-14.5)
[2017-07-01 11:43] LABS: WHITE BLOOD COUNT 0.8 10^3/uL (4.3-11.0)
[2017-07-01 12:03] LABS: ALBUMIN 3.1 GM/DL (3.2-4.5); BILIRUBIN,TOTAL 0.2 MG/DL (0.1-1.0); CALCIUM 8.7 MG/DL (8.5-10.1); CREATININE SERUM 1.25 MG/DL (0.60-1.30); MAGNESIUM 1.5 MG/DL (1.8-2.4); POTASSIUM 4.1 MMOL/L (3.6-5.0); TOTAL PROTEIN 5.7 GM/DL (6.4-8.2)
[2017-07-04 13:22] LABS: BASOPHILS % (AUTO) 1 % (0-10); EOSINOPHILS % (AUTO) 0 % (0-10); LYMPHOCYTES # (AUTO) 0.4 X 10^3 (1.0-4.0); LYMPHOCYTES % (AUTO) 23 % (12-44); MEAN CORPUSCULAR HEMOGLOBIN 31 PG (25-34); MEAN CORPUSCULAR HGB CONC 32 G/DL (32-36); MEAN CORPUSCULAR VOLUME 96 FL (80-99); MEAN PLATELET VOLUME 10.1 FL (7.4-10.4); MONOCYTES # (AUTO) 0.1 X 10^3 (0.0-1.0); MONOCYTES % (AUTO) 4 % (0-12); NEUTROPHILS # (AUTO) 1.4 X 10^3 (1.8-7.8); NEUTROPHILS % (AUTO) 72 % (42-75); PLATELET COUNT 92 10^3/uL (130-400); RED BLOOD COUNT 2.86 10^6/uL (4.35-5.85); RED CELL DISTRIBUTION WIDTH 17.3 % (10.0-14.5); WHITE BLOOD COUNT 1.9 10^3/uL (4.3-11.0)
[2017-07-04 13:40] LABS: CALCIUM 8.9 MG/DL (8.5-10.1); CREATININE SERUM 1.55 MG/DL (0.60-1.30); MAGNESIUM 1.6 MG/DL (1.8-2.4); POTASSIUM 4.5 MMOL/L (3.6-5.0)
[~2017-07-11 15:00] MED LIST changes: +ACETAMINOPHEN 500 MG TAB (TYLENOL) CANCER CTR ONE; +MAGNESIUM SULFATE (CANCER CTR) 2 GM in NS IV 1000 ML (CANCER CTR) 1,000 ML IV SCH; +MAGNESIUM SULFATE 3 GM in NS (IVPB) CANCER CENTER 100 ML IV ONE; +MAGNESIUM SULFATE IV ONE; +NS IV 500 ML (CANCER CENTER) 500 ML ONE; +SODIUM CHLORIDE IV ONE
[2017-07-11 15:27] LABS: BASOPHILS % (AUTO) 2 % (0-10); EOSINOPHILS # (AUTO) 0.1 10^3/uL (0.0-0.3); EOSINOPHILS % (AUTO) 5 % (0-10); LYMPHOCYTES # (AUTO) 0.4 X 10^3 (1.0-4.0); LYMPHOCYTES % (AUTO) 29 % (12-44); MEAN CORPUSCULAR HEMOGLOBIN 32 PG (25-34); MEAN CORPUSCULAR HGB CONC 33 G/DL (32-36); MEAN CORPUSCULAR VOLUME 99 FL (80-99); MEAN PLATELET VOLUME 9.3 FL (7.4-10.4); MONOCYTES # (AUTO) 0.1 X 10^3 (0.0-1.0); MONOCYTES % (AUTO) 11 % (0-12); NEUTROPHILS # (AUTO) 0.7 X 10^3 (1.8-7.8); NEUTROPHILS % (AUTO) 54 % (42-75); PLATELET COUNT 124 10^3/uL (130-400); RED BLOOD COUNT 2.78 10^6/uL (4.35-5.85); RED CELL DISTRIBUTION WIDTH 18.7 % (10.0-14.5)
[2017-07-11 15:29] LABS: WHITE BLOOD COUNT 1.3 10^3/uL (4.3-11.0)
[2017-07-11 15:50] LABS: CALCIUM 9.3 MG/DL (8.5-10.1); CREATININE SERUM 1.42 MG/DL (0.60-1.30); MAGNESIUM 1.5 MG/DL (1.8-2.4); POTASSIUM 4.1 MMOL/L (3.6-5.0)
== END 2017-07-17 13:11 | disposition home or self-care (01) ==
LOC: ONC 15:00
PROVIDERS: ATTEND Internal Medicine Hematology & Oncology
DX: Z51.11 Encounter for antineoplastic chemotherapy (principal); C90.00 Multiple myeloma not having achieved remission; D64.9 Anemia, unspecified; M89.9 Disorder of bone, unspecified; Z79.899 Other long term (current) drug therapy
CPT/HCPCS: 36415; 36430; 36591; 80048; 80053; 82232; 82784; 83735; 83883; 85025; 86850; 86900; 86901; 86920; 96365; 96366; 96367; 96375; 96413

== ENCOUNTER 2017-10-04 13:35 | Outpatient (RCR) | payer MEDICARE, MEDICAID ==
[2017-07-18 13:36] LABS: BASOPHILS % (AUTO) 0 % (0-10); EOSINOPHILS % (AUTO) 0 % (0-10); HEMATOCRIT 27 % (35-52); HEMOGLOBIN 8.8 G/DL (11.5-16.0); LYMPHOCYTES # (AUTO) 0.4 X 10^3 (1.0-4.0); LYMPHOCYTES % (AUTO) 15 % (12-44); MEAN CORPUSCULAR HEMOGLOBIN 32 PG (25-34); MEAN CORPUSCULAR HGB CONC 33 G/DL (32-36); MEAN CORPUSCULAR VOLUME 97 FL (80-99); MEAN PLATELET VOLUME 9.6 FL (7.4-10.4); MONOCYTES # (AUTO) 0.1 X 10^3 (0.0-1.0); MONOCYTES % (AUTO) 3 % (0-12); NEUTROPHILS # (AUTO) 2.2 X 10^3 (1.8-7.8); NEUTROPHILS % (AUTO) 82 % (42-75); PLATELET COUNT 105 10^3/uL (130-400); RED BLOOD COUNT 2.73 10^6/uL (4.35-5.85); RED CELL DISTRIBUTION WIDTH 18.2 % (10.0-14.5); WHITE BLOOD COUNT 2.7 10^3/uL (4.3-11.0)
[2017-07-18 13:55] LABS: ALBUMIN 3.5 GM/DL (3.2-4.5); BILIRUBIN,TOTAL 0.2 MG/DL (0.1-1.0); CALCIUM 9.5 MG/DL (8.5-10.1); CREATININE SERUM 1.58 MG/DL (0.60-1.30); MAGNESIUM 1.6 MG/DL (1.8-2.4); POTASSIUM 4.7 MMOL/L (3.6-5.0); TOTAL PROTEIN 6.6 GM/DL (6.4-8.2)
--- NOTE | 2017-07-18 19:45 | Diagnostic Imaging Report ---
PA and lateral views of the chest. INDICATION: Shortness of breath. COMPARISON: 05/10/17. FINDINGS: There is a large opacity seen in the right lung base obscuring the right middle lobe. This is associated with a large hernia in the medial anterior right hemidiaphragm as confirmed on prior outside CT scan. There is minimal left basilar atelectasis. There is no focal consolidation. No effusion or pneumothorax. The heart size is normal. A dense nodule in the upper right lung is compatible with a calcified granuloma. Infusion port through the left subclavian vein terminates at the SVC level. There is evidence of lumbar spine kyphoplasty changes. IMPRESSION: No acute process. Dictated by: Dictated on workstation # [id number]
[2017-07-25 13:53] LABS: BASOPHILS % (AUTO) 1 % (0-10); EOSINOPHILS # (AUTO) 0.1 10^3/uL (0.0-0.3); EOSINOPHILS % (AUTO) 4 % (0-10); HEMATOCRIT 30 % (35-52); HEMOGLOBIN 9.5 G/DL (11.5-16.0); LYMPHOCYTES # (AUTO) 0.3 X 10^3 (1.0-4.0); LYMPHOCYTES % (AUTO) 15 % (12-44); MEAN CORPUSCULAR HEMOGLOBIN 32 PG (25-34); MEAN CORPUSCULAR HGB CONC 32 G/DL (32-36); MEAN CORPUSCULAR VOLUME 101 FL (80-99); MEAN PLATELET VOLUME 10.4 FL (7.4-10.4); MONOCYTES # (AUTO) 0.1 X 10^3 (0.0-1.0); MONOCYTES % (AUTO) 7 % (0-12); NEUTROPHILS # (AUTO) 1.4 X 10^3 (1.8-7.8); NEUTROPHILS % (AUTO) 73 % (42-75); PLATELET COUNT 90 10^3/uL (130-400); RED BLOOD COUNT 2.93 10^6/uL (4.35-5.85); WHITE BLOOD COUNT 1.9 10^3/uL (4.3-11.0)
[2017-07-25 14:11] LABS: CALCIUM 9.3 MG/DL (8.5-10.1); CREATININE SERUM 1.43 MG/DL (0.60-1.30); POTASSIUM 4.2 MMOL/L (3.6-5.0)
[2017-08-01 13:53] LABS: BASOPHILS % (AUTO) 1 % (0-10); EOSINOPHILS % (AUTO) 2 % (0-10); HEMATOCRIT 25 % (35-52); HEMOGLOBIN 8.4 G/DL (11.5-16.0); LYMPHOCYTES # (AUTO) 0.4 X 10^3 (1.0-4.0); LYMPHOCYTES % (AUTO) 26 % (12-44); MEAN CORPUSCULAR HEMOGLOBIN 33 PG (25-34); MEAN CORPUSCULAR HGB CONC 33 G/DL (32-36); MEAN CORPUSCULAR VOLUME 99 FL (80-99); MEAN PLATELET VOLUME 9.9 FL (7.4-10.4); MONOCYTES # (AUTO) 0.2 X 10^3 (0.0-1.0); MONOCYTES % (AUTO) 13 % (0-12); NEUTROPHILS % (AUTO) 58 % (42-75); PLATELET COUNT 71 10^3/uL (130-400); RED BLOOD COUNT 2.56 10^6/uL (4.35-5.85); RED CELL DISTRIBUTION WIDTH 17.1 % (10.0-14.5); WHITE BLOOD COUNT 1.7 10^3/uL (4.3-11.0)
[2017-08-01 14:09] LABS: CREATININE SERUM 1.2 MG/DL (0.60-1.30); POTASSIUM 3.1 MMOL/L (3.6-5.0)
[2017-08-07 13:25] LABS: BASOPHILS % (AUTO) 0 % (0-10); EOSINOPHILS % (AUTO) 2 % (0-10); HEMATOCRIT 26 % (35-52); HEMOGLOBIN 8.4 G/DL (11.5-16.0); LYMPHOCYTES # (AUTO) 0.6 X 10^3 (1.0-4.0); LYMPHOCYTES % (AUTO) 38 % (12-44); MEAN CORPUSCULAR HEMOGLOBIN 32 PG (25-34); MEAN CORPUSCULAR HGB CONC 33 G/DL (32-36); MEAN CORPUSCULAR VOLUME 97 FL (80-99); MEAN PLATELET VOLUME 10.1 FL (7.4-10.4); MONOCYTES # (AUTO) 0.2 X 10^3 (0.0-1.0); MONOCYTES % (AUTO) 11 % (0-12); NEUTROPHILS # (AUTO) 0.8 X 10^3 (1.8-7.8); NEUTROPHILS % (AUTO) 49 % (42-75); PLATELET COUNT 49 10^3/uL (130-400); RED BLOOD COUNT 2.67 10^6/uL (4.35-5.85); RED CELL DISTRIBUTION WIDTH 16.4 % (10.0-14.5); WHITE BLOOD COUNT 1.7 10^3/uL (4.3-11.0)
[2017-08-07 13:41] LABS: CALCIUM 8.5 MG/DL (8.5-10.1); CREATININE SERUM 0.96 MG/DL (0.60-1.30); POTASSIUM 3.2 MMOL/L (3.6-5.0)
[2017-08-15 13:51] LABS: BASOPHILS % (AUTO) 0 % (0-10); EOSINOPHILS % (AUTO) 1 % (0-10); HEMATOCRIT 25 % (35-52); HEMOGLOBIN 7.9 G/DL (11.5-16.0); LYMPHOCYTES # (AUTO) 0.6 X 10^3 (1.0-4.0); LYMPHOCYTES % (AUTO) 39 % (12-44); MEAN CORPUSCULAR HEMOGLOBIN 32 PG (25-34); MEAN CORPUSCULAR HGB CONC 31 G/DL (32-36); MEAN CORPUSCULAR VOLUME 103 FL (80-99); MEAN PLATELET VOLUME 9.5 FL (7.4-10.4); MONOCYTES # (AUTO) 0.2 X 10^3 (0.0-1.0); MONOCYTES % (AUTO) 11 % (0-12); NEUTROPHILS # (AUTO) 0.8 X 10^3 (1.8-7.8); NEUTROPHILS % (AUTO) 49 % (42-75); PLATELET COUNT 62 10^3/uL (130-400); RED BLOOD COUNT 2.45 10^6/uL (4.35-5.85); WHITE BLOOD COUNT 1.6 10^3/uL (4.3-11.0)
[2017-08-15 14:09] LABS: ALBUMIN 3.1 GM/DL (3.2-4.5); BILIRUBIN,TOTAL 0.2 MG/DL (0.1-1.0); CALCIUM 8.9 MG/DL (8.5-10.1); CREATININE SERUM 1.09 MG/DL (0.60-1.30); POTASSIUM 4.3 MMOL/L (3.6-5.0); TOTAL PROTEIN 6.1 GM/DL (6.4-8.2)
--- NOTE | 2017-08-15 14:21 | Diagnostic Imaging Report ---
EXAM: 2 views of the left leg. INDICATION: Left knee pain. FINDINGS: There is a left hip replacement which appears to be in good position. There is no acute fracture identified. There is generalized osteopenia noted. There are lucent lesions seen in the mid and distal left femoral shaft which may relate to multiple myeloma. IMPRESSION: 1. No acute fracture. 2. Background osteopenia and radiolucent lesions seen in the mid and distal left femoral shaft, may relate to multiple myeloma. Dictated by: Dictated on workstation # [id number]
[2017-08-22 12:00] LABS: BASOPHILS % (AUTO) 0 % (0-10); EOSINOPHILS % (AUTO) 1 % (0-10); HEMATOCRIT 28 % (35-52); HEMOGLOBIN 8.9 G/DL (11.5-16.0); LYMPHOCYTES # (AUTO) 1.2 X 10^3 (1.0-4.0); LYMPHOCYTES % (AUTO) 50 % (12-44); MEAN CORPUSCULAR HEMOGLOBIN 32 PG (25-34); MEAN CORPUSCULAR HGB CONC 32 G/DL (32-36); MEAN CORPUSCULAR VOLUME 101 FL (80-99); MEAN PLATELET VOLUME 9.7 FL (7.4-10.4); MONOCYTES # (AUTO) 0.3 X 10^3 (0.0-1.0); MONOCYTES % (AUTO) 11 % (0-12); NEUTROPHILS # (AUTO) 0.9 X 10^3 (1.8-7.8); NEUTROPHILS % (AUTO) 38 % (42-75); PLATELET COUNT 77 10^3/uL (130-400); RED BLOOD COUNT 2.78 10^6/uL (4.35-5.85); RED CELL DISTRIBUTION WIDTH 16.4 % (10.0-14.5); WHITE BLOOD COUNT 2.4 10^3/uL (4.3-11.0)
[2017-08-22 12:15] LABS: CALCIUM 9.1 MG/DL (8.5-10.1); CREATININE SERUM 1.21 MG/DL (0.60-1.30); MAGNESIUM 1.4 MG/DL (1.8-2.4); POTASSIUM 4.4 MMOL/L (3.6-5.0)
[2017-08-29 15:29] LABS: BASOPHILS % (AUTO) 0 % (0-10); EOSINOPHILS # (AUTO) 0.1 10^3/uL (0.0-0.3); EOSINOPHILS % (AUTO) 2 % (0-10); HEMATOCRIT 28 % (35-52); HEMOGLOBIN 9.1 G/DL (11.5-16.0); LYMPHOCYTES # (AUTO) 0.8 X 10^3 (1.0-4.0); LYMPHOCYTES % (AUTO) 26 % (12-44); MEAN CORPUSCULAR HEMOGLOBIN 33 PG (25-34); MEAN CORPUSCULAR HGB CONC 32 G/DL (32-36); MEAN CORPUSCULAR VOLUME 103 FL (80-99); MONOCYTES # (AUTO) 0.3 X 10^3 (0.0-1.0); MONOCYTES % (AUTO) 10 % (0-12); NEUTROPHILS # (AUTO) 1.8 X 10^3 (1.8-7.8); NEUTROPHILS % (AUTO) 62 % (42-75); PLATELET COUNT 100 10^3/uL (130-400); RED BLOOD COUNT 2.75 10^6/uL (4.35-5.85); RED CELL DISTRIBUTION WIDTH 16.6 % (10.0-14.5); WHITE BLOOD COUNT 2.9 10^3/uL (4.3-11.0)
[2017-08-29 15:54] LABS: ALBUMIN 3.4 GM/DL (3.2-4.5); BILIRUBIN,TOTAL 0.2 MG/DL (0.1-1.0); CALCIUM 8.5 MG/DL (8.5-10.1); CREATININE SERUM 1.55 MG/DL (0.60-1.30); MAGNESIUM 1.7 MG/DL (1.8-2.4); POTASSIUM 4.8 MMOL/L (3.6-5.0); TOTAL PROTEIN 6.8 GM/DL (6.4-8.2)
[2017-09-05 13:51] LABS: BASOPHILS % (AUTO) 0 % (0-10); EOSINOPHILS % (AUTO) 1 % (0-10); HEMATOCRIT 30 % (35-52); HEMOGLOBIN 9.9 G/DL (11.5-16.0); LYMPHOCYTES # (AUTO) 0.1 X 10^3 (1.0-4.0); LYMPHOCYTES % (AUTO) 6 % (12-44); MEAN CORPUSCULAR HEMOGLOBIN 33 PG (25-34); MEAN CORPUSCULAR HGB CONC 33 G/DL (32-36); MEAN CORPUSCULAR VOLUME 101 FL (80-99); MEAN PLATELET VOLUME 9.3 FL (7.4-10.4); MONOCYTES # (AUTO) 0.2 X 10^3 (0.0-1.0); MONOCYTES % (AUTO) 10 % (0-12); NEUTROPHILS % (AUTO) 83 % (42-75); PLATELET COUNT 108 10^3/uL (130-400); WHITE BLOOD COUNT 2.4 10^3/uL (4.3-11.0)
[2017-09-05 14:08] LABS: CALCIUM 9.1 MG/DL (8.5-10.1); CREATININE SERUM 1.41 MG/DL (0.60-1.30); POTASSIUM 5.6 MMOL/L (3.6-5.0)
[2017-09-12 13:25] LABS: BASOPHILS % (AUTO) 1 % (0-10); EOSINOPHILS % (AUTO) 2 % (0-10); HEMATOCRIT 26 % (35-52); HEMOGLOBIN 8.2 G/DL (11.5-16.0); LYMPHOCYTES # (AUTO) 0.3 X 10^3 (1.0-4.0); LYMPHOCYTES % (AUTO) 17 % (12-44); MEAN CORPUSCULAR HEMOGLOBIN 33 PG (25-34); MEAN CORPUSCULAR HGB CONC 32 G/DL (32-36); MEAN CORPUSCULAR VOLUME 104 FL (80-99); MEAN PLATELET VOLUME 10.2 FL (7.4-10.4); MONOCYTES # (AUTO) 0.4 X 10^3 (0.0-1.0); MONOCYTES % (AUTO) 18 % (0-12); NEUTROPHILS # (AUTO) 1.3 X 10^3 (1.8-7.8); NEUTROPHILS % (AUTO) 64 % (42-75); PLATELET COUNT 97 10^3/uL (130-400); RED BLOOD COUNT 2.47 10^6/uL (4.35-5.85); RED CELL DISTRIBUTION WIDTH 15.7 % (10.0-14.5)
[2017-09-12 13:50] LABS: CREATININE SERUM 1.6 MG/DL (0.60-1.30); POTASSIUM 4.6 MMOL/L (3.6-5.0)
[2017-09-12 13:51] LABS: CALCIUM 8.7 MG/DL (8.5-10.1)
[2017-09-20 14:06] LABS: ALBUMIN 3.3 GM/DL (3.2-4.5); BILIRUBIN,TOTAL 0.3 MG/DL (0.1-1.0); CALCIUM 8.8 MG/DL (8.5-10.1); CREATININE SERUM 1.26 MG/DL (0.60-1.30); POTASSIUM 3.3 MMOL/L (3.6-5.0); TOTAL PROTEIN 7.2 GM/DL (6.4-8.2)
[2017-09-27 11:02] LABS: BASOPHILS % (AUTO) 0 % (0-10); EOSINOPHILS # (AUTO) 0.1 10^3/uL (0.0-0.3); EOSINOPHILS % (AUTO) 3 % (0-10); HEMATOCRIT 25 % (35-52); HEMOGLOBIN 8.1 G/DL (11.5-16.0); LYMPHOCYTES # (AUTO) 0.3 X 10^3 (1.0-4.0); LYMPHOCYTES % (AUTO) 17 % (12-44); MEAN CORPUSCULAR HEMOGLOBIN 33 PG (25-34); MEAN CORPUSCULAR HGB CONC 32 G/DL (32-36); MEAN CORPUSCULAR VOLUME 101 FL (80-99); MEAN PLATELET VOLUME 9.6 FL (7.4-10.4); MONOCYTES # (AUTO) 0.2 X 10^3 (0.0-1.0); MONOCYTES % (AUTO) 13 % (0-12); NEUTROPHILS # (AUTO) 1.2 X 10^3 (1.8-7.8); NEUTROPHILS % (AUTO) 67 % (42-75); PLATELET COUNT 75 10^3/uL (130-400); RED BLOOD COUNT 2.48 10^6/uL (4.35-5.85); RED CELL DISTRIBUTION WIDTH 14.5 % (10.0-14.5); WHITE BLOOD COUNT 1.8 10^3/uL (4.3-11.0)
[2017-09-27 11:23] LABS: ALBUMIN 3.1 GM/DL (3.2-4.5); BILIRUBIN,TOTAL 0.3 MG/DL (0.1-1.0); CALCIUM 8.5 MG/DL (8.5-10.1); CREATININE SERUM 1.35 MG/DL (0.60-1.30); TOTAL PROTEIN 7.4 GM/DL (6.4-8.2)
[~2017-10-04] VITALS: Ht 162.6 cm; Wt 66.7 kg
[~2017-10-04 13:35] MED LIST changes: -ACETAMINOPHEN 500 MG TAB (TYLENOL) CANCER CTR ONE; +BENDAMUSTINE HCL 150 MG in NS (IVPB) CANCER CENTER 50 ML IV SCH; +BORTEZOMIB 3.5 MG VELCADE IV SCH; -HYDR-3816 PO; -MAGNESIUM SULFATE (CANCER CTR) 2 GM in NS IV 1000 ML (CANCER CTR) 1,000 ML IV SCH; -MAGNESIUM SULFATE 3 GM in NS (IVPB) CANCER CENTER 100 ML IV ONE; -MAGNESIUM SULFATE IV ONE; +NS IV 500 ML (CANCER CENTER) IV SCH; +ONDANSETRON 16 MG, DEXAMETHASONE 10 MG/NS 50 ML IVPB IV SCH; -SODIUM CHLORIDE IV ONE
[2017-10-04 14:44] LABS: BASOPHILS % (AUTO) 1 % (0-10); EOSINOPHILS % (AUTO) 1 % (0-10); HEMATOCRIT 26 % (35-52); HEMOGLOBIN 8.4 G/DL (11.5-16.0); LYMPHOCYTES # (AUTO) 0.6 X 10^3 (1.0-4.0); LYMPHOCYTES % (AUTO) 28 % (12-44); MEAN CORPUSCULAR HEMOGLOBIN 33 PG (25-34); MEAN CORPUSCULAR HGB CONC 33 G/DL (32-36); MEAN CORPUSCULAR VOLUME 101 FL (80-99); MEAN PLATELET VOLUME 8.7 FL (7.4-10.4); MONOCYTES # (AUTO) 0.4 X 10^3 (0.0-1.0); MONOCYTES % (AUTO) 18 % (0-12); NEUTROPHILS # (AUTO) 1.1 X 10^3 (1.8-7.8); NEUTROPHILS % (AUTO) 54 % (42-75); PLATELET COUNT 46 10^3/uL (130-400); RED BLOOD COUNT 2.55 10^6/uL (4.35-5.85); RED CELL DISTRIBUTION WIDTH 14.7 % (10.0-14.5); WHITE BLOOD COUNT 2.1 10^3/uL (4.3-11.0)
[2017-10-04] MEDS ORDERED: NS IV 1000 ML (CANCER CTR) 1,000 ML ONE (14:49)
[2017-10-04 15:10] LABS: ALBUMIN 2.7 GM/DL (3.2-4.5); BILIRUBIN,TOTAL 0.5 MG/DL (0.1-1.0); CALCIUM 8.5 MG/DL (8.5-10.1); CREATININE SERUM 1.34 MG/DL (0.60-1.30); POTASSIUM 3.6 MMOL/L (3.6-5.0); TOTAL PROTEIN 8.1 GM/DL (6.4-8.2)
== END 2017-10-16 | disposition home or self-care (01) ==
LOC: ONC 13:35
PROVIDERS: ATTEND Internal Medicine Hematology & Oncology
DX: Z51.11 Encounter for antineoplastic chemotherapy (principal); C90.00 Multiple myeloma not having achieved remission; D64.9 Anemia, unspecified; M89.9 Disorder of bone, unspecified; Z79.899 Other long term (current) drug therapy
CPT/HCPCS: 36415; 36591; 71020; 73552; 80048; 80053; 82232; 82784; 83735; 83883; 84155; 84165; 85025; 96360; 96375; 96401; 96409; 96413; 99213

== ENCOUNTER 2017-10-28 14:31 | Outpatient (RCR) | payer MEDICAID, MEDICARE ==
[2017-10-17 13:08] LABS: BASOPHILS # (AUTO) 0.1 10^3/uL (0.0-0.1); BASOPHILS % (AUTO) 2 % (0-10); EOSINOPHILS % (AUTO) 0 % (0-10); HEMATOCRIT 26 % (35-52); LYMPHOCYTES # (AUTO) 5.8 X 10^3 (1.0-4.0); LYMPHOCYTES % (AUTO) 72 % (12-44); MEAN CORPUSCULAR HEMOGLOBIN 32 PG (25-34); MEAN CORPUSCULAR HGB CONC 31 G/DL (32-36); MEAN CORPUSCULAR VOLUME 102 FL (80-99); MEAN PLATELET VOLUME 10.3 FL (7.4-10.4); MONOCYTES # (AUTO) 0.6 X 10^3 (0.0-1.0); MONOCYTES % (AUTO) 7 % (0-12); NEUTROPHILS # (AUTO) 1.5 X 10^3 (1.8-7.8); NEUTROPHILS % (AUTO) 19 % (42-75); RED BLOOD COUNT 2.51 10^6/uL (4.35-5.85); RED CELL DISTRIBUTION WIDTH 16.5 % (10.0-14.5); WHITE BLOOD COUNT 8.1 10^3/uL (4.3-11.0)
[2017-10-17 13:09] LABS: PLATELET COUNT 22 10^3/uL (130-400)
[2017-10-17 13:26] LABS: ALBUMIN 2.1 GM/DL (3.2-4.5); CALCIUM 8.3 MG/DL (8.5-10.1); CREATININE SERUM 1.74 MG/DL (0.60-1.30); POTASSIUM 3.8 MMOL/L (3.6-5.0); TOTAL PROTEIN 10.5 GM/DL (6.4-8.2)
--- NOTE | 2017-10-17 14:09 | Diagnostic Imaging Report ---
INDICATION: Shortness of breath. Time of exam: 1:57 PM Comparison is made with prior chest from 07/18/2017. The heart size is stable. Calcified nodule right upper lobe is unchanged. Left chest wall port remains in place. Density in the right cardiophrenic region is stable. There is some mild density in the left costophrenic angle. Mild infiltrate or atelectasis cannot be excluded. No effusion is seen. There is no pneumothorax. Kyphoplasty changes in the upper lumbar spine are noted. IMPRESSION: 1. Mild infiltrate or atelectasis in the left base. The study is otherwise unremarkable. Dictated by: Dictated on workstation # [id number]
[2017-10-25 12:12] LABS: BASOPHILS % (AUTO) 1 % (0-10); EOSINOPHILS % (AUTO) 1 % (0-10); HEMATOCRIT 22 % (35-52); HEMOGLOBIN 7.1 G/DL (11.5-16.0); LYMPHOCYTES # (AUTO) 3.8 X 10^3 (1.0-4.0); LYMPHOCYTES % (AUTO) 76 % (12-44); MEAN CORPUSCULAR HEMOGLOBIN 32 PG (25-34); MEAN CORPUSCULAR HGB CONC 32 G/DL (32-36); MEAN CORPUSCULAR VOLUME 100 FL (80-99); MONOCYTES # (AUTO) 0.3 X 10^3 (0.0-1.0); MONOCYTES % (AUTO) 6 % (0-12); NEUTROPHILS # (AUTO) 0.9 X 10^3 (1.8-7.8); NEUTROPHILS % (AUTO) 17 % (42-75); RED BLOOD COUNT 2.24 10^6/uL (4.35-5.85); RED CELL DISTRIBUTION WIDTH 16.4 % (10.0-14.5)
[2017-10-25 12:14] LABS: PLATELET COUNT 7 10^3/uL (130-400)
[~2017-10-28 14:31] MED LIST changes: -ACETAMINOPHEN 325 MG TAB (TYLENOL) CANCER CTR PO PRN; +ACETAMINOPHEN 500 MG TAB (TYLENOL) CANCER CTR ONE; -BENDAMUSTINE HCL 150 MG in NS (IVPB) CANCER CENTER 50 ML IV SCH; -BORTEZOMIB 3.5 MG VELCADE IV SCH; -DEXAMETHASONE IV SCH; -ELOTUZUMAB IV SCH; -FAMOTIDINE 20MG/2ML IV (CANCER CTR) IV SCH; +NS IV 1000 ML (CANCER CTR) 1,000 ML ONE; -NS IV 1000 ML (CANCER CTR) IV SCH; -NS IV 500 ML (CANCER CENTER) IV SCH; -NS IV SCH; -ONDANSETRON 16 MG, DEXAMETHASONE 10 MG/NS 50 ML IVPB IV SCH; +diphenhydrAMINE 25 MG TAB (BENADRYL) CANCER CENTER PO ONE; -diphenhydrAMINE 50 MG/ML INJ (CANCER CENTER) IV PRN
[2017-10-28 15:24] LABS: BASOPHILS # (AUTO) 0.1 10^3/uL (0.0-0.1); BASOPHILS % (AUTO) 1 % (0-10); EOSINOPHILS % (AUTO) 0 % (0-10); HEMATOCRIT 21 % (35-52); LYMPHOCYTES # (AUTO) 5.5 X 10^3 (1.0-4.0); LYMPHOCYTES % (AUTO) 83 % (12-44); MEAN CORPUSCULAR HEMOGLOBIN 31 PG (25-34); MEAN CORPUSCULAR HGB CONC 31 G/DL (32-36); MEAN CORPUSCULAR VOLUME 100 FL (80-99); MEAN PLATELET VOLUME 8.8 FL (7.4-10.4); MONOCYTES # (AUTO) 0.5 X 10^3 (0.0-1.0); MONOCYTES % (AUTO) 7 % (0-12); NEUTROPHILS # (AUTO) 0.6 X 10^3 (1.8-7.8); NEUTROPHILS % (AUTO) 10 % (42-75); RED CELL DISTRIBUTION WIDTH 16.9 % (10.0-14.5); WHITE BLOOD COUNT 6.7 10^3/uL (4.3-11.0)
[2017-10-28 15:25] LABS: HEMOGLOBIN 6.5 G/DL (11.5-16.0); PLATELET COUNT 16 10^3/uL (130-400)
== END 2017-10-29 | disposition home or self-care (01) ==
LOC: ONC 14:31
PROVIDERS: ATTEND Internal Medicine Hematology & Oncology
DX: C90.00 Multiple myeloma not having achieved remission (principal); D64.9 Anemia, unspecified; M89.9 Disorder of bone, unspecified; Z79.899 Other long term (current) drug therapy
CPT/HCPCS: 36415; 36430; 71046; 77290; 77295; 77300; 77334; 77417; 80053; 85025; 96360; 99204; 99214